=== PATIENT | female | born 1960 | race Caucasian/White ===

== ENCOUNTER 2019-12-29 17:15 | Outpatient (RCR) | payer MEDICARE, SELFPAY ==
--- NOTE | 2019-12-13 16:31 | PTOPEVAL ---
PHYSICAL THERAPY EVALUATION AND PLAN OF CARE Thank you for referring this patient to [facility]. Frederick will be seen in physical therapy 1x/week for 2-3weeks. Please review, sign, date and return this plan of care ADELAIDA. I agree with and certify that the following plan of care is medically necessary. Referring Physician Date Attending Provider: Mckay Sargent MD Evaluation Outpatient Past Medical History Cardiovascular History Hx Hypertension Yes Respiratory History Hx Respiratory Disorders No Significant History Gastrointestinal History Hx Gall Bladder Disease Yes: Removed Hx Gastroesophageal Reflux Disease Yes Genitourinary History Hx Genitourinary Disorders No Significant History Musculoskeletal History Hx Other Musculoskeletal Disorders Yes: ankylosing spondlyosis Other History Hx Other Surgeries Yes: belly button hernia Evaluation Information Diagnosis OA of spine; ankylosing spondylosis Onset chronic Subjective Information Frederick is here today with Query Text:As Reported By Patient/ diagnosis of ankylosing Family spondylosis. She is here today for physical therapy to provide education and HEP in order to promote optimal mobility. She reports she does have pain; however, she knows that pain is a result of her diagnosis. She states that the physician is concerned she will lose her mobility and she needs to learn how to manage. Pain Scale Pain Scale Used Numeric (1 - 10) Self Report Pain Assessment Bilateral Spine, Lumbar Reported Pain Level 4 Pain Description Aching,Cramping Pain Score Pain Score 4: Self Report Cervical ROM Cervical Extension (0-70) 55 Cervical Rotation Right (0-90) 65 Cervical Rotation Left (0-90) 45 Lumbar ROM Lumbar Flexion (0-90) 54 Lumbar Extension (0-40) 15 Lateral Rotation Right (0-45) 20 Lateral Rotation Left (0-45) 20 General Upper Extremity Range of Motion WNL/Left,WNL/Right Lower Extremity Range of Motion General Lower Extremity Range of Motion WNL/Left,WNL/Right Hip Strength Bilateral Hip Flexion Strength 5 Normal Hip Extension Strength 4 Good Hip Abduction Strength 5 Normal Knee Strength Bilateral Knee Flexion Strength 5 Normal Knee Extension Strength 5 Normal Upper Extremity Muscle Strength Testing Gross Upper Extremity Strength Comments generally WNL; right
--- NOTE | 2020-01-03 16:04 | PCPTNOTE ---
PHYSICAL THERAPY DISCHARGE REPORT Attending Provider: Mckay Sargent MD Patient:Frederick Sellers Date of :1960 Frederick has participated in physical therapy for 2 visits for education on body mechanics, posture, and strengthening or in order to prevent further complication from ankylosing spondylosis. She was also provided with education regarding mobility of spine to maintain ROM as possible. She will be discharged from therapy at this time. The goals have been achieved. Thank you for referring this patient to [facility]. Please review, sign, date and return this discharge summary ADEALIDA. I have been updated about the patient's current status and I agree with discharge from the above service at this time. Referring Physician Date
== END 2020-01-04 08:27 | disposition home or self-care (01) ==
LOC: ANHPT 17:15
PROVIDERS: PCP Internal Medicine; Visit Provider Internal Medicine
DX: M19.90 Unspecified osteoarthritis, unspecified site (principal)
CPT/HCPCS: 97110; 97161

== ENCOUNTER 2019-12-30 08:32 | Outpatient (CLI) | payer MEDICARE, SELFPAY ==
--- NOTE | 2020-01-11 06:06 | SLEEP_ITS ---
Home Sleep Test DATE OF STUDY: 12/30/2019 ORDERING PHYSICIAN: Dr. Dewayne John. REASON FOR THE STUDY: Hypersomnia. HISTORY: This is a 59-year-old female, 5 feet 2 inches tall, weighing 193 pounds with a body mass index of 35.3. She does not know if she snores. Nobody complains about loud snoring to her. She occasionally awakens at night with heartburn, belching, or coughing. She rarely has trouble sleeping with the cold. She does not gasp for breath at night or sweat excessively at night. She occasionally notices her heart pounding or beating irregularly at night. She does not fall asleep during the day, does not fall asleep involuntarily and does not fall asleep while driving. She does not have loss of muscle tone with strong emotion or daytime difficulty due to excessive sleepiness. She does not feel paralyzed on waking or falling asleep. She denies having vivid dreamlike scenes upon awakening or falling asleep. She is never afraid to go to sleep. She does not have nightmares. She rarely remembers her dreams. She occasionally has racing thoughts, feelings of sadness, depression or anxiety. She does not have muscular tension. She occasionally notices parts of her body jerking. She does not kick at night or have crawly achy feelings in her legs. She does not have leg pain at night. She rarely grinds her teeth at night. She constantly is bothered by pain during the day, but never is awakened by pain at night. She constantly wakes up feeling stiff in the morning with pain in her neck and spine, but denies sore or achy muscles. She has headaches and palpitations. Normal bedtime is 1 a.m., falling asleep within 15 or 20 minutes, waking 3 times to use the bathroom. She stays awake for just a few minutes. She wakes in the morning at 11 a.m. She has on average 8 hours of sleep per night. She does not take naps. A short nap is not refreshing. She feels good in the morning. She feels better in the afternoon than in the morning. MEDICAL COMORBIDITIES: Hypertension, ankylosing spondylitis, GERD, migraine headaches. MEDICATIONS: 1. Amitriptyline 75 mg for migraines. 2. Metoprolol ER 12.5 mg daily. 3. Atorvastatin 20 mg daily. 4. Pantoprazole 40 mg a day. 5. Humira by weekly for ankylosing spondylitis. 6. Nitroglycerin 0.4 mg as needed for chest pain. 7. Aspirin 81 mg a day. 8. Vitamin D3 of 2000 units twice a day. 9. Calcium 600 mg daily. 10. Multivitamin 1 daily. HABITS: She smoked tobacco 10 years ago. Two cups of coffee a day. No alcohol or recreational drugs. DESCRIPTION OF THE STUDY: On the [place] Sleepiness Scale, her score is 3. This was conducted as a home sleep test using 4 channel monitoring including respiratory effort channel, snoring channel, oxygen saturation channel, and heart rate channel. This study was scored using [facility] guidelines. The apnea-hypopnea index was elevated at 19. The oxygen desaturation index is 18.5. The lowest desaturation is 73%. The mean saturation is 93%. She had 31 apneas. Of these apneas, 94% or 29 apneas were obstructive, 6% or 2 apneas were central, there were 121 hypopneas, 509 snoring events, and 144 desaturations with 12 minutes spent below 88%, 3% of the study. Heart rate ranged from 65 to 115. IMPRESSION: This home sleep test shows evidence of at least moderate obstructive sleep apnea syndrome G47.33, with an AHI of 19. Deep desaturation to 73%. Multiple desaturations and 12 minutes spent below 88% saturation. There were heart rate spikes. The patient has medical comorbidities including hypertension. This patient should have a CPAP titration to eliminate obstructive events with desaturation and snoring. Close clinical followup is recommended. The patient does not complain of daytime
== END 2019-12-30 08:33 | disposition home or self-care (01) ==
PROVIDERS: PCP Internal Medicine; Visit Provider Internal Medicine
DX: G47.10 Hypersomnia, unspecified (principal); G47.33 Obstructive sleep apnea (adult) (pediatric)
CPT/HCPCS: 95806

== ENCOUNTER 2020-06-04 09:33 | Outpatient (CLI) | payer MEDICARE, SELFPAY ==
--- NOTE | ~2020-06-04 | US_ITS ---
US abdomen complete EXAMINATION: US Abdomen Complete INDICATION: Epigastric pain. Prior cholecystectomy. PROCEDURE: Realtime High Resolution abdomen ultrasound. COMPARISON: Ultrasound dated 03/12/2019 FINDINGS: Gallbladder surgically absent. Common bile duct measures 4 mm. Liver echotexture is increased, consistent with fatty infiltration.. Pancreas within normal limits. Pancreatic tail is obscured by bowel gas. Spleen is unremarkeable. Renal echotexture is within norm al limits bilaterally without hydronephrosis, contour deforming mass or renal stone. Right kidney angel luis sures 10.4 cm. Left kidney measures 10.1 cm. Visualized aspects of the aorta and IVC are within normal limits. Portal vein is patent. No sonograph ic Liu's sign indicated by the technologist. IMPRESSION: 1: Hepatic steatosis. 2: Status post cholecystectomy. Reviewed, dictated and finalized at location A.
== END 2020-06-04 09:34 | disposition home or self-care (01) ==
PROVIDERS: PCP Internal Medicine; Visit Provider Internal Medicine
DX: R10.13 Epigastric pain (principal); Z90.49 Acquired absence of other specified parts of digestive tract
CPT/HCPCS: 76700

== ENCOUNTER 2020-06-29 09:51 | Outpatient (CLI) | payer MEDICARE, SELFPAY ==
[2020-06-29 10:38] LABS: Hematocrit 41.8 % (37.0-47.0); Hemoglobin 14.4 g/dL (12.0-15.0); Mean Corpuscular HGB Conc 34.4 g/dl (32-36); Mean Corpuscular Hemoglobin 30.3 pg (26-34); Mean Platelet Volume 10.6 fl (7.4-10.4); Platelet Count Result 275 k/mm3 (150-375); Red Blood Count 4.75 M/mm3 (4.2-5.4); Red Cell Distribution Width 12.3 % (11.5-14.5)
[2020-06-29 10:51] LABS: Add Urine Microscopic? YES; Appearance Urine Clear (Clear); Bilirubin Urine Negative (Negative); Color Urine Yellow (Yellow); Glucose Urine UA Negative (Negative); Ketones Urine Negative (Negative); Leukocyte Esterase Ur 1+ LEU/UL (Negative); Mucus Urine Moderate /lpf; Nitrate Urine Negative (Negative); Protein Urine Negative (Negative); RBC Urine 0-2 /hpf (0-2); Specific Grav Ur 1.028 (1.001-1.035); Squamous Epithelial Cell Urine Rare /hpf (Few); Urobilinogen Urine Negative mg/dL (<2.0)
[2020-06-29 10:57] LABS: Alanine Aminotransferase 38 U/L (4-35); Alkaline Phosphatase 118 U/L (38-126); Anion Gap 5 mmol/L (8-16); Aspartate Amino Transferase 33 U/L (14-36); Bilirubin,Total 0.8 mg/dL (0.2-1.3); Blood Urea Nitrogen 22 mg/dL (7-17); CRP < 0.5 mg/dL (<1.0); Calcium 9.1 mg/dL (8.4-10.2); Carbon Dioxide 27 mmol/L (22-30); Chloride 106 mmol/L (98-107); Estimated Glomerular Filt Rate > 60; Glucose 104 mg/dL (65-105); Potassium 4.2 mmol/L (3.4-5.0); Sodium 138 mmol/L (137-145)
[2020-06-29 11:20] LABS: Blood Urine Negative (Negative)
[2020-06-29 11:48] LABS: Erythrocyte Sedimentation Rate 16 mm/hr (0-20)
== END 2020-06-29 09:52 | disposition home or self-care (01) ==
LOC: ANHLAB 09:52
PROVIDERS: PCP Internal Medicine; Visit Provider Internal Medicine
DX: M19.90 Unspecified osteoarthritis, unspecified site (principal); M45.6 Ankylosing spondylitis lumbar region
CPT/HCPCS: 36415; 80053; 81001; 85027; 85652; 86140; 87086

== ENCOUNTER 2020-07-04 11:57 | Outpatient (CLI) | payer MEDICARE, SELFPAY ==
[2020-07-07 13:25] LABS: NIL 0.04 IU/mL; Quantiferon TB Plus, 1T NEGATIVE (NEGATIVE); TB2-NIL <0.00 IU/mL
== END 2020-07-04 11:58 | disposition home or self-care (01) ==
PROVIDERS: PCP Internal Medicine; Visit Provider Internal Medicine
DX: M45.6 Ankylosing spondylitis lumbar region (principal)
CPT/HCPCS: 36415; 86480

== ENCOUNTER 2020-07-12 02:12 | Outpatient (CLI) | payer MEDICARE, SELFPAY ==
[2020-07-12 19:20] LABS: SARS-CoV-2 RNA PCR Negative
== END 2020-07-12 02:13 | disposition home or self-care (01) ==
LOC: ANHCOVIDDT 02:12
PROVIDERS: PCP Internal Medicine; Visit Provider Internal Medicine Gastroenterology
DX: Z01.812 Encounter for preprocedural laboratory examination (principal); Z20.828 Contact with and (suspected) exposure to other viral communicable diseases
CPT/HCPCS: 87635; C9803; U0003

== ENCOUNTER 2020-07-14 01:08 | Day surgery (SDC) | payer MEDICARE, SELFPAY ==
[2020-07-05 09:30] VITALS: BMI 35.2
[2020-07-14 10:14] VITALS: BP 122/87; PULSE 97; RESP 22; TEMP 36.8; O2SAT 98; BMI 36.0
[2020-07-14] MEDS: LACTATED RINGERS 1,000 ML 150 ML IV CONT (10:24)
--- NOTE | 2020-07-14 10:55 | WPDANESEPPF ---
Anes - Initial Pre Proc Eval Procedure: Operation Date: 07/14/20 11:15 Proposed Procedures p Esophagogastroduodenoscopy&Screen Colon - Hiren Rascon MD Date/Time: 07/14/20 10:55 Surgeon: Hiren Rascon MD Pre Op Diagnosis: Abdomen Pain, Neoplasm Screening Patient Data Age: 59 Gender: F Height: 1.57 m Weight: 89.3 kg Last Vital Signs Temp 36.8 C 07/14/20 10:14 Pulse 97 07/14/20 10:14 Resp 22 H 07/14/20 10:14 BP 122/87 07/14/20 10:14 Pulse Ox 98 07/14/20 10:14 Allergies Allergy/AdvReac Type Severity Reaction Status Date / Time No Known Allergies Allergy Verified 07/14/20 10:11 Home Medications Medication Instructions Recorded Confirmed Type calcium carbonate 600 mg calcium 600 mg PO DAILY 10/15/19 07/05/20 History (1,500 mg) tablet aspirin [Children's Aspirin] 81 mg PO DAILY@0800 #30 tablet 11/02/19 07/05/20 Rx nitroglycerin [Nitrostat] 0.4 mg SUBLINGUAL Q5MIN PRN #30 11/02/19 07/05/20 Rx tablet pantoprazole 40 mg tablet,delayed 40 mg PO QAM #90 tablet 02/14/20 07/05/20 Rx release metoprolol succinate 25 mg 12.5 mg PO DAILY #45 tablet 02/15/20 07/05/20 Rx tablet,extended release 24 hr adalimumab 40 mg/0.4 mL 40 mg SUB-Q .q2w #2 each 03/17/20 07/05/20 Rx subcutaneous pen kit atorvastatin 20 mg tablet 20 mg PO DAILY #90 tablet 05/04/20 07/05/20 Rx alprazolam 0.25 mg tablet 0.25 mg PO DAILY PRN #30 tablet 05/16/20 07/05/20 Rx galcanezumab-gnlm 120 mg/mL 120 mg SUB-Q MONTHLY #1 ml 05/16/20 07/05/20 Rx subcutaneous pen injector peg 3350-electrolytes 236 240 ml PO Q10M #4000 ml 06/26/20 07/04/20 Rx gram-22.74 gram-6.74 gram-5.86 gram solution amitriptyline 100 mg PO HS 07/05/20 07/05/20 History cholecalciferol (vitamin D3) 50 mcg PO DAILY 07/05/20 07/05/20 History [Vitamin D3] diclofenac sodium [Voltaren] 4 gm TOPICAL QID PRN 07/05/20 07/05/20 History mecobalamin (vitamin B12) 1,000 mcg SUBLINGUAL DAILY 07/05/20 07/05/20 History Patient hx anesthesia problems: none Family hx anesthesia problems: none PMFSH Social History Social History Smoking packs per day: 0.5 Smoking cigarettes per day: 10.0 Years smoked: 20 Smoking pack-years: 10.00 Smoking status: Former smoker Tobacco type: cigarettes Second hand tobacco smoke exposure: Yes Smoking end date: 11/03/09 Alcohol intake: current Substance use: never Substance use type: does not use Living arrangements: with family Gender identity (if verbalized by the patient): Female Spiritual care concerns: No Agree to blood products: Yes Anes - Eval Final PreProcedure Day of Procedure 07/14/20 10:55 Patient weight: obese Heart: regular rate and rhythm Lungs: clear to auscultation and normal air movement Airway: Mallampati scale class II Neurological: alert and oriented Last oral intake: >/= 8 hours ASA classification: III Emergent: no Anesthetic plan: proceed Anesthesia type and monitoring: general GIVS Informed Consent: The patient's anesthetic plan and its attendant risks and benefits were discussed with the patient/family/POA. Questions were solicited and answers provided to the satisfaction of the patient/family/POA.
--- NOTE | 2020-07-14 11:07 | PM.HPGS ---
History of Present Illness History of Present Illness Consent: Risks, benefits, and alternatives have been discussed and questions answered. Patient agrees to proceed with procedure. Chief complaint: Abdomen Pain, Neoplasm Screening Narrative: Frederick Sellers is a 59 year old female with epigastric pain, also colon polyps 2015 Review of Systems Constitutional: Constitutional: Denies headache(s) and Denies weakness Eyes: Eyes: Denies blurry vision ENT: Reports Normal hearing present, Denies headache(s) and Denies neck pain Cardiovascular: Cardiovascular: Denies chest pain and Denies dyspnea Respiratory: Respiratory: Denies dyspnea Gastrointestinal: Gastrointestinal: Reports no additional gastrointestinal complaints Genitourinary: Genitourinary: Denies dysuria Musculoskeletal: Musculoskeletal: Denies neck pain Integumentary/Breasts: Skin/Breast: Denies dry skin Neurologic: Reports Normal hearing present, Denies headache(s) and Denies weakness Psychiatric: Psychiatric: Denies anxiety Endocrine: Endocrine: Denies change in body appearance Hematologic/Lymphatic: Hematologic/Lymphatic: Denies easy bleeding Allergic/Immunologic: Allergic/Immunologic: Denies urticaria PMFSH Social History Social History Smoking packs per day: 0.5 Smoking cigarettes per day: 10.0 Years smoked: 20 Smoking pack-years: 10.00 Smoking status: Former smoker Tobacco type: cigarettes Second hand tobacco smoke exposure: Yes Smoking end date: 11/03/09 Alcohol intake: current Substance use: never Substance use type: does not use Living arrangements: with family Gender identity (if verbalized by the patient): Female Spiritual care concerns: No Agree to blood products: Yes Meds Home Medications and Allergies Home Medications Medication Instructions Recorded Confirmed Type calcium carbonate 600 mg calcium 600 mg PO DAILY 10/15/19 07/05/20 History (1,500 mg) tablet aspirin [Children's Aspirin] 81 mg PO DAILY@0800 #30 tablet 11/02/19 07/05/20 Rx nitroglycerin [Nitrostat] 0.4 mg SUBLINGUAL Q5MIN PRN #30 11/02/19 07/05/20 Rx tablet pantoprazole 40 mg tablet,delayed 40 mg PO QAM #90 tablet 02/14/20 07/05/20 Rx release metoprolol succinate 25 mg 12.5 mg PO DAILY #45 tablet 02/15/20 07/05/20 Rx tablet,extended release 24 hr adalimumab 40 mg/0.4 mL 40 mg SUB-Q .q2w #2 each 03/17/20 07/05/20 Rx subcutaneous pen kit atorvastatin 20 mg tablet 20 mg PO DAILY #90 tablet 05/04/20 07/05/20 Rx alprazolam 0.25 mg tablet 0.25 mg PO DAILY PRN #30 tablet 05/16/20 07/05/20 Rx galcanezumab-gnlm 120 mg/mL 120 mg SUB-Q MONTHLY #1 ml 05/16/20 07/05/20 Rx subcutaneous pen injector peg 3350-electrolytes 236 240 ml PO Q10M #4000 ml 06/26/20 07/04/20 Rx gram-22.74 gram-6.74 gram-5.86 gram solution amitriptyline 100 mg PO HS 07/05/20 07/05/20 History cholecalciferol (vitamin D3) 50 mcg PO DAILY 07/05/20 07/05/20 History [Vitamin D3] diclofenac sodium [Voltaren] 4 gm TOPICAL QID PRN 07/05/20 07/05/20 History mecobalamin (vitamin B12) 1,000 mcg SUBLINGUAL DAILY 07/05/20 07/05/20 History Allergies Allergy/AdvReac Type Severity Reaction Status Date / Time No Known Allergies Allergy Verified 07/14/20 10:11 Vital Signs Vital Signs - 24 hr 07/14/20 10:14 Temperature 98.2 F Pulse Rate 97 Respiratory Rate 22 H Blood Pressure 122/87 Pulse Oximetry 98 Exam Const: General: comfortable and no acute distress HENMT: General nose exam: Normal nares present Eyes: General: appearance normal, both eyes and all related structures Neck: Neck: no JVD Resp: Auscultation: clear to auscultation bilaterally Cardio: Rate: regular rate Rhythm: regular rhythm GI: Inspection: non-distended GI Palp: Yes Soft to palpation Skin: General skin exam: normal color Neuro: General: gait normal Speech: normal speech Extrem: General: normal to in
[2020-07-14] MEDS: BENZOCAINE (*SP) 60 ML SPRAY CAN (HURRICAINE) 1 SPRAY MUCOUS MEM (11:16)
--- NOTE | 2020-07-14 11:34 | SUR.OPER ---
EGD ENDED 112 COLONOSCOPY STARTED 1127
[2020-07-14 12:03] VITALS: BP 93/60; PULSE 90; RESP 19; O2SAT 96
[2020-07-14 12:13] VITALS: BP 93/60; PULSE 82; RESP 14; O2SAT 96
[2020-07-14 12:15] VITALS: BP 104/69; PULSE 81; RESP 19; O2SAT 97
== END 2020-07-14 12:30 | disposition home or self-care (01) ==
PROVIDERS: PCP Internal Medicine; Visit Provider Internal Medicine Gastroenterology
PROC: 0DJ08ZZ Inspection of Upper Intestinal Tract, Via Natural or Artificial Opening Endoscopic (ICD-10-PCS; CPT 43235; principal; 2020-07-14 11:15)
DX: Z12.11 Encounter for screening for malignant neoplasm of colon (principal); K63.5 Polyp of colon; K29.50 Unspecified chronic gastritis without bleeding; K20.9 Esophagitis, unspecified; K44.9 Diaphragmatic hernia without obstruction or gangrene; M45.9 Ankylosing spondylitis of unspecified sites in spine; Z79.82 Long term (current) use of aspirin; Z87.891 Personal history of nicotine dependence; E66.9 Obesity, unspecified; Z68.36 Body mass index [BMI] 36.0-36.9, adult
CPT/HCPCS: 45385; 43239; 88305; J2704; J7120

== ENCOUNTER 2020-07-31 01:20 | Outpatient (CLI) | payer MEDICARE, SELFPAY ==
[2020-07-31 18:02] LABS: SARS-CoV-2 RNA PCR Negative
== END 2020-07-31 01:21 | disposition home or self-care (01) ==
LOC: ANHCOVIDDT 01:20
PROVIDERS: PCP Internal Medicine; Visit Provider Internal Medicine Critical Care Medicine
DX: R09.89 Other specified symptoms and signs involving the circulatory and respiratory systems (principal); Z20.828 Contact with and (suspected) exposure to other viral communicable diseases
CPT/HCPCS: 87635; C9803; U0003

== ENCOUNTER 2020-08-02 07:50 | Outpatient (CLI) | payer MEDICARE, SELFPAY ==
--- NOTE | 2020-08-28 19:04 | WPDSLEEPSTUD ---
Sleep Study Date of Study: 08/02/20 Ordering Provider: Dewayne John MD Interpreting Physician: Faith Ag MD Sleep Study Type: CPAP Titration Height: 1.57 m Weight: 88.904 kg Body Mass Index: 35.8 [place]: 5 Reason for Sleep Study Prior home sleep test 12/30/2019 with an AHI 19, deep desaturation is 73%, 12 minutes spent below 88%. She was tested for recurrent migraines, on amitriptyline. Sleep History This is a 59-year-old female with a home sleep test February the 05/22/2020 that showed at least moderate obstructive sleep apnea with an AHI of 19, minimum desaturation is 73%. She presents for a CPAP titration. She occasionally awakens at night with heartburn, belching, or coughing. She rarely has trouble sleeping with a cold. She does not gasp for breath at night or sweat excessively at night. She occasionally notices her heart pounding or beating irregularly at night. She does not fall asleep during the day, does not fall asleep involuntarily and does not fall asleep while driving. She does not have loss of muscle tone with strong emotion or daytime difficulty due to excessive sleepiness. She does not feel paralyzed on waking or falling asleep. She denies having vivid dreamlike scenes upon awakening or falling asleep. She is never afraid to go to sleep.She does not have nightmares. She rarely remembers her dreams. She occasionally has racing thoughts, feelings of sadness, depression or anxiety. She does not have muscular tension. She occasionally notices parts of her body jerking. She does not kick at night or have crawly achy feelings in her legs. She does not have leg pain at night. She rarely grinds her teeth at night. She constantly is bothered by pain during the day, but never is awakened by pain at night. She constantly wakes up feeling stiff in the morning with pain in her neck and spine, but denies sore or achy muscles. She has headaches and palpitations. Normal bedtime is 1 a.m., falling asleep within 15 or 20 minutes, waking 3 times to use the bathroom. She stays awake for just a few minutes. She wakes in the morning at 11 a.m. She has on average 8 hours of sleep per night. She does not take naps. A short nap is not refreshing. She feels good in the morning. She feels better in the afternoon than in the morning. She wakes at night to urinate. [facility] Past Medical History Medical History (Updated 08/29/20 @ 13:02 by Faith Ag MD) Adenomatous colon polyp Ankylosing spondylitis HTN (hypertension) Migraines Umbilical hernia Surgical History Surgical History H/O hernia repair Hx of cholecystectomy Hx of tubal ligation Family History Family History Sibling Diabetes mellitus Hypertension Leukemia Grandparent Acute myocardial infarction Family history of emphysema Family history of pancreatic cancer Family history of chronic obstructive pulmonary disease Family history of dementia Cerebrovascular accident Father Heart disease, Onset Age: 49 Family history of chronic obstructive pulmonary disease Mother Family history of malignant neoplasm of breast in first degree relative Family history of dementia Social History Social History Smoking packs per day: 0.5 Smoking cigarettes per day: 10.0 Years smoked: 20 Smoking pack-years: 10.00 Smoking status: Former smoker Tobacco type: cigarettes Second hand tobacco smoke exposure: Yes Smoking end date: 11/03/09 Alcohol intake: current Substance use: never Substance use type: does not use Gender identity (if verbalized by the patient): Female Spiritual care concerns: No Agree to blood products: Yes Medications Home Medications Medication Instructions Recorded Confirmed Type calcium carbonate 600 mg calcium 600 mg PO DAILY 10/15/19 09/0
[2020-08-29 13:12] VITALS: BMI 35.8
== END 2020-08-02 07:51 | disposition home or self-care (01) ==
LOC: ANHCSM 08:17
PROVIDERS: PCP Internal Medicine; Visit Provider Internal Medicine
DX: G47.33 Obstructive sleep apnea (adult) (pediatric) (principal); I10 Essential (primary) hypertension; M45.9 Ankylosing spondylitis of unspecified sites in spine
CPT/HCPCS: 95811

== ENCOUNTER 2020-11-06 09:50 | Outpatient (CLI) | payer MEDICARE, SELFPAY ==
[2020-11-06 10:15] LABS: Hematocrit 41.2 % (37.0-47.0); Mean Corpuscular Hemoglobin 29.5 pg (26-34); Mean Corpuscular Volume 86.7 fl (80-100); Mean Platelet Volume 10.1 fl (7.4-10.4); Platelet Count Result 263 k/mm3 (150-375); Red Blood Count 4.75 M/mm3 (4.2-5.4); White Blood Count 6.3 K/mm3 (4.5-10.0)
[2020-11-06 10:17] LABS: Add Urine Microscopic? NO; Appearance Urine Clear (Clear); Bilirubin Urine Negative (Negative); Blood Urine Negative (Negative); Color Urine Yellow (Yellow); Glucose Urine UA Negative (Negative); Ketones Urine Negative (Negative); Leukocyte Esterase Ur Negative LEU/UL (Negative); Nitrate Urine Negative (Negative); Protein Urine Negative (Negative); Specific Grav Ur 1.017 (1.001-1.035); Urobilinogen Urine Negative mg/dL (<2.0)
[2020-11-06 10:32] LABS: Cholesterol 171 mg/dL (0-200); HDL Direct 32 mg/dL; Triglycerides 276 mg/dL (<150)
[2020-11-06 10:37] LABS: Alanine Aminotransferase 39 U/L (4-35); Albumin Level 3.8 g/dL (3.5-5.1); Alkaline Phosphatase 142 U/L (38-126); Anion Gap 4 mmol/L (8-16); Aspartate Amino Transferase 33 U/L (14-36); Bilirubin,Total 0.7 mg/dL (0.2-1.3); Blood Urea Nitrogen 21 mg/dL (7-17); CRP < 0.5 mg/dL (<1.0); Calcium 9.2 mg/dL (8.4-10.2); Carbon Dioxide 30 mmol/L (22-30); Chloride 105 mmol/L (98-107); Estimated Glomerular Filt Rate > 60; Glucose 107 mg/dL (65-105); Potassium 3.9 mmol/L (3.4-5.0); Sodium 139 mmol/L (137-145)
[2020-11-06 10:43] LABS: LDL Cholesterol Direct 105 mg/dL
[2020-11-06 10:47] LABS: Erythrocyte Sedimentation Rate 15 mm/hr (0-20)
[2020-11-06 11:03] LABS: Thyroid Stimulating Hormone 0.894 uIU/mL (0.465-4.680)
[2020-11-06 11:08] LABS: Vitamin D 25 Hydroxy 41.4 ng/mL
== END 2020-11-06 09:51 | disposition home or self-care (01) ==
PROVIDERS: PCP Internal Medicine; Visit Provider Internal Medicine
DX: M45.6 Ankylosing spondylitis lumbar region (principal); M19.90 Unspecified osteoarthritis, unspecified site; E55.9 Vitamin D deficiency, unspecified; E78.2 Mixed hyperlipidemia; I10 Essential (primary) hypertension; K76.0 Fatty (change of) liver, not elsewhere classified
CPT/HCPCS: 36415; 80053; 80061; 81003; 82306; 84443; 85027; 85652; 86140

== ENCOUNTER 2020-11-09 16:28 | Outpatient (CLI) | payer MEDICARE, SELFPAY ==
--- NOTE | ~2020-11-09 | MM_ITS ---
EXAMINATION: MM screening denisse BI w memo HISTORY: Screening mammogram, family history of breast cancer in her mother. TECHNIQUE: Craniocaudal and mediolateral oblique 3-D tomosynthesis images were obtained and synthetic 2-D images were generated. CAD analysis was submitted and interpreted. COMPARISON: 07/21/2019, 07/03/2018, 11/28/2016 BREAST PARENCHYMAL COMPOSITION: The breasts are heterogeneously dense, which may obscure small masses . FINDINGS: There is no evidence of suspicious mass, calcification, or architectural distortion to sugg est malignancy in either breast. There has been no suspicious interval change. IMPRESSION: 1. No mammographic evidence of malignancy. 2. Recommend routine screening mammography in one year. BI-RADS Category 1: Negative Reviewed, dictated and finalized at location A. [employer]
== END 2020-11-09 16:29 | disposition home or self-care (01) ==
LOC: ANHIMG 16:29
PROVIDERS: PCP Internal Medicine; Visit Provider Internal Medicine
DX: Z12.31 Encounter for screening mammogram for malignant neoplasm of breast (principal)
CPT/HCPCS: 77063; 77067

== ENCOUNTER 2021-04-09 07:06 | Outpatient (CLI) | payer MEDICARE, SELFPAY ==
[2021-04-09 07:50] LABS: Hematocrit 40.1 % (37.0-47.0); Hemoglobin 13.8 g/dL (12.0-15.0); Mean Corpuscular HGB Conc 34.4 g/dl (32-36); Mean Corpuscular Hemoglobin 29.8 pg (26-34); Mean Corpuscular Volume 86.6 fl (80-100); Mean Platelet Volume 10.2 fl (7.4-10.4); Platelet Count Result 245 k/mm3 (150-375); Red Blood Count 4.63 M/mm3 (4.2-5.4); Red Cell Distribution Width 12.1 % (11.5-14.5); White Blood Count 5.3 K/mm3 (4.5-10.0)
[2021-04-09 07:52] LABS: Add Urine Microscopic? NO; Appearance Urine Clear (Clear); Bilirubin Urine Negative (Negative); Blood Urine Negative (Negative); Color Urine Yellow (Yellow); Glucose Urine UA Negative (Negative); Ketones Urine Negative (Negative); Leukocyte Esterase Ur Negative LEU/UL (Negative); Nitrate Urine Negative (Negative); Protein Urine Negative (Negative); Specific Grav Ur 1.014 (1.001-1.035); Urobilinogen Urine Negative mg/dL (<2.0)
[2021-04-09 08:06] LABS: Hemoglobin A1C 5.4 % (<5.7)
[2021-04-09 08:09] LABS: Cholesterol 152 mg/dL (0-200); HDL Direct 38 mg/dL; Triglycerides 152 mg/dL (<150)
[2021-04-09 08:20] LABS: Alanine Aminotransferase 74 U/L (4-35); Albumin Level 3.7 g/dL (3.5-5.1); Alkaline Phosphatase 141 U/L (38-126); Anion Gap 5 mmol/L (8-16); Aspartate Amino Transferase 62 U/L (14-36); Bilirubin,Total 0.9 mg/dL (0.2-1.3); Blood Urea Nitrogen 16 mg/dL (7-17); Calcium 9.1 mg/dL (8.4-10.2); Carbon Dioxide 30 mmol/L (22-30); Chloride 106 mmol/L (98-107); Estimated Glomerular Filt Rate > 60; Glucose 106 mg/dL (65-105); LDL Cholesterol Direct 77 mg/dL; Potassium 3.8 mmol/L (3.4-5.0); Sodium 141 mmol/L (137-145)
[2021-04-09 08:35] LABS: CRP 0.8 mg/dL (<1.0)
[2021-04-09 08:55] LABS: Erythrocyte Sedimentation Rate 16 mm/hr (0-20)
[2021-04-09 13:18] LABS: Creatinine Urine 65.9 mg/dL
[2021-04-09 13:33] LABS: MALB Creatinine Ratio < 9.1 mg/g (0-30); Microalbumin Urine Random < 6.0 mg/L (0-16.7)
== END 2021-04-09 07:07 | disposition home or self-care (01) ==
PROVIDERS: PCP Internal Medicine; Referring Provider Internal Medicine; Visit Provider Internal Medicine
DX: M19.90 Unspecified osteoarthritis, unspecified site (principal); M45.9 Ankylosing spondylitis of unspecified sites in spine; R73.01 Impaired fasting glucose; I10 Essential (primary) hypertension; E78.2 Mixed hyperlipidemia
CPT/HCPCS: 36415; 80053; 80061; 81003; 82043; 83036; 85027; 85652; 86140

== ENCOUNTER 2021-04-11 11:11 | Outpatient (CLI) | payer MEDICARE, SELFPAY ==
--- NOTE | ~2021-04-11 | XR_ITS ---
[id number] 04/11/2021 11:46 Indication: Radiculopathy Procedure: 3 views cervical spine Comparison: 09/15/2018 Findings: There is straightening of cervical lordosis. There is moderate degenerative disc disease at C5-6. There is an old spinous process avulsion at C7. There is mild multilevel uncinate hypertrophy. No prevertebral soft tissue abnormality. Lung apices are normal. Odontoid process within normal limi ts. Impression: 1: Stable mild-moderate cervical spondylosis most advanced at C5-6. Reviewed, dictated and finalized at location B. Impression: 1: Stable mild-moderate cervical spondylosis most advanced at C5-6.
== END 2021-04-11 11:12 | disposition home or self-care (01) ==
PROVIDERS: PCP Internal Medicine; Visit Provider Internal Medicine
DX: M47.22 Other spondylosis with radiculopathy, cervical region (principal)
CPT/HCPCS: 72040

== ENCOUNTER 2021-05-09 11:20 | Outpatient (CLI) | payer MEDICARE, SELFPAY ==
[2021-05-09 12:05] LABS: Alanine Aminotransferase 71 U/L (4-35); Albumin Level 4.2 g/dL (3.5-5.1); Alkaline Phosphatase 140 U/L (38-126); Anion Gap 4 mmol/L (8-16); Aspartate Amino Transferase 48 U/L (14-36); Bilirubin,Total 1.4 mg/dL (0.2-1.3); Blood Urea Nitrogen 14 mg/dL (7-17); Calcium 9.6 mg/dL (8.4-10.2); Carbon Dioxide 31 mmol/L (22-30); Chloride 106 mmol/L (98-107); Estimated Glomerular Filt Rate 57; Glucose 93 mg/dL (65-105); Potassium 4.1 mmol/L (3.4-5.0); Sodium 141 mmol/L (137-145)
== END 2021-05-09 11:21 | disposition home or self-care (01) ==
PROVIDERS: PCP Internal Medicine; Visit Provider Internal Medicine
DX: R79.89 Other specified abnormal findings of blood chemistry (principal)
CPT/HCPCS: 36415; 80053

== ENCOUNTER 2021-06-01 11:10 | Outpatient (CLI) | payer MEDICARE, SELFPAY ==
[2021-06-01 11:45] LABS: Alanine Aminotransferase 52 U/L (4-35); Albumin Level 4.3 g/dL (3.5-5.1); Alkaline Phosphatase 136 U/L (38-126); Aspartate Amino Transferase 29 U/L (14-36); Bilirubin,Total 1.3 mg/dL (0.2-1.3)
== END 2021-06-01 11:11 | disposition home or self-care (01) ==
LOC: ANHLAB 11:11
PROVIDERS: PCP Internal Medicine; Visit Provider Internal Medicine
DX: R79.89 Other specified abnormal findings of blood chemistry (principal)
CPT/HCPCS: 36415; 80076

== ENCOUNTER 2021-07-16 09:31 | Outpatient (CLI) | payer MEDICARE, SELFPAY ==
[2021-07-16 10:07] LABS: Alanine Aminotransferase 31 U/L (4-35); Albumin Level 4.1 g/dL (3.5-5.1); Alkaline Phosphatase 115 U/L (38-126); Aspartate Amino Transferase 26 U/L (14-36)
== END 2021-07-16 09:32 | disposition home or self-care (01) ==
LOC: ANHLAB 09:36
PROVIDERS: PCP Internal Medicine; Visit Provider Internal Medicine
DX: R79.89 Other specified abnormal findings of blood chemistry (principal)
CPT/HCPCS: 36415; 80076

== ENCOUNTER 2021-07-18 10:30 | Outpatient (RCR) | payer MEDICARE, SELFPAY ==
--- NOTE | 2021-06-01 16:24 | PTOPEVAL ---
Thank you for referring Frederick Sellers to [facility] The patient is scheduled to be seen for therapy? 1 x/week for 4 weeks. Please review, sign, date and return this plan of care ADELAIDA. I agree with and certify that the following plan of care is medically necessary. Referring Physician Date Attending Provider: Dewayne John MD Diagnosis cervical radiculopathy Onset chronic Additional Evaluation Detail not working due to migraines. Subjective Information She reports she has been going Query Text:As Reported By Patient/ to the gym working with UE Family resistance exercise. She reports EVANS due to neck and back pain. She has difficulty falling asleep due to pain. She is limited with reaching overhead, limited neck motion with driving. She is limited with sock drier due to back pain. Diagnostic Tests X-Rays For This Problem Yes: Stable mild-moderate cervical spondylosis most advanced at C5-6. Previous Treatments Previous Treatments For This Problem yes 12/23 Pain Assessment Self Report Pain Assessment Posterior Neck Reported Pain Level 3 Pain Description Pulling Pain Frequency Chronic,Continuous Lowest Pain Intensity 3 Greatest Pain Intensity 8 Pain Aggravating Factors ADL's,Exercise/Activity, Lifting,Prolonged Position Cervical and Lumbar ROM Cervical ROM Cervical Flexion (0-60) 50:Active in Degrees Cervical Extension (0-70) 50:Active in Degrees Cervical Lateral Flexion Right (0-50) 20:Active in Degrees Cervical Lateral Flexion Left (0-50) 18:Active in Degrees Cervical Rotation Right (0-90) 40:Active in Degrees Cervical Rotation Left (0-90) 35:Active in Degrees Cervical ROM Comments end range Cervical and Lumbar Muscle Testing Cervical Muscle Testing Cervical Flexion 4+ Good+ Cervical Extension 4+ Good+ Cervical Lateral Flexion Right 4+ Good+ Cervical Lateral Flexion Left 4+ Good+ Upper Extremity Muscle Strength Testing General Upper Extremity Strength Gross Upper Extremity Strength Comments middle trap: 3-/5 Muscle Length Testing Muscle Length Testing Latissmus Dorsi Muscle Length (R) Mild Tightness,(L) Mild Tightness Pectoralis Major Muscle Length (R) Mild Tightness,(L) Mild Tightness Pectoralis Minor Muscle Length (R) Moderate Tightness,(L) Moderate Tightness Posture Sitting Position Shoulder Posture
--- NOTE | 2021-06-04 15:41 | PCPTNOTE ---
Patient did not show up for scheduled appointment this date. Pt states she forgot about her appointment today. She is unable to reschedule for this week due to going out of town. Next visit 06/14/21.
--- NOTE | 2021-06-14 10:12 | PCPTNOTE ---
Patient called & cancelled scheduled appointment this date due to EVANS.
--- NOTE | 2021-06-26 11:46 | PTOPEVAL ---
Physical Therapy Progress Note Thank you for referring Frederick Sellers to [facility]– [place].? Frederick has attended 2 visits since her eval on 06/01/21 with 2 cancelled/no show visits. She is progressing slowly towards her therapy goals. She would benefit from additional therapy to address impairments and progress HEP for discharge. The patient is scheduled to be seen for therapy?1x/week for 3weeks. Please review, sign, date and return this plan of care ADELAIDA. I agree with and certify that the following plan of care is medically necessary. Referring Physician Date Attending Provider: Dewayne John MD Diagnosis cervical radiculopathy Onset chronic Additional Evaluation Detail not working due to migraines. Subjective Information Denies any changes in her EVANS Query Text:As Reported By Patient/ due to neck and back pain. She Family has difficulty falling or staying asleep due to pain. She denies any changes with neck motion to left. She c/o scapular pinching with reaching overhead. She has not been going to the gym per carpenter helper request until US completed. She reports soreness with HEP. Pain Assessment Head Reported Pain Level 5 Pain Description Aching Pain Frequency Chronic Lowest Pain Intensity 2 Greatest Pain Intensity 10 Posterior Neck Reported Pain Level 2 Pain Description Pulling,Radiating,Tender on Palpation,Tightness Pain Frequency Chronic,Continuous Lowest Pain Intensity 2 Greatest Pain Intensity 6 Cervical and Lumbar ROM Cervical ROM Cervical Flexion (0-60) 55:Active in Degrees Cervical Extension (0-70) 55:Active in Degrees Cervical Lateral Flexion Right (0-50) 22:Active in Degrees Cervical Lateral Flexion Left (0-50) 12:Active in Degrees Cervical Rotation Right (0-90) 45:Active in Degrees Cervical Rotation Left (0-90) 30*Active in Degrees Cervical ROM Comments cont pain with motions Upper Extremity Muscle Strength Testing General Upper Extremity Strength Gross Upper Extremity Strength Comments middle trap: 3/5 Palpation Assessment Palpation Palpation tenderness with tightness of levator and upper/middle trap muscles PT Clinical Summary Pt referred to therapy due to chronic neck pain with radiculopathy. She reports slight changes with neck
--- NOTE | 2021-07-03 09:49 | PCPTNOTE ---
Patient did not show up for scheduled appointment this date. Called pt due to no show, left message and reminded her of next visit.
--- NOTE | 2021-07-25 12:34 | PCPTNOTE ---
Patient called & cancelled scheduled appointment this date due to having to go out of town. She did not reschedule her re-eval.
--- NOTE | 2021-08-09 07:52 | PCPTNOTE ---
Admitting Provider: Attending Provider: Dewayne John MD Patient:Frederick Sellers Date of :1960 Physical Therapy Discharge Note Patient has not returned for any further treatments since 07/18/2021, therefore she will be discharged at this time. Patient?s initial visit was on 06/01/2021 14:00 and she had a total of 5 visits. The goals have been partially met. Thank you for referring this patient to [facility]. Please review, sign, date and return this discharge summary ADELAIDA. I have been updated about the patient's current status and I agree with discharge from the above service at this time. Referring Physician Date
== END 2021-08-10 08:49 | disposition home or self-care (01) ==
LOC: ANHPT 10:30
PROVIDERS: PCP Internal Medicine; Visit Provider Internal Medicine
DX: M54.12 Radiculopathy, cervical region (principal)
CPT/HCPCS: 97014; 97110; 97140; 97162; G0283

== ENCOUNTER 2021-11-30 14:21 | Outpatient (CLI) | payer MEDICARE, SELFPAY ==
--- NOTE | ~2021-11-30 | MM_ITS ---
EXAMINATION: MM screening denisse BI w memo HISTORY: Screening mammogram, family history of breast cancer in her mother. TECHNIQUE: Craniocaudal and mediolateral oblique 3-D tomosynthesis images were obtained and synthetic 2-D images were generated. CAD analysis was submitted and interpreted. COMPARISON: 11/09/2020, 07/21/2019, 06/15/2018 BREAST PARENCHYMAL COMPOSITION: The breasts are heterogeneously dense, which may obscure small masses . FINDINGS: There is no evidence of suspicious mass, calcification, or architectural distortion to sugg est malignancy in either breast. There has been no suspicious interval change. IMPRESSION: 1. No mammographic evidence of malignancy. 2. Recommend routine screening mammography in one year. BI-RADS Category 1: Negative Reviewed, dictated and finalized at location A. P FITNESS INSTRUCTOR
== END 2021-11-30 14:22 | disposition home or self-care (01) ==
LOC: ANHIMG 14:22
PROVIDERS: PCP Internal Medicine; Visit Provider Internal Medicine
DX: Z12.31 Encounter for screening mammogram for malignant neoplasm of breast (principal)
CPT/HCPCS: 77063; 77067

== ENCOUNTER → 2021-12-01 00:54 | Outpatient (CLI) | payer MEDICARE, SELFPAY ==
[2021-12-01 17:11] LABS: SARS-CoV-2 RNA PCR Positive
== END ==
PROVIDERS: PCP Internal Medicine; Visit Provider Internal Medicine
DX: U07.1 COVID-19 (principal)
CPT/HCPCS: C9803; U0003; U0005

== ENCOUNTER 2022-04-10 11:42 | Outpatient (CLI) | payer MEDICARE, SELFPAY ==
[2022-04-10 12:17] LABS: Hematocrit 43.2 % (37.0-47.0); Hemoglobin 14.4 g/dL (12.0-15.0); Mean Corpuscular HGB Conc 33.3 g/dl (32-36); Mean Corpuscular Hemoglobin 29.7 pg (26-34); Mean Corpuscular Volume 89.1 fl (80-100); Platelet Count Result 254 k/mm3 (150-375); Red Blood Count 4.85 M/mm3 (4.2-5.4); Red Cell Distribution Width 12.4 % (11.5-14.5); White Blood Count 6.4 K/mm3 (4.5-10.0)
[2022-04-10 12:34] LABS: Cholesterol 174 mg/dL (0-200); HDL Direct 43 mg/dL; Triglycerides 146 mg/dL (<150)
[2022-04-10 12:38] LABS: Alanine Aminotransferase 34 U/L (6-35); Alkaline Phosphatase 102 U/L (38-126); Anion Gap 3 mmol/L (8-16); Aspartate Amino Transferase 28 U/L (14-36); Bilirubin,Total 1.3 mg/dL (0.2-1.3); Blood Urea Nitrogen 19 mg/dL (7-17); CRP < 0.5 mg/dL (<1.0); Calcium 8.8 mg/dL (8.4-10.2); Carbon Dioxide 30 mmol/L (22-30); Chloride 106 mmol/L (98-107); Estimated Glomerular Filt Rate > 60; Glucose 105 mg/dL (65-110); Potassium 4.2 mmol/L (3.4-5.0); Sodium 139 mmol/L (137-145)
[2022-04-10 12:45] LABS: LDL Cholesterol Direct 92 mg/dL
[2022-04-10 12:59] LABS: Erythrocyte Sedimentation Rate 13 mm/hr (0-20)
[2022-04-10 13:04] LABS: Thyroid Stimulating Hormone 0.185 uIU/mL (0.465-4.680)
[2022-04-10 13:52] LABS: Folic Acid 14.2 ng/mL (2.76->20); Vitamin B12 > 1000.0 pg/mL (239-931)
[2022-04-10 14:40] LABS: Appearance Urine Slightly Cloudy (Clear); Bilirubin Urine Negative (Negative); Blood Urine Negative (Negative); Color Urine Yellow (Yellow); Glucose Urine UA Negative (Negative); Ketones Urine Negative (Negative); Leukocyte Esterase Ur Trace LEU/UL (NEGATIVE); Nitrate Urine Negative (Negative); Protein Urine Negative (Negative); Specific Grav Ur 1.025 (1.001-1.035); Urobilinogen Urine 0.2 mg/dL (<2.0); pH Urine 5.5 (5.0-9.0)
[2022-04-10 14:48] LABS: Bacteria Urine Trace /hpf; Mucus Urine Rare /lpf; Renal Epithelial Cells Urine Rare /hpf (None Seen); Squamous Epithelial Cell Urine Many /hpf (Few); WBC Urine 21-30 /hpf (0-3)
[2022-04-10 14:53] LABS: Add Urine Microscopic? YES
== END 2022-04-10 11:43 | disposition home or self-care (01) ==
PROVIDERS: PCP Physician Assistant; Referring Provider Internal Medicine; Visit Provider Physician Assistant
DX: M45.6 Ankylosing spondylitis lumbar region (principal); M19.90 Unspecified osteoarthritis, unspecified site; R53.83 Other fatigue; E78.2 Mixed hyperlipidemia; E55.9 Vitamin D deficiency, unspecified
CPT/HCPCS: 36415; 80053; 80061; 81001; 82306; 82607; 82746; 84443; 85027; 85652; 86140

== ENCOUNTER 2022-05-22 11:14 | Outpatient (CLI) | payer MEDICARE, SELFPAY ==
[2022-05-22 12:58] LABS: Free T4 Free Thyroxine 0.74 ng/mL (0.78-2.19)
[2022-05-22 13:04] LABS: Thyroid Stimulating Hormone 0.503 uIU/mL (0.465-4.680)
== END 2022-05-22 11:15 | disposition home or self-care (01) ==
LOC: ANHLAB 11:19
PROVIDERS: PCP Physician Assistant; Visit Provider Specialist
DX: E05.90 Thyrotoxicosis, unspecified without thyrotoxic crisis or storm (principal); R00.0 Tachycardia, unspecified; R07.9 Chest pain, unspecified; R06.09 Other forms of dyspnea; E78.5 Hyperlipidemia, unspecified; I10 Essential (primary) hypertension
CPT/HCPCS: 36415; 84439; 84443

== ENCOUNTER 2022-10-15 12:26 | Outpatient (CLI) | payer MEDICARE, SELFPAY ==
--- NOTE | ~2022-10-15 | XR_ITS ---
Cervical Spine: AP, lateral, open-mouth views Clinical History: Pain COMPARISON: 04/11/2021 Findings: The normal lordotic curve is maintained. The vertebral bodies and posterior elements appea r intact. Moderate degenerative disc narrowing noted at C5-C6. Pre-vertebral soft tissues are unremar kable. Impression: Moderate degenerative disc narrowing at C5-C6, unchanged. Reviewed, dictated and finalized at location [] ER ARRANGER Impression: Moderate degenerative disc narrowing at C5-C6, unchanged.
--- NOTE | ~2022-10-15 | XR_ITS ---
AP and oblique views of the bilateral SI joints CLINICAL HISTORY: Ankylosing spondylitis FINDINGS: SI joints appear unremarkable. No sclerosis or erosions or ankylosis identified. No other o sseous abnormality seen. Soft tissues are unremarkable. IMPRESSION: Unremarkable exam. Reviewed, dictated and finalized at location [] ING PROJECT MANAGER IMPRESSION: Unremarkable exam.
[2022-10-15 13:00] LABS: Hematocrit 45.1 % (37.0-47.0); Mean Corpuscular HGB Conc 33.3 g/dl (32-36); Mean Corpuscular Hemoglobin 29.6 pg (26-34); Mean Corpuscular Volume 89.1 fl (80-100); Platelet Count Result 256 k/mm3 (150-375); Red Blood Count 5.06 M/mm3 (4.2-5.4); Red Cell Distribution Width 12.4 % (11.5-14.5); White Blood Count 5.3 K/mm3 (4.5-10.0)
[2022-10-15 13:18] LABS: Alanine Aminotransferase 46 U/L (6-35); Albumin Level 4.2 g/dL (3.5-5.1); Alkaline Phosphatase 99 U/L (38-126); Anion Gap 3 mmol/L (8-16); Aspartate Amino Transferase 37 U/L (14-36); Bilirubin,Total 0.8 mg/dL (0.2-1.3); Blood Urea Nitrogen 23 mg/dL (7-17); CRP < 0.5 mg/dL (<1.0); Calcium 8.7 mg/dL (8.4-10.2); Carbon Dioxide 33 mmol/L (22-30); Chloride 102 mmol/L (98-107); Estimated Glomerular Filt Rate > 60; Glucose 111 mg/dL (65-110); Potassium 4.1 mmol/L (3.4-5.0); Sodium 138 mmol/L (137-145)
[2022-10-15 13:31] LABS: Erythrocyte Sedimentation Rate 11 mm/hr (0-20)
[2022-10-17 11:58] LABS: NIL 0.07 IU/mL; Quantiferon TB Plus, 1T NEGATIVE (NEGATIVE); TB1-NIL 0.01 IU/mL; TB2-NIL 0.01 IU/mL
== END 2022-10-15 12:27 | disposition home or self-care (01) ==
LOC: ANHLAB 12:27
PROVIDERS: PCP Physician Assistant; Visit Provider Internal Medicine
DX: M19.90 Unspecified osteoarthritis, unspecified site (principal); M45.6 Ankylosing spondylitis lumbar region; M54.2 Cervicalgia; M54.6 Pain in thoracic spine
CPT/HCPCS: 36415; 72040; 72202; 80053; 85027; 85652; 86140; 86480

== ENCOUNTER 2022-10-29 10:07 | Outpatient (CLI) | payer MEDICARE, SELFPAY ==
[2022-10-29 11:05] LABS: Influenza A QL RT-PCR Negative (Negative); Influenza B QL RT-PCR Negative (Negative)
== END 2022-10-29 10:08 | disposition home or self-care (01) ==
LOC: ANHLAB 10:09
PROVIDERS: PCP Physician Assistant; Visit Provider Physician Assistant
DX: R68.89 Other general symptoms and signs (principal)
CPT/HCPCS: 87502

== ENCOUNTER 2022-11-29 15:24 | Outpatient (CLI) | payer MEDICARE, SELFPAY ==
--- NOTE | ~2022-11-29 | XR_ITS ---
EXAMINATION: XR chest 2V DATE: 11/29/2022 15:42 INDICATION: 2 months of cough TECHNIQUE: PA and lateral views of the chest were obtained. COMPARISON: Chest radiograph dated 10/31/2019 FINDINGS: Small calcified nodules in the right midlung zone consistent with old granulomatous disease. No new a irspace opacities, pulmonary edema, pleural effusion or pneumothorax. The cardiomediastinal silhouett e is normal. Again seen is anterior fusion at a few levels in the lower thoracic spine. Cholecystecto my clips in right upper quadrant. IMPRESSION: 1. No acute cardiopulmonary disease. Reviewed, dictated and finalized at location B. ER RACKER
== END 2022-11-29 15:25 | disposition home or self-care (01) ==
PROVIDERS: PCP Physician Assistant; Visit Provider Physician Assistant
DX: R05.9 Cough, unspecified (principal)
CPT/HCPCS: 71046

== ENCOUNTER 2023-03-06 09:51 | Outpatient (CLI) | payer MEDICARE, SELFPAY ==
--- NOTE | ~2023-03-06 | MM_ITS ---
EXAMINATION: MM screening denisse BI w memo HISTORY: Screening mammogram, family history of breast cancer in her mother. TECHNIQUE: Craniocaudal and mediolateral oblique 3-D tomosynthesis images were obtained and synthetic 2-D images were generated. CAD analysis was submitted and interpreted. COMPARISON: 11/30/2021, 11/09/2020, 07/21/2019 BREAST PARENCHYMAL COMPOSITION: The breasts are heterogeneously dense, which may obscure small masses . FINDINGS: No suspicious mass, calcification, or architectural distortion are identified in either tova ast to suggest malignancy. There has been no suspicious interval change. IMPRESSION: 1. No mammographic evidence of malignancy. 2. Recommend routine screening mammography in one year. BI-RADS Category 1: Negative Reviewed, dictated and finalized at location A.
== END 2023-03-06 09:52 | disposition home or self-care (01) ==
LOC: ANHIMG 09:52
PROVIDERS: PCP Physician Assistant; Visit Provider Physician Assistant
DX: Z12.31 Encounter for screening mammogram for malignant neoplasm of breast (principal)
CPT/HCPCS: 77063; 77067

== ENCOUNTER 2023-05-05 11:37 | Outpatient (CLI) | payer MEDICARE, SELFPAY ==
[2023-05-05 12:45] LABS: Basophils Absolute Auto 0.1 K/mm3 (0.0-0.1); Basophils Percent Auto 0.9 % (0.2-1.2); Eosinophils Absolute Auto 0.3 K/mm3 (0-0.3); Eosinophils Percent Auto 5.1 % (0-4.4); Hematocrit 45.6 % (37.0-47.0); Hematocrit 45.7 % (37.0-47.0); Hemoglobin 15.2 g/dL (12.0-15.0); Immature Granulocyte Absolute 0.01 K/mm3 (0.00-0.031); Immature Granulocyte Percent A 0.2 % (0-0.5); Lymphocytes Absolute Auto 1.62 K/mm3 (0.9-3.2); Lymphocytes Percent Auto 28.3 % (18.3-44.2); Mean Corpuscular HGB Conc 33.3 g/dl (32-36); Mean Platelet Volume 10.2 fl (7.4-10.4); Mean Platelet Volume 10.3 fl (7.4-10.4); Monocytes Absolute Auto 0.6 K/mm3 (0.1-0.6); Monocytes Percent Auto 11.2 % (2.6-8.5); Neutrophils Absolute Auto 3.1 K/mm3 (1.3-6.7); Neutrophils Percent Auto 54.3 % (45.5-73.1); Platelet Count Result 262 k/mm3 (150-375); Platelet Count Result 268 k/mm3 (150-375); Red Blood Count 5.24 M/mm3 (4.2-5.4); Red Blood Count 5.25 M/mm3 (4.2-5.4); Red Cell Distribution Width 12.2 % (11.5-14.5); Red Cell Distribution Width 12.4 % (11.5-14.5); White Blood Count 5.7 K/mm3 (4.5-10.0)
[2023-05-05 12:56] LABS: Cholesterol 160 mg/dL (0-200); HDL Direct 36 mg/dL; Triglycerides 121 mg/dL (<150)
[2023-05-05 13:00] LABS: Alanine Aminotransferase 54 U/L (6-35); Albumin Level 4.4 g/dL (3.5-5.1); Alkaline Phosphatase 108 U/L (38-126); Anion Gap 5 mmol/L (8-16); Aspartate Amino Transferase 35 U/L (14-36); Bilirubin,Total 1.3 mg/dL (0.2-1.3); Blood Urea Nitrogen 18 mg/dL (7-17); CRP < 0.5 mg/dL (<1.0); Calcium 9.4 mg/dL (8.4-10.2); Carbon Dioxide 30 mmol/L (22-30); Chloride 103 mmol/L (98-107); Estimated Glomerular Filt Rate > 60; Glucose 96 mg/dL (65-110); Potassium 4.4 mmol/L (3.4-5.0); Sodium 138 mmol/L (137-145)
[2023-05-05 13:07] LABS: LDL Cholesterol Direct 87 mg/dL
[2023-05-05 13:13] LABS: Hemoglobin A1C 5.5 % (<5.7)
[2023-05-05 13:42] LABS: Erythrocyte Sedimentation Rate 11 mm/hr (0-20)
[2023-05-05 13:45] LABS: Free T4 Free Thyroxine 0.89 ng/mL (0.78-2.19)
[2023-05-05 14:05] LABS: Folic Acid 6.2 ng/mL (2.76->20)
[2023-05-05 15:05] LABS: Appearance Urine Clear (Clear); Bilirubin Urine Negative (Negative); Blood Urine Negative (Negative); Color Urine Dark Yellow (Yellow); Glucose Urine UA Negative (Negative); Ketones Urine Trace mg/dL (Negative); Leukocyte Esterase Ur Negative LEU/UL (Negative); Nitrate Urine Negative (Negative); Protein Urine Negative (Negative); Specific Grav Ur 1.028 (1.001-1.035); Urobilinogen Urine 0.2 mg/dL (<2.0); pH Urine 5.5 (5.0-9.0)
[2023-05-05 15:07] LABS: Add Urine Microscopic? NO
[2023-05-08 14:42] LABS: NIL 0.04 IU/mL; Quantiferon TB Plus, 1T NEGATIVE (NEGATIVE); TB1-NIL 0.03 IU/mL; TB2-NIL 0.03 IU/mL
== END 2023-05-05 11:38 | disposition home or self-care (01) ==
PROVIDERS: PCP Physician Assistant; Visit Provider Internal Medicine
DX: M19.90 Unspecified osteoarthritis, unspecified site (principal); M45.9 Ankylosing spondylitis of unspecified sites in spine; Z00.00 Encounter for general adult medical examination without abnormal findings; R73.9 Hyperglycemia, unspecified; E05.90 Thyrotoxicosis, unspecified without thyrotoxic crisis or storm
CPT/HCPCS: 36415; 80053; 80061; 81003; 82607; 82746; 83036; 84439; 84443; 85025; 85027; 85652; 86140; 86480

== ENCOUNTER 2023-08-15 15:57 | Outpatient (CLI) | payer MEDICARE, SELFPAY ==
--- NOTE | ~2023-08-15 | XR_ITS ---
EXAMINATION: XR hip RT 2V w AP pelvis INDICATION: Right hip pain TECHNIQUE: AP view of the pelvis and two views of the right hip are obtained. COMPARISON: 10/15/2022 FINDINGS: Bone alignment is normal. There is no fracture. There are phleboliths of the pelvis. There is at least moderate lower lumbar spondylosis. IMPRESSION: 1. No acute osseous abnormality. Reviewed, dictated and finalized at location B.
== END 2023-08-15 15:58 | disposition home or self-care (01) ==
LOC: ANHIMG 16:00
PROVIDERS: PCP Physician Assistant; Visit Provider Physician Assistant
DX: M25.551 Pain in right hip (principal)
CPT/HCPCS: 73502

== ENCOUNTER 2024-02-13 12:39 | Emergency (ER) | payer MEDICARE, SELFPAY ==
[2024-02-13] VITALS (7 sets, daily range): BP systolic 140–143; BP diastolic 90–106; PULSE 82–89; RESP 18–20; TEMP 36.7; O2SAT 95–99
--- NOTE | ~2024-02-13 | XR_ITS ---
EXAMINATION: XR chest 2V 02/13/2024 13:10 INDICATION: Right-sided chest pain. Hypertension. PROCEDURE: 2 view chest COMPARISON: No prior studies for comparison. FINDINGS: The lungs are clear. The cardiomediastinal silhouette is within normal limits. There are no pleural effusions. There is no pneumothorax suspected. IMPRESSION: 1: NO ACUTE CARDIOPULMONARY DISEASE. Reviewed, dictated and finalized at location A.
--- NOTE | 2024-02-13 12:40 | ECG_ITS ---
SEE SCANNED COPY FOR CONFIRMED REPORT MTDD
[2024-02-13 13:03] LABS: Basophils Absolute Auto 0.1 K/mm3 (0.0-0.1); Basophils Percent Auto 0.7 % (0.2-1.2); Eosinophils Absolute Auto 0.5 K/mm3 (0-0.3); Eosinophils Percent Auto 6.4 % (0-4.4); Hemoglobin 14.3 g/dL (12.0-15.0); Immature Granulocyte Absolute 0.03 K/mm3 (0.00-0.031); Immature Granulocyte Percent A 0.4 % (0-0.5); Lymphocytes Absolute Auto 1.82 K/mm3 (0.9-3.2); Lymphocytes Percent Auto 24.4 % (18.3-44.2); Mean Corpuscular HGB Conc 33.3 g/dl (32-36); Mean Corpuscular Hemoglobin 28.9 pg (26-34); Mean Corpuscular Volume 86.9 fl (80-100); Mean Platelet Volume 10.1 fl (7.4-10.4); Monocytes Absolute Auto 0.6 K/mm3 (0.1-0.6); Monocytes Percent Auto 8.1 % (2.6-8.5); Neutrophils Absolute Auto 4.5 K/mm3 (1.3-6.7); Platelet Count Result 257 k/mm3 (150-375); Red Blood Count 4.95 M/mm3 (4.2-5.4); Red Cell Distribution Width 12.7 % (11.5-14.5); White Blood Count 7.5 K/mm3 (4.5-10.0)
[2024-02-13 13:13] LABS: INR 0.9; Prothrombin Time 12.2 Seconds (11.1-14.7)
[2024-02-13 13:19] LABS: Alanine Aminotransferase 39 U/L (6-35); Albumin Level 4.3 g/dL (3.5-5.1); Alkaline Phosphatase 132 U/L (38-126); Anion Gap 6 mmol/L (4-12); Aspartate Amino Transferase 58 U/L (14-36); Bilirubin,Total 0.9 mg/dL (0.2-1.3); Blood Urea Nitrogen 17 mg/dL (7-17); Calcium 9.5 mg/dL (8.4-10.2); Carbon Dioxide 27 mmol/L (22-30); Chloride 107 mmol/L (98-107); Estimated CRCL calculation 79 ml/min; Estimated Glomerular Filt Rate > 60; Glucose 115 mg/dL (65-110); Lipase 71 U/L (23-300); Potassium 4.4 mmol/L (3.4-5.0); Sodium 140 mmol/L (137-145)
[2024-02-13 13:30] LABS: Troponin I < 0.012 ng/mL (0.000-0.034)
--- NOTE | 2024-02-13 13:32 | ED.GENADULT ---
HPI - General Adult General Chief complaint: Chest Pain Stated complaint: chest pain Time Seen by Provider: 02/13/24 13:04 History of Present Illness HPI narrative: Patient is a 63-year-old female who presents ER with chest pain. It began around noon. Sharp. Will last for 5 minutes. Radiates to her back. Will then go away. She reports that she had an episode acid reflux with this week that has left her with a persistent cough. No abdominal pain. Her gallbladder has been removed. No fevers or chills or sweats. No history of heart disease. Related Data Home Medications Medication Instructions Recorded Confirmed cholecalciferol (vitamin D3) 50 50 mcg PO DAILY 07/05/20 01/29/24 mcg (2,000 unit) capsule (Vitamin D3) mecobalamin (vitamin B12) 1,000 1,000 mcg sublingual DAILY 07/05/20 01/29/24 mcg disintegrating tablet,sublingual omega 3-rkq-atu-fish oil 1,000 mg 1 cap PO DAILY 03/25/22 01/29/24 (120 mg-180 mg) capsule (Fish Oil) Allergies Allergy/AdvReac Type Severity Reaction Status Date / Time No Known Allergies Allergy Verified 01/29/24 13:17 Review of Systems Review of Systems: All systems reviewed & are unremarkable except as noted in HPI and below Constitutional: Constitutional: Reports no additional constitutional complaints ENT: Reports system reviewed and no additional complaints, except as documented Cardiovascular: Cardiovascular: Reports chest pain, Denies rapid heart rate, Denies radiating jaw, neck or arm pain and Denies slow heart rate Respiratory: Respiratory: Reports cough, Denies dyspnea and Denies wheezing Gastrointestinal: Gastrointestinal: Reports no additional gastrointestinal complaints Musculoskeletal: Musculoskeletal: Reports no additional musculoskeletal complaints PENDING SALE TO [facility] Past Medical History Medical History Adenomatous colon polyp Ankylosing spondylitis Arthritis Benign essential hypertension Erosive esophagitis Hepatic steatosis Hiatal hernia HTN (hypertension) IFG (impaired fasting glucose) Migraines Neck pain Obesity, morbid, BMI 40.0-49.9 Umbilical hernia Surgical History Surgical History H/O hernia repair Hx of cholecystectomy Hx of tubal ligation Family History Family History Sibling Diabetes mellitus Hypertension Leukemia Grandparent Acute myocardial infarction Family history of emphysema Family history of pancreatic cancer Family history of chronic obstructive pulmonary disease Family history of dementia Cerebrovascular accident Father Heart disease, Onset Age: 49 Family history of chronic obstructive pulmonary disease Mother Family history of malignant neoplasm of breast in first degree relative Family history of dementia Social History Social History (Updated 01/29/24 @ 13:18 by Thania Bashir [facility]) Years smoked: 20 Smoking status: Former smoker Tobacco type: cigarettes Second hand tobacco smoke exposure: Yes Smoking end date: 11/03/09 Alcohol intake: current Alcohol use details: social Substance use: never Substance use type: does not use Do You Feel Safe in your Home?: Yes Lack of Transportation: No Lack of Food: Never True Current Housing: I Have Housing Concerned About Future Housing: No Difficulty Paying Gas/Electric Bills: No Difficulty Paying for Meds: No Currently Unemployed: No Education: High School Diploma/GED Difficulty w/ Childcare or Family Care: No Living arrangements: with family Gender identity (if verbalized by the patient): Female Spiritual care concerns: No Agree to blood products: Yes Exam Narrative: GENERAL: Well-appearing, well-nourished, and in no acute distress. HEAD: Normocephalic, atraumatic. ENT: Mucous membranes moist. NECK: Supple. CHEST: Clear to auscultati
[2024-02-13] MEDS: BELLADONNA ALK/PHENOB ELIX 10 ML, MAG HYDROX/ALUMINUM HYD/SIMETH 30 ML, LIDOCAINE HCL 2... PO (14:17)
[2024-02-13 16:05] LABS: Troponin I < 0.012 ng/mL (0.000-0.034)
== END 2024-02-13 17:05 | disposition home or self-care (01) ==
PROVIDERS: Emergency Provider Emergency Medicine; PCP Physician Assistant
DX: K21.9 Gastro-esophageal reflux disease without esophagitis (principal); I10 Essential (primary) hypertension; E66.01 Morbid (severe) obesity due to excess calories; Z68.38 Body mass index [BMI] 38.0-38.9, adult; Z87.891 Personal history of nicotine dependence
CPT/HCPCS: 36415; 71046; 80053; 83690; 84484; 85025; 85610; 85730; 93005; 99284; A9270

== ENCOUNTER 2024-02-23 20:42 | Emergency (ER) | payer MEDICARE, SELFPAY ==
--- NOTE | ~2024-02-23 | CT_ITS ---
EXAMINATION: CT abdomen pelvis wo con DATE: 02/24/2024 01:15 INDICATION: Left flank pain. TECHNIQUE: Computed tomography (CT) of the abdomen and pelvis was performed without intravenous contr ast. Automated exposure control and iterative reconstruction technique were employed. The dose-length product was 1146.19 mGy-cm. COMPARISON: CT abdomen and pelvis 06/28/2019 FINDINGS: The visualized portions of the lung bases demonstrate scarring in paraspinal right lower lo be. There is mild bronchiectasis bilaterally. There is a stable 3 mm nodule in right lower lobe, like ly benign. No pleural effusion. The heart size is normal. No pericardial effusion. There is a small s liding hiatal hernia. The liver and spleen are normal. There are changes of cholecystectomy. The panc reas, adrenal glands, and right kidney are normal. There is a 2 mm stone in left kidney. There is mil d left hydronephrosis. There is a 4 mm stone at left ureteropelvic junction. There are no dilated loo ps of bowel. The appendix is not visualized. There are no pathologically enlarged lymph nodes. There is no free intraperitoneal fluid. There is interbody fusion from T8 to L1. There is mild lumbar spond ylosis. IMPRESSION: 1. 4 mm stone at left ureteropelvic junction with mild left hydronephrosis. 2. 2 mm nonobstructing left kidney stone. Reviewed, dictated and finalized at location E.
[2024-02-23 21:08] VITALS: BP 144/93; PULSE 92; TEMP 36.4; O2SAT 99
[2024-02-23 21:17] LABS: Basophils Absolute Auto 0.1 K/mm3 (0.0-0.1); Basophils Percent Auto 0.6 % (0.2-1.2); Eosinophils Absolute Auto 0.3 K/mm3 (0-0.3); Eosinophils Percent Auto 2.9 % (0-4.4); Hematocrit 43.4 % (37.0-47.0); Hemoglobin 14.7 g/dL (12.0-15.0); Immature Granulocyte Absolute 0.03 K/mm3 (0.00-0.031); Immature Granulocyte Percent A 0.3 % (0-0.5); Lymphocytes Absolute Auto 2.32 K/mm3 (0.9-3.2); Lymphocytes Percent Auto 23.2 % (18.3-44.2); Mean Corpuscular HGB Conc 33.9 g/dl (32-36); Mean Corpuscular Hemoglobin 28.5 pg (26-34); Mean Corpuscular Volume 84.1 fl (80-100); Mean Platelet Volume 10.1 fl (7.4-10.4); Monocytes Absolute Auto 0.8 K/mm3 (0.1-0.6); Monocytes Percent Auto 7.7 % (2.6-8.5); Neutrophils Absolute Auto 6.5 K/mm3 (1.3-6.7); Neutrophils Percent Auto 65.3 % (45.5-73.1); Platelet Count Result 304 k/mm3 (150-375); Red Blood Count 5.16 M/mm3 (4.2-5.4); Red Cell Distribution Width 12.5 % (11.5-14.5)
[2024-02-23 21:29] LABS: Alanine Aminotransferase 32 U/L (6-35); Albumin Level 4.5 g/dL (3.5-5.1); Alkaline Phosphatase 122 U/L (38-126); Anion Gap 8 mmol/L (4-12); Aspartate Amino Transferase 27 U/L (14-36); Blood Urea Nitrogen 26 mg/dL (7-17); Calcium 9.8 mg/dL (8.4-10.2); Carbon Dioxide 25 mmol/L (22-30); Chloride 105 mmol/L (98-107); Estimated CRCL calculation 51 ml/min; Estimated Glomerular Filt Rate 50; Glucose 122 mg/dL (65-110); Lipase 52 U/L (23-300); Potassium 3.6 mmol/L (3.4-5.0); Sodium 138 mmol/L (137-145)
[2024-02-24 00:28] VITALS: BP 169/104; PULSE 94; RESP 18; O2SAT 100
[2024-02-24 00:36] LABS: Appearance Urine Cloudy (Clear); Bacteria Urine None Seen /hpf; Bilirubin Urine Negative (Negative); Blood Urine 2+ (Negative); Color Urine Yellow (Yellow); Glucose Urine UA Negative (Negative); Ketones Urine Trace mg/dL (Negative); Leukocyte Esterase Ur Negative LEU/UL (Negative); Nitrate Urine Negative (Negative); Non Pathogenic Casts 0-2; Protein Urine Negative (Negative); RBC Urine 21-50 /hpf (0-2); Specific Grav Ur 1.015 (1.001-1.035); Squamous Epithelial Cell Urine Moderate /hpf (Few); Urobilinogen Urine 0.2 mg/dL (<2.0)
[2024-02-24 00:37] LABS: Add Urine Microscopic? YES
[2024-02-24] MEDS: MORPHINE SULFATE (*CRX) 4 MG/ML INJ IV PUSH (01:22)
[2024-02-24] MEDS: SODIUM CHLORIDE 0.9% IV 1,000 ML 999 ML IV CONT (01:22)
[2024-02-24] MEDS: ONDANSETRON INJ 4 MG/2 ML VIAL IV PUSH (01:22)
--- NOTE | 2024-02-24 02:32 | ED.ABDPAIN ---
HPI - Abdominal Pain General Chief Complaint: Abdominal Pain Stated Complaint: left flank and left abd pain Time Seen by Provider: 02/24/24 00:42 History of Present Illness HPI narrative: Patient is a 63-year-old female who presents emergency department with chief complaint left flank pain. Patient reports there is a cramping like pain in the left flank area that radiates to left lower quadrant the patient reports that she is unable to get comfortable in any position reports the pain is not worsened with palpation. Patient reports no prior history of kidney stones Related Data Home Medications Medication Instructions Recorded Confirmed cholecalciferol (vitamin D3) 50 50 mcg PO DAILY 07/05/20 01/29/24 mcg (2,000 unit) capsule (Vitamin D3) mecobalamin (vitamin B12) 1,000 1,000 mcg sublingual DAILY 07/05/20 01/29/24 mcg disintegrating tablet,sublingual omega 9-ouh-nqp-fish oil 1,000 mg 1 cap PO DAILY 03/25/22 01/29/24 (120 mg-180 mg) capsule (Fish Oil) Allergies Allergy/AdvReac Type Severity Reaction Status Date / Time No Known Allergies Allergy Verified 02/24/24 00:35 Review of Systems Review of Systems: A 10 system review of systems was completed on the patient and is negative except for what is stated in the HPI. Nursing and ancillary documentation was reviewed. [facility] Past Medical History Medical History Adenomatous colon polyp Ankylosing spondylitis Arthritis Benign essential hypertension Erosive esophagitis Hepatic steatosis Hiatal hernia HTN (hypertension) IFG (impaired fasting glucose) Migraines Neck pain Obesity, morbid, BMI 40.0-49.9 Umbilical hernia Surgical History Surgical History H/O hernia repair Hx of cholecystectomy Hx of tubal ligation Family History Family History Sibling Diabetes mellitus Hypertension Leukemia Grandparent Acute myocardial infarction Family history of emphysema Family history of pancreatic cancer Family history of chronic obstructive pulmonary disease Family history of dementia Cerebrovascular accident Father Heart disease, Onset Age: 49 Family history of chronic obstructive pulmonary disease Mother Family history of malignant neoplasm of breast in first degree relative Family history of dementia Social History Social History Years smoked: 20 Smoking status: Former smoker Tobacco type: cigarettes Second hand tobacco smoke exposure: Yes Smoking end date: 11/03/09 Alcohol intake: current Alcohol use details: social Substance use: never Substance use type: does not use Do You Feel Safe in your Home?: Yes Lack of Transportation: No Lack of Food: Never True Current Housing: I Have Housing Concerned About Future Housing: No Difficulty Paying Gas/Electric Bills: No Difficulty Paying for Meds: No Currently Unemployed: No Education: High School Diploma/GED Difficulty w/ Childcare or Family Care: No Living arrangements: with family Gender identity (if verbalized by the patient): Female Spiritual care concerns: No Agree to blood products: Yes Exam Narrative: GENERAL: Well-appearing, well-nourished, and in no acute distress. HEAD: Normocephalic, atraumatic. EYES: PERRLA and EOMI. ENT: Nares clear, no rhinorrhea or epistaxis. Mucous membranes moist. NECK: Supple. CHEST: Clear to auscultation. No respiratory distress. HEART: Regular rate and rhythm. No murmur heard. Normal peripheral pulses. ABDOMEN: Soft, nontender, nondistended, normal active bowel sounds. EXTREMITIES: Normal range of motion. No edema. SKIN: Warm, dry, no rash. NEURO: No focal deficits. Alert and oriented x3. PSYCH: Normal mood and affect. Course Vital Sign
[2024-02-24] MEDS: HYDROcodone/acetaminophen (*CRX) 5-325 MG TABLET 1 TAB PO (02:47)
[2024-02-24] MEDS: TAMSULOSIN HCL 0.4 MG CAPSULE PO (02:47)
[2024-02-24] MEDS: ONDANSETRON HCL ODT 4 MG TABLET PO (02:47)
[2024-02-24 02:50] VITALS: BP 143/90; PULSE 95; RESP 20; O2SAT 100
== END 2024-02-24 02:50 | disposition home or self-care (01) ==
PROVIDERS: Emergency Provider Emergency Medicine; PCP Physician Assistant
DX: N20.1 Calculus of ureter (principal); M19.90 Unspecified osteoarthritis, unspecified site; I10 Essential (primary) hypertension; K76.0 Fatty (change of) liver, not elsewhere classified
CPT/HCPCS: 36415; 74176; 80053; 81001; 83690; 85025; 87086; 87088; 96361; 96374; 96375; 99284; A9270; J2270; J2405; J7030

== ENCOUNTER 2024-03-23 08:47 | Outpatient (CLI) | payer MEDICARE, SELFPAY ==
--- NOTE | 2024-04-12 09:47 | WPDSLEEPSTUD ---
Sleep Study Date of Study: 03/23/24 Ordering Provider: Amador Perkins PA-C Interpreting Physician: Faith Ag MD Sleep Study Type: Split Polysomnogram Height: 1.57 m Weight: 94.347 kg Body Mass Index: 38.0 Neck Circumference (inches): 16 [place]: 2 Reason for Sleep Study Merchandising Manager recommended having a sleep study; she has hypertension, dyslipidemia, anxiety, untreated MARY from 2019, covid infection on 12/01/21, former smoking. * 05/22/2020 home sleep test showed at least moderate obstructive sleep apnea with an AHI of 19, minimum desaturation is 73%. BMI was 35.3 * 08/02/2020 CPAP titration showed optimal CPAP pressure 9 cm water pressure; no supine REM occurred, and she had excessive limb movements, limb movements index 69.3 without arousals Sleep History Frederick Sellers is a 63-year-old woman with a history of obstructive sleep apnea, was tested in 2019 with moderate obstructive sleep apnea, had a CPAP titration with an optimal pressure of 9 cm water pressure. She has ankylosing spondylitis in the lumbar region and osteoarthritis in multiple joints. She sees Rheumatology. She occasionally awakens from sleep feeling short of breath. She occasionally awakens at night with heartburn, belching or coughing. She does not snore and others do not tell her that she snores. She occasionally has difficulty sleeping when she has a cold. She occasionally wakes up gasping for breath at night. She does not have breathing problems at night observed by others. She does not sweat excessively at night. She occasionally notices her heart pounding or beating irregularly at night. She rarely falls asleep during the day, never falls asleep involuntarily or while driving. She does not have loss of muscle tone with strong emotion. She does not have daytime difficulties due to excessive sleepiness. She does not feel paralyzed on waking or falling asleep. She occasionally has vivid dreamlike scenes upon awakening or falling asleep. She does not feel afraid to go to sleep. She does not have nightmares. On occasion she remembers her dreams. She occasionally has racing thoughts. She rarely feels sad, depressed, or anxious. She occasionally notices parts of her body jerking. She does not kick at night. She denies having crawling or aching feelings in her legs. She rarely has any kind of leg pain at night. She does not have morning jaw pain nor does she grind her teeth at night. She frequently is bothered by pain during the day. She rarely is awakened by pain during the night. She frequently, almost always has a feelings of stiffness in her limbs when she awakens in the morning. She does not awaken with sore or achy muscles. She frequently has pain in the neck and spine. She has migraine headaches. Her normal bedtime is 11:00 p.m., falling asleep within a couple of hours while watching television. She typically awakens between 2 and 3 times during the night to use the bathroom, is able to return to sleep within a few minutes. These awakenings occur in the middle of the night. Her wake time varies. She keeps the same schedule on weekends. She estimates getting between 6 and 7 hours of sleep. Her sleep is interrupted by heat, need to go to the bathroom and not sleeping in her usual bed. She does not take naps in the afternoon or evening. She does not feel refreshed after short 10-15 minute nap. She feels better in the afternoon and evenings compared to the mornings. Habits: Tobacco -quit tobacco 2009 Caffeine: A half cup to 1 cup of coffee daily Alcohol: None Recreational substance: None PMFSH Past Medical History Medical History (Updated 04/12/24 @ 10:00 by Faith Ag MD) Adenomatous colon polyp Ankylosing spondylitis Arthritis Benign essential hypertension Erosive esophagitis Hepatic steatosis Hiatal hernia HTN (hypertension) IFG (impaired fasting glucose) Migraines Neck josy
[2024-04-12 09:48] VITALS: BMI 38.0
== END 2024-03-24 07:15 | disposition home or self-care (01) ==
PROVIDERS: PCP Physician Assistant; Visit Provider Physician Assistant
DX: G47.33 Obstructive sleep apnea (adult) (pediatric) (principal); Z68.38 Body mass index [BMI] 38.0-38.9, adult
CPT/HCPCS: 95811

== ENCOUNTER 2024-04-06 11:39 | Outpatient (CLI) | payer MEDICARE, SELFPAY ==
[2024-04-06 12:33] LABS: Hemoglobin A1C 5.6 % (<5.7)
[2024-04-06 12:37] LABS: Alanine Aminotransferase 24 U/L (6-35); Albumin Level 4.3 g/dL (3.5-5.1); Alkaline Phosphatase 105 U/L (38-126); Anion Gap 6 mmol/L (4-12); Aspartate Amino Transferase 23 U/L (14-36); Bilirubin,Total 1.1 mg/dL (0.2-1.3); Blood Urea Nitrogen 16 mg/dL (7-17); Calcium 9.5 mg/dL (8.4-10.2); Carbon Dioxide 28 mmol/L (22-30); Chloride 105 mmol/L (98-107); Cholesterol 158 mg/dL (0-200); Estimated Glomerular Filt Rate > 60; Glucose 110 mg/dL (65-110); HDL Direct 42 mg/dL; Potassium 4.4 mmol/L (3.4-5.0); Sodium 139 mmol/L (137-145); Triglycerides 166 mg/dL (<150)
[2024-04-06 12:48] LABS: LDL Cholesterol Direct 89 mg/dL
[2024-04-06 12:56] LABS: Vitamin D 25 Hydroxy 33.3 ng/mL
[2024-04-06 13:08] LABS: Thyroid Stimulating Hormone 0.566 uIU/mL (0.465-4.680)
[2024-04-06 13:51] LABS: Folic Acid 7.9 ng/mL (2.76->20); Vitamin B12 > 1000.0 pg/mL (239-931)
== END 2024-04-06 11:40 | disposition home or self-care (01) ==
PROVIDERS: PCP Physician Assistant; Visit Provider Physician Assistant
DX: E78.5 Hyperlipidemia, unspecified (principal); R73.9 Hyperglycemia, unspecified; E55.9 Vitamin D deficiency, unspecified; R53.83 Other fatigue
CPT/HCPCS: 36415; 80053; 80061; 82306; 82607; 82746; 83036; 84443

== ENCOUNTER 2024-04-30 09:42 | Outpatient (CLI) | payer MEDICARE, SELFPAY ==
--- NOTE | ~2024-04-30 | MM_ITS ---
EXAMINATION: MM screening [facility] BI w memo HISTORY: Screening mammogram TECHNIQUE: Craniocaudal and mediolateral oblique 3-D tomosynthesis images were obtained and synthetic 2-D images were generated. CAD analysis was submitted and interpreted. COMPARISON: 03/06/2023, 11/30/2021, 11/09/2020 BREAST PARENCHYMAL COMPOSITION:Not Dense. There are scattered areas of fibroglandular density. FINDINGS: No suspicious mass, calcification, or architectural distortion are identified in either tova ast to suggest malignancy. There has been no suspicious interval change. IMPRESSION: No mammographic evidence of malignancy. Recommend routine screening mammography in one year. BI-RADS Category 1: Negative Reviewed, dictated and finalized at location .
== END 2024-04-30 09:43 | disposition home or self-care (01) ==
LOC: ANHIMG 09:45
PROVIDERS: PCP Nurse Practitioner; Visit Provider Physician Assistant
DX: Z12.31 Encounter for screening mammogram for malignant neoplasm of breast (principal)
CPT/HCPCS: 77063; 77067

== ENCOUNTER 2024-05-31 10:49 | Emergency (ER) | payer MEDICARE, SELFPAY ==
--- NOTE | ~2024-05-31 | CT_ITS ---
EXAMINATION: CT facial & cervical spine wo DATE: 05/31/2024 11:30 INDICATION: Head injury. Diplopia. TECHNIQUE: Computed tomography (CT) of the maxillofacial region and cervical spine was performed with out intravenous contrast. Automated exposure control and iterative reconstruction technique were empl oyed. The dose-length product was 517.81 mGy-cm. COMPARISON: None FINDINGS: MAXILLOFACIAL CT: There is right periorbital soft tissue swelling. The orbits are normal. There is rightward deviation of the nasal septum. There is a blowout fracture of floor of right orbit. There is mild mucosal thick ening in the paranasal sinuses. The mastoid air cells are normal. CERVICAL SPINE CT: There is kyphosis of cervical spine. Vertebral body heights are normal. There is mildly decreased dis c height at C4-C5 and severely decreased disc height at C5-C6. The following disc levels are specific ally discussed: C2-C3: There is mild bilateral uncovertebral joint osteoarthritis. There is severe bilateral facet nicolás int osteoarthritis. There is mild bilateral neural foraminal stenosis. There is no central canal sten osis. C3-C4: There is mild bilateral uncovertebral joint osteoarthritis. There is severe bilateral facet nicolás int osteoarthritis. There is no neural foraminal stenosis. There is mild central canal stenosis. C4-C5: There is mild bilateral uncovertebral joint osteoarthritis. There is mild right and severe lef t facet joint osteoarthritis. There is mild left neural foraminal stenosis. There is mild central can al stenosis. C5-C6: There is severe right and moderate left uncovertebral joint osteoarthritis. There is severe bi lateral facet joint osteoarthritis. There is mild bilateral neural foraminal stenosis. There is mild central canal stenosis. C6-C7: There is mild bilateral uncovertebral joint osteoarthritis. There is mild bilateral facet join t osteoarthritis. There is no neural foraminal stenosis. There is mild central canal stenosis. C7-T1: There is no uncovertebral joint osteoarthritis. There is moderate right and severe left facet joint osteoarthritis. There is mild left neural foraminal stenosis. There is no central canal stenosi s. IMPRESSION: 1. Blowout fracture of floor of right orbit. 2. Severe cervical spondylosis. Reviewed, dictated and finalized at location A.
--- NOTE | ~2024-05-31 | CT_ITS ---
CT brain wo con Ordering provider: Mleida Harper PA-C History: 63 years Female with . HI yesterday . Comparison: None. Technique: CT of the head without contrast. Radiation reduction technique utilized. DLP is 605.33 mGy-cm. FINDINGS: BRAIN PARENCHYMA AND CSF SPACES: No midline shift, mass effect or hemorrhage. The brain parenchyma a nd CSF spaces are otherwise normal. VISUALIZED PARANASAL SINUSES: Well aerated. Mild right nasal septal deviation. MASTOIDS: Well aerated. BONES: The bones appear intact. SOFT TISSUES: Visualized nasopharynx is normal. Superficial soft tissues are normal. IMPRESSION: No acute intracranial findings. Reviewed, dictated and finalized at location A.
[2024-05-31 10:52] VITALS: BP 137/86; PULSE 91; RESP 18; TEMP 36.7; O2SAT 96
[2024-05-31 10:57] VITALS: BP 137/86; O2SAT 96
--- NOTE | 2024-05-31 11:20 | ED.HEATRA ---
HPI - Head Injury General Chief complaint: Head Injury Stated complaint: fall yesterday, has double vision Time Seen by Provider: 05/31/24 11:06 Source: patient Mode of arrival: ambulatory Limitations: no limitations History of Present Illness HPI Narrative: Patient is a 63 y/o female who presents to the ED who presents to the ED with c/o HI, double vision. Patient reports she was using a saw yesterday to cut a nail from a piece of pallet and had her full weight pushing against the saw. When the saw cut through the nail, she fell forward, hitting her right-sided face against her porch railing. Denied LOC. She sustained an injury to her right facial cheek and has since developed swelling and bruising in her R periorbital region. She reports EVANS, binocular vision diplopia, normal vision with either single eye. Denies blurry vision. Denies any other injuries. Denies neck or back pain. She is not on any anticoagulation. Related Data Home Medications Medication Instructions Recorded Confirmed cholecalciferol (vitamin D3) 50 50 mcg PO DAILY 07/05/20 04/22/24 mcg (2,000 unit) capsule (Vitamin D3) mecobalamin (vitamin B12) 1,000 1,000 mcg sublingual DAILY 07/05/20 04/22/24 mcg disintegrating tablet,sublingual omega [id number]-ays-mcx-fish oil 1,000 mg 1 cap PO DAILY 03/25/22 04/22/24 (120 mg-180 mg) capsule (Fish Oil) Allergies Allergy/AdvReac Type Severity Reaction Status Date / Time No Known Allergies Allergy Verified 05/31/24 11:01 Review of Systems Review of Systems: CONSTITUTIONAL: Denies fever, chills, or sweats. EENT: See HPI. MUSCULOSKELETAL: Denies back pain, extremity pain, myalgia. NEUROLOGIC: See HPI All systems reviewed & are unremarkable except as noted in HPI and below PMFSH Past Medical History Medical History Adenomatous colon polyp Ankylosing spondylitis Arthritis Benign essential hypertension Erosive esophagitis Hepatic steatosis Hiatal hernia HTN (hypertension) IFG (impaired fasting glucose) Migraines Neck pain Obesity, morbid, BMI 40.0-49.9 Obstructive sleep apnea Umbilical hernia Surgical History Surgical History H/O hernia repair Hx of cholecystectomy Hx of tubal ligation Family History Family History Sibling Diabetes mellitus Hypertension Leukemia Grandparent Acute myocardial infarction Family history of emphysema Family history of pancreatic cancer Family history of chronic obstructive pulmonary disease Family history of dementia Cerebrovascular accident Father Heart disease, Onset Age: 49 Family history of chronic obstructive pulmonary disease Mother Family history of malignant neoplasm of breast in first degree relative Family history of dementia Social History Social History Years smoked: 20 Smoking status: Former smoker Tobacco type: cigarettes Second hand tobacco smoke exposure: Yes Smoking end date: 11/03/09 Alcohol intake: current Alcohol use details: social Substance use: never Substance use type: does not use Do You Feel Safe in your Home?: Yes Lack of Transportation: No Lack of Food: Never True Current Housing: I Have Housing Concerned About Future Housing: No Difficulty Paying Gas/Electric Bills: No Difficulty Paying for Meds: No Currently Unemployed: No Education: High School Diploma/GED Difficulty w/ Childcare or Family Care: No Living arrangements: with family Gender identity (if verbalized by the patient): Female Spiritual care concerns: No Agree to blood products: Yes Exam Narrative: GENERAL: Well appearing, obese with BMI of 37.0, non-toxic, in no acute distress. HEAD: Normocephalic. Abrasion to R facial cheek with surrounding swelling and
--- NOTE | 2024-05-31 11:56 | PC.NURSE ---
visual acuity test done at this time. R eye 20/25 L eye 20/40 both eyes pt was unable to read the sign due to seeing double pt was wearing glasses
--- NOTE | 2024-05-31 12:33 | PC.NURSE ---
@ 1230 Bed assigned RM [address] for nurse report
[2024-05-31] MEDS: HYDROcodone/acetaminophen (*CRX) 5-325 MG TABLET 1 TAB PO (12:38)
[2024-05-31 12:39] VITALS: BP 136/90; PULSE 94; RESP 16; O2SAT 97
[2024-05-31 13:13] VITALS: BP 123/95; PULSE 82; RESP 19; O2SAT 97
[2024-05-31] MEDS: TETANUS,DIPHTHERIA,AC PERTUSSIS ADULT (0.5 ML) BOOSTRIX IM (13:13)
[2024-05-31 14:22] VITALS: BP 133/89; PULSE 80; RESP 15; O2SAT 98
== END 2024-05-31 14:25 | disposition short-term general hospital (02) ==
PROVIDERS: Emergency Provider Physician Assistant; PCP Nurse Practitioner
DX: S02.31XA Fracture of orbital floor, right side, initial encounter for closed fracture (principal); H53.2 Diplopia; M47.812 Spondylosis without myelopathy or radiculopathy, cervical region; M19.90 Unspecified osteoarthritis, unspecified site; I10 Essential (primary) hypertension; G47.30 Sleep apnea, unspecified; W18.30XA Fall on same level, unspecified, initial encounter; Z23 Encounter for immunization
CPT/HCPCS: 70450; 70486; 72125; 90471; 90715; 99284; A9270

== ENCOUNTER 2025-02-20 14:36 | Emergency (ER) | payer MEDICARE, SELFPAY ==
--- NOTE | ~2025-02-20 | CT_ITS ---
EXAMINATION: CT abdomen pelvis w con DATE: 02/20/2025 15:40 INDICATION: abd pain, diarrhea TECHNIQUE: Computed tomography (CT) of the abdomen and pelvis was performed with 100 mL Omnipaque-350 intravenous contrast. Automated exposure control and iterative reconstruction technique were employe d. The dose-length product was 799.91 mGy-cm. COMPARISON: 02/24/2024, 06/28/2019. FINDINGS: Lower thorax: Unremarkable Liver: Normal. Biliary/Gallbladder: Gallbladder is absent. Moderate intra and extrahepatic bile duct dilation. The c ommon bile duct measures up to 12 mm. Pancreas: No mass. The pancreatic duct is dilated up to 4 mm. Spleen: Normal. Adrenals:No mass. Kidneys: No suspicious mass, obstructing stone, or hydronephrosis. Simple left lower pole cyst. Punct ate nonobstructing left midpole calcification. GI tract: Mild distal esophageal and antral wall edema. Small hiatal hernia. No small or large bowel dilation. Mild diffuse colonic wall edema. No appendix dilation. No appendicolith. Hyperemia of the p roximal appendiceal mucosa, without significant surrounding inflammatory change. Mesentery/Peritoneum: No ascites, mass, or free air. Mesenteric lymph node enlargement. Retroperitoneum: No mass. Periaortic lymph node enlargement. Atherosclerotic calcifications of intra- abdominal arterial vessels. Pelvis: Pelvic organs are within normal limits. Soft Tissues: Soft tissues and body wall unremarkable. Bones: No acute osseous finding. IMPRESSION: Increasing intrahepatic and extrahepatic bile duct dilation. Pancreatic duct dilation. No obstructing stone or mass detected. Correlate with biliary labs and consider MRCP. Mesenteric and periaortic lymphadenopathy. Mild diffuse colonic wall edema as can be seen with colitis. Mild proximal appendiceal mucosal hyperemia, presumably reactive. Early appendicitis is not excluded. Reviewed, dictated and finalized at location K. IMPRESSION: Increasing intrahepatic and extrahepatic bile duct dilation. Pancreatic duct di lation. No obstructing stone or mass detected. Correlate with biliary labs and consider MRCP. Mesenteric and periaortic lymphadenopathy. Mild diffuse colonic wall edema as can be seen with colitis. Mild proximal appendiceal mucosal hyperemia, presumably reactive. Early appendi citis is not excluded.
--- OUTSIDE RECORDS SUMMARY | 2025-02-20 14:38 | XMS_ITS | Clinical Summary ---
Author Organization [facility] Address [facility] [place] [address] Care Team Providers Care Television And Radio Repairer Name Role Phone LeilaArturo saezssasa Holliday NP Primary Care Provider [phone] Mila Nina MD Unavailable [phone] Allergies No known active allergies Medications amitriptyline 25 MG tablet Take 1 tablet (25 mg total) by mouth nightly at bedtime. 0 06/23/2017 Active pantoprazole 40 MG tablet Take 1 tablet (40 mg total) by mouth daily. 06/23/2017 Active metoprolol succinate 25 MG 24 hr tablet Take 0.5 tablets (12.5 mg total) by mouth daily. Call to make an appointment. 5 tablet 12/07/2018 Active Active Problems Problem Noted Date Diagnosed Date V-tach ([facility]) 10/02/2017 Hypertension, essential 10/02/2017 Pure hypercholesterolemia 10/02/2017 Arthritis 06/23/2017 Palpitations Family History Medical History Relation Comments Hypertension Brother Hypertension Father RI Father Dementia Mother TIA Mother Diabetes Sister 1 Hypertension Sister 1 leukemia Sister 2 Relation Status Comments Brother Alive Father Alive Maternal Grandfather Maternal Grandmother Mother Alive Paternal Grandfather Paternal Grandmother Sister 1 Alive Sister 2 Alive Social History Tobacco Use Types Packs/Day Years Used Date Smoking Tobacco: Former Cigarettes Q uit: 10/2010 Smokeless Tobacco: Never Alcohol Use Standard Drinks/Week Comments No 0 (1 standard drink = 0.6 oz pur e alcohol) Comments Unknown Sex and Gender Information Value Date Recorded Sex Assigned at Not on file Legal Sex Female 3:15 PM CDT Gender Identity Not on file Sexual Orientation Not on file Occupation Industry Job Start Date Job End Date disability Not on file Not on file Not on file helps with food prep for ex [employer] Not on file Not on fi le Not on file Last Filed Vital Signs Vital Sign Reading Time Taken Comments Blood Pressure 124/90 10/02/2017 10:56 AM GENERATION MANAGER Pulse 84 10/02/2017 10:56 AM GENERATION MANAGER reg Temperature - - Respiratory Rate - - Oxygen Saturation 97% 10/02/2017 9:56 AM GENERATION MANAGER Inhaled Oxygen Concentration - - Weight 87.5 kg (193 lb) 10/02/2017 9:56 AM GENERATION MANAGER Height 160 cm (5' 3 ) 10/02/2017 9:56 AM GENERATION MANAGER Body Mass Index 34.19 10/02/2017 9:56 AM GENERATION MANAGER Plan of Treatment Health Maintenance Due Date Last Done Comments Cervical Cancer Screening Pa p Smear (Age 30 to 64) Every 3 Years 1962 Colorectal Cancer Screening Colonoscopy (10 Years) 1962 Annual Physical 1965 Hepatitis C 1980 DTaP, Tdap and Td Vaccines ( 1 - Tdap) 1981 Cervical Cancer Screening Pa p with HPV Testing (Age 30 to 64) Every 5 Years 1992 Cervical Cancer Screening with HPV 1992 Mammogram Screening 2002 Pneumococcal Vaccine: 50+ Ye ars (1 of 1 - PCV) 2012 Zoster Vaccines (1 of 2) 2012 COVID-19 Vaccine ( - 2023-2 5 season) 2024 RSV Immunization or 60+ Years (1 - 1-dose 75+ series) 2037 Meningococcal B Vaccine Aged Out No l onger eligible based on patient's age to complete this topic Meningococcal Vaccine Aged Out No nick amira eligible based on patient's age to complete this topic RSV Immunizations Under 20 Months Aged Out No longer eligible based on patient's age to complete this topic Insurance MEDICARE Care Teams Television And Radio Repairer Relationship Specialty Start Date End Date Raissa Dee NP PCP - General NURSE PRACTITIONER 04/03/16 Mila Nina MD [facility] [address] [place] [address] [place] F[employer] Coverer CARDIOVASCULAR DISEASE 06/02/17
--- OUTSIDE RECORDS SUMMARY | 2025-02-20 14:38 | XMS_ITS | Data Portability ---
Author Organization [facility] OFFICE Address [address] [place] [address] Care Team Providers Care Home Health Lvn Name Role Phone MANUELALDEN Primary Care Provider Assessment Encounter Date Assessment Date Assessment LastModified by Organization Details LastModified Time 08/28/2021 08/28/2021 Patient Examined by Wendie Bedolla PA-C, Also interviewed / examined by Supervising physician. Assessment / plan discussed and implemented Encounter scribed by MARY Castellanos. Documentation reviewed and approved by supervising physician alysia Not available 08/28/2021 10:13:36 02/26/2022 02/26/2022 Patient Examined by MATI Meza, Also interviewed / examined by Supervising physician. Assessment / plan discussed and implemented Encounter scribed by MATI Meza. Documentation reviewed and approved by supervising physician jarrell Not available 02/26/2022 10:22:13 Plan of Treatment Reminders Order Date Submit Date Provider Last Modified By Organization Details Last Modified Time Details Appointments None recorded. Lab None recorded. Referral None recorded. Procedures None recorded. Surgeries None recorded. Imaging None recorded. Medication Orders Crestor 10 mg tablet 2021 022 [facility] #[id number], [address], [place], [id number], 10:28:09 metoprolol succinate ER 25 mg tablet,ext ended release 24 hr 2021 022 [id number], [address] [facility], [place], [id number], 2 10:23:20 metoprolol succinate ER 25 mg tablet,ext ended release 24 hr 2020 021 [facility] #[id number], [address], [place], [place], [id number], 1 18:12:20 metoprolol succinate ER 25 mg tablet,ext ended release 24 hr 2019 020 [email or web address] [facility] #[id number], [address], [place], [place], [id number], 0 14:12:11 Patient TargetsNo targets recorded. Patient Instructions Encounter Date Encounter Id Patient Instructions Last Modified By Organization Details Last Modified Time 08/21/2020 [id number] Exercise advised Low cholesterol diet advised Low sodium diet advised Not available 08/21/2020 14:00:21 Patient was seen and evaluated by Christine Ventura [facility]. Plan of care was discussed with collaborating physician and note cosigned by Dr. Smooth [place]. [email or web address] Not available 08/21/2020 14:00:16 11/27/2020 [id number] Weight loss 20 pounds Exercise advised Low cholesterol diet advised Low sodium diet advised. [email or web address] Not available 11/27/2020 18:12:13 05/28/2021 [id number] Exercise advised Low cholesterol diet advised Low sodium diet advised [email or web address] Not available 05/28/2021 14:43:47 Scribed by Christine Ventura [facility] [email or web address] Not available 05/28/2021 15:17:59 02/26/2022 [id number] Exercise advised Low cholesterol diet advised Low sodium diet advised. [email or web address] Not available 02/26/2022 10:28:53 Reason for Referral None Reported. Results Created Date Observation Date Name Description Value Unit Range Abnormal Flag Note LastModifiedBy Organization Detail LastModifiedTime 11/30/19 21 11/27/2020 modesta burns am No observ ation record ed. [email or web address] Not Available 2020 11:14:34 07/01/20 21 06/29/2021 , echoc ardio gram No observ ation record ed. [facility] [address], [place], [address], 07/04/2021 16:39:56 Result Notes None recorded. Problems Name Problem SNOMED Code Status Onset Date Resolution Date Notes Provider Name and Address Organization Details Recorded Time Chest pain 85624011 Active 2019 Not Available [facility] 3 13:12:10 Ankylosing spondylitis 2311329 Active 2019 Not Available [facility] 3 13:12:10 Essential hypertension 70860298 Active 2019 Not Available [facility] 3 13:12:10 Migraine 18945528 Active 2019 Not Available [facility] 3 13:12:10 Umbilical hernia 780911618 Active 2019 Not Available [facility] 3 13:12:10 Steatosis of liver 425576301 Active 2019 Not Available [facility] 3 13:12:09 Gastroesophag eal reflux disease 307484355 Active 2019 Not Available [facility] 3 13:12:10 Hypertriglyce ridemia 503975873 Active 2019 Not Available [facility] 3 13:12:10 Postmenopausa l state 17981941 Active 2019 Not Available [facility] 3 13:12:10 Problem Notes None recorded. Procedures Surgical History Date Name Laterality Status Provider Name and Address Organization Details Recorded Time gastric polypectomy completed [place] to [place] - [facility] 11/05/2019 03:38:08 Cholecystectomy completed [place] - [facility] 11/05/2019 03:38:34 Hernia Repair completed Alfaro [place] - [facility] 11/08/2019 11:27:51 ligation of fallopian tube completed [place]o [place] - [facility] 11/08/2019 11:28:15 Imaging Results Imaging Date Name Status LastModified by Organization Details LastModified Time 11/27/2020 electrocardiogram completed Informa tion not available 12/13/2020 11:14:34 06/29/2021 US, echocardiogram completed [email or web address] [address], [place], [address], 07/04/2021 16:39:56 Procedure Notes None recorded. Medical Equipment None Reported. Allergies Allergen ID Allergen Name Allergen Category Reaction Reaction Severity Criticality Documentation Date Start Date Code Code System Note Provider Name and Address Organization Details Recorded Time 89368 Product containin g 3-hydroxy -3-methyl glutaryl- coenzyme A reductase inhibitor (product) medicatio n other severe Not available 05/28/2021 07417 009 SNOMED Steven Vick [place], [place] - [facility] 14:22:03 Medications Name Sig Start Date Stop Date Status Note LastModified by Organization Details LastModified Time amoxicill in 500 mg capsule 08/21 completed pt not taking this med 08/21/20 20 rl Not Available Not Available Not Available atorvasta tin 40 mg tablet TAKE 1 TABLET BY MOUTH DAILY 08/30 completed Not Available Not Available Not Available atorvasta tin 20 mg tablet TK 1 T PO D 05/28 completed pt not taking 11/27/20 Not Available Not Available Not Available tizanidin e 2 mg tablet TAKE 2 TABLETS BY MOUTH THREE TIMES DAILY NEEDED FOR MUSCLE SPASMS active Not Available Not Available No t Available amitripty line 75 mg tablet 1 tablet once day 08/21 completed pt not taking this dose 08/21/20 20 rl Not Available Not Available Not Available tizanidin e 4 mg tablet 08/21 completed pt not taking med 08/21/20 20 rl Not Available Not Available Not Available diclofena c ER 100 mg tablet,ex tended release 24 hr 1qd 08/21 completed pt not taking sm Not Available Not Available Not Available hydrocodo ne 5 mg-acetam inophen 325 mg tablet 08/21 completed not taking. was given rx for a dental procedur e 08/21/20 20 rl Not Available Not Available Not Available ondansetr on HCl 4 mg tablet TAKE 1 TABLET BY MOUTH EVERY 8 HOURS NEEDED FOR NAUSEA OR VOMITING active Not Available Not Available No t Available amitripty line 50 mg tablet 08/21 completed pt not taking this dose 08/21/20 20 rl Not Available Not Available Not Available alprazola m 0.25 mg tablet TAKE 1 TABLET BY MOUTH DAILY NEEDED FOR ANXIETY active Not Available Not Available No t Available amitripty line 25 mg tablet 08/21 completed pt not taking this dose 08/21/20 20 rl Not Available Not Available Not Available lorazepam 0.5 mg tablet 02/26 completed pt no longer takes 08/28/20 21 nj Not Available Not Available Not Available methocarb aisha 750 mg tablet 05/28 completed Not Available Not Available Not Available pantopraz ole 40 mg tablet,de layed release TAKE 1 TABLET BY MOUTH TWICE DAILY active Not Available Not Available No t Available nitroglyc pernell 0.4 mg sublingua l tablet 05/28 completed Not Available Not Available Not Available codeine 10 mg-guaife nesin 100 mg/5 mL oral liquid TAKE 10 ML BY MOUTH EVERY DAY AT BEDTIME NEEDED FOR COUGH active Not Available Not Available No t Available metoprolo l succinate ER 25 mg tablet,ex tended release 24 hr TAKE 1 TABLET BY MOUTH EVERY DAY active Not Available Not Available No t Available methylpre dnisolone 4 mg tablets in a dose pack FOLLOW PACKAGE DIRECTIO NS 05/28 completed Not Available Not Available Not Available amitripty line 100 mg tablet TAKE 1 TABLET BY MOUTH EVERY NIGHT AT BEDTIME active Not Available Not Available No t Available Crestor 10 mg tablet Take 1 tablet(s ) every day by oral route. active Not Available Not Available No t Available nitrofura ntoin monohydra te/macroc rystals 100 mg capsule 05/28 completed Not Available Not Available Not Available Fish Oil 12/25 completed Not Available Not Available Not Available metoprolo l succinate 25 mg 1/2 tablet once day 08/21 completed Not Available Not Available Not Available Vitamin D3 25 mcg twice day 12/25 completed Not Available Not Available Not Available vitamin A84-vksud acid 12/25 completed Not Available Not Available Not Available Symbicort 80 mcg-4.5 mcg/actua tion HFA aerosol inhaler INHALE 2 PUFFS BY MOUTH EVERY 12 HOURS active Not Available Not Available No t Available diclofena c 1 % topical gel 05/28 completed Not Available Not Available Not Available GaviLyte- G 236 gram-22.7 4 gram-6.74 gram-5.86 gram oral solution 08/21 completed not taking this 08/21/20 20 rl Not Available Not Available Not Available Shahnaz Autoinjec tor 80 mg/mL subcutane ous active Not Available Not Available Not Available Adult Aspirin Regimen 81 mg tablet,de layed release Take 1 tablet every day by oral route. active Not Available Not Available No t Available Humira(CF ) Pen 40 mg/0.4 mL subcutane ous kit INJECT 0.4 ML UNDER THE SKIN EVERY 2 WEEKS active Not Available Not Available No t Available Emgality Pen 120 mg/mL subcutane ous pen injector 08/28 completed Not Available Not Available Not Available Flucelvax Quad (PF) 60 mcg (15 mcg x 4)/0.5 mL IM syringe ADM 0.5ML IM UTD 05/28 completed Not Available Not Available Not Available Paxlovid 300 mg (150 mg x 2)-100 mg tablets in a dose pack TAKE 2 NIRMATRE LVIR TABLETS AND 1 RITONAVI R TABLET TOGETHER BY MOUTH TWICE DAILY FOR 5 DAYS active Not Available Not Available No t Available Vitals Date Recorded Body height Body mass index (BMI) Body weight Heart rate Oxygen saturation Oxygen saturation in Arterial blood by Pulse oximetry Systolic blood pressure Diastolic blood pressure Provider Name and Address Organization Details Last Updated DateTime 0 157.48 cm 36.7 kg/m2 33297.3 5 g 100 /min 96 % 96 % 120 mm[Hg] 85 mm[Hg] Renetta Momin [facility] 0 14:04:06 Date Recorded Body temperature Provider Name a nd Address Organization Details Last Updated DateTime 08/21/2020 98.3 [degF] Polly Valdez [facility] 08/21/2020 13:57:52 Date Recorded Body height Body mass index (BMI) Body weight Heart rate Respiratory rate Oxygen saturation Oxygen saturation in Arterial blood by Pulse oximetry Systolic blood pressure Diastolic blood pressure Provider Name and Address Organization Details Last Updated DateTime 1 157.48 cm 36.9 kg/m2 10807.6 6 g 89 /min 18 /min 100 % 100 % 120 mm[Hg] 108 mm[Hg] Melida Ramirez [facility] 1 14:32:29 Date Recorded Body height Body mass index (BMI) Body weight Heart rate Respiratory rate Oxygen saturation Oxygen saturation in Arterial blood by Pulse oximetry Systolic blood pressure Diastolic blood pressure Provider Name and Address Organization Details Last Updated DateTime 1 157.48 cm 36.6 kg/m2 28281.4 7 g 79 /min 16 /min 98 % 98 % 112 mm[Hg] 84 mm[Hg] Steven Nava [facility] 1 14:18:02 Date Recorded Body height Heart rate Body mass index (BMI) Body weight Oxygen saturation Oxygen saturation in Arterial blood by Pulse oximetry Systolic blood pressure Diastolic blood pressure Provider Name and Address Organization Details Last Updated DateTime 1 157.48 cm 96 /min 37.7 kg/m2 34714.1 1 g 96 % 96 % 122 mm[Hg] 82 mm[Hg] KRYSTENRobinson MCNEIL [facility] 1 09:48:46 Date Recorded Body height Body mass index (BMI) Body weight Heart rate Oxygen saturation Oxygen saturation in Arterial blood by Pulse oximetry Systolic blood pressure Diastolic blood pressure Provider Name and Address Organization Details Last Updated DateTime 2 157.48 cm 37.7 kg/m2 97352.0 3 g 90 /min 96 % 96 % 118 mm[Hg] 64 mm[Hg] Gordy Rivas [facility] 2 09:47:55 Social History Question Answer Notes LastModified by Organizat ion Details LastModified Time Tobacco Smoking Status Former Smoker quit 11/03/09 Angelina sagastume [facility] 11/05/2019 03:31:42 What Is Your Level Of Alcohol Consumption? Occasional [email or web address] Information not available 11/08/2019 What Is Your Level Of Caffeine Consumption? Occasional [email or web address] Information not available 11/08/2019 How Much Tobacco Do You Chew? None [email or web address] Information not available 11/08/2019 What Type Of Diet Are You Following? REGULAR [email or web address] Information not available 11/08/2019 Which Illicit Or Recreational Drugs Have You Used? None Information not available 11/05/2019 Do You Or Have You Ever Used E-cigarettes Or Vape? Never Used Electronic Cigarettes Information not available 11/05/2019 Live Alone Or With Others? With Others Skilled Nursing Due To Dementia Information not available 11/05/2019 Marital Status [email or web address] Informatio n not available 11/08/2019 What Was The Date Of Your Most Recent Tobacco Screening? 11/01/2019 Information not available 11/08/2019 How Many Children Do You Have? 3 Information not available 11/05/2019 Do You Or Have You Ever Used Smokeless Tobacco? Former Smokeless Tobacco User Information not available 11/05/2019 How Much Tobacco Do You Smoke? 0.5 PPD Information not available 11/08/2019 General Stress Level Medium [email or web address] Information not available 11/08/2019 How Many Years Have You Smoked Tobacco? 32 Information not available 11/05/2019 Sex: Unknown Functional Status Question Answer Note LastModified by Organizat ion Details LastModified Time What is your exercise level? Occasional [email or web address] Information not available 11/08/2019 Mental Status None recorded. Family History Relationship Description Onset Age of this Age Resolved Age Notes LastModified by Organization Details LastModified Time Father Chronic obstructive pulmonary disease [email or web address] Not available 2019 03:27:06 Father Heart disease 49 hmesto Not available 2019 03:27:21 Mother Dementia hmesto Not available 0 11/05/2019 03:27:31 Mother Malignant tumor of breast hmesto Not available 2019 03:28:32 Notes:Sibling : Diabetes henry litus , Hypertension , Malignant neoplasm . Grandparent : Acute myocardial infarction, CVA, COPD, Pancreatic cancer, Emphysema, dementia . Medical History Condition Response Hyperlipidemia Y Hypertension Y GERD/Reflux Y Gynecological HistoryNo gynecological history recorded. Obstetrics History GPAL:G 0 P 0 0 0 0 Past Encounters Encounter ID Performer Location Encounter Start Date Encounter Closed Date Diagnosis/Indication Diagnosis SNOMED-CT Code Diagnosis ICD10 Code Diagnosis Note [id number] Smooth [place] MD [facility] [address] [place] [address] 11/08/2019 15:19:32 11/09/2019 11:23:21 Chest pain 29849247 R07.9 Angiogram 11/01/2019 No significan t CAD. Normal LVSF Echo 11/01/2019 LVSF is normal, estimated at 55-60%. LV chamber dimension is normal. The LV diastolic function is grade I diastolic dysfunctio n [id number] MD Ludivina [facility] [address] [place] [address] 02/14/2020 12:51:39 02/17/2020 22:47:49 Chest pain 53113811 R07.9 Angiogram 11/01/2019 No significan t CAD. Normal LVSF Echo 11/01/2019 LVSF is normal, estimated at 55-60%. LV chamber dimension is normal. The LV diastolic function is grade I diastolic dysfunctio n Essential hypertension 42163995 I10 Controlled . Dyslipidemia 557904971 E 78.5 [id number] MD Ludivina Tirado [facility] [address] [place] [address] 02/17/2020 11:39:17 02/17/2020 12:11:13 Chest pain 05397339 R07.9 Resolved.A ngiogram 11/01/2019 No significan t CAD. Normal LVSF Echo 11/01/2019 LVSF is normal, estimated at 55-60%. LV chamber dimension is normal. The LV diastolic function is grade I diastolic dysfunctio n Essential hypertension 28587656 I10 Controlled . Tachycardia 0377910 R00. 0 Needs to increase exercise. Will consider increasing Metoprolol if she is still tachycardi c at follow up. Dyslipidemia 337367632 E 78.5 [id number] Christine Ventura [facility] Office [address] [place] [address] 08/21/2020 13:56:38 08/21/2020 14:13:54 Chest pain 46122154 R07.9 Resolved [facility] 11/01/2019 : No significan t CAD with normal LVSF Echo 11/01/2019 : LVSF is normal, estimated at 55-60%. LV chamber dimension is normal. The LV diastolic function is grade I diastolic dysfunctio n. Essential hypertension 91725233 I10 Well controlled on current regimen Tachycardia 7403975 R00. 0 Remains elevated despite increased exercise, will increase metoprolol to 25mgdaily 08/21/2020 . Dyslipidemia 562383705 E 78.5 Needs to keep LDL less than 70, and HDL more than 40. 020 LDL 83Continue atorvastat in 20mg nightlyWil l get fasting lipids for follow-up [id number] Smooth [place] [facility] [address] [place] [address] 11/27/2020 14:18:22 11/27/2020 14:40:11 Chest pain 15367824 R07.9 Resolved [facility] 11/01/2019 : No significan t CAD with normal LVSF Echo 11/01/2019 : LVSF is normal, estimated at 55-60%. LV chamber dimension is normal. The LV diastolic function is grade I diastolic dysfunctio n. Essential hypertension 80602742 I10 Well controlled on current regimen Tachycardia 3294767 R00. 0 Remains elevated despite increased exercise, will increase metoprolol to 25mgdaily 08/21/2020 . Dyslipidemia 251306291 E 78.5 Needs to keep LDL less than 70, and HDL more than 40. 020 LDL 83Continue atorvastat in 20mg nightlyWil l get fasting lipids for follow-up [id number] Christine Ventura [facility] Office [address] [place] [address] 05/28/2021 14:07:29 05/28/2021 14:54:47 Chest pain 41985426 R07.9 Resolved [facility] 11/01/2019 : No significan t CAD Essential hypertension 48497709 I10 Well controlled on current regimen Tachycardia 5098967 R00. 0 Resolved on increased dose of metoprolol at 25 mg daily Dyslipidemia 045644892 E 78.5 Needs to keep LDL less than 70, and HDL more than 40. 020 LDL 83Continue atorvastat in 20 mg nightlyWil l get fasting lipids for follow-up Dyspnea on exertion 6084 5006 R06.09 Obtain echo to evaluate for structural /functiona l disease [id number] wendie moone [place] [facility] [place] [address] 08/28/2021 09:18:42 08/28/2021 10:29:25 Chest pain 10206584 R07.9 Resolved [facility] 11/01/2019 : No significan t CAD Had [facility] Echo with LVEF > 55% Essential hypertension 59640481 I10 Well controlled on current regimen Tachycardia 4791510 R00. 0 Resolved on increased dose of metoprolol at 25 mg daily Dyslipidemia 827739588 E 78.5 Needs to keep LDL less than 70, and HDL more than 40. 020 LDL 83Continue atorvastat in 20 mg nightlyWil l get fasting lipids for follow-up Dyspnea on exertion 6084 5006 R06.09 Had ECHO done in 06/29/21 showed LV chamber size is normal,the estimated LVEF is 55-60%(nor mal),there is normal global systolic function and contractil ity. Obtain echo to evaluate for structural /functiona l disease Obesity 801455999 E66.9 discussed weight loss 10 lb. weight loss recommende d over the next 2 months. decrease night time eating [id number] [facility] [place] [address] 02/26/2022 09:20:00 02/26/2022 10:35:08 Chest pain 19146553 R07.9 Resolved [facility] 11/01/2019 : No significan t CAD Had [facility] Echo with LVEF > 55% Essential hypertension 20695740 I10 Well controlled on current regimen Tachycardia 5848601 R00. 0 Resolved on increased dose of metoprolol at 25 mg daily Dyslipidemia 757688011 E 78.5 Needs to keep LDL less than 70, and HDL more than 40. 020 LDL 83she stopped her lipitor by primaryWil l get fasting lipids for follow-up Dyspnea on exertion 6084 5006 R06.09 Had ECHO done in 06/29/21 showed LV chamber size is normal,the estimated LVEF is 55-60%(nor mal),there is normal global systolic function and contractil ity. Obtain echo to evaluate for structural /functiona l disease Obesity 544304271 E66.9 discussed weight loss 10 lb. weight loss recommende d over the next 2 months. decrease night time eating Health Concerns Section Related Observation LastModified by Organization Detai ls LastModified Time None Recorded Concern Status LastModified by Organization Details LastModified Time None Recorded Advance Directives Directive None Recorded Payers Encounter Date Sequence Insurance Name Policy Number Policy Brunner Covered Member ID Brunner Member ID Guarantor Name 08/21/2020 1 [employer] (MEDICARE REPLACEMENT HMO) Frederick Sellers [id number] Frederick Sellers 11/27/2020 1 [employer] (MEDICARE REPLACEMENT HMO) Frederick Sellers [id number] Frederick Sellers 05/28/2021 1 [employer] (MEDICARE REPLACEMENT HMO) Frederick Holliday [place] [id number] Frederick Sellers 08/28/2021 1 [employer] (MEDICARE REPLACEMENT HMO) Frederick Sellers [id number] Frederick Sellers 02/26/2022 1 [employer] (MEDICARE REPLACEMENT HMO) Frederick Sellers [id number] Frederick Sellers Notes Date Note Type Note Provider Name and Address Organization Details Recorded Time 0 text/html 08/21/2020 CC : Chest pain 59 years-old Female with h/o Hypertension is here for follow up . She was last seen in clinic 6 months ago on 02/17/2020. She was in [facility] in 11/01/19 because of Chest pain. Today she reports feeling well. She is active, will go on walks when the weather is nice. No recurrence of chest pain. Reports mild dyspnea on exertion, stable over past few years. No shortness of breath at rest. No orthopnea. No PND's. No dizziness. No palpitation. No syncope or near syncope. No leg swelling. No nausea and vomiting. No side effects from medications. Angiogram 11/01/2019 No significant CAD. Normal LVSF Echo 11/01/2019 LVSF is normal, estimated at 55-60%. LV chamber dimension is normal. The LV diastolic function is grade I diastolic dysfunction Results from this visit, or from the past: 11/10/19: TC 141,TG 150 ,HDL 32,LDL 83, 11/10/19: Na 136 ,K 3.7 ,CL 100 ,CO2 28 , GLU 95, BUN 22 ,CR 0.70, AST 27 ,ALT 39, 10/31/19: WBC 9.8,RBC 4.88,HGB 14.2,HCT 43.2,PLT 323 EKG 11/10/2019 Atrial tachycardia. PQRS 1:1 abnormal P axis, H rate 104 Susoect arm lead reversal EKG 11/08/19: Atrial tachycardia. P:QRS-1:1, abnormal P axis, H rate 104. Suspect arm lead reversal. Insufficient data. EKG 10/31/[address] abnormality-lateral leads. Baseline wander AVL, AVF. Borderline ECG Angiogram 11/01/2019 No significant CAD. Normal LVSF XR chest 11/01/2019 No acute cardiopulmonary disease Echo 11/01/2019 LVSF is normal, estimated at 55-60%. LV chamber dimension is normal. The LV diastolic function is grade I diastolic dysfunction Christine Ventura [facility] [place] [facility] 08/21/2020 14:13:51 1 text/html 11/27/2020 CC : Chest pain 59 years-old Female with h/o Hypertension is here for follow up . She was last seen in clinic 8 months ago on 02/17/2020. She was in [facility] in 11/01/19 because of Chest pain. Today she reports feeling well. She is active, will go on walks when the weather is nice. No recurrence of chest pain. Reports mild dyspnea on exertion, stable over past few years. No shortness of breath at rest. No orthopnea. No PND's. No dizziness. No palpitation. No syncope or near syncope. No leg swelling. No nausea and vomiting. No side effects from medications. Angiogram 11/01/2019 No significant CAD. Normal LVSF Echo 11/01/2019 LVSF is normal, estimated at 55-60%. LV chamber dimension is normal. The LV diastolic function is grade I diastolic dysfunction Results from this visit, or from the past: 11-12-2019 culture, urine11/10/19: TC 141,TG 150 ,HDL 32,LDL 83, 11/10/19: Na 136 ,K 3.7 ,CL 100 ,CO2 28 , GLU 95, BUN 22 ,CR 0.70, AST 27 ,ALT 39, 10/31/19: WBC 9.8,RBC 4.88,HGB 14.2,HCT 43.2,PLT 323 02/17/2020 EKG : Sinus Tachycardia Non specific ST depression inferolateral leads11/10/2019 EKG: Atrial tachycardia. PQRS 1:1 abnormal P axis, H rate 104 11/08/19:EKG Atrial tachycardia. P:QRS-1:1, abnormal P axis, H rate 104. Suspect arm lead reversal. Insufficient data. 10/31/2019: EKG Sinus rhythm. borderline ST abnormality-lateral leads. Baseline wander AVL, AVF. Borderline ECG Angiogram 11/01/2019 No significant CAD. Normal LVSF XR chest 11/01/2019 No acute cardiopulmonary disease Echo 11/01/2019 LVSF is normal, estimated at 55-60%. LV chamber dimension is normal. The LV diastolic function is grade I diastolic dysfunction Smooth Adams MD [address] [place], [address], [facility] 11/27/2020 18:12:37 1 text/html 05/28/2021 CC: Cardiac follow-up 60 years-old Female with h/o Hypertension is here for 6 month follow up. She was last seen in clinic on 11/27/2020. Since then she reports feeling fair. She has had some dyspnea on exertion with feeling like she cannot take a deep breath. She denies hospitalizations or ER visits since she was last seen. Has been active but not exercising, no significant weight change. Denies chest pain. Denies shortness of breath at rest. Denies dyspnea on exertion. No orthopnea. No PND. Denies heart palpitations. Denies dizziness. Denies syncope or near syncope. No ankle or leg edema. No major bleeding events. No reported side effects from medications. Taking medications as prescribed with no missed doses. Denies snoring, daytime somnolence and AM headache. *Angiogram 11/01/2019 No significant CAD. Normal LVSF *Echo 11/01/2019 LVSF is normal, estimated at 55-60%. LV chamber dimension is normal. The LV diastolic function is grade I diastolic dysfunction Results from this visit, or from the past: 11-12-2019 culture, urine11/10/19: TC 141,TG 150 ,HDL 32,LDL 83, 11/10/19: Na 136 ,K 3.7 ,CL 100 ,CO2 28 , GLU 95, BUN 22 ,CR 0.70, AST 27 ,ALT 39, 10/31/19: WBC 9.8,RBC 4.88,HGB 14.2,HCT 43.2,PLT 323 11/27/20 EKG: NSR02/17/2020 EKG : Sinus Tachycardia Non specific ST depression inferolateral leads11/10/2019 EKG: Atrial tachycardia. PQRS 1:1 abnormal P axis, H rate 104 11/08/19:EKG Atrial tachycardia. P:QRS-1:1, abnormal P axis, H rate 104. Suspect arm lead reversal. Insufficient data. 10/31/2019: EKG Sinus rhythm. borderline ST abnormality-lateral leads. Baseline wander AVL, AVF. Borderline ECG Angiogram 11/01/2019 No significant CAD. Normal LVSF XR chest 11/01/2019 No acute cardiopulmonary disease Echo 11/01/2019 LVSF is normal, estimated at 55-60%. LV chamber dimension is normal. The LV diastolic function is grade I diastolic dysfunction Christine Ventura [employer]GER-BC [facility], [place] - [facility] 05/28/2021 15:18:27 1 text/html 08/28/21 CC : Cardiac follow-upchest pain, palpitations 60 years-old Female with h/o Hypertension, mil CAD ( 25% LAD) is here for 3 month follow up with ECHO to discuss the results. She was last seen in the clinic on 05/28/21, since then she feels well some fatigue but knows she needs to strt exercising. 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 She denies ER visits and hospitalizations since she was last seen. Today reports:Denies chest pain.Denies shortness of breath at rest. Has mild dyspnea on exertion.No orthopnea. No PNDs.Denies heart palpitations.Denies dizziness. Denies syncope or near syncope.No ankle or leg edema.No major bleeding events.No reported side effects from medications. Taking medications as prescribed with no missed doses. Denies snoring, daytime somnolence and AM headache. *Last LDL was 83 done on 11/09/19 .Pt takes atorvastatin 40 mg. *Had ECHO done in 06/29/21 showed LV chamber size is normal,the estimated LVEF is 55-60%(normal),there is normal global systolic function and contractility. Previously :She has had some dyspnea on exertion with feeling like she cannot take a deep breath.*Angiogram 11/01/2019 No significant CAD. Normal LVSF *Echo 11/01/2019 LVSF is normal, estimated at 55-60%. LV chamber dimension is normal. The LV diastolic function is grade I diastolic dysfunctionResults from this visit, or from the past: 11-12-2019 culture, urine 11/10/19: TC 141,TG 150 ,HDL 32,LDL 83, 11/10/19: Na 136 ,K 3.7 ,CL 100 ,CO2 28 , GLU 95, BUN 22 ,CR 0.70, AST 27 ,ALT 39,10/31/19: WBC 9.8,RBC 4.88,HGB 14.2,HCT 43.2,PLT EKG: NSR02/17/2020 EKG : Sinus Tachycardia Non specific ST depression inferolateral leads11/10/2019 EKG: Atrial tachycardia. PQRS 1:1 abnormal P axis, H rate 36380/04/22:EKG Atrial tachycardia. P:QRS-1:1, abnormal P axis, H rate 104. Suspect arm lead reversal. Insufficient data. 10/31/2019: EKG Sinus rhythm. borderline ST abnormality-lateral leads. Baseline wander AVL, AVF. Borderline ECG Angiogram 11/01/2019 No significant CAD. Normal LVSFXR chest 11/01/2019 No acute cardiopulmonary diseaseEcho 11/01/2019 LVSF is normal, estimated at 55-60%. LV chamber dimension is normal. The LV diastolic function is grade I diastolic dysfunction wendie bedolla [place], [place] - [facility] 08/29/2021 19:46:26 2 text/html 02/26/22CC : Cardiac follow-up [id number] years-old Female with h/o Hypertension, mil CAD ( 25% LAD) is here for 6 month follow up. She was last seen in the clinic on 08/28/21, since then she is dfoing well. She denied any chest pain or dyspnea on exertion. She is exercign about 3 times a week. Her last LDL was 83 2020 and she used to take lipitor 40 mg daily. Her primary care provider took her off lipitor due to increase her liverenzymes.She denies ER visits and hospitalizations since she was last seen. Today reports: PT informs of no CC at this time.Denies chest pain.Denies shortness of breath at rest. Has mild dyspnea on exertion.No orthopnea. No PNDs.Denies heart palpitations.Denies dizziness. Denies syncope or near syncope.No ankle or leg edema.No major bleeding events.No reported side effects from medications. Taking medications as prescribed with no missed doses.Denies snoring, daytime somnolence and AM headache.*Last LDL was 83 done on 11/09/19.Pt takes atorvastatin 40 mg. Previously: She feels some fatigue but knows she needs to strt exercising. 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 *Had ECHO done in 06/29/21 showed LV chamber size is normal,the estimated LVEF is 55-60%(normal),there is normal global systolic function and contractility. She has had some dyspnea on exertion with feeling like she cannot take a deep breath. *Angiogram 11/01/2019 No significant CAD. Normal LVSF Results from this visit, or from the past: 11-12-2019 culture, urine 11/10/19: TC 141,TG 150 ,HDL 32,LDL 83, 11/10/19: Na 136 ,K 3.7 ,CL 100 ,CO2 28 , GLU 95, BUN 22 ,CR 0.70, AST 27 ,ALT 39,10/31/19: WBC 9.8,RBC 4.88,HGB 14.2,HCT 43.2,PLT EKG: NSR02/17/2020 EKG : Sinus Tachycardia Non specific ST depression inferolateral leads11/10/2019 EKG: Atrial tachycardia. PQRS 1:1 abnormal P axis, H rate 40629:EKG Atrial tachycardia. P:QRS-1:1, abnormal P axis, H rate 104. Suspect arm lead reversal. Insufficient data. 10/31/2019: EKG Sinus rhythm. borderline ST abnormality-lateral leads. Baseline wander AVL, AVF. Borderline ECG Angiogram 11/01/2019 No significant CAD. Normal LVSFXR chest 11/01/2019 No acute cardiopulmonary diseaseEcho 11/01/2019 LVSF is normal, estimated at 55-60%. LV chamber dimension is normal. The LV diastolic function is grade I diastolic dysfunction [facility] - [facility] 02/26/2022 10:29:09 OBGyn Episode No OBEpisode recorded.
--- OUTSIDE RECORDS SUMMARY | 2025-02-20 14:38 | XMS_ITS | Clinical Summary ---
Author Organization [facility] Address [address] [place] [address] Care Team Providers Care Meter Setter Name Role Phone Unavailable Primary Care Provider Unavailabl e Source Comments [facility],non-owned Affiliates and Associated Physician Practices is amultiple site organization consisting of ambulatory clinics and hospital sitesin [place], [place], [place] and [place]. This disclosure is being madepursuant to the Care Everywhere program and may not contain all information available regarding this patient. Last updated 18.[facility] Social History Tobacco Use Types Packs/Day Years Used Date Smoking Tobacco: Never Assessed Comments Unknown Sex and Gender Information Value Date Recorded Sex Assigned at Not on file Legal Sex Female 8:42 AM CDT Gender Identity Not on file Sexual Orientation Not on file Plan of Treatment Health Maintenance Due Date Last Done Comments COLOGUARD (AGES 45-75) - COL ON CA SCREENING 1962 COLON MONITORING 1962 COLONOSCOPY - COLON CA SCREENING 1962 CT COLONOGRAPHY - COLON CA SCREENING 1962 Colorectal Cancer Screening 1962 FIT - COLON CA SCREENING 1962 FLEX SIG - COLON CA SCREENING 1962 LIPID TESTING 1962 MAMMOGRAM 1962 PAP SMEAR 1962 HIV SCREENING 1977 HEPATITIS C SCREENING 10/22/1980 DTAP/TDAP/TD VACCINES (1 - Tdap) 1981 PNEUMOCOCCAL VACCINE 50+ (1 of 1 - PCV) 2012 ZOSTER VACCINE (1 of 2) 2012 COVID-19 VACCINE (1 - 2023-2 5 season) 2024 DEPRESSION SCREENING 11/03/2024 MEDICARE AWV CALENDAR YEAR 2024 INFLUENZA VACCINE (Season Ended) 2025 Respiratory Syncytial Virus (RSV) Vaccine Pt: or over 60 yrs (1 - 1-dose 75+ series) 2037 HEPATITIS B VACCINE Aged Out No longe r eligible based on patient's age to complete this topic HIB VACCINE Aged Out No longer eligi ble based on patient's age to complete this topic HPV VACCINE Aged Out No longer eligi ble based on patient's age to complete this topic MENINGOCOCCAL (Group B) VACC INE SHARED DECISION-MAKING Aged Out No longer eligibl e based on patient's age to complete this topic MENINGOCOCCAL GROUPS A/C/Y/W VACCINE Aged Out No longer eligible b ased on patient's age to complete this topic Insurance [facility]
--- OUTSIDE RECORDS SUMMARY | 2025-02-20 14:38 | XMS_ITS | Encounter Summary ---
Author Organization [facility] Address [facility] [place] [address] Care Team Providers Care [employer] Teacher Name Role Phone Raissa Dee NP Primary Care Provider Mila Nina MD Unavailable [phone] Encounter Details Date Type Department Care Team (Late st Contact Info) Description 06/24/2017 Abstract [facility] AT [address] [address] Lawrence Freeman MA Social History Tobacco Use Types Packs/Day Years [...] Not on fi le Not on file documented as of this encounter Plan of Treatment Not on file documented as of this encounter Procedures Procedure Name Priority Date/Time Associated Diagnosis Comments LIPID PANEL Routine 10/31/2016 THYROID STIM HORMONE TSH Routine 10/31/2016 VITAMIN D, 25 OH Routine 10/31/2016 CBC (OUTSIDE LAB) Routine 07/29/2016 COMPREHENSIVE METABOLIC PANEL Routine 07/29/2016 LIPID PANEL Routine 07/29/2016 documented in this encounter Results * VITAMIN D, 25 OH (10/31/2016) VITAMIN D 25 HYDROXY S/P/B 28.1 10/31/2016 us Doc [facility] Final Result * LIPID PANEL (10/31/2016) Pathologist [facility] CHOLESTEROL 240 HDL 38 TRIGLYCERIDES 167 LDL (CALCULATED) 164 10/31/2016 us Doc [facility] Final Result * THYROID STIM HORMONE, TSH (10/31/2016) Pathologist [facility] TSH 1.540 10/31/2016 us Doc [facility] Final Result * CBC (OUTSIDE LAB) (07/29/2016) Pathologist [facility] WBC 5.8 HGB 14.1 HCT 41.6 PLT 284 07/29/2016 us Doc [facility] Abstract [facility]-OUTSIDE/ABSTRACTED Final Result * LIPID PANEL (07/29/2016) CHOLESTEROL 215 HDL 40 TRIGLYCERIDES 266 LDL (CALCULATED) 144 07/29/2016 us Doc [facility] Final Result * COMPREHENSIVE METABOLIC PANEL (07/29/2016) Pathologist [facility] SODIUM S/P/B 139 POTASSIUM S/P/B 3.9 CO2 30 CHLORIDE S/P/B 101 GLUCOSE 105 mg/dL CALCIUM S/P/B 9.8 BUN 18 CREATININE S/P/B 0.70 0.5 - 1.0 EGFR NON-AFR. AMER. >60 <=90 ALKALINE PHOSPHATASE S/P/B 97 ALT 31 AST 22 BILIRUBIN TOTAL S/P/B 0.6 ALBUMIN S/P/B 3.9 3.5 - 5.0 TOTAL PROTEIN S/P/B 6.9 07/29/2016 us Doc [facility] Final Result documented in this encounter Visit Diagnoses Not on filedocumented in this encounter Care Teams [employer] Teacher Relationship Specialty Start Date End Date Raissa Dee NP PCP - General NURSE PRACTITIONER 04/03/16 Mila Nina MD [address] [address] [place] [employer] Architect CARDIOVASCULAR DISEASE 06/02/17 documented as of this encounter
--- OUTSIDE RECORDS SUMMARY | 2025-02-20 14:38 | XMS_ITS | Data Portability ---
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 Plan of Treatment Reminders Order Date Submit Date Provider Last Modified By Organization Details Last Modified Time Details Appointments None recorded. Lab CMP, serum or plasma 2017 018 [facility], [address], [place], [address], 8 14:14:40 CBC w/ auto diff 2017 018 [facility], [address], [place], [address], 8 14:14:40 lipid panel, serum 2017 018 [facility], [address], [place], [address], 8 14:14:41 vitamin D, 25-hydroxy , total, serum 2017 018 [facility], [address], [place], [address], 8 14:14:42 TSH, ultra-sens itive, serum 2017 018 [facility], [address], [place], [address], 8 14:14:42 Referral None recorded. Procedures None recorded. Surgeries None recorded. Imaging MAMMO, screening, bilateral 2017 018 [facility], [address], [place], [address], 8 16:34:14 Medication Orders pantoprazo le 40 mg tablet,del ayed release 2017 018 [facility]FACE [id number], [address] [facility], [place], [place], [id number], 8 10:41:53 amitriptyl ine 25 mg tablet 2017 018 [id number], [address] [facility], [place], [place], [id number], 8 10:30:59 metoprolol succinate ER 25 mg tablet,ext ended release 24 hr 2017 018 [id number], [address] [facility], [place], [place], [id number], 8 10:41:59 Patient TargetsNo targets recorded. Patient Instructions Encounter Date Encounter Id Patient Instructions Last Modified By Organization Details Last Modified Time 06/23/2018 [id number] cervical disc disease: care instructions [email or web address] Not available 06/23/2018 10:34:09 mammogram: about this test [email or web address] Not available 06/23/2018 10:34:09 gastroesophageal reflux disease (GERD): care instructions [email or web address] Not available 06/23/2018 10:41:34 learning about h igh blood pressure [email or web address] Not available 06/23/2018 10:41:34 Reason for Referral None Reported. Results Created Date Observation Date Name Description Value Unit Range Abnormal Flag Note LastModifiedBy Organization Detail LastModifiedTime 06/23/20 18 06/24/2018 CBC w/ auto diff WBC 7.2 x10e3 /uL 3.4-10 .8 Not Available [facility] ([facility]) [address] [facility], [place], [address], 06/24/2018 14:14:40 06/23/20 18 06/24/2018 CBC w/ auto diff RBC 5.04 x10e6 /uL 3.77-5 .28 Not Available [facility] ([facility]) [address] [place], [address], 06/24/2018 14:14:40 06/23/20 18 06/24/2018 CBC w/ auto diff hemoglobin 14.4 g/dL 11.1-1 5.9 Not Available [facility] ([facility]) [address] [facility], [place], [address], 06/24/2018 14:14:40 06/23/20 18 06/24/2018 CBC w/ auto diff hematocrit 43.6 % 34.0-4 6.6 Not Available [facility] ([facility]) [address] [facility], [place], [address], 06/24/2018 14:14:40 06/23/20 18 06/24/2018 CBC w/ auto diff MCV 87 fL 79-97 Not Available [facility] ([facility]) [address] [place], [address], 06/24/2018 14:14:40 06/23/20 18 06/24/2018 CBC w/ auto diff MCH 28.6 pg 26.6-3 3.0 Not Available [facility] ([facility]) [address] [place], [address], 06/24/2018 14:14:40 06/23/20 18 06/24/2018 CBC w/ auto diff MCHC 33.0 g/dL 31.5-3 5.7 Not Available [facility] ([facility]) [address] [place], [address], 06/24/2018 14:14:40 06/23/20 18 06/24/2018 CBC w/ auto diff RDW 13.7 % 12.3-1 5.4 Not Available [facility] ([facility]) [address] [place], [address], 06/24/2018 14:14:40 06/23/20 18 06/24/2018 CBC w/ auto diff platelets 304 x10e3 /uL 150-37 9 Not Available [facility] ([facility]) [address], [place], [address], 06/24/2018 14:14:40 06/23/20 18 06/24/2018 CBC w/ auto diff neutrophils 63 % not estab. Not Available [facility] ([facility]) [address] [facility], [place], [address], 06/24/2018 14:14:40 06/23/20 18 06/24/2018 CBC w/ auto diff lymphs 26 % not estab. Not Available [facility] ([facility]) [address] [facility], [place], [address], 06/24/2018 14:14:40 06/23/20 18 06/24/2018 CBC w/ auto diff monocytes 6 % not estab. Not Available [facility] ([facility]) [address] [facility], [place], [address], 06/24/2018 14:14:40 06/23/20 18 06/24/2018 CBC w/ auto diff eos 5 % not estab. Not Available [facility] ([facility]) [address] [facility], [place], [address], 06/24/2018 14:14:40 06/23/20 18 06/24/2018 CBC w/ auto diff basos 0 % not estab. Not Available [facility] ([facility]) [address] [facility], [place], [address], 06/24/2018 14:14:40 06/23/20 18 06/24/2018 CBC w/ auto diff immature cells VAN LOADER Not Available [facility] ([facility]) [address] [facility], [place], [address], 06/24/2018 14:14:40 06/23/20 18 06/24/2018 CBC w/ auto diff neutrophils (absolute) 4.5 x10e3 /uL 1.4-7. 0 Not Available [facility] ([facility]) [address] [place], [address], 06/24/2018 14:14:40 06/23/20 18 06/24/2018 CBC w/ auto diff lymphs (absolute) 1.9 x10e3 /uL 0.7-3. 1 Not Available [facility] ([facility]) [address] [place], [address], 06/24/2018 14:14:40 06/23/20 18 06/24/2018 CBC w/ auto diff monocytes(ab solute) 0.4 x10e3 /uL 0.1-0. 9 Not Available [facility] ([facility]) [address] [place], [address], 06/24/2018 14:14:40 06/23/20 18 06/24/2018 CBC w/ auto diff eos (absolute) 0.4 x10e3 /uL 0.0-0. 4 Not Available [facility] ([facility]) [address] [place], [address], 06/24/2018 14:14:40 06/23/20 18 06/24/2018 CBC w/ auto diff baso (absolute) 0.0 x10e3 /uL 0.0-0. 2 Not Available [facility] ([facility]) [address] [place], [address], 06/24/2018 14:14:40 06/23/20 18 06/24/2018 CBC w/ auto diff immature granulocytes 0 % not estab. Not Available [facility] ([facility]) [address] [place], [address], 06/24/2018 14:14:40 06/23/20 18 06/24/2018 CBC w/ auto diff immature grans (abs) 0.0 x10e3 /uL 0.0-0. 1 Not Available [facility] ([facility]) [address] [place], [address], 06/24/2018 14:14:40 06/23/20 18 06/24/2018 CBC w/ auto diff NRBC VAN LOADER Not Available [facility] ([facility]) [address] [place], [address], 06/24/2018 14:14:40 06/23/20 18 06/24/2018 CBC w/ auto diff hematology comments: VAN LOADER Not Available [facility] ([facility]) [address] [place], [address], 06/24/2018 14:14:40 06/23/20 18 06/24/2018 CMP, serum or plasm a glucose 106 mg/dL 65-99 above high normal Not Available [facility] ([facility]) [address] [place], [address], 06/24/2018 14:14:40 06/23/20 18 06/24/2018 CMP, serum or plasm a BUN 21 mg/dL 6-24 Not Available [facility] ([facility]) [address] [place], [address], 06/24/2018 14:14:40 06/23/20 18 06/24/2018 CMP, serum or plasm a creatinine 0.70 mg/dL 0.57-1 .00 Not Available [facility] ([facility]) [address] [facility] [place], [address], 06/24/2018 14:14:40 06/23/20 18 06/24/2018 CMP, serum or plasm a eGFR if nonafricn AM 98 mL/mi n/1.7 3 >59 Not Available [facility] ([facility]) [address] [place], [address], 06/24/2018 14:14:40 06/23/20 18 06/24/2018 CMP, serum or plasm a eGFR if africn AM 113 mL/mi n/1.7 3 >59 Not Available [facility] ([facility]) [address] [facility] [place], [address], 06/24/2018 14:14:40 06/23/20 18 06/24/2018 CMP, serum or plasm a BUN/creatini ne ratio 30 9-23 above high normal Not Available [facility] ([facility]) [address] [facility] [place], [address], 06/24/2018 14:14:40 06/23/20 18 06/24/2018 CMP, serum or plasm a sodium 140 mmol/ L 134-14 4 Not Available [facility] ([facility]) [address] [facility] [place], [address], 06/24/2018 14:14:40 06/23/20 18 06/24/2018 CMP, serum or plasm a potassium 4.5 mmol/ L 3.5-5. 2 Not Available [facility] ([facility]) [address] [facility] [place], [address], 06/24/2018 14:14:40 06/23/20 18 06/24/2018 CMP, serum or plasm a chloride 102 mmol/ L 96-106 Not Available [facility] ([facility]) [address] [facility] [place], [address], 06/24/2018 14:14:40 06/23/20 18 06/24/2018 CMP, serum or plasm a carbon dioxide, total 21 mmol/ L 20-29 Not Available [facility] ([facility]) [address] [facility] [place], [address], 06/24/2018 14:14:40 06/23/20 18 06/24/2018 CMP, serum or plasm a calcium 9.9 mg/dL 8.7-10 .2 Not Available [facility] ([facility]) [address] [facility] [place], [address], 06/24/2018 14:14:40 06/23/20 18 06/24/2018 CMP, serum or plasm a protein, total 6.5 g/dL 6.0-8. 5 Not Available [facility] ([facility]) [address] [facility] [place], [address], 06/24/2018 14:14:40 06/23/20 18 06/24/2018 CMP, serum or plasm a albumin 4.1 g/dL 3.5-5. 5 Not Available [facility] ([facility]) [address] [facility] [place], [address], 06/24/2018 14:14:40 06/23/20 18 06/24/2018 CMP, serum or plasm a globulin, total 2.4 g/dL 1.5-4. 5 Not Available [facility] ([facility]) [address] [facility] [place], [address], 06/24/2018 14:14:40 06/23/20 18 06/24/2018 CMP, serum or plasm a A/G ratio 1.7 1.2-2. 2 Not Available [facility] ([facility]) [address] [facility] [place], [address], 06/24/2018 14:14:40 06/23/20 18 06/24/2018 CMP, serum or plasm a bilirubin, total 0.5 mg/dL 0.0-1. 2 Not Available [facility] ([facility]) [address] [facility] [place], [address], 06/24/2018 14:14:40 06/23/20 18 06/24/2018 CMP, serum or plasm a alkaline phosphatase 130 IU/L 39-117 above high normal Not Available [facility] ([facility]) [address] [facility] [place], [address], 06/24/2018 14:14:40 06/23/20 18 06/24/2018 CMP, serum or plasm a AST (SGOT) 22 IU/L 0-40 Not Available [facility] ([facility]) [address] [facility] [place], [address], 06/24/2018 14:14:40 06/23/20 18 06/24/2018 CMP, serum or plasm a ALT (SGPT) 28 IU/L 0-32 Not Available [facility] ([facility]) [address] [facility] [place], [address], 06/24/2018 14:14:40 06/23/20 18 06/24/2018 lipid panel , serum cholesterol, total 226 mg/dL 100-19 9 above high normal Not Available [facility] ([facility]) [address] [facility] [place], [address], 06/24/2018 14:14:41 06/23/20 18 06/24/2018 lipid panel , serum triglyceride s 266 mg/dL 0-149 above high normal Not Available [facility] ([facility]) [address] [facility] [place], [address], 06/24/2018 14:14:41 06/23/20 18 06/24/2018 lipid panel , serum LDL chol. (direct) 153 mg/dL 0-99 above high normal Not Available [facility] ([facility]) [address] [facility], [place], [address], 06/24/2018 14:14:41 06/23/20 18 06/24/2018 lipid panel , serum HDL cholesterol 39 mg/dL >39 below low normal Not Available [facility] ([facility]) [address] [facility] [place], [address], 06/24/2018 14:14:41 06/23/20 18 06/24/2018 lipid panel , serum VLDL cholesterol robin 53 mg/dL 5-40 above high normal Not Available [facility] ([facility]) [address] [facility] [place], [address], 06/24/2018 14:14:41 06/23/20 18 06/24/2018 lipid panel , serum LDL cholesterol calc 134 mg/dL 0-99 above high normal Not Available [facility] ([facility]) [address] [facility], [place], [address], 06/24/2018 14:14:41 06/23/20 18 06/24/2018 lipid panel , serum comment: VAN LOADER Not Available [facility] ([facility]) [address] [facility], [place], [address], 06/24/2018 14:14:41 06/23/20 18 06/24/2018 lipid panel , serum T. chol/HDL ratio 5.8 ratio 0.0-4. 4 above high normal T. Chol/ HDL Ratio Men Women 1/2 Avg.R isk 3.4 3.3 Avg.R isk 5.0 4.4 2X Avg.R isk 9.6 7.1 3X Avg.R isk 23.4 11.0 Not Available [facility] ([facility]) [address] [facility], [place], [address], 06/24/2018 14:14:41 06/23/20 18 06/24/2018 vitam in D, 25-hy droxy , total , serum vitamin D, 25-hydroxy 18.4 NG/mL 30.0-1 00.0 below low normal Vitam in D defic iency has been defin ed by the Insti tute of Medic ine and an Endoc rine Socie ty pract ice guide line as a level of serum 25-OH vitam in D less than 20 ng/mL (1,2) . The Endoc rine Socie ty went on to [facility] er defin e vitam in D insuf ficie ncy as a level betwe en 21 and 29 ng/mL (2). 1. IOM (Inst itute of Medic ine). 2009. Dieta ry refer ence jamil es for calci um and D. Esperanza flores [place]: The Natio nal [facility] Press . 2. Wilma pierce MF, Brannon ey [place], Bisch off-F errar i EVANS, et al. Evalu ation , treat ment, and preve ntion of vitam in D defic iency : an Endoc rine Socie ty clini robin pract ice guide line. JCEM. 2010; 96(7) :1911 -30. Not Available [facility] ([facility]) [address] [facility], [place], [address], 06/24/2018 14:14:42 06/23/20 18 06/24/2018 TSH, ultra -sens itive , serum TSH 1.160 uIU/m L 0.450- 4.500 Not Available [facility] ([facility]) [address] [facility], [place], [address], 06/24/2018 14:14:42 07/06/20 18 07/03/2018 MAMMO , scree delilah, bilat eral No observ ation record ed. [facility]) [address], [place], [address], 07/15/2018 15:03:17 Result Notes None recorded. 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 Location : None;Sev erity: Moderate ;Progres s: Stable;A dded By: Josey Forbes;Add to Current Problems : NO Not Available [facility] 7 11:33:32 Internal hemorrho ids 34230180 Active 2014 Location : None;Sev erity: Moderate ;Progres s: Stable;A dded By: Josey Forbes;Add to Current Problems : NO Not Available [facility] 7 11:33:33 Wrist joint pain 028701609 Completed 201203/07/2013 Location : None;Sev erity: Moderate ;Progres s: Stable;A dded By: Josey Forbes;Add to Current Problems : NO Not Available [facility] 7 11:33:33 Screenin g for malignan t neoplasm of colon Completed 201301/25/2015 Location : None;Sev erity: Moderate ;Progres s: Stable;A dded By: Josey Forbes;Add to Current Problems : YES Not Available [facility] 7 11:33:33 Endocrin e/metabo lic screenin g Active 2013 Location : None;Sev erity: Moderate ;Progres s: Stable;A dded By: Josey Forbes;Add to Current Problems : YES Not Available [facility] 7 11:33:33 Epidermo id cyst of skin 288290159 Active 2015 Location : Left;Sev erity: Moderate ;Progres s: Stable;A dded By: Josey Forbes;Add to Current Problems : YES Not Available [facility] 7 11:33:33 Vitamin D deficien cy 77602674 Active 2014 Location : None;Sev erity: Moderate ;Progres s: Stable;A dded By: Josey Forbes;Add to Current Problems : YES Not Available [facility] 7 11:33:33 Subjecti ve tinnitus 67672529 Completed 201402/25/2015 Location : None;Sev erity: Moderate ;Progres s: Stable;A dded By: Brooke Garnica;Add to Current Problems : YES Not Available [facility] 7 11:33:33 Screenin g mammogra phy Completed 201505/27/2016 Location : None;Sev erity: Moderate ;Progres s: Stable;A dded By: Brooke Garnica;Add to Current Problems : YES Not Available [facility] 7 11:33:33 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 Location : None;Sev erity: Moderate ;Progres s: Stable;A dded By: Audra Espinoza;Add to Current Problems : NO Not Available [facility] 7 11:33:33 Acute sinusiti s 31301474 Completed 201505/04/2016 Location : None;Sev erity: Moderate ;Progres s: Stable;A dded By: Brigette Landeros; Add to Current Problems : YES Not Available [facility] 7 11:33:33 Low back pain 307210296 Active 2012 Location : None;Sev erity: Moderate ;Progres s: Stable;A dded By: Manisha Song i;A dd to Current Problems : NO Not Available [facility] 7 11:33:33 Neoplasm of uncertai n behavior of skin 72515863 Completed 201303/13/2014 Location : None;Sev erity: Moderate ;Progres s: Stable;A dded By: Manisha Song i;A dd to Current Problems : NO Not Available [facility] 7 11:33:34 Migraine with aura 0868295 Active 2013 Location : None;Sev erity: Moderate ;Progres s: Stable;A dded By: Manisha Song i;A dd to Current Problems : YES Not Available [facility] 7 11:33:34 Skin sensatio n disturba nce 58470207 Completed 201505/27/2016 Location : None;Sev erity: Moderate ;Progres s: Stable;A dded By: Manisha Song i;A dd to Current Problems : NO Not Available [facility] 11:33:34 Problem Notes None recorded. Procedures Surgical History Date Name Laterality Status Provider Name and Address Organization Details Recorded Time [facility] Tubal Ligation completed [facility] 06/23/2018 10:07:43 Imaging Results Imaging Date Name Status [facility] Details LastModified Time 07/03/2018 MAMMO, screening, bilateral completed [facility]) [address], [place], [address], 07/15/2018 15:03:17 Procedure Notes None recorded. Medical Equipment None Reported. Allergies No known drug allergies Medications Name Sig Start Date Stop Date Status Note LastModified by Organization Details LastModified Time atorvastati n 20 mg tablet Take 1 tablet(s ) every day by oral route. active Not Available Not Available No t Available azithromyci n 250 mg tablet Take 2 tablet(s ) by mouth on day 1 then 1 tablet every day for the next 4 days. 06/01/ 2016 07/31 /2016 completed RxNorm : 361299 ;Allow Substi tution : True Not Available Not Available Not Available ibuprofen 800 mg tablet Take 1 po three times daily as needed 02/10 completed RxNorm : 053841 ;Allow Substi tution : True Not Available Not Available Not Available hydrocodone 5 mg-acetamin ophen 500 mg capsule take 1 or 2 at bedtime as needed for pain 04/05 completed RxNorm : 881070 ;Allow Substi tution : True Not Available Not Available Not Available meloxicam 15 mg tablet take one by mouth daily with a meal, the same time every day 05/11 completed RxNorm : 930296 ;Allow Substi tution : True Not Available Not Available Not Available cefadroxil 500 mg capsule 1 capsule by mouth every 12 hrs x 7 days 04/03 completed RxNorm : 757846 ;Allow Substi tution : True Not Available Not Available Not Available amitriptyli ne 25 mg tablet TAKE 1 TABLET BY MOUTH EVERY DAY active Not Available Not Available No t Available pantoprazol e 40 mg tablet,surekha yed release Take 1 tablet every day by oral route. 2017 active Not Available Not Available Not Avai lable metoprolol succinate ER 25 mg tablet,exte nded release 24 hr Take 1/2 tab 12.5mg by mouth daily. active Not Available Not Available No t Available Vitamin D2 1,250 mcg (50,000 unit) capsule Take 1 cap po once weekly 2017 active Not Available Not Available Not Avai lable amitriptyli ne 100 mg tablet Take 2 tablets every day by oral route at bedtime. 06/28 completed Not Available Not Available Not Available topiramate 50 mg tablet Take 1 tablet(s ) by mouth bid 03/28 completed RxNorm : 605628 ;Allow Substi tution : True Not Available Not Available Not Available Ibuprofen 200 Take 1 tablet(s ) by mouth q 4 to 6 hr prn 02/04 completed Allow Substi tution : True Not Available Not Available Not Available Vitals Date Recorded Body weight Body height Body mass index (BMI) Body temperature Respiratory rate Oxygen saturation Oxygen saturation in Arterial blood by Pulse oximetry Heart rate Systolic blood pressure Diastolic blood pressure Provider Name and Address Organization Details Last Updated DateTime 8 38793.3 5 g 157.48 cm 37.2 kg/m2 99.1 [degF] 20 /min 97 % 97 % 88 /min 118 mm[Hg] 76 mm[Hg] Mirta Cooper [place] - [facility] 8 10:12:39 Social History Question Answer Notes LastModified by Organizat ion Details LastModified Time Tobacco Smoking Status Former Smoker Mirta Cooper [place], [place] - [facility] 06/23/2018 10:07:01 Do You Have An Advance Directive? No Information not available 06/23/2018 What Is Your Level Of Alcohol Consumption? Occasional Information not available 06/23/2018 What Is Your Level Of Caffeine Consumption? Occasional Information not available 06/23/2018 How Much Tobacco Do You Chew? None Information not available 06/23/2018 Are You Currently Employed? Yes Information not available 06/23/2018 What Type Of Diet Are You Following? REGULAR Information not available 06/23/2018 Which Illicit Or Recreational Drugs Have You Used? NONE Information not available 06/23/2018 Education 12 Information no t available 06/23/2018 What Is Your Occupation? [employer] Information not available 06/23/2018 Are There Any Guns Present In Your Home? No Information not available 06/23/2018 Hard Of Hearing Or Deaf In One Or Both Ears? No Information not available 06/23/2018 Legally Blind In One Or Both Eyes? No Information no t available 06/23/2018 Live Alone Or With Others? With Others Information not available 06/23/2018 What Was The Date Of Your Most Recent Tobacco Screening? 06/23/2018 Information not available 05/27/2019 How Many Children Do You Have? 3 Information not available 06/23/2018 Seat Belts Used Routinely Yes Information not available 06/23/2018 Smoke Alarm In Home Yes Information not available 06/23/2018 Are You Passively Exposed To Smoke? No Information no t available 06/23/2018 General Stress Level Low Information not available 06/23/2018 Do You Use Sunscreen Routinely? Yes Information not available 06/23/2018 Sex: Unknown Functional Status Question Answer Note LastModified by Organizat ion Details LastModified Time Are you able to care for yourself? Yes Information not available 06/23/2018 What is your exercise level? Occasional Information not available 06/23/2018 Mental Status None recorded. Family History Relationship Description Onset Age of this Age Resolved Age Notes LastModified by Organization Details LastModified Time Mother Malignant tumor of breast cmilster Not available 2017 10:05:36 Mother Cerebrovascu lar accident cmilster Not available 10:05:43 Mother Dementia cmilster Not available 06/23/2018 10:06:00 Mother Migraine cmilster Not available 06/23/2018 10:06:23 Sister Coronary arterioscler osis cmilster Not available 2017 10:05:52 Sister Migraine cmilster Not available 06/23/2018 10:06:45 Sister Migraine cmilster Not available 06/23/2018 10:06:50 Father Heart disease cmilster Not available 2017 10:06:07 Father Hypertensive disorder cmilster Not available 2017 10:06:14 Brother Migraine cmilster Not availabl e 06/23/2018 10:06:53 Medical History Condition Response High Blood Pressure Y Muscle, Joint, or Bone Problems Y Acid Reflux (GERD) Y Headaches Y Gynecological HistoryNo gynecological history recorded. Obstetrics History GPAL:G 0 P 0 0 0 0 Past Encounters Encounter ID Performer Location Encounter Start Date Encounter Closed Date Diagnosis/Indication Diagnosis SNOMED-CT Code Diagnosis ICD10 Code Diagnosis Note [id number] Sole Baig MD [facility] [address] [place] [address] 06/23/2018 09:54:30 06/23/2018 16:34:14 Migraine 79825033 G43.909 Degenerati on of cervical intervertebral disc 82591189 M50.30 Screening mammography 24 020310 Z12.31 Body mass index 30+ - obesity 496894073 Z68.37 discussed low fat, low carb diet, and encouraged exercise. Endocrine/ metabolic screening 820082406 Z13.228 Gastroesop hageal reflux disease 153563068 K21.9 Essential hypertension 49490205 I10 Standardiz ed adult depression screening tool completed 0265239086 35935 Z13.89 patient does not appear to be significan tly depressed. Health Concerns Section Related Observation LastModified by Organization Detai ls LastModified Time None Recorded Concern Status LastModified by Organization Details LastModified Time None Recorded Advance Directives Directive N: Payers None recorded. Notes Date Note Type Note Provider Name and Address Organization Details Recorded Time 06/23/2018 text/html HeadacheReported bypatient.Location:uni lateral; including neck; occipital Quality:similar to previous headaches;throbbing;ti ghtness Severity:moderate Duration:intermittent Onset/Timing:occur every few weeks; less frequent since starting amitriptilene at bedtime Context:not related to trauma; triggered by life events; positional; has chronic neck pain also Aggravating factors:loud noise; bright lights, allergic rhinitis Alleviating factors:laying in a dark room; sleep; rest Associated Symptoms:no vomiting;nausea;rhinor kiera;photophobia;teari ng/watery eyes; hyperacusis, posterior neck painHypertension F/UReported bypatient.Associated Symptoms:no dizziness; no lightheadedness; no chest pain; no shortness of breath; no palpitations; no edema; no calf pain with exertion Lifestyle:regular exercise; limiting/avoiding salt Medications:taking medications as directed; no side effects from medicationNotes:takes metoprolol in low doses for control of blood pressure.Neck PainReported bypatient.Trauma:no; has degeneration of intervertebral discs Neurological Complaints:pain in neck and upper back, radiating to the shoulders. Pain:worse with activity;radiates to bilateral shoulderReflux/GERDRep orted bypatient.Symptomsno difficulty swallowing; no pain swallowing; heartburn;postprandial pain Quality:burning Severity:waking up at night Onset/Timing:gradual onset; occurs >1 hr after meals Context:non-smoker;rel ated to any meal;related to caffeine;related to spicy foods;related to stress;positional Alleviating Factors:sitting up; protein pump inhibitors; non-spicy foods Aggravating Factors:alcohol use;lying down;worsened by food;caffeine intake Associated Symptoms:no frequent coughing; no hoarseness; no belching/burping; no nausea; no vomiting; not vomiting blood; no regurgitation; no shortness of breath; no chest pain; no difficulty swallowing; no pain when swallowing; no decreased appetite; no black/tarry stools; no fatigue; no throat pain;heartburn;bad taste Sole Baig MD Attn: Accounting,[address] [place], [address], [facility] - [facility] 06/28/2018 15:14:47 OBGyn Episode No OBEpisode recorded.
[2025-02-20 14:40] VITALS: BP 137/84; PULSE 87; RESP 18; TEMP 36.9; O2SAT 97
--- OUTSIDE RECORDS SUMMARY | 2025-02-20 15:00 | XMS_ITS | Clinical Summary ---
Author Organization [facility] Address [address] [place] [address] Care Team Providers Care Face Worker Name Role Phone Luiz Mariscal NP Primary Care Provider [phone] Allergies No known active allergies Medications adalimumab (Humira,CF, Pen) 40 mg/0.4 mL pen injector kit INJECT 0.4 ML UNDER THE SKIN EVERY 2 WEEKS Active ALPRAZolam (XANAX) 0.25 mg tablet Take 1 tablet (0.25 mg total) by mouth daily as needed Active amitriptyline (ELAVIL) 100 mg tablet Take 1 tablet (100 mg total) by mouth nightly Active aspirin 81 mg enteric coated tablet Take 1 tablet every day by oral route. Active budesonide-form oteroL (SYMBICORT) 80-4.5 mcg/actuation inhaler INHALE 2 PUFFS BY MOUTH EVERY 12 HOURS Active guaiFENesin-cod eine (GUAITUSS AC) liquid 100-10 mg/5 mL TAKE 10 ML BY MOUTH EVERY DAY AT BEDTIME NEEDED FOR COUGH Active HYDROcodone-suzie taminophen (NORCO) 5-325 mg per tablet Take 1 tablet by mouth 2 (two) times a day as needed for pain 4 Active ixekizumab (Taltz Autoinjector) auto-injector Active metoprolol XL (TOPROL-XL) 25 mg extended release tablet Take 1 tablet (25 mg total) by mouth daily 9 Active ondansetron (ZOFRAN) 4 mg tablet Take 1 tablet (4 mg total) by mouth every 8 (eight) hours as needed Active pantoprazole DR (PROTONIX) 40 mg EC tablet Take 1 tablet (40 mg total) by mouth 2 (two) times a day Active Crestor 10 mg tablet Take 1 tablet(s) every day by oral route. Active meloxicam (MOBIC) 7.5 mg tablet Take 1 tablet (7.5 mg total) by mouth daily for 10 days 10 tablet 5 Active cyclobenzaprine (FLEXERIL) 5 mg tablet Take 1 tablet (5 mg total) by mouth nightly as needed for muscle spasms 7 tablet 5 Active tiZANidine (ZANAFLEX) 2 mg tablet TAKE 2 TABLETS BY MOUTH THREE TIMES DAILY NEEDED FOR MUSCLE SPASMS 02/11/20 25 Discontinu ed(Therapy completed) Active Problems Problem Noted Date Diagnosed Date Palpitations 06/10/2024 Ankylosing spondylitis 11/04/2019 Chest pain 11/04/2019 Gastroesophageal reflux disease 11/04/2019 Migraine 11/04/2019 Hypertriglyceridemia 11/04/2019 Steatosis of liver 11/04/2019 Umbilical hernia 11/04/2019 Hypertension, essential 10/02/2017 Pure hypercholesterolemia 10/02/2017 V-tach 10/02/2017 Arthritis 06/23/2017 Encounters Date Type Department Care Team Description 02/10/2025 11:25 AM CDT Ancillary Procedure [facility] Imaging at [address] [phone] Chronic right hip pain 02/10/2025 11:00 AM CDT Office Visit [facility] at [address] [phone] Hair Richards NP Chronic right hip pain (Primary Dx) 02/10/2025 Results Follow-Up [facility] at [address] [phone] Hair Richards NP from Last 3 Months Social History Tobacco Use Types Packs/Day Years Used Date Smoking Tobacco: Never Assessed Personal Safety Answer Date Recorded Have you ever been in or are you currently in a harmful physical or emotional relationship or is someone making you feel afraid or unsafe? 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 Gender Identity Not on file Sexual Orientation Not on file Obstetrics History Last Filed Vital Signs Vital Sign Reading Time Taken Comments Blood Pressure 130/86 02/10/2025 11:10 AM CDT Pulse 88 02/10/2025 11:10 AM CDT Temperature 36.8 C (98.3 F) 02/10/2025 11:10 AM CDT Respiratory Rate 20 02/10/2025 11:10 AM CDT Oxygen Saturation 98% 02/10/2025 11:10 AM CDT Inhaled Oxygen Concentration - - Weight 95.7 kg (211 lb) 02/10/2025 11:10 AM CDT Height 157.5 cm (5' 2 ) 02/10/2025 11:10 AM CDT Body Mass Index 38.59 02/10/2025 11:10 AM CDT Plan of Treatment Health Maintenance Due Date Last Done Comments Breast Cancer Screening-Mammogram 1962 Cervical Cancer Screening 1962 Colon Cancer Screening-Colonoscopy 1962 Depression Screening 1962 Hepatitis C Screening 1962 Hepatitis B Screening 1980 Regular Well Visit/Exam 18-64 1980 Covid-19 Vaccine ( season) 2024 09/28/2021, 01/12/2021, 12/15/2020 Influenza Vaccine (Season Ended) 2025 10/09/2023, 10/03/2021, 09/11/2020 DTaP/Tdap/Td Vaccine (2 - Td or Tdap) 05/31/2034 Pneumococcal vaccine <65 Completed 07/02/2023 Zoster Vaccine Completed 10/09/2023, 07/02/2023 Procedures Procedure Name Priority Date/Time Associated Diagnosis Comments XR HIP RIGHT 2 OR 3 VIEWS Schedule ADELAIDA, Read ADELAIDA (Appt Today, Awaiting Results) 02/10/2025 11:26 AM CDT Chronic right hip pain from Last 3 Months Results * XR Hip Right 2 or 3 Views (02/10/2025 11:26 AM CDT) Anatomical Region Laterality Modality Lower Extremities, Hip, Pelvis Right D igital Radiography 02/10/2025 2:43 PM CDT Narrative 02/10/2025 2:46 PM CDT EXAM DESCRIPTION: XR HIP RIGHT 2 OR 3 VIEWS REASON FOR STUDY: Other (type), chronic right hip pain, worsened over the past 6 weeks ago Pt complains of anterior lateral chronic right hip pain. No known injury or prior surgery TECHNIQUE: Frontal and lateral views of the right hip . COMPARISON: None FINDINGS: BONES/JOINTS: No fracture, malalignment, or suspicious osseous lesion is identified. Mild hip arthritis. SOFT TISSUES: Unremarkable. IMPRESSION: No acute abnormality identified. Mild hip arthritis. THIS IS AN ELECTRONICALLY VERIFIED FINAL REPORT 02/10/2025 2:46 PM - Electronically signed by Varinder Pearson M.D. AR T: Report ID: [id number] Reading Location: [id number] Procedure Note Varinder Pearson MD - 02/10/2025 EXAM DESCRIPTION: XR HIP RIGHT 2 OR 3 VIEWS REASON FOR STUDY: Other (type), chronic right hip pain, worsened over thepast 6 weeks ago Pt complains of anterior lateral chronic right hip pain. No known injuryor prior surgery TECHNIQUE: Frontal and lateral views of the right hip . COMPARISON: None FINDINGS: BONES/JOINTS: No fracture, malalignment, or suspicious osseous lesion is identified. Mild hip arthritis. SOFT TISSUES: Unremarkable. IMPRESSION: No acute abnormality identified. Mild hip arthritis. THIS IS AN ELECTRONICALLY VERIFIED FINAL REPORT 02/10/2025 2:46 PM - Electronically signed by Varinder Pearson M.D. AR T: Report ID: [id number] Reading Location: [id number] Hair Richards NP IM XR PROCEDURES Final Result from Last 3 Months Insurance [employer] MEDICARE HMO [employer] MEDICARE HMO Care Teams Face Worker Relationship Specialty Start Date End Date Luiz Mariscal NP [address] [place] [address] PCP - General Nurse Practitioner 05/31/24
--- OUTSIDE RECORDS SUMMARY | 2025-02-20 15:00 | XMS_ITS | Clinical Summary ---
Author Organization [facility] Address [address] [place] [address] Care Team Providers Care Esthetician And Manager Medical Spa Name Role Phone Unavailable Primary Care Provider Unavailabl e Source Comments [facility],non-owned Affiliates and Associated Physician Practices is amultiple site organization consisting of ambulatory clinics and hospital sitesin [place], [place], [place] and [place]. This disclosure is being madepursuant to the Care Everywhere program and may not contain all information available regarding this patient. Last updated 18.[facility] Social History Tobacco Use Types Packs/Day Years [...] patient's age to complete this topic Insurance [facility]
--- OUTSIDE RECORDS SUMMARY | 2025-02-20 15:00 | XMS_ITS | Referral Summary ---
Author Organization [facility] Address [address] [place] [address] Care Team Providers Care Feller Seam Operator Name Role Phone Luiz Mariscal NP Primary Care Provider [phone] Encounters Date Type Department Care Team Description 02/10/2025 Results Follow-Up [facility] at [address] [phone] Hair Richards NP 02/10/2025 11:25 AM CDT Ancillary Procedure [facility] at [address] [phone] Chronic right hip pain 02/10/2025 11:00 AM CDT Office Visit [facility] at [address] [phone] Hair Richards NP Chronic right hip pain (Primary Dx) from Last 3 Months Allergies No known active allergies Medications adalimumab [...] Pure hypercholesterolemia 10/02/2017 V-tach 10/02/2017 Arthritis 06/23/2017 Social History Tobacco Use Types Packs/Day Years [...] on file 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 Gender Identity Not on file Sexual Orientation Not on file Last Filed Vital Signs [...] 02/10/2025 11:10 AM CDT Plan of Treatment Not on file Procedures Procedure Name Priority Date/Time Associated Diagnosis [...] 2:46 PM - Electronically signed by Varinder BARR T: Report ID: [id number] Reading Location: [id number] Procedure Note Varinder Pearson MD - 02/10/2025 [...] 2:46 PM - Electronically signed by Varinder BARR T: Report ID: [id number] Reading Location: [place] [address] Hair Richards NP IMG XR PROCEDURES Final Result from Last 3 Months Insurance [facility] MEDICARE HMO [facility] MEDICARE HMO Care Teams Feller Seam Operator Relationship Specialty Start Date End Date Luiz Mariscal NP [address] [place] [address] PCP - General Nurse Practitioner 05/31/24
--- OUTSIDE RECORDS SUMMARY | 2025-02-20 15:00 | XMS_ITS | Clinical Summary ---
Author Organization [facility] Address [facility] [place] [address] Care Team Providers Care Paraeducator Name Role Phone LeilaArturo saezssasa Holliday NP Primary Care Provider Mila Nina MD Unavailable Allergies No known active allergies Medications amitriptyline [...] Problems Problem Noted Date Diagnosed Date V-tach ([facility] 10/02/2017 Hypertension, essential 10/02/2017 Pure hypercholesterolemia 10/02/2017 Arthritis 06/23/2017 Palpitations Family History Medical History Relation Comments Hypertension Brother Hypertension Father [place] Father Dementia Mother TIA Mother Diabetes Sister [...] Comments Blood Pressure 124/90 10/02/2017 10:56 AM CHRONOMETER TESTER Pulse 84 10/02/2017 10:56 AM CHRONOMETER TESTER reg Temperature - - Respiratory Rate - - Oxygen Saturation 97% 10/02/2017 9:56 AM CHRONOMETER TESTER Inhaled Oxygen Concentration - - Weight 87.5 kg (193 lb) 10/02/2017 9:56 AM CHRONOMETER TESTER Height 160 cm (5' 3 ) 10/02/2017 9:56 AM CHRONOMETER TESTER Body Mass Index 34.19 10/02/2017 9:56 AM CHRONOMETER TESTER Plan of Treatment Health Maintenance Due Date [...] complete this topic Insurance MEDICARE Care Teams Paraeducator Relationship Specialty Start Date End Date Raissa Dee NP PCP - General NURSE PRACTITIONER 04/03/16 Mila Nina MD [facility] [address] [place] [address] [place] Welding Instructor CARDIOVASCULAR DISEASE 06/02/17
--- OUTSIDE RECORDS SUMMARY | 2025-02-20 15:00 | XMS_ITS | Encounter Summary ---
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
--- OUTSIDE RECORDS SUMMARY | 2025-02-20 15:01 | XMS_ITS | Encounter Summary ---
Author Organization [facility] Address [facility] [place] [address] Care Team Providers Care Senior Executive Assistant Name Role Phone Raissa Dee NP Primary Care Provider Mila Nina MD Unavailable Encounter Details Date Type Department Care Team (Late st Contact Info) Description 06/24/2017 Abstract [facility] AT [address] [address] Lawrence Freeman MA Social History Tobacco Use [...] Final Result * LIPID PANEL (10/31/2016) Pathologist [facility] CHOLESTEROL 240 HDL 38 TRIGLYCERIDES 167 LDL (CALCULATED) 164 10/31/2016 us Doc [facility]ORATORY Final Result * THYROID STIM HORMONE, TSH (10/31/2016) Pathologist [facility] TSH 1.540 10/31/2016 us Doc [facility]ORAT[facility] Final Result * CBC (OUTSIDE LAB) (07/29/2016) Pathologist [facility] WBC 5.8 HGB 14.1 HCT 41.6 PLT 284 07/29/2016 us Doc [facility] Abstract LAB-OUTSIDE/ABSTRACTED Final Result * LIPID PANEL (07/29/2016) CHOLESTEROL 215 HDL 40 TRIGLYCERIDES 266 LDL (CALCULATED) 144 07/29/2016 us Doc [facility] LABORATORY Final Result * COMPREHENSIVE METABOLIC PANEL (07/29/2016) Pathologist [facility] SODIUM S/P/B 139 POTASSIUM S/P/B 3.9 CO2 [...] on filedocumented in this encounter Care Teams Senior Executive Assistant Relationship Specialty Start Date End Date Raissa Dee NP PCP - General NURSE PRACTITIONER 04/03/16 Mila Nina MD [address] [address] [place] [facility] [place] CARDIOVASCULAR DISEASE 06/02/17 documented as of this encounter
--- NOTE | 2025-02-20 15:04 | ED.NAVMDI ---
HPI - Nausea/Vomiting/Diarrhea General Chief complaint: Nausea/Vomiting/Diarrhea Stated complaint: n/v/d Time Seen by Provider: 02/20/25 14:48 Source: patient Mode of arrival: ambulatory Limitations: no limitations History of Present Illness HPI Narrative: This is a 64 year old female that presents to the emergency department for diarrhea. Ongoing over the last 4 days. Reports multiple episodes of diarrhea daily. Reports she is seeing bright red blood in her stool. Reports some abdominal cramping. No recent travel or antibiotic use. Denies fevers. Related Data Home Medications ?Medication ?Instructions ?Recorded ?Confirmed ?Last Taken ?Type cholecalciferol (vitamin D3) 50 50 mcg PO DAILY 07/05/20 09/03/24 07/13/20 History mcg (2,000 unit) capsule (Vitamin D3) mecobalamin (vitamin B12) 1,000 1,000 mcg sublingual DAILY 07/05/20 09/03/24 07/13/20 History mcg disintegrating tablet,sublingual omega 2-nya-klp-fish oil 1,000 mg 1 cap PO DAILY 03/25/22 09/03/24 Unknown History (120 mg-180 mg) capsule (Fish Oil) pantoprazole 40 mg tablet,delayed 40 mg PO ONCE 09/03/24 09/03/24 Unknown History release Allergies Allergy/AdvReac Type Severity Reaction Status Date / Time No Known Allergies Allergy Verified 02/20/25 14:38 Review of Systems Review of Systems: CONSTITUTIONAL: Denies fever GASTROINTESTINAL: Reports abdominal pain, nausea, and diarrhea. GENITOURINARY: Denies dysuria All systems reviewed & are unremarkable except as noted in HPI and below PMFSH Past Medical History Medical History Adenomatous colon polyp Ankylosing spondylitis Arthritis Benign essential hypertension Erosive esophagitis Hepatic steatosis Hiatal hernia HTN (hypertension) IFG (impaired fasting glucose) Migraines Neck pain Obesity, morbid, BMI 40.0-49.9 Obstructive sleep apnea Umbilical hernia Surgical History Surgical History H/O hernia repair Hx of cholecystectomy Hx of tubal ligation Family History Family History Sibling Diabetes mellitus Hypertension Leukemia Grandparent Acute myocardial infarction Family history of emphysema Family history of pancreatic cancer Family history of chronic obstructive pulmonary disease Family history of dementia Cerebrovascular accident Father Heart disease, Onset Age: 49 Family history of chronic obstructive pulmonary disease Mother Family history of malignant neoplasm of breast in first degree relative Family history of dementia Social History Social History Years smoked: 20 Smoking status: Former smoker Tobacco type: cigarettes Second hand tobacco smoke exposure: Yes Smoking end date: 11/03/09 Alcohol intake: current Alcohol use details: social Substance use: never Substance use type: does not use Do You Feel Safe in your Home?: Yes Lack of Transportation: No Lack of Food: Never True Current Housing: I Have Housing Concerned About Future Housing: No Difficulty Paying Gas/Electric Bills: No Difficulty Paying for Meds: No Currently Unemployed: No Education: High School Diploma/GED Difficulty w/ Childcare or Family Care: No Living arrangements: with family Gender identity (if verbalized by the patient): Female Spiritual care concerns: No Agree to blood products: Yes Exam Narrative: GENERAL: Well-appearing, well-nourished, and in no acute distress. HEAD: Normocephalic, atraumatic. EYES: EOMI. CHEST: Clear to auscultation. No respiratory distress. No wheezes rales or rhonchi HEART: Regular rate and rhythm. No murmur heard. Normal peripheral pulses. ABDOMEN: Soft, nontender, nondistended, normal active bowel sounds. EXTREMITIES: Normal range of motion. No edema. SKIN: Warm, dry, no rash. NEURO: No focal deficits. Alert and oriented x3. PSYCH: Normal mood and affect RECTAL: External hemorrhoid present, nonthrombosed, no active bleeding. Hemoccult negative Course Course Emergency Course: Patient updated on her workup and agrees with plan of care Vital Signs Vital signs: Vital Signs Temperature 98.4 F 02/20/25 14:40 Pulse Rate 87 02/20/25 14:40 Respiratory Rate 18 02/20/25 14:40 Blood Pressure 137/84 02/20/25 14:40 Pulse Oximetry 97 02/20/25 14:40 Temperature 98.4 F 02/20/25 14:40 Pulse Rate 87 02/20/25 14:40 Respiratory Rate 18 02/20/25 14:40 Blood Pressure 137/84 02/20/25 14:40 Pulse Oximetry 97 02/20/25 14:40 MDM - Nausea/Vomiting/Diarrhea MDM Narrative Medical decision making narrative: Patient presents the emergency department for abdominal pain, diarrhea, blood in stool. She is afebrile and nontoxic appearing. Her vitals are stable. Cbc without leukocytosis. Hemoglobin is normal. Metabolic panel with mild hyperbilirubinemia. Lipase is normal. Urine without evidence of infection. Hemoccult negative. She is not on any anticoagulation. CT abdomen and pelvis shows some biliary ductal dilation. Consider MRCP. Shows colitis. Mild appendiceal hyperemia. Patient has no right lower quadrant tenderness. Patient updated on her workup and agrees with plan of care. She will be started on oral antibiotics. She is to follow-up with gastroenterology for further evaluation. She was given warnings to return to the ER Differential Diagnosis Differential diagnosis: Likely traveler's diarrhea, food poisoning, gastroenteritis, clostridium difficile infection, dehydration and other (Colitis) Lab Data Attestation: I reviewed the patient's lab results. 02/20/25 15:05 02/20/25 15:05 Labs: Lab Results 02/20/25 02/20/25 Range/Units 15:05 16:24 WBC 9.7 (4.5-10.0) K/mm3 RBC 4.98 (4.2-5.4) M/mm3 Hgb 14.1 (12.0-15.0) g/dL Hct 44.7 (37.0-47.0) % MCV 89.8 (80-100) fl MCH 28.3 (26-34) pg MCHC 31.5 L (32-36) g/dl RDW 13.0 (11.5-14.5) % Plt Count 287 (150-375) k/mm3 MPV 10.2 (7.4-10.4) fl Immature Gran % (Auto) 0.4 (0-0.5) % Neut % (Auto) 67.6 (45.5-73.1) % Lymph % (Auto) 17.8 L (18.3-44.2) % Dewitt % (Auto) 10.1 H (2.6-8.5) % Eos % (Auto) 3.6 (0-4.4) % Baso % (Auto) 0.5 (0.2-1.2) % Lymph # (Auto) 1.72 (0.9-3.2) K/mm3 [place]itt # (Auto) 1.0 H (0.1-0.6) K/mm3 Eos # (Auto) 0.4 H (0-0.3) K/mm3 Baso # (Auto) 0.1 (0.0-0.1) K/mm3 Abs Immat Gran (auto) 0.04 H (0.00-0.031) K/mm3 Absolute Neuts (auto) 6.5 (1.3-6.7) K/mm3 Absolute Nucleated RBC 0.000 (0.0-0.012) K/mm3 Nucleated RBC % 0.0 (0.0-0.2) % Sodium 140 (137-145) mmol/L Potassium 3.8 (3.4-5.0) mmol/L Chloride 105 (98-107) mmol/L Carbon Dioxide 28 (22-30) mmol/L Anion Gap 7 (4-12) mmol/L BUN 21 H (7-17) mg/dL Creatinine 0.89 (0.7-1.0) mg/dL Estim Creat Clear Calc 61 ml/min Estimated GFR > 60 (59 - ) Glucose 107 (65-110) mg/dL Calcium 9.4 (8.4-10.2) mg/dL Total Bilirubin 1.6 H (0.2-1.3) mg/dL AST 20 (14-36) U/L ALT 23 (6-35) U/L Alkaline Phosphatase 99 (38-126) U/L Total Protein 7.0 (6.3-8.2) g/dL Albumin 4.1 (3.5-5.1) g/dL Lipase 34 (23-300) U/L Urine Color Yellow (Yellow) Urine Appearance Clear (Clear) Urine pH 5.5 (5.0-9.0) Ur Specific [place] > 1.045 H (1.001-1.035) Urine Protein 1+ H (Negative) mg/dL Urine Glucose (UA) Negative (Negative) mg/dL Urine Ketones Negative (Negative) mg/dL Ur Blood (Man) Negative (Negative) Urine Nitrate Negative (Negative) Urine Bilirubin Negative (Negative) Urine Urobilinogen 0.2 (<2.0) mg/dL Add Ur Microanalysis Reviewed Leukocyte Esterase Rfl Negative (Negative) SHAHRZAD/UL Urine RBC 0-2 (0-2) /hpf Urine WBC 0-5 (0-3) /hpf Ur Squamous Epith Cells Few (Few) /hpf Urine Bacteria None seen /hpf Urine Casts 0-2 Imaging Data Radiologist's impression: ITS Impressions Abdomen/Pelvis CT 02/20/25 15:46 IMPRESSION: Increasing intrahepatic and extrahepatic bile duct dilation. Pancreatic duct dilation. No obstructing stone or mass detected. Correlate with biliary labs and consider MRCP. Mesenteric and periaortic lymphadenopathy. Mild diffuse colonic wall edema as can be seen with colitis. Mild proximal appendiceal mucosal hyperemia, presumably reactive. Early appendicitis is not excluded. Critical Care Time Critical Care Time Critical Care Time: No Discharge Plan Discharge Clinical Impression: Colitis, Dilation of biliary tract Patient Disposition: Home Condition: Stable Instructions: Antibiotic Form, Colitis (ED) Additional Instructions: Return to the ER if you experience fever, abdominal pain with nausea and vomiting, you are unable to keep down liquids or solids, or any other symptoms that are concerning to you Remain well hydrated. Take oral antibiotics as prescribed Follow up with Gastroenterology for further evaluation The radiologist mentioned some dilation of your biliary ducts. Largely your liver function tests are normal. He is recommending some further imaging to evaluate this (MRCP) There was also mention of some possible inflammation of your appendix. I do not think this fits your picture. Your symptoms are more consistent with colitis. If you do develop any pain in your right lower abdomen, return to the ER Patient Language: Pashto Prescriptions: New ciprofloxacin HCl 500 mg tablet 500 mg PO Q12H 5 Days Qty: 10 0RF metronidazole 500 mg tablet 500 mg PO Q12H 5 Days Qty: 10 0RF No Action pantoprazole 40 mg tablet,delayed release (DR/EC) 40 mg PO ONCE omega 0-aby-zit-fish oil [Fish Oil] 1,000 mg (120 mg-180 mg) capsule 1 cap PO DAILY aspirin [Children's Aspirin] 81 mg Tablet,Chewable 81 mg PO DAILY@0800 Qty: 30 0RF cholecalciferol (vitamin D3) [Vitamin D3] 50 mcg (2,000 unit) Capsule 50 mcg PO DAILY mecobalamin (vitamin B12) 1,000 mcg Tablet,Disintegrating 1,000 mcg SUBLINGUAL DAILY alprazolam 0.25 mg tablet 0.25 mg PO DAILY PRN (Reason: anxiety) Qty: 30 0RF amitriptyline 100 mg tablet 100 mg PO HS Qty: 90 2RF Rx Instructions: TAKE 1 TABLET BY MOUTH DAILY metoprolol succinate 25 mg tablet extended release 24 hr 25 mg PO DAILY Qty: 90 1RF rosuvastatin 10 mg tablet 10 mg PO DAILY Qty: 90 3RF Follow-up/Referrals: Hiren Rascon MD [Physician] - Nathaniel,Rubi Holcomb MD [Primary Care Provider] - Chapo Soni MD [Physician] -
[2025-02-20 15:11] LABS: Basophils Absolute Auto 0.1 K/mm3 (0.0-0.1); Basophils Percent Auto 0.5 % (0.2-1.2); Eosinophils Absolute Auto 0.4 K/mm3 (0-0.3); Eosinophils Percent Auto 3.6 % (0-4.4); Hematocrit 44.7 % (37.0-47.0); Hemoglobin 14.1 g/dL (12.0-15.0); Immature Granulocyte Absolute 0.04 K/mm3 (0.00-0.031); Immature Granulocyte Percent A 0.4 % (0-0.5); Lymphocytes Absolute Auto 1.72 K/mm3 (0.9-3.2); Lymphocytes Percent Auto 17.8 % (18.3-44.2); Mean Corpuscular HGB Conc 31.5 g/dl (32-36); Mean Corpuscular Hemoglobin 28.3 pg (26-34); Mean Corpuscular Volume 89.8 fl (80-100); Mean Platelet Volume 10.2 fl (7.4-10.4); Monocytes Percent Auto 10.1 % (2.6-8.5); Neutrophils Absolute Auto 6.5 K/mm3 (1.3-6.7); Neutrophils Percent Auto 67.6 % (45.5-73.1); Platelet Count Result 287 k/mm3 (150-375); Red Blood Count 4.98 M/mm3 (4.2-5.4); White Blood Count 9.7 K/mm3 (4.5-10.0)
[2025-02-20] MEDS: ONDANSETRON INJ 4 MG/2 ML VIAL IV PUSH (15:11)
[2025-02-20] MEDS: SODIUM CHLORIDE 0.9% IV 1,000 ML 999 ML IV CONT (15:11)
[2025-02-20 15:20] LABS: Alanine Aminotransferase 23 U/L (6-35); Albumin Level 4.1 g/dL (3.5-5.1); Alkaline Phosphatase 99 U/L (38-126); Anion Gap 7 mmol/L (4-12); Aspartate Amino Transferase 20 U/L (14-36); Bilirubin,Total 1.6 mg/dL (0.2-1.3); Blood Urea Nitrogen 21 mg/dL (7-17); Calcium 9.4 mg/dL (8.4-10.2); Carbon Dioxide 28 mmol/L (22-30); Chloride 105 mmol/L (98-107); Estimated CRCL calculation 61 ml/min; Estimated Glomerular Filt Rate > 60; Glucose 107 mg/dL (65-110); Lipase 34 U/L (23-300); Potassium 3.8 mmol/L (3.4-5.0); Sodium 140 mmol/L (137-145)
[2025-02-20 17:02] LABS: Add Urine Microscopic? YES; Appearance Urine Clear (Clear); Bacteria Urine None Seen /hpf; Bilirubin Urine Negative (Negative); Blood Urine Negative (Negative); Color Urine Yellow (Yellow); Glucose Urine UA Negative (Negative); Ketones Urine Negative (Negative); Leukocyte Esterase Ur Negative LEU/UL (Negative); Need Manual Microscopic Reviewed; Nitrate Urine Negative (Negative); Non Pathogenic Casts 0-2; Protein Urine 1+ mg/dL (Negative); Specific Grav Ur > 1.045 (1.001-1.035); Urobilinogen Urine 0.2 mg/dL (<2.0); WBC Urine 0-5 /hpf (0-3); pH Urine 5.5 (5.0-9.0)
[2025-02-20 17:03] LABS: RBC Urine 0-2 /hpf (0-2)
[2025-02-20 17:04] LABS: Squamous Epithelial Cell Urine Few /hpf (Few)
[2025-02-20] MEDS: CIPROFLOXACIN 500 MG TAB PO (17:32)
[2025-02-20 17:33] VITALS: BP 133/91; PULSE 94; RESP 18; O2SAT 98
[2025-02-20] MEDS: metroNIDAZOLE 500 MG TABLET PO (17:33)
== END 2025-02-20 17:43 | disposition home or self-care (01) ==
PROVIDERS: Emergency Provider Physician Assistant; PCP Internal Medicine
DX: K52.9 Noninfective gastroenteritis and colitis, unspecified (principal); K83.8 Other specified diseases of biliary tract; I10 Essential (primary) hypertension; E66.01 Morbid (severe) obesity due to excess calories; Z68.37 Body mass index [BMI] 37.0-37.9, adult; G47.33 Obstructive sleep apnea (adult) (pediatric); M19.90 Unspecified osteoarthritis, unspecified site; Z86.0101 Personal history of adenomatous and serrated colon polyps; Z87.891 Personal history of nicotine dependence; Z90.49 Acquired absence of other specified parts of digestive tract; Z79.82 Long term (current) use of aspirin; Z79.899 Other long term (current) drug therapy
CPT/HCPCS: 36415; 74177; 80053; 81001; 83690; 85025; 96361; 96374; 99284; A9270; J2405; J7030; Q9967

== ENCOUNTER 2025-02-28 10:44 | Outpatient (CLI) | payer MEDICARE, SELFPAY ==
[2025-02-28 11:23] LABS: Alanine Aminotransferase 45 U/L (6-35); Alkaline Phosphatase 107 U/L (38-126); Aspartate Amino Transferase 33 U/L (14-36); Bilirubin Indirect 0.6 mg/dL (0-1.1); Bilirubin,Total 0.8 mg/dL (0.2-1.3)
[2025-02-28 11:43] LABS: CRP < 0.5 mg/dL (<1.0)
[2025-02-28 11:56] LABS: Erythrocyte Sedimentation Rate 20 mm/hr (0-20)
--- OUTSIDE RECORDS SUMMARY | 2025-02-28 12:34 | XMS_ITS | Clinical Summary ---
Author Organization [facility] Address [address] [place] [address] Care Team Providers Care Political Science Chair Name Role Phone Luiz Mariscal NP Primary Care Provider [phone] Allergies No known active allergies Medications adalimumab [...] Description 02/10/2025 11:25 AM CDT Ancillary Procedure [facility] Imaging at [address] [phone] Chronic right hip pain 02/10/2025 11:00 AM CDT Office Visit [facility] at [address] [phone] Hair Richards NP Chronic right hip pain (Primary Dx) 02/10/2025 Results Follow-Up [facility] at [address] [phone] Hair Richards NP from Last 3 Months [...] on file 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 AR T: Report ID: [id number] Reading Location: [id number] Procedure Note Varinder Pearson MD - 02/10/2025 [...] Varinder Pearson M.D. AR T: Report ID: [id number] Reading Location: [id number] Hair Richards NP IM XR PROCEDURES Final Result from Last 3 Months Insurance [employer] MEDICARE HMO [employer] MEDICARE HMO Care Teams Political Science Chair Relationship Specialty Start Date End Date Luiz Mariscal NP [address] [place] [address] PCP - General Nurse Practitioner 05/31/24
--- OUTSIDE RECORDS SUMMARY | 2025-02-28 12:34 | XMS_ITS | Encounter Summary ---
Author Organization [facility] Address [facility] [place] [address] Care Team Providers Care Drawing Checker Name Role Phone Raissa Dee NP Primary Care Provider Mila Nina MD Unavailable [phone] Encounter Details Date Type Department Care Team (Late st Contact Info) Description 06/24/2017 Abstract [facility] AT [address] [id number] Lawrence Freeman MA Social History Tobacco Use [...] Final Result * LIPID PANEL (10/31/2016) Pathologist [facility] CHOLESTEROL 240 HDL 38 TRIGLYCERIDES 167 LDL (CALCULATED) 164 10/31/2016 us Doc [facility] Abstract LABORATORY Final Result * THYROID STIM HORMONE, TSH (10/31/2016) Pathologist [facility] TSH 1.540 10/31/2016 us Doc [facility] Abstract LABORATORY Final Result * CBC (OUTSIDE LAB) (07/29/2016) Pathologist [facility] WBC 5.8 HGB 14.1 HCT 41.6 PLT 284 07/29/2016 us Doc [facility] Abstract LAB-OUTSIDE/ABSTRACTED Final Result * LIPID PANEL (07/29/2016) CHOLESTEROL 215 HDL 40 TRIGLYCERIDES 266 LDL (CALCULATED) 144 07/29/2016 us Doc [facility] Abstract LABORATORY Final Result * COMPREHENSIVE METABOLIC PANEL (07/29/2016) Pathologist [facility] SODIUM S/P/B 139 POTASSIUM S/P/B 3.9 CO2 [...] on filedocumented in this encounter Care Teams Drawing Checker Relationship Specialty Start Date End Date Raissa Dee NP PCP - General NURSE PRACTITIONER 04/03/16 Mila Nina MD [address] [address] [place] Storeroom Clerk CARDIOVASCULAR DISEASE 06/02/17 documented as of this encounter
--- OUTSIDE RECORDS SUMMARY | 2025-02-28 12:34 | XMS_ITS | Clinical Summary ---
Author Organization [facility] Address [facility] [place] [address] Care Team Providers Care Quick Mixer Operator Name Role Phone LeilaArturo saezssasa Holliday NP Primary Care Provider Mila Nina MD Unavailable [phone] Allergies No known active allergies Medications [...] Problems Problem Noted Date Diagnosed Date V-tach ([facility]) 10/02/2017 Hypertension, essential 10/02/2017 Pure hypercholesterolemia 10/02/2017 Arthritis 06/23/2017 Palpitations Family History Medical History Relation Comments Hypertension Brother Hypertension Father [place] Father Dementia Mother TIA Mother Diabetes Sister [...] Comments Blood Pressure 124/90 10/02/2017 10:56 AM AUTOMATIC HEMMER Pulse 84 10/02/2017 10:56 AM AUTOMATIC HEMMER reg Temperature - - Respiratory Rate - - Oxygen Saturation 97% 10/02/2017 9:56 AM AUTOMATIC HEMMER Inhaled Oxygen Concentration - - Weight 87.5 kg (193 lb) 10/02/2017 9:56 AM AUTOMATIC HEMMER Height 160 cm (5' 3 ) 10/02/2017 9:56 AM AUTOMATIC HEMMER Body Mass Index 34.19 10/02/2017 9:56 AM AUTOMATIC HEMMER Plan of Treatment Health Maintenance Due Date [...] complete this topic Insurance MEDICARE Care Teams Quick Mixer Operator Relationship Specialty Start Date End Date Raissa Dee NP PCP - General NURSE PRACTITIONER 04/03/16 Mila Nina MD [facility] [address] [place] [address] [place] [employer] Instructor CARDIOVASCULAR DISEASE 06/02/17
--- OUTSIDE RECORDS SUMMARY | 2025-02-28 12:34 | XMS_ITS | Encounter Summary ---
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
--- OUTSIDE RECORDS SUMMARY | 2025-02-28 12:34 | XMS_ITS | Clinical Summary ---
Author Organization [facility] [employer] Address [address] [place] [address] Care Team Providers Care Phlebotomy Support Tech Name Role Phone Unavailable Primary Care Provider Unavailabl e Source Comments [facility] [employer],non-owned Affiliates and Associated Physician Practices is amultiple site organization consisting of ambulatory clinics and hospital sitesin [place], [place], [place] and [place]. This disclosure is being madepursuant to the Care Everywhere program and may not contain all information available regarding this patient. Last updated 18.[facility] [employer] Social History Tobacco Use Types Packs/Day Years [...] patient's age to complete this topic Insurance [facility]
--- OUTSIDE RECORDS SUMMARY | 2025-02-28 12:34 | XMS_ITS | Referral Summary ---
Author Organization [facility] Address [address] [place] [address] Care Team Providers Care Coach Name Role Phone Luiz Mariscal NP Primary Care Provider [phone] Encounters Date Type Department Care Team Description 02/10/2025 Results Follow-Up [facility] at [address] [phone] Hair Richards NP 02/10/2025 11:25 AM CDT Ancillary Procedure [facility] Imaging at [address] [phone] Chronic right hip pain 02/10/2025 11:00 AM CDT Office Visit [facility] at [address] [phone] Hair Richards NP Chronic right [...] on file 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 MEDICARE HMO [facility] MEDICARE HMO Care Teams Coach Relationship Specialty Start Date End Date Luiz Mariscal NP [address] [place] [address] PCP - General Nurse Practitioner 05/31/24
== END 2025-02-28 10:45 | disposition home or self-care (01) ==
PROVIDERS: PCP Nurse Practitioner Family; Visit Provider Nurse Practitioner
DX: E80.6 Other disorders of bilirubin metabolism (principal); K52.9 Noninfective gastroenteritis and colitis, unspecified
CPT/HCPCS: 36415; 80076; 85652; 86140

== ENCOUNTER 2025-03-01 11:36 | Outpatient (CLI) | payer MEDICARE, SELFPAY ==
--- OUTSIDE RECORDS SUMMARY | 2025-03-01 12:59 | XMS_ITS | Data Portability ---
Author Organization [facility] Address [address] [place] [address] Care Team Providers Care Grill Cook Name Role Phone SOLE BAIG Primary Care Provider Assessment No assessment recorded. Plan of Treatment Reminders Order Date Submit Date Provider Last Modified By Organization Details Last Modified Time Details Appointments None recorded. Lab CMP, serum or plasma 2017 018 [facility] [address], [place], [address], 8 14:14:40 CBC w/ auto diff 2017 018 [facility] [address], [place], [address], 8 14:14:40 lipid panel, serum 2017 018 [facility], [address], [place], [address], 8 14:14:41 vitamin D, 25-hydroxy , total, serum 2017 018 [facility] [address], [place], [address], 8 14:14:42 TSH, ultra-sens itive, serum 2017 018 [facility], [address], [place], [address], 8 14:14:42 Referral None recorded. Procedures None recorded. Surgeries None recorded. Imaging MAMMO, screening, bilateral 2017 018 [facility], [address], [place], [address], 8 16:34:14 Medication Orders pantoprazo le 40 mg tablet,del ayed release 2017 018 INTERFACE [facility] #[id number], [address] [facility], [place], [place], [id number], 8 10:41:53 amitriptyl ine 25 mg tablet 2017 018 [facility]FACE [facility] #03789, [address] [facility], [place], [place], [id number], 8 10:30:59 metoprolol succinate ER 25 mg tablet,ext ended release 24 hr 2017 018 [facility] #92089, [address] [facility], [place], [place], [id number], 8 10:41:59 Patient TargetsNo targets recorded. Patient Instructions Encounter Date Encounter Id Patient Instructions Last Modified By Organization Details Last Modified Time 06/23/2018 [id number] cervical disc disease: care instructions [email or web address] Not available 06/23/2018 10:34:09 mammogram: about this test [email or web address] Not available 06/23/2018 10:34:09 gastroesophageal reflux disease (GERD): care instructions [email or web address] Not available 06/23/2018 10:41:34 learning about h igh blood pressure [email or web address] Not available 06/23/2018 10:41:34 Reason for Referral None Reported. Results Created Date Observation Date Name Description Value Unit Range Abnormal Flag Note LastModifiedBy Organization Detail LastModifiedTime 06/23/20 18 06/24/2018 CBC w/ auto diff WBC 7.2 x10e3 /uL 3.4-10 .8 Not Available [facility] ([facility]) [address] [facility], [place], [address], 06/24/2018 14:14:40 06/23/20 18 06/24/2018 CBC w/ auto diff RBC 5.04 x10e6 /uL 3.77-5 .28 Not Available [facility] ([facility]) [address] [place], [address], 06/24/2018 14:14:40 06/23/20 18 06/24/2018 CBC w/ auto diff hemoglobin 14.4 g/dL 11.1-1 5.9 Not Available [facility] ([facility]) [address] [facility], [place], [address], 06/24/2018 14:14:40 06/23/20 18 06/24/2018 CBC w/ auto diff hematocrit 43.6 % 34.0-4 6.6 Not Available [facility] ([facility]) [address] [facility] [facility], [place], [address], 06/24/2018 14:14:40 06/23/20 18 06/24/2018 CBC w/ auto diff MCV 87 fL 79-97 Not Available [facility] ([facility]) [address] [place], [address], 06/24/2018 14:14:40 06/23/20 18 06/24/2018 CBC w/ auto diff MCH 28.6 pg 26.6-3 3.0 Not Available [facility] ([facility]) [address] [place], [address], 06/24/2018 14:14:40 06/23/20 18 06/24/2018 CBC w/ auto diff MCHC 33.0 g/dL 31.5-3 5.7 Not Available [facility] ([facility]) [address] [place], [address], 06/24/2018 14:14:40 06/23/20 18 06/24/2018 CBC w/ auto diff RDW 13.7 % 12.3-1 5.4 Not Available [facility] ([facility]) [address] [place], [address], 06/24/2018 14:14:40 06/23/20 18 06/24/2018 CBC w/ auto diff platelets 304 x10e3 /uL 150-37 9 Not Available [facility] ([facility]) [address], [place], [address], 06/24/2018 14:14:40 06/23/20 18 06/24/2018 CBC w/ auto diff neutrophils 63 % not estab. Not Available [facility] ([facility]) [address] [facility], [place], [address], 06/24/2018 14:14:40 06/23/20 18 06/24/2018 CBC w/ auto diff lymphs 26 % not estab. Not Available [facility] ([facility]) [address] [facility], [place], [address], 06/24/2018 14:14:40 06/23/20 18 06/24/2018 CBC w/ auto diff monocytes 6 % not estab. Not Available [facility] ([facility]) [address] [facility], [place], [address], 06/24/2018 14:14:40 06/23/20 18 06/24/2018 CBC w/ auto diff eos 5 % not estab. Not Available [facility] ([facility]) [address] [facility], [place], [address], 06/24/2018 14:14:40 06/23/20 18 06/24/2018 CBC w/ auto diff basos 0 % not estab. Not Available [facility] ([facility]) [address] [facility] [facility], [place], [address], 06/24/2018 14:14:40 06/23/20 18 06/24/2018 CBC w/ auto diff immature cells INTERNATIONAL CONTROLLER Not Available [facility] ([facility]) [address] [facility] [facility], [place], [address], 06/24/2018 14:14:40 06/23/20 18 06/24/2018 CBC w/ auto diff neutrophils (absolute) 4.5 x10e3 /uL 1.4-7. 0 Not Available [facility] ([facility]) [address] [place], [address], 06/24/2018 14:14:40 06/23/20 18 06/24/2018 CBC w/ auto diff lymphs (absolute) 1.9 x10e3 /uL 0.7-3. 1 Not Available [facility] ([facility]) [address] [place], [address], 06/24/2018 14:14:40 06/23/20 18 06/24/2018 CBC w/ auto diff monocytes(ab solute) 0.4 x10e3 /uL 0.1-0. 9 Not Available [facility] ([facility]) [address] [place], [address], 06/24/2018 14:14:40 06/23/20 18 06/24/2018 CBC w/ auto diff eos (absolute) 0.4 x10e3 /uL 0.0-0. 4 Not Available [facility] ([facility]) [address] [place], [address], 06/24/2018 14:14:40 06/23/20 18 06/24/2018 CBC w/ auto diff baso (absolute) 0.0 x10e3 /uL 0.0-0. 2 Not Available [facility] ([facility]) [address] [place], [address], 06/24/2018 14:14:40 06/23/20 18 06/24/2018 CBC w/ auto diff immature granulocytes 0 % not estab. Not Available [facility] ([facility]) [address] [place], [address], 06/24/2018 14:14:40 06/23/20 18 06/24/2018 CBC w/ auto diff immature grans (abs) 0.0 x10e3 /uL 0.0-0. 1 Not Available [facility] ([facility]) [address] [place], [address], 06/24/2018 14:14:40 06/23/20 18 06/24/2018 CBC w/ auto diff NRBC INTERNATIONAL CONTROLLER Not Available [facility] ([facility]) [address] [place], [address], 06/24/2018 14:14:40 06/23/20 18 06/24/2018 CBC w/ auto diff hematology comments: INTERNATIONAL CONTROLLER Not Available [facility] ([facility]) [address] [place], [address], 06/24/2018 14:14:40 06/23/20 18 06/24/2018 CMP, serum or plasm a glucose 106 mg/dL 65-99 above high normal Not Available [facility] ([facility]) [address] [place], [address], 06/24/2018 14:14:40 06/23/20 18 06/24/2018 CMP, serum or plasm a BUN 21 mg/dL 6-24 Not Available [facility] ([facility]) [address] [place], [address], 06/24/2018 14:14:40 06/23/20 18 06/24/2018 CMP, serum or plasm a creatinine 0.70 mg/dL 0.57-1 .00 Not Available [facility] ([facility]) [address] [facility] [place], [address], 06/24/2018 14:14:40 06/23/20 18 06/24/2018 CMP, serum or plasm a eGFR if nonafricn AM 98 mL/mi n/1.7 3 >59 Not Available [facility] ([facility]) [address] [place], [address], 06/24/2018 14:14:40 06/23/20 18 06/24/2018 CMP, serum or plasm a eGFR if africn AM 113 mL/mi n/1.7 3 >59 Not Available [facility] ([facility]) [address] [place] [place], [address], 06/24/2018 14:14:40 06/23/20 18 06/24/2018 CMP, serum or plasm a BUN/creatini ne ratio 30 9-23 above high normal Not Available [facility] ([facility]) [address] [facility] [place], [address], 06/24/2018 14:14:40 06/23/20 18 06/24/2018 CMP, serum or plasm a sodium 140 mmol/ L 134-14 4 Not Available [facility] ([facility]) [address] [facility] [place], [address], 06/24/2018 14:14:40 06/23/20 18 06/24/2018 CMP, serum or plasm a potassium 4.5 mmol/ L 3.5-5. 2 Not Available [facility] ([facility]) [address] [facility] [place], [address], 06/24/2018 14:14:40 06/23/20 18 06/24/2018 CMP, serum or plasm a chloride 102 mmol/ L 96-106 Not Available [facility] ([facility]) [address] [facility] [place], [address], 06/24/2018 14:14:40 06/23/20 18 06/24/2018 CMP, serum or plasm a carbon dioxide, total 21 mmol/ L 20-29 Not Available [facility] ([facility]) [address] [facility] [place], [address], 06/24/2018 14:14:40 06/23/20 18 06/24/2018 CMP, serum or plasm a calcium 9.9 mg/dL 8.7-10 .2 Not Available [facility] ([facility]) [address] [facility] [place], [address], 06/24/2018 14:14:40 06/23/20 18 06/24/2018 CMP, serum or plasm a protein, total 6.5 g/dL 6.0-8. 5 Not Available [facility] ([facility]) [address] [facility] [place], [address], 06/24/2018 14:14:40 06/23/20 18 06/24/2018 CMP, serum or plasm a albumin 4.1 g/dL 3.5-5. 5 Not Available [facility] ([facility]) [address] [facility] [place], [address], 06/24/2018 14:14:40 06/23/20 18 06/24/2018 CMP, serum or plasm a globulin, total 2.4 g/dL 1.5-4. 5 Not Available [facility] ([facility]) [address] [facility] [place], [address], 06/24/2018 14:14:40 06/23/20 18 06/24/2018 CMP, serum or plasm a A/G ratio 1.7 1.2-2. 2 Not Available [facility] ([facility]) [address] [facility] [place], [address], 06/24/2018 14:14:40 06/23/20 18 06/24/2018 CMP, serum or plasm a bilirubin, total 0.5 mg/dL 0.0-1. 2 Not Available [facility] ([facility]) [address] [facility] [place], [address], 06/24/2018 14:14:40 06/23/20 18 06/24/2018 CMP, serum or plasm a alkaline phosphatase 130 IU/L 39-117 above high normal Not Available [facility] ([facility]) [address] [facility] [place], [address], 06/24/2018 14:14:40 06/23/20 18 06/24/2018 CMP, serum or plasm a AST (SGOT) 22 IU/L 0-40 Not Available [facility] ([facility]) [address] [place], [address], 06/24/2018 14:14:40 06/23/20 18 06/24/2018 CMP, serum or plasm a ALT (SGPT) 28 IU/L 0-32 Not Available [facility] ([facility]) [address] [place], [address], 06/24/2018 14:14:40 06/23/20 18 06/24/2018 lipid panel , serum cholesterol, total 226 mg/dL 100-19 9 above high normal Not Available [facility] ([facility]) [address] [place] [place], [address], 06/24/2018 14:14:41 06/23/20 18 06/24/2018 lipid panel , serum triglyceride s 266 mg/dL 0-149 above high normal Not Available [facility] ([facility]) [address] [place] [place], [address], 06/24/2018 14:14:41 06/23/20 18 06/24/2018 lipid panel , serum LDL chol. (direct) 153 mg/dL 0-99 above high normal Not Available [facility] ([facility]) [address] [facility], [place], [address], 06/24/2018 14:14:41 06/23/20 18 06/24/2018 lipid panel , serum HDL cholesterol 39 mg/dL >39 below low normal Not Available [facility] ([facility]) [address] [facility] [place], [address], 06/24/2018 14:14:41 06/23/20 18 06/24/2018 lipid panel , serum VLDL cholesterol robin 53 mg/dL 5-40 above high normal Not Available [facility] ([facility]) [address] [facility] [place], [address], 06/24/2018 14:14:41 06/23/20 18 06/24/2018 lipid panel , serum LDL cholesterol calc 134 mg/dL 0-99 above high normal Not Available [facility] ([facility]) [address] [facility], [place], [address], 06/24/2018 14:14:41 06/23/20 18 06/24/2018 lipid panel , serum comment: INTERNATIONAL CONTROLLER Not Available [facility] ([facility]) [address] [facility], [place], [address], 06/24/2018 14:14:41 06/23/20 18 06/24/2018 lipid panel , serum T. chol/HDL ratio 5.8 ratio 0.0-4. 4 above high normal T. Chol/ HDL Ratio Men Women 1/2 Avg.R isk 3.4 3.3 Avg.R isk 5.0 4.4 2X Avg.R isk 9.6 7.1 3X Avg.R isk 23.4 11.0 Not Available [facility] ([facility]) [address] [facility], [place], [address], 06/24/2018 14:14:41 06/23/20 18 06/24/2018 vitam in [...] Endoc rine Socie ty [facility] er defin e vitam in D insuf ficie ncy as a level betwe en 21 and 29 ng/mL (2). 1. IOM (Inst itute of Medic ine). 2009. Dieta ry refer ence jamil es for calci um and D. Esperanza flores [place]: [employer] . 2. Wilma pierce MF, Brannon ey [place], Bisch off-F errar i EVANS, et al. Evalu ation , treat ment, and preve ntion of vitam in D defic iency : an Endoc rine Socie ty clini robin pract ice guide line. JCEM. 2010; 96(7) :1911 -30. Not Available [facility] ([facility]) [address] [facility], [place], [address], 06/24/2018 14:14:42 06/23/20 18 06/24/2018 TSH, ultra -sens itive , serum TSH 1.160 uIU/m L 0.450- 4.500 Not Available [facility] ([facility]) [address] [facility], [place], [address], 06/24/2018 14:14:42 07/06/20 18 07/03/2018 MAMMO , scree delilah, bilat eral No observ ation record ed. [facility] [address], [place], [address], 07/15/2018 15:03:17 Result Notes None recorded. 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 Location : None;Sev erity: Moderate ;Progres s: Stable;A dded By: Josey Forbes;Add to Current Problems : NO Not Available [facility] 7 11:33:32 Internal hemorrho ids 51041441 Active 2014 Location : None;Sev erity: Moderate ;Progres s: Stable;A dded By: Josey Forbes;Add to Current Problems : NO Not Available [facility] 7 11:33:33 Pain of joint of wrist 752545773 Completed 201203/07/2013 Location : None;Sev erity: Moderate ;Progres s: Stable;A dded By: Josey Forbes;Add to Current Problems : NO Not Available [facility] 7 11:33:33 Screenin g for malignan t neoplasm of colon Completed 201301/25/2015 Location : None;Sev erity: Moderate ;Progres s: Stable;A dded By: Josey Forbes;Add to Current Problems : YES Not Available [facility] 7 11:33:33 Endocrin e/metabo lic screenin g Active 2013 Location : None;Sev erity: Moderate ;Progres s: Stable;A dded By: Josey Forbes;Add to Current Problems : YES Not Available [facility] 7 11:33:33 Epidermo id cyst of skin 381339301 Active 2015 Location : Left;Sev erity: Moderate ;Progres s: Stable;A dded By: Josey Forbes;Add to Current Problems : YES Not Available [facility] 7 11:33:33 Vitamin D deficien cy 75151979 Active 2014 Location : None;Sev erity: Moderate ;Progres s: Stable;A dded By: Josey Forbes;Add to Current Problems : YES Not Available [facility] 7 11:33:33 Subjecti ve tinnitus 24724088 Completed 201402/25/2015 Location : None;Sev erity: Moderate ;Progres s: Stable;A dded By: Brooke Garnica;Add to Current Problems : YES Not Available [facility] 7 11:33:33 Screenin g mammogra phy Completed 201505/27/2016 Location : None;Sev erity: Moderate ;Progres s: Stable;A dded By: Brooke Garnica;Add to Current Problems : YES Not Available [facility] 7 11:33:33 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 Location : None;Sev erity: Moderate ;Progres s: Stable;A dded By: Audra Espinoza;Add to Current Problems : NO Not Available [facility] 7 11:33:33 Acute sinusiti s 03716326 Completed 201505/04/2016 Location : None;Sev erity: Moderate ;Progres s: Stable;A dded By: Brigette Landeros; Add to Current Problems : YES Not Available [facility] 7 11:33:33 Low back pain 110898808 Active 2012 Location : None;Sev erity: Moderate ;Progres s: Stable;A dded By: Manisha Song i;A dd to Current Problems : NO Not Available [facility] 7 11:33:33 Neoplasm of uncertai n behavior of skin 93222582 Completed 201303/13/2014 Location : None;Sev erity: Moderate ;Progres s: Stable;A dded By: Manisha Song i;A dd to Current Problems : NO Not Available [facility] 7 11:33:34 Migraine with aura 8102510 Active 2013 Location : None;Sev erity: Moderate ;Progres s: Stable;A dded By: Manisha Song i;A dd to Current Problems : YES Not Available [facility] 7 11:33:34 Skin sensatio n disturba vte 60448076 Completed 201505/27/2016 Location : None;Sev erity: Moderate ;Progres s: Stable;A dded By: Manisha Song i;A dd to Current Problems : NO Not Available [facility] 7 11:33:34 Problem Notes None recorded. Procedures Surgical History Date Name Laterality Status Provider Name and Address Organization Details Recorded Time [facility]air [facility] 10:07:36 Tubal Ligation completed [facility] F 06/23/2018 10:07:43 Imaging Results Imaging Date Name Status LastModified by Organ [facility] Details LastModified Time 07/03/2018 MAMMO, screening, bilateral completed [facility] [address] [facility] [address] [place] [address], [address], 07/15/2018 15:03:17 Procedure Notes None recorded. Medical [...] every day for the next 4 days. 06/02 completed RxNorm : 144800 ;Allow Substi tution : True Not Available Not Available Not Available ibuprofen 800 mg tablet Take 1 po three times daily as needed 02/10 completed RxNorm : 712589 ;Allow Substi tution : True Not Available Not Available Not Available hydrocodone 5 mg-acetamin ophen 500 mg capsule take 1 or 2 at bedtime as needed for pain 04/05 completed RxNorm : 206711 ;Allow Substi tution : True Not Available Not Available Not Available meloxicam 15 mg tablet take one by mouth daily with a meal, the same time every day 05/11 completed RxNorm : 312268 ;Allow Substi tution : True Not Available Not Available Not Available cefadroxil 500 mg capsule 1 capsule by mouth every 12 hrs x 7 days 04/03 completed RxNorm : 729523 ;Allow Substi tution : True Not Available [...] by mouth bid 03/28 completed RxNorm : 238715 ;Allow Substi tution : True Not Available [...] Address Organization Details Last Updated DateTime 8 42476.3 5 g 157.48 cm 37.2 kg/m2 99.1 [degF] 20 /min 97 % 97 % 88 /min 118 mm[Hg] 76 mm[Hg] Mirta [place] - [facility] 8 10:12:39 Social History Question Answer Notes [...] t available 06/23/2018 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 Endocrine/ metabolic screening 823034445 Z13.228 Gastroesop hageal reflux disease 017886323 K21.9 Essential hypertension 86140665 I10 Standardiz ed adult depression screening tool completed [id number] 08605 Z13.89 patient does not appear to be [...] taste Sole Baig MD Attn: Accounting,[address] [place], [address], [facility] - [facility] 06/28/2018 15:14:47 OBGyn Episode No OBEpisode recorded.
--- OUTSIDE RECORDS SUMMARY | 2025-03-01 12:59 | XMS_ITS | Encounter Summary ---
Author Organization [facility] Address [facility] [place] [address] Care Team Providers Care Freight Brake Operator Name Role Phone Raissa Dee NP Primary Care Provider Mila Nina MD Unavailable [phone] Encounter Details Date Type Department Care Team (Late st Contact Info) Description 06/24/2017 Abstract [facility] AT [address] [address] Lawrence Freeman MA Social History Tobacco Use [...] Final Result * LIPID PANEL (10/31/2016) Pathologist [facility] CHOLESTEROL 240 HDL 38 TRIGLYCERIDES 167 LDL (CALCULATED) 164 10/31/2016 us Doc [facility]ORATORY Final Result * THYROID STIM HORMONE, TSH (10/31/2016) Pathologist [facility] TSH 1.540 10/31/2016 us Doc [facility]OR[facility] Final Result * CBC (OUTSIDE LAB) (07/29/2016) Pathologist [facility] WBC 5.8 HGB 14.1 HCT 41.6 PLT 284 07/29/2016 us Doc [facility] Abstract LAB-OUTSIDE/ABSTRACTED Final Result * LIPID PANEL (07/29/2016) CHOLESTEROL 215 HDL 40 TRIGLYCERIDES 266 LDL (CALCULATED) 144 07/29/2016 us Doc [facility]OR[facility] Final Result * COMPREHENSIVE METABOLIC PANEL (07/29/2016) Pathologist [facility] SODIUM S/P/B 139 POTASSIUM S/P/B 3.9 CO2 [...] on filedocumented in this encounter Care Teams Freight Brake Operator Relationship Specialty Start Date End Date Raissa Dee NP PCP - General NURSE PRACTITIONER 04/03/16 Mila Nina MD [address] [address] [place] [facility] CARDIOVASCULAR DISEASE 06/02/17 documented as of this encounter
--- OUTSIDE RECORDS SUMMARY | 2025-03-01 12:59 | XMS_ITS | Referral Summary ---
Author Organization [facility] Address [address] [place] [address] Care Team Providers Care Slitter And Cutter Operator Name Role Phone Luiz Mariscal NP Primary Care Provider [phone] Encounters Date Type Department Care Team Description 02/10/2025 Results Follow-Up [facility] at [address] [address] Hair Richards NP 02/10/2025 11:25 AM CDT Ancillary Procedure [facility] at [address] [address] Chronic right hip pain 02/10/2025 11:00 AM CDT Office Visit [facility] at [address] [address] Hair Richards NP Chronic right [...] on file Legal 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
--- OUTSIDE RECORDS SUMMARY | 2025-03-01 12:59 | XMS_ITS | Data Portability ---
Author Organization [facility] OFFICE Address [address] [place] [address] Care Team Providers Care Grapple Yarder Operator Name Role Phone MANUELALDEN Primary Care Provider [...] Orders Crestor 10 mg tablet 2021 022 [facility] #[id number], [address] [place], [place], [id number], 10:28:09 metoprolol succinate ER 25 mg tablet,ext ended release 24 hr 2021 022 [id number], [address] [facility], [place], [id number], 2 10:23:20 metoprolol succinate ER 25 mg tablet,ext ended release 24 hr 2020 021 INTERFACE [facility] #[id number], [address], [place], [place], [id number], 1 18:12:20 metoprolol succinate ER 25 mg tablet,ext ended release 24 hr 2019 020 [email or web address] [facility] #[id number], [address], [place], [place], [id number], 0 14:12:11 Patient TargetsNo targets recorded. Patient Instructions Encounter Date Encounter Id Patient Instructions Last Modified By Organization Details Last Modified Time 08/21/2020 [id number] Exercise advised Low cholesterol diet advised Low sodium diet advised [email or web address] Not available 08/21/2020 14:00:21 Patient was seen and evaluated by Christine Ventura [facility]. Plan of care was discussed with collaborating physician and note cosigned by Dr. Smooth Adams. [email or web address] Not available 08/21/2020 14:00:16 11/27/2020 [id number] Weight loss 20 pounds Exercise advised Low cholesterol diet advised Low sodium diet advised. [email or web address] Not available 11/27/2020 18:12:13 05/28/2021 [id number] Exercise advised Low cholesterol diet advised Low sodium diet advised [email or web address] Not available 05/28/2021 14:43:47 Scribed by Christine Ventura [facility] [email or web address] Not available 05/28/2021 15:17:59 02/26/2022 [id number] Exercise advised Low cholesterol diet advised Low sodium diet advised. [email or web address] Not available 02/26/2022 10:28:53 Reason for Referral None Reported. Results Created Date Observation Date Name Description Value Unit Range Abnormal Flag Note LastModifiedBy Organization Detail LastModifiedTime 11/30/19 21 11/27/2020 modesta burns am No observ ation record ed. [email or web address] Not Available 2020 11:14:34 07/01/20 21 06/29/2021 US, echoc ardio gram No observ ation record ed. [facility] [address], [place], [address], 07/04/2021 16:39:56 Result Notes None recorded. Problems Name Problem SNOMED Code Status Onset Date Resolution Date Notes Provider Name and Address Organization Details Recorded Time Chest pain 82106099 Active 2019 Not Available [facility] 3 13:12:10 Ankylosing spondylitis 7906983 Active 2019 Not Available [facility] 3 13:12:10 Essential hypertension 18989400 Active 2019 Not Available [facility] 3 13:12:10 Migraine 06815350 Active 2019 Not Available [facility] 3 13:12:10 Umbilical hernia 320702496 Active 2019 Not Available [facility] 3 13:12:10 Steatotic liver disease 460410877 Active 2019 Not Available [facility] 3 13:12:09 Gastroesophag eal reflux disease 281184697 Active 2019 Not Available [facility] 3 13:12:10 Hypertriglyce ridemia 856339884 Active 2019 Not Available [facility] 3 13:12:10 Postmenopausa l state 70913125 Active 2019 Not Available [facility] 3 13:12:10 Problem Notes None recorded. Procedures [...] 11:14:34 06/29/2021 US, echocardiogram completed [email or web address] [facility] [address], [place], [address], 07/04/2021 16:39:56 Procedure Notes None recorded. Medical Equipment None Reported. Allergies Allergen ID Allergen Name Allergen Category Reaction Reaction Severity Criticality Documentation Date Start Date Code Code System Note Provider Name and Address Organization Details Recorded Time 86273 Product containin g 3-hydroxy -3-methyl glutaryl- coenzyme A reductase inhibitor (product) medicatio n other severe Not available 05/28/2021 99990 009 SNOMED Steven Vick [place], [place] - [facility] 14:22:03 Medications [...] Not Available Not Available Not Available vitamin N88-tkjay acid 12/25 completed Not Available Not Available [...] Updated DateTime 0 157.48 cm 36.7 kg/m2 69410.3 5 g 100 /min 96 % 96 % 120 mm[Hg] 85 mm[Hg] Renetta Momin [facility] 0 14:04:06 Date Recorded Body temperature Provider Name a nd Address Organization Details Last Updated DateTime 08/21/2020 98.3 [degF] Polly Valdez [facility] 08/21/2020 13:57:52 Date Recorded Body height Body mass index (BMI) Body weight Heart rate Respiratory rate Oxygen saturation Oxygen saturation in Arterial blood by Pulse oximetry Systolic blood pressure Diastolic blood pressure Provider Name and Address Organization Details Last Updated DateTime 1 157.48 cm 36.9 kg/m2 60201.6 6 g 89 /min 18 /min 100 % 100 % 120 mm[Hg] 108 mm[Hg] Melida Ramirez [facility] 1 14:32:29 Date Recorded Body height Body mass index (BMI) Body weight Heart rate Respiratory rate Oxygen saturation Oxygen saturation in Arterial blood by Pulse oximetry Systolic blood pressure Diastolic blood pressure Provider Name and Address Organization Details Last Updated DateTime 1 157.48 cm 36.6 kg/m2 59388.4 7 g 79 /min 16 /min 98 % 98 % 112 mm[Hg] 84 mm[Hg] Steven Nava [facility] 1 14:18:02 Date Recorded Body height Heart rate Body mass index (BMI) Body weight Oxygen saturation Oxygen saturation in Arterial blood by Pulse oximetry Systolic blood pressure Diastolic blood pressure Provider Name and Address Organization Details Last Updated DateTime 1 157.48 cm 96 /min 37.7 kg/m2 21287.1 1 g 96 % 96 % 122 mm[Hg] 82 mm[Hg] KRYSTENRobinson MCNEIL [facility] 1 09:48:46 Date Recorded Body height Body mass index (BMI) Body weight Heart rate Oxygen saturation Oxygen saturation in Arterial blood by Pulse oximetry Systolic blood pressure Diastolic blood pressure Provider Name and Address Organization Details Last Updated DateTime 2 157.48 cm 37.7 kg/m2 16467.0 3 g 90 /min 96 % 96 % 118 mm[Hg] 64 mm[Hg] Gordy Rivas [facility] 2 09:47:55 Social History Question Answer Notes LastModified by Organizat ion Details LastModified Time Tobacco Smoking Status Former Smoker quit 11/03/09 Angelina sagastume [facility] 11/05/2019 03:31:42 What Is Your Level Of Alcohol Consumption? Occasional [email or web address] Information not available 11/08/2019 What Is Your Level Of Caffeine Consumption? Occasional [email or web address] Information not available 11/08/2019 How Much Tobacco Do You Chew? None [email or web address] Information not available 11/08/2019 What Type Of Diet Are You Following? REGULAR [email or web address] Information not available 11/08/2019 Which Illicit Or Recreational Drugs Have You Used? None Information not available 11/05/2019 Do You Or Have You Ever Used E-cigarettes Or Vape? Never Used Electronic Cigarettes Information not available 11/05/2019 Live Alone Or With Others? With Others Residential Due To Dementia Information not available 11/05/2019 Marital Status Informatio n not available 11/08/2019 What Was [...] not available 11/08/2019 General Stress Level Medium [email or web address] Information not available 11/08/2019 How Many Years Have You Smoked Tobacco? 32 Information not available 11/05/2019 Sex: Unknown Functional Status Question Answer Note LastModified by Organizat ion Details LastModified Time What is your exercise level? Occasional [email or web address] Information not available 11/08/2019 Mental Status None [...] SNOMED-CT Code Diagnosis ICD10 Code Diagnosis Note 14245 Smooth Adams MD [facility] [address] [place] [address] 11/08/2019 15:19:32 11/09/2019 11:23:21 Chest pain 26384400 R07.9 Angiogram 11/01/2019 No significan t CAD. Normal LVSF Echo 11/01/2019 LVSF is normal, estimated at 55-60%. LV chamber dimension is normal. The LV diastolic function is grade I diastolic dysfunctio n 19701 MD Ludivina Tirado Office [address] [place] [address] 02/14/2020 12:51:39 02/17/2020 22:47:49 Chest pain 16038748 R07.9 Angiogram 11/01/2019 No significan t CAD. Normal LVSF Echo 11/01/2019 LVSF is normal, estimated at 55-60%. LV chamber dimension is normal. The LV diastolic function is grade I diastolic dysfunctio n Essential hypertension 37700212 I10 Controlled . Dyslipidemia 403748547 E 78.5 25832 MD Ludivina Tirado Office [address] [place] [address] 02/17/2020 11:39:17 02/17/2020 12:11:13 Chest pain 41873062 R07.9 Resolved.A ngiogram 11/01/2019 No significan t CAD. Normal LVSF Echo 11/01/2019 LVSF is normal, estimated at 55-60%. LV chamber dimension is normal. The LV diastolic function is grade I diastolic dysfunctio n Essential hypertension 86120495 I10 Controlled . Tachycardia 6880699 R00. 0 Needs to increase exercise. Will consider increasing Metoprolol if she is still tachycardi c at follow up. Dyslipidemia 071183076 E 78.5 11198 Christine Ventura [facility] Office [address] [place] [address] 08/21/2020 13:56:38 08/21/2020 14:13:54 Chest pain 17945904 R07.9 Resolved [facility] 11/01/2019 : No significan t CAD with normal LVSF Echo 11/01/2019 : LVSF is normal, estimated at 55-60%. LV chamber dimension is normal. The LV diastolic function is grade I diastolic dysfunctio n. Essential hypertension 13544348 I10 Well controlled on current regimen Tachycardia 6228701 R00. 0 Remains elevated despite increased exercise, will increase metoprolol to 25mgdaily 08/21/2020 . Dyslipidemia 756425265 E 78.5 Needs to keep LDL less than 70, and HDL more than 40. 020 LDL 83Continue atorvastat in 20mg nightlyWil l get fasting lipids for follow-up 75657 Smooth Adams MD [facility] [address] [place] [address] 11/27/2020 14:18:22 11/27/2020 14:40:11 Chest pain 28932590 R07.9 Resolved [facility] 11/01/2019 : No significan t CAD with normal LVSF Echo 11/01/2019 : LVSF is normal, estimated at 55-60%. LV chamber dimension is normal. The LV diastolic function is grade I diastolic dysfunctio n. Essential hypertension 01595497 I10 Well controlled on current regimen Tachycardia 6716018 R00. 0 Remains elevated despite increased exercise, will increase metoprolol to 25mgdaily 08/21/2020 . Dyslipidemia 080456687 E 78.5 Needs to keep LDL less than 70, and HDL more than 40. 020 LDL 83Continue atorvastat in 20mg nightlyWil l get fasting lipids for follow-up 00121 Christine Ventura [facility] Office [facility] [place] [address] 05/28/2021 14:07:29 05/28/2021 14:54:47 Chest pain 90276995 R07.9 Resolved [facility] 11/01/2019 : No significan t CAD Essential hypertension 15121273 I10 Well controlled on current regimen Tachycardia 9995931 R00. 0 Resolved on increased dose of metoprolol at 25 mg daily Dyslipidemia 313880229 E 78.5 Needs to keep LDL less than 70, and HDL more than 40. 020 LDL 83Continue atorvastat in 20 mg nightlyWil l get fasting lipids for follow-up Dyspnea on exertion 6084 5006 R06.09 Obtain echo to evaluate for structural /functiona l disease [address] wendie moone [place] OFFICE [address] [place] [address] 08/28/2021 09:18:42 08/28/2021 10:29:25 Chest pain 51437597 R07.9 Resolved [facility] 11/01/2019 : No significan t CAD Had BENOIT Echo with LVEF > 55% Essential hypertension 99242463 I10 Well controlled on current regimen Tachycardia 4293632 R00. 0 Resolved on increased dose of metoprolol at 25 mg daily Dyslipidemia 200677273 E 78.5 Needs to keep LDL less [...] evaluate for structural /functiona l disease Obesity 572042653 E66.9 discussed weight loss 10 lb. weight loss recommende d over the next 2 months. decrease night time [facility] [address] [facility] [place] [address] 02/26/2022 09:20:00 02/26/2022 10:35:08 Chest pain 72074232 R07.9 Resolved [facility] 11/01/2019 : No significan t CAD Had BENOIT Echo with LVEF > 55% Essential hypertension 55451708 I10 Well controlled on current regimen Tachycardia 5261190 R00. 0 Resolved on increased dose of metoprolol at 25 mg daily Dyslipidemia 644545314 E 78.5 Needs to keep LDL less [...] evaluate for structural /functiona l disease Obesity 138691194 E66.9 discussed weight loss 10 lb. weight [...] [employer] (MEDICARE REPLACEMENT HMO) Frederick Sellers [id number] Frederick Sellers 11/27/2020 1 [employer] (MEDICARE REPLACEMENT HMO) Frederick Sellers [id number] Frederick Sellers 05/28/2021 1 [employer] (MEDICARE REPLACEMENT HMO) Frederick Sellers [id number] Frederick Sellers 08/28/2021 1 [employer] (MEDICARE REPLACEMENT HMO) Frederick Sellers [id number] Frederick Sellers 02/26/2022 1 [employer] (MEDICARE REPLACEMENT HMO) Frederick Sellers [id number] Frederick Sellers Notes Date Note Type Note Provider Name and Address Organization Details Recorded Time 0 text/html 08/21/2020 CC : Chest pain 59 years-old Female with h/o Hypertension is here for follow up . She was last seen in clinic 6 months ago on 02/17/2020. She was in [facility] in 11/01/19 because of Chest pain. [...] is grade I diastolic dysfunction Christine Ventura [facility], [place] - [facility] 08/21/2020 14:13:51 1 text/html 11/27/2020 CC : Chest pain 59 years-old Female with h/o Hypertension is here for follow up . She was last seen in clinic 8 months ago on 02/17/2020. She was in [facility] in 11/01/19 because of Chest pain. [...] diastolic dysfunction Smooth Adams MD [address] [place], [address], [facility] 11/27/2020 18:12:37 [...] is grade I diastolic dysfunction Christine Ventura [employer] [facility], [place] - [facility] 05/28/2021 [...] PQRS 1:1 abnormal P axis, H rate 63980/04/22:EKG Atrial tachycardia. P:QRS-1:1, abnormal P axis, H [...] is grade I diastolic dysfunction wendie bedolla [place], [place] - [facility] 08/29/2021 19:46:26 2 text/html 02/26/22CC : Cardiac follow-up [id number] years-old Female with h/o Hypertension, mil CAD [...] PQRS 1:1 abnormal P axis, H rate 87707:EKG Atrial tachycardia. P:QRS-1:1, abnormal P axis, H [...]
--- OUTSIDE RECORDS SUMMARY | 2025-03-01 12:59 | XMS_ITS | Encounter Summary ---
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
--- OUTSIDE RECORDS SUMMARY | 2025-03-01 12:59 | XMS_ITS | Clinical Summary ---
Author Organization [facility] Address [address] [place] [address] Care Team Providers Care Contract Officer Name Role Phone Unavailable Primary Care Provider Unavailabl e Source Comments [facility],non-owned Affiliates and Associated Physician Practices is amultiple site organization consisting of ambulatory clinics and hospital sitesin [place], [place], [place] and [place]. This disclosure is being madepursuant to the Care Everywhere program and may not contain all information available regarding this patient. Last updated 18.[facility] Social History Tobacco Use Types Packs/Day Years [...] patient's age to complete this topic Insurance [facility]
--- OUTSIDE RECORDS SUMMARY | 2025-03-01 12:59 | XMS_ITS | Clinical Summary ---
Author Organization [facility] Address [address] [place] [address] Care Team Providers Care Director Energy Name Role Phone Luiz Mariscal NP Primary Care Provider [phone] Allergies No known active allergies Medications adalimumab [...] Description 02/10/2025 11:25 AM CDT Ancillary Procedure [facility] Medical [facility] Imaging at [address] [phone] Chronic right hip pain 02/10/2025 11:00 AM CDT Office Visit [facility] Convenient Care at [address] [phone] Hair Richards NP Chronic right hip pain (Primary Dx) 02/10/2025 Results Follow-Up [facility] Convenient Care at [address] [phone] Hair Richards NP from Last 3 Months [...] on file 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 AR T: Report ID: [id number] Reading Location: [id number] Procedure Note Varinder Pearson MD - 02/10/2025 [...] Varinder Pearson M.D. AR T: Report ID: [id number] Reading Location: [id number] Hair Richards NP IM XR PROCEDURES Final Result from Last 3 Months Insurance [employer] H[employer] MED[employer]ARE HMO Care Teams Director Energy Relationship Specialty Start Date End Date Luiz Mariscal NP [address] [place] [address] PCP - General Nurse Practitioner 05/31/24
--- OUTSIDE RECORDS SUMMARY | 2025-03-01 12:59 | XMS_ITS | Clinical Summary ---
Author Organization [facility] Address [facility] [place] [address] Care Team Providers Care Race And Sports Book Writer Name Role Phone LeilaArturo saezssasa Holliday NP Primary Care Provider [phone] Mila Nnia MD Unavailable [phone] Allergies No known active allergies Medications [...] Problems Problem Noted Date Diagnosed Date V-tach ([facility]) 10/02/2017 Hypertension, essential 10/02/2017 Pure hypercholesterolemia 10/02/2017 Arthritis 06/23/2017 Palpitations Family History Medical History Relation Comments Hypertension Brother Hypertension Father [place] Father Dementia Mother TIA Mother Diabetes Sister [...] Comments Blood Pressure 124/90 10/02/2017 10:56 AM AEROBICS TEACHER Pulse 84 10/02/2017 10:56 AM AEROBICS TEACHER reg Temperature - - Respiratory Rate - - Oxygen Saturation 97% 10/02/2017 9:56 AM AEROBICS TEACHER Inhaled Oxygen Concentration - - Weight 87.5 kg (193 lb) 10/02/2017 9:56 AM AEROBICS TEACHER Height 160 cm (5' 3 ) 10/02/2017 9:56 AM AEROBICS TEACHER Body Mass Index 34.19 10/02/2017 9:56 AM AEROBICS TEACHER Plan of Treatment Health Maintenance Due Date [...] complete this topic Insurance MEDICARE Care Teams Race And Sports Book Writer Relationship Specialty Start Date End Date Raissa Dee NP PCP - General NURSE PRACTITIONER 04/03/16 Mila Nina MD [facility] [address] [place] [address] [place] [employer] Production Team Member CARDIOVASCULAR DISEASE 06/02/17
== END 2025-03-01 11:37 | disposition home or self-care (01) ==
LOC: ANHLAB 11:37
PROVIDERS: PCP Nurse Practitioner Family; Visit Provider Nurse Practitioner
DX: K52.9 Noninfective gastroenteritis and colitis, unspecified (principal)
CPT/HCPCS: 83993; 87045; 87269; 87427; 87449; 87493

== ENCOUNTER 2025-03-22 01:09 | Day surgery (SDC) | payer MEDICARE, SELFPAY ==
[2025-03-14 09:56] VITALS: BMI 37.9
--- OUTSIDE RECORDS SUMMARY | 2025-03-22 01:11 | XMS_ITS | Referral Summary ---
Author Organization [facility] Address [address] [place] [address] Care Team Providers Care School Supervisor Name Role Phone Radha Brown NP Primary Care Provider [phone] Encounters Date Type Department Care Team Description 03/21/2025 Telephone [facility] Internal Medicine at [place] [address] [place] [address] Rd [address] [place] [phone] Radha Brown NP 03/04/2025 1:00 PM CDT Office Visit [facility] Internal [facility] [place] [address] [place] [address] Rd [address] [place] [phone] Radha Brown NP Right hip pain (Primary Dx); BMI 39.0-39.9,adult; Obesity (BMI 30-39.9); Breast cancer screening by mammogram; Encounter for screening colonoscopy; Hypertension, essential; Mixed hyperlipidemia; Chronic bilateral low back pain without sciatica; Screening for thyroid disorder 02/10/2025 Results Follow-Up [facility] at [address] [address] Hair Richards NP XR Hip Right 2 or 3 Views 02/10/2025 11:25 AM CDT Ancillary Procedure [facility] at [address] [address] Chronic right hip pain 02/10/2025 11:00 AM CDT Office Visit [facility] at [address] [address] Hair Richards, TIERNEY Chronic right hip pain (Primary Dx) from Last 3 Months Allergies No known active allergies Medications ALPRAZolam (XANAX) 0.25 mg tablet Take 1 tablet (0.25 mg total) by mouth daily as needed Active aspirin 81 mg enteric coated tablet Take 1 tablet every day by oral route. Active pantoprazole DR (PROTONIX) 40 mg EC tablet Take 1 tablet (40 mg total) by mouth daily Active ergocalciferol (VITAMIN D) 50,000 unit capsule Take 1 cap po once weekly 06/26/20 18 Active cyanocobalamin, vitamin B-12, 1,000 mcg tablet extended release Take by mouth Active meloxicam (MOBIC) 7.5 mg tabletIndications :Right hip pain Take 1 tablet (7.5 mg total) by mouth daily for 10 days 90 tablet 1 03/04/20 25 Active methylPREDNISolon e (MEDROL DOSEPACK) 4 mg DosepackIndicatio ns:Right hip pain Take as directed on package. 21 tablet 03/04/20 25 Active amitriptyline (ELAVIL) 100 mg tabletIndications :Insomnia, unspecified type Take 1 tablet (100 mg total) by mouth nightly 90 tablet 1 03/21/20 25 Active rosuvastatin (CRESTOR) 10 mg tabletIndications :Hyperlipidemia, unspecified hyperlipidemia type Take 1 tablet (10 mg total) by mouth daily 90 tablet 1 03/21/20 25 026 Active metoprolol XL (TOPROL-XL) 25 mg extended release tabletIndications :Hypertension, essential Take 1 tablet (25 mg total) by mouth daily 90 tablet 1 03/21/20 25 Active adalimumab (Humira,CF, Pen) 40 mg/0.4 mL pen injector kit INJECT 0.4 ML UNDER THE SKIN EVERY 2 WEEKS 025 Discontinued(T herapy completed) amitriptyline (ELAVIL) 100 mg tablet Take 1 tablet (100 mg total) by mouth nightly 025 Discontinued(R eorder) budesonide-formot Alistair (SYMBICORT) 80-4.5 mcg/actuation inhaler INHALE 2 PUFFS BY MOUTH EVERY 12 HOURS 025 Discontinued(T herapy completed) guaiFENesin-codei ne (GUAITUSS AC) liquid 100-10 mg/5 mL TAKE 10 ML BY MOUTH EVERY DAY AT BEDTIME NEEDED FOR COUGH 025 Discontinued(T herapy completed) HYDROcodone-aceta minophen (NORCO) 5-325 mg per tablet Take 1 tablet by mouth 2 (two) times a day as needed for pain 03/03/20 24 025 Discontinued(T herapy completed) ixekizumab (Taltz Autoinjector) auto-injector 025 Discontinued(T herapy completed) metoprolol XL (TOPROL-XL) 25 mg extended release tablet Take 1 tablet (25 mg total) by mouth daily 12/07/19 025 Discontinued(R eorder) ondansetron (ZOFRAN) 4 mg tablet Take 1 tablet (4 mg total) by mouth every 8 (eight) hours as needed 025 Discontinued(T herapy completed) Crestor 10 mg tablet Take 1 tablet(s) every day by oral route. 025 Discontinued meloxicam (MOBIC) 7.5 mg tablet Take 1 tablet (7.5 mg total) by mouth daily for 10 days 10 tablet 02/11/20 025 Discontinued(R eorder) cyclobenzaprine (FLEXERIL) 5 mg tablet Take 1 tablet (5 mg total) by mouth nightly as needed for muscle spasms 7 tablet 02/11/20 025 Discontinued(T herapy completed) Active Problems Problem Noted Date Diagnosed Date Obesity (BMI 30-39.9) 03/04/2025 Assessment & Plan (03/04/2025 1:24 PM CDT): Discussed the patients BMI: The BMI is above average BMI management is complete. BMI follow-up includes: Nutrition Counseling and education provided Encounter for screening colonoscopy 03/04/2025 Right hip pain 03/04/2025 Assessment & Plan (03/04/2025 2:03 PM CDT): This is a significant, separately identifiable problem that was evaluated and managed on the same day as the wellness exam Chronic bilateral low back pain without sciatica 03/04/2025 Palpitations 06/10/2024 Ankylosing spondylitis 11/04/2019 Chest pain 11/04/2019 Gastroesophageal reflux disease 11/04/2019 Migraine 11/04/2019 Hyperlipidemia 11/04/2019 Steatosis of liver 11/04/2019 Umbilical hernia 11/04/2019 Hypertension, essential 10/02/2017 Pure hypercholesterolemia 10/02/2017 V-tach 10/02/2017 Arthritis 06/23/2017 Ankylosing spondylitis Headache Immunizations Immunization Administration Dates Next Due Influenza, Quadrivalent, Malena l Culture-based MDCK, Preservative Free, Antibiotic Free, Intramuscular 10/09/2023,09/11/2020 Influenza, Quadrivalent, Spl it, Preservative Free, Intramuscular 10/03/2021 Influenza, Unspecified 11/03/2024(Deferr ed: Patient Refused),11/03/2023(Deferred: Patient Refused) Pneumococcal Conjugate Pcv20 07/02/2023 Tdap 05/31/2024 ZOSTER Recombinant 10/09/2023,07/02/2023 Social History Tobacco Use Types Packs/Day Years Used Date Smoking Tobacco: Former Cigarettes Tobacco Cessation:Counseling Given: Not Answered PHQ-2 Answer Date Recorded PHQ-2 Total Score (If total score is 3 or more points, staff should administer the PHQ-9) 0 03/04/2025 Personal Safety Answer Date Recorded Have you ever been in or are you currently in a harmful physical or emotional relationship or is someone making you feel afraid or unsafe? 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 Gender Identity Not on file Sexual Orientation Not on file Last Filed Vital Signs Vital Sign Reading Time Taken Comments Blood Pressure 122/82 03/04/2025 1:12 PM CDT Pulse 89 03/04/2025 1:12 PM CDT Temperature 36.7 C (98.1 F) 03/04/2025 1:12 PM CDT Respiratory Rate 20 02/10/2025 11:10 AM CDT Oxygen Saturation 99% 03/04/2025 1:12 PM CDT Inhaled Oxygen Concentration - - Weight 95.3 kg (210 lb) 03/04/2025 1:12 PM CDT Height 157.5 cm (5' 2) 03/04/2025 1:12 PM CDT Body Mass Index 38.41 03/04/2025 1:12 PM CDT Plan of Treatment Not on file [...] signed by Varinder BARR T: Report ID: [id number] Reading Location: [id number] Procedure Note Varinder Pearson MD - 02/10/2025 [...] signed by Varinder BARR T: Report ID: [id number] Reading Location: [place] [address] [address] Richards TOOL SUPERVISOR IMG XR PROCEDURES Final Result from Last 3 Months Insurance [employer] MEDICARE HMO [facility] MEDICARE HMO Care Teams School Supervisor Relationship Specialty Start Date End Date Radha Brown NP [address] [place] [address] PCP - General Internal Medicine 03/04/25
--- OUTSIDE RECORDS SUMMARY | 2025-03-22 01:11 | XMS_ITS | Encounter Summary ---
Author Organization [facility] Address [address] [place] [address] Care Team Providers Care Cad Draftsman Name Role Phone Radha Brown TENT WORKER Primary Care Provider [phone] Encounter Details Date Type Department Care Team (Late st Contact Info) Description 03/21/2025 Telephone [facility] Internal Medicine at [place] [address] [place] [address] Radha Brown NP [address] [place], [place] [id number] Social History Tobacco Use Types Packs/Day Years Used Date Smoking Tobacco: Former Cigarettes PHQ-2 Answer Date Recorded PHQ-2 Total Score [...] on file 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 Gender Identity Not on file Sexual Orientation Not on file documented as of this encounter Ordered Prescriptions Prescription Sig Dispense Quantity Refills Last Filled Start Date End Date metoprolol XL (TOPROL-XL) 25 mg extended release tabletIndications:Hy pertension, essential Take 1 tablet (25 mg total) by mouth daily 90 tablet 1 03/21/2025 rosuvastatin (CRESTOR) 10 mg tabletIndications:Hy perlipidemia, unspecified hyperlipidemia type Take 1 tablet (10 mg total) by mouth daily 90 tablet 1 03/21/2025 6 amitriptyline (ELAVIL) 100 mg tabletIndications:In somnia, unspecified type Take 1 tablet (100 mg total) by mouth nightly 90 tablet 1 03/21/2025 documented in this encounter Miscellaneous Notes * Telephone Encounter - Maribeth Frank LPN - 03/21/2025 8:04 AM CDT Refills sent per provider request. documented in this encounter Plan of Treatment Not on file documented as of this encounter Visit Diagnoses Diagnosis Hypertension, essential- Primary Unspecified essential hypertension Hyperlipidemia, unspecified hyperlipidemia type Insomnia, unspecified type documented in this encounter Discontinued Medications Medication Sig Discontinue Reason Start Date End Da te Crestor 10 mg tablet Take 1 tablet(s) every day by oral route. 03/21/2025 amitriptyline (ELAVIL) 100 mg tablet Take 1 tablet (100 mg total) by mouth nightly Reorder 03/21/2025 metoprolol XL (TOPROL-XL) 25 mg extended release tablet Take 1 tablet (25 mg total) by mouth daily Reorder 12/07/2018 03/21/2025 documented as of this encounter Care Teams Cad Draftsman Relationship Specialty Start Date End Date Radha Brown NP [address] [facility] [address] [place] [address] PCP - General Internal Medicine 03/04/25 documented as of this encounter
--- OUTSIDE RECORDS SUMMARY | 2025-03-22 01:11 | XMS_ITS | Data Portability ---
Author Organization [facility] Address [address] [place] [address] Care Team Providers Care Primary Special Educator Name Role Phone SOLE BAIG Primary Care Provider [phone] Assessment No assessment recorded. Plan of Treatment Reminders Order Date Submit Date Provider Last Modified By Organization Details Last Modified Time Details Appointments None recorded. Lab CMP, serum or plasma 2017 018 [facility], [address], [place], [address], 8 14:14:40 CBC w/ auto diff 2017 018 [facility], [address], [place], [address], 8 14:14:40 lipid panel, serum 2017 018 [facility], [address], [place], [address], 8 14:14:41 vitamin D, 25-hydroxy , total, serum 2017 018 [facility], [address], [place], [address], 8 14:14:42 TSH, ultra-sens itive, serum 2017 018 [facility], [address], [place], [address], 8 14:14:42 Referral None recorded. Procedures None recorded. Surgeries None recorded. Imaging MAMMO, screening, bilateral 2017 018 [facility], [address], [place], [address], 8 16:34:14 Medication Orders pantoprazo le 40 mg tablet,del ayed release 2017 018 [facility][id number], [address] [facility], [place], [place], [id number], 8 10:41:53 amitriptyl ine 25 mg tablet 2017 018 [facility][id number], [address] [facility], [place], [place], [id number], 8 10:30:59 metoprolol succinate ER 25 mg tablet,ext ended release 24 hr 2017 018 [facility] #36771, [address] [facility], [place], [place], [id number], 8 10:41:59 Patient TargetsNo targets recorded. Patient Instructions Encounter Date Encounter Id Patient Instructions Last Modified By Organization Details Last Modified Time 06/23/2018 [id number] cervical disc disease: care instructions [email or web address] Not available 06/23/2018 10:34:09 mammogram: about this test [email or web address] Not available 06/23/2018 10:34:09 gastroesophageal reflux disease (GERD): care instructions [email or web address] Not available 06/23/2018 10:41:34 learning about h igh blood pressure [email or web address] Not available 06/23/2018 10:41:34 Reason for Referral None Reported. Results Created Date Observation Date Name Description Value Unit Range Abnormal Flag Note LastModifiedBy Organization Detail LastModifiedTime 06/23/20 18 06/24/2018 CBC w/ auto diff WBC 7.2 x10e3 /uL 3.4-10 .8 Not Available [facility] ([facility]) [address], [place], [address], 06/24/2018 14:14:40 06/23/20 18 06/24/2018 CBC w/ auto diff RBC 5.04 x10e6 /uL 3.77-5 .28 Not Available [facility] ([facility]) [address] [place], [address], 06/24/2018 14:14:40 06/23/20 18 06/24/2018 CBC w/ auto diff hemoglobin 14.4 g/dL 11.1-1 5.9 Not Available [facility] ([facility]) [address], [place], [address], 06/24/2018 14:14:40 06/23/20 18 06/24/2018 CBC w/ auto diff hematocrit 43.6 % 34.0-4 6.6 Not Available [facility] ([facility]) [address], [place], [address], 06/24/2018 14:14:40 06/23/20 18 06/24/2018 CBC w/ auto diff MCV 87 fL 79-97 Not Available [facility] ([facility]) [address] [place], [address], 06/24/2018 14:14:40 06/23/20 18 06/24/2018 CBC w/ auto diff MCH 28.6 pg 26.6-3 3.0 Not Available [facility] ([facility]) [address] [place], [address], 06/24/2018 14:14:40 06/23/20 18 06/24/2018 CBC w/ auto diff MCHC 33.0 g/dL 31.5-3 5.7 Not Available [facility] ([facility]) [address] [place], [address], 06/24/2018 14:14:40 06/23/20 18 06/24/2018 CBC w/ auto diff RDW 13.7 % 12.3-1 5.4 Not Available [facility] ([facility]) [address] [place], [address], 06/24/2018 14:14:40 06/23/20 18 06/24/2018 CBC w/ auto diff platelets 304 x10e3 /uL 150-37 9 Not Available [facility] ([facility]) [address], [place], [address], 06/24/2018 14:14:40 06/23/20 18 06/24/2018 CBC w/ auto diff neutrophils 63 % not estab. Not Available [facility] ([facility]) [address], [place], [address], 06/24/2018 14:14:40 06/23/20 18 06/24/2018 CBC w/ auto diff lymphs 26 % not estab. Not Available [facility] ([facility]) [address], [place], [address], 06/24/2018 14:14:40 06/23/20 18 06/24/2018 CBC w/ auto diff monocytes 6 % not estab. Not Available [facility] ([facility]) [address], [place], [address], 06/24/2018 14:14:40 06/23/20 18 06/24/2018 CBC w/ auto diff eos 5 % not estab. Not Available [facility] ([facility]) [address], [place], [address], 06/24/2018 14:14:40 06/23/20 18 06/24/2018 CBC w/ auto diff basos 0 % not estab. Not Available [facility] ([facility]) [address], [place], [address], 06/24/2018 14:14:40 06/23/20 18 06/24/2018 CBC w/ auto diff immature cells DIGITAL ACCOUNT DIRECTOR Not Available [facility] ([facility]) [address], [place], [address], 06/24/2018 14:14:40 06/23/20 18 06/24/2018 CBC w/ auto diff neutrophils (absolute) 4.5 x10e3 /uL 1.4-7. 0 Not Available [facility] ([facility]) [address] [place], [address], 06/24/2018 14:14:40 06/23/20 18 06/24/2018 CBC w/ auto diff lymphs (absolute) 1.9 x10e3 /uL 0.7-3. 1 Not Available [facility] ([facility]) [address] [place], [address], 06/24/2018 14:14:40 06/23/20 18 06/24/2018 CBC w/ auto diff monocytes(ab solute) 0.4 x10e3 /uL 0.1-0. 9 Not Available [facility] ([facility]) [address] [place], [address], 06/24/2018 14:14:40 06/23/20 18 06/24/2018 CBC w/ auto diff eos (absolute) 0.4 x10e3 /uL 0.0-0. 4 Not Available [facility] ([facility]) [address] [place], [address], 06/24/2018 14:14:40 06/23/20 18 06/24/2018 CBC w/ auto diff baso (absolute) 0.0 x10e3 /uL 0.0-0. 2 Not Available [facility] ([facility]) [address] [place], [address], 06/24/2018 14:14:40 06/23/20 18 06/24/2018 CBC w/ auto diff immature granulocytes 0 % not estab. Not Available [facility] ([facility]) [address] [place], [address], 06/24/2018 14:14:40 06/23/20 18 06/24/2018 CBC w/ auto diff immature grans (abs) 0.0 x10e3 /uL 0.0-0. 1 Not Available [facility] ([facility]) [address] [place], [address], 06/24/2018 14:14:40 06/23/20 18 06/24/2018 CBC w/ auto diff NRBC DIGITAL ACCOUNT DIRECTOR Not Available [facility] ([facility]) [address] [place], [address], 06/24/2018 14:14:40 06/23/20 18 06/24/2018 CBC w/ auto diff hematology comments: DIGITAL ACCOUNT DIRECTOR Not Available [facility] ([facility]) [address] [place], [address], 06/24/2018 14:14:40 06/23/20 18 06/24/2018 CMP, serum or plasm a glucose 106 mg/dL 65-99 above high normal Not Available [facility] ([facility]) [address] [place], [address], 06/24/2018 14:14:40 06/23/20 18 06/24/2018 CMP, serum or plasm a BUN 21 mg/dL 6-24 Not Available [facility] ([facility]) [address] [place], [address], 06/24/2018 14:14:40 06/23/20 18 06/24/2018 CMP, serum or plasm a creatinine 0.70 mg/dL 0.57-1 .00 Not Available [facility] ([facility]) [address] [place], [address], 06/24/2018 14:14:40 06/23/20 18 06/24/2018 CMP, serum or plasm a eGFR if nonafricn AM 98 mL/mi n/1.7 3 >59 Not Available [facility] ([facility]) [address] [place], [address], 06/24/2018 14:14:40 06/23/20 18 06/24/2018 CMP, serum or plasm a eGFR if africn AM 113 mL/mi n/1.7 3 >59 Not Available [facility] ([facility]) [address] [place], [address], 06/24/2018 14:14:40 06/23/20 18 06/24/2018 CMP, serum or plasm a BUN/creatini ne ratio 30 9-23 above high normal Not Available [facility] ([facility]) [address] [place], [address], 06/24/2018 14:14:40 06/23/20 18 06/24/2018 CMP, serum or plasm a sodium 140 mmol/ L 134-14 4 Not Available [facility] ([facility]) [address] [place], [address], 06/24/2018 14:14:40 06/23/20 18 06/24/2018 CMP, serum or plasm a potassium 4.5 mmol/ L 3.5-5. 2 Not Available [facility] ([facility]) [address] [place], [address], 06/24/2018 14:14:40 06/23/20 18 06/24/2018 CMP, serum or plasm a chloride 102 mmol/ L 96-106 Not Available [facility] ([facility]) [address] [place], [address], 06/24/2018 14:14:40 06/23/20 18 06/24/2018 CMP, serum or plasm a carbon dioxide, total 21 mmol/ L 20-29 Not Available [facility] ([facility]) [address] [place], [address], 06/24/2018 14:14:40 06/23/20 18 06/24/2018 CMP, serum or plasm a calcium 9.9 mg/dL 8.7-10 .2 Not Available [facility] ([facility]) [address] [place], [address], 06/24/2018 14:14:40 06/23/20 18 06/24/2018 CMP, serum or plasm a protein, total 6.5 g/dL 6.0-8. 5 Not Available [facility] ([facility]) [address] [place], [address], 06/24/2018 14:14:40 06/23/20 18 06/24/2018 CMP, serum or plasm a albumin 4.1 g/dL 3.5-5. 5 Not Available [facility] ([facility]) [address] [place], [address], 06/24/2018 14:14:40 06/23/20 18 06/24/2018 CMP, serum or plasm a globulin, total 2.4 g/dL 1.5-4. 5 Not Available [facility] ([facility]) [address] [place], [address], 06/24/2018 14:14:40 06/23/20 18 06/24/2018 CMP, serum or plasm a A/G ratio 1.7 1.2-2. 2 Not Available [facility] ([facility]) [address] [place], [address], 06/24/2018 14:14:40 06/23/20 18 06/24/2018 CMP, serum or plasm a bilirubin, total 0.5 mg/dL 0.0-1. 2 Not Available [facility] ([facility]) [address] [place], [address], 06/24/2018 14:14:40 06/23/20 18 06/24/2018 CMP, serum or plasm a alkaline phosphatase 130 IU/L 39-117 above high normal Not Available [facility] ([facility]) [address] [place], [address], 06/24/2018 14:14:40 06/23/20 18 06/24/2018 CMP, serum or plasm a AST (SGOT) 22 IU/L 0-40 Not Available [facility] ([facility]) [address] [place], [address], 06/24/2018 14:14:40 06/23/20 18 06/24/2018 CMP, serum or plasm a ALT (SGPT) 28 IU/L 0-32 Not Available [facility] ([facility]) [address] [place], [address], 06/24/2018 14:14:40 06/23/20 18 06/24/2018 lipid panel , serum cholesterol, total 226 mg/dL 100-19 9 above high normal Not Available [facility] ([facility]) [address] [place], [address], 06/24/2018 14:14:41 06/23/20 18 06/24/2018 lipid panel , serum triglyceride s 266 mg/dL 0-149 above high normal Not Available [facility] ([facility]) [address] [place], [address], 06/24/2018 14:14:41 06/23/20 18 06/24/2018 lipid panel , serum LDL chol. (direct) 153 mg/dL 0-99 above high normal Not Available [facility] ([facility]) [address], [place], [address], 06/24/2018 14:14:41 06/23/20 18 06/24/2018 lipid panel , serum HDL cholesterol 39 mg/dL >39 below low normal Not Available [facility] ([facility]) [address] [place], [address], 06/24/2018 14:14:41 06/23/20 18 06/24/2018 lipid panel , serum VLDL cholesterol robin 53 mg/dL 5-40 above high normal Not Available [facility] ([facility]) [address] [place], [address], 06/24/2018 14:14:41 06/23/20 18 06/24/2018 lipid panel , serum LDL cholesterol calc 134 mg/dL 0-99 above high normal Not Available [facility] ([facility]) [address], [place], [address], 06/24/2018 14:14:41 06/23/20 18 06/24/2018 lipid panel , serum comment: DIGITAL ACCOUNT DIRECTOR Not Available [facility] ([facility]) [address], [place], [address], 06/24/2018 14:14:41 06/23/20 18 06/24/2018 lipid panel , serum T. chol/HDL ratio 5.8 ratio 0.0-4. 4 above high normal T. Chol/ HDL Ratio Men Women 1/2 Avg.R isk 3.4 3.3 Avg.R isk 5.0 4.4 2X Avg.R isk 9.6 7.1 3X Avg.R isk 23.4 11.0 Not Available [facility] ([facility]) [address], [place], [address], 06/24/2018 14:14:41 06/23/20 18 06/24/2018 vitam in [...] Endoc rine Socie ty went on to [facility] defin e vitam in D insuf ficie ncy as a level betwe en 21 and 29 ng/mL (2). 1. IOM (Inst itute of Medic ine). 2009. Dieta ry refer ence jamil es for calci um and D. Esperanza flores [place]: The Natio n[facility] . 2. Wilma pierce MF, Brannon ey [place], Bisch off-F errar i EVANS, et al. Evalu ation , treat ment, and preve ntion of vitam in D defic iency : an Endoc rine Socie ty clini robin pract ice guide line. JCEM. 2010; 96(7) :1911 -30. Not Available [facility] ([facility]) [address], [place], [address], 06/24/2018 14:14:42 06/23/20 18 06/24/2018 TSH, ultra -sens itive , serum TSH 1.160 uIU/m L 0.450- 4.500 Not Available [facility] ([facility]) [address], [place], [address], 06/24/2018 14:14:42 07/06/20 18 07/03/2018 MAMMO , scree delilah, bilat eral No observ ation record ed. [facility]) [address], [place], [address], 07/15/2018 15:03:17 Result Notes None recorded. 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 Location : None;Sev erity: Moderate ;Progres s: Stable;A dded By: Josey Forbes;Add to Current Problems : NO Not Available [facility] 7 11:33:32 Internal hemorrho ids 80886075 Active 2014 Location : None;Sev erity: Moderate ;Progres s: Stable;A dded By: Josey Forbes;Add to Current Problems : NO Not Available [facility] 7 11:33:33 Pain of joint of wrist 193906455 Completed 201203/07/2013 Location : None;Sev erity: Moderate ;Progres s: Stable;A dded By: Josey Forbes;Add to Current Problems : NO Not Available [facility] 7 11:33:33 Screenin g for malignan t neoplasm of colon Completed 201301/25/2015 Location : None;Sev erity: Moderate ;Progres s: Stable;A dded By: Josey Forbes;Add to Current Problems : YES Not Available [facility] 7 11:33:33 Endocrin e/metabo lic screenin g Active 2013 Location : None;Sev erity: Moderate ;Progres s: Stable;A dded By: Josey Forbes;Add to Current Problems : YES Not Available [facility] 7 11:33:33 Epidermo id cyst of skin 060730055 Active 2015 Location : Left;Sev erity: Moderate ;Progres s: Stable;A dded By: Josey Forbes;Add to Current Problems : YES Not Available [facility] 7 11:33:33 Vitamin D deficien cy 60265954 Active 2014 Location : None;Sev erity: Moderate ;Progres s: Stable;A dded By: Josey Forbes;Add to Current Problems : YES Not Available [facility] 7 11:33:33 Subjecti ve tinnitus 85450278 Completed 201402/25/2015 Location : None;Sev erity: Moderate ;Progres s: Stable;A dded By: Brooke Garnica;Add to Current Problems : YES Not Available [facility] 7 11:33:33 Screenin g mammogra phy Completed 201505/27/2016 Location : None;Sev erity: Moderate ;Progres s: Stable;A dded By: Brooke Garnica;Add to Current Problems : YES Not Available [facility] 7 11:33:33 Senile hyperker atosis 226480028 Active 2013 Location : None;Sev erity: Moderate ;Progres s: Stable;A dded By: Audra Espinoza;Add to Current Problems : NO Not Available [facility] 7 11:33:33 Acute sinusiti s 41815814 Completed 201505/04/2016 Location : None;Sev erity: Moderate ;Progres s: Stable;A dded By: Brigette Landeros; Add to Current Problems : YES Not Available [facility] 7 11:33:33 Low back pain 229150121 Active 2012 Location : None;Sev erity: Moderate ;Progres s: Stable;A dded By: Manisha Song i;A dd to Current Problems : NO Not Available [facility] 7 11:33:33 Neoplasm of uncertai n behavior of skin 42773950 Completed 201303/13/2014 Location : None;Sev erity: Moderate ;Progres s: Stable;A dded By: Manisha Song i;A dd to Current Problems : NO Not Available [facility] 7 11:33:34 Migraine with aura 6287494 Active 2013 Location : None;Sev erity: Moderate ;Progres s: Stable;A dded By: Manisha Song i;A dd to Current Problems : YES Not Available [facility] 7 11:33:34 Skin sensatio n disturba coe 41383039 Completed 201505/27/2016 Location : None;Sev erity: Moderate ;Progres s: Stable;A dded By: Manisha Song i;A dd to Current Problems : NO Not Available [facility] 7 11:33:34 Problem Notes None recorded. Procedures Surgical History Date Name Laterality Status Provider Name and Address Organization Details Recorded Time [facility] Tubal Ligation completed [facility] 06/23/2018 10:07:43 Imaging Results Imaging Date Name Status [facility] by [facility] Details LastModified Time 07/03/2018 MAMMO, screening, bilateral completed [facility]) [address] [facility] [address] [place] [address], [address], 07/15/2018 15:03:17 Procedure Notes None recorded. Medical [...] next 4 days. 06/02 completed RxNorm : 872617 ;Allow Substi tution : True Not Available Not Available Not Available ibuprofen 800 mg tablet Take 1 po three times daily as needed 02/10 completed RxNorm : 776800 ;Allow Substi tution : True Not Available Not Available Not Available hydrocodone 5 mg-acetamin ophen 500 mg capsule take 1 or 2 at bedtime as needed for pain 04/05 completed RxNorm : 743215 ;Allow Substi tution : True Not Available Not Available Not Available meloxicam 15 mg tablet take one by mouth daily with a meal, the same time every day 05/11 completed RxNorm : 645991 ;Allow Substi tution : True Not Available Not Available Not Available cefadroxil 500 mg capsule 1 capsule by mouth every 12 hrs x 7 days 04/03 completed RxNorm : 843146 ;Allow Substi tution : True Not Available [...] by mouth bid 03/28 completed RxNorm : 733203 ;Allow Substi tution : True Not Available [...] Address Organization Details Last Updated DateTime 8 98106.3 5 g 157.48 cm 37.2 kg/m2 99.1 [...] You Chew? None Information not available 06/23/2018 What Type Of Diet Are You Following? REGULAR Information not available 06/23/2018 Which Illicit Or Recreational Drugs Have You Used? NONE Information not available 06/23/2018 Education 12 Information no t available 06/23/2018 Are There Any Guns Present [...] ion Details LastModified Time What is your level of alcohol consumption? Occasional Information not available 06/23/2018 Are you currently employed? Yes Information not available 06/23/2018 Are you able to care for yourself? 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 Obstetrics History GPAL:G 0 P 0 0 0 0 Past Encounters Encounter ID Performer Location Encounter Start Date Encounter Closed Date Diagnosis/Indication Diagnosis SNOMED-CT Code Diagnosis ICD10 Code Diagnosis Note [id number] Sole Baig MD [facility] [address] [place] [address] 06/23/2018 09:54:30 06/23/2018 16:34:14 Migraine 29086078 G43.909 Degenerati on of cervical intervertebral disc 58014951 M50.30 Screening mammography 24 322286 Z12.31 Body mass index 30+ - obesity 680142025 Z68.37 discussed low fat, low carb diet, and encouraged exercise. Endocrine/ metabolic screening 168357664 Z13.228 Gastroesop hageal reflux disease 244991723 K21.9 Essential hypertension 61075138 I10 Standardiz ed adult depression screening tool completed 3175087350 44488 Z13.89 patient does not appear to be [...] taste Sole Baig MD Attn: Accounting,[address] [place], [address], [facility] 06/28/2018 15:14:47 OBGyn Episode No OBEpisode recorded.
--- OUTSIDE RECORDS SUMMARY | 2025-03-22 01:11 | XMS_ITS | Clinical Summary ---
Author Organization [facility] Address [address] [place] [address] Care Team Providers Care Powder Mill Operator Name Role Phone Unavailable Primary Care Provider Unavailabl e Source Comments [facility],non-owned Affiliates and Associated Physician Practices is amultiple site organization consisting of ambulatory clinics and hospital sitesin [place], [place] and [place]. This disclosure is being madepursuant to the Care Everywhere program and may not contain all information available regarding this patient. Last updated 18.[facility] Social History Tobacco Use Types Packs/Day Years [...] patient's age to complete this topic Insurance [facility]
--- OUTSIDE RECORDS SUMMARY | 2025-03-22 01:11 | XMS_ITS | Encounter Summary ---
Author Organization [facility] Address [address] [place] [address] Care Team Providers Care Infant Babysitter Name Role Phone Luiz Mariscal ALLIANCES CONSULTANT Primary Care Provider [phone] Radha Brown ALLIANCES CONSULTANT Primary Care Provider [phone] Encounter Details Date Type Department Care Team (Late st Contact Info) Description 02/10/2025 Results Follow-Up [facility] Con[facility]ient Care at [address] [address] Hair Richards NP [address] [facility] [address] [place] [address] XR Hip Right 2 or 3 Views Social History Tobacco Use Types Packs/Day Years [...] on file Legal Sex Female 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
--- OUTSIDE RECORDS SUMMARY | 2025-03-22 01:11 | XMS_ITS | Data Portability ---
Author Organization [facility] OFFICE Address [address] [place] [address] Care Team Providers Care Coding Educator Name Role Phone MANUELALDEN Primary Care Provider [...] Orders Crestor 10 mg tablet 2021 022 [facility] #[id number], [address] [place], [place], [id number], 10:28:09 metoprolol succinate ER 25 mg tablet,ext ended release 24 hr 2021 022 [id number], [address] [facility], [place], [id number], 2 10:23:20 metoprolol succinate ER 25 mg tablet,ext ended release 24 hr 2020 021 INTERFACE [facility] #50074, [address], [place], [place], [id number], 1 18:12:20 metoprolol succinate ER 25 mg tablet,ext ended release 24 hr 2019 020 [email or web address] [facility] #48793, [address], [place], [place], [phone], 0 14:12:11 Patient TargetsNo targets recorded. Patient Instructions Encounter Date Encounter Id Patient Instructions Last Modified By Organization Details Last Modified Time 08/21/2020 [id number] Exercise advised Low cholesterol diet advised Low sodium diet advised [email or web address] Not available 08/21/2020 14:00:21 Patient was seen and evaluated by Christine Ventura [facility]. Plan of care was discussed with collaborating physician and note cosigned by Dr. Smooth Adams. [email or web address] Not available 08/21/2020 14:00:16 11/27/2020 [id number] Weight loss 20 pounds Exercise advised Low cholesterol diet advised Low sodium diet advised. [email or web address] Not available 11/27/2020 18:12:13 05/28/2021 [id number] Exercise advised Low cholesterol diet advised Low sodium diet advised [email or web address] Not available 05/28/2021 14:43:47 Scribed by Christine Ventura [facility] [email or web address] Not available 05/28/2021 15:17:59 02/26/2022 [id number] Exercise advised Low cholesterol diet advised Low [...] gram No observ ation record ed. [facility] [address], [place], [address], 07/04/2021 16:39:56 Result Notes None recorded. Problems Name Problem SNOMED Code Status Onset Date Resolution Date Notes Provider Name and Address Organization Details Recorded Time Chest pain 25436407 Active 2019 Not Available [facility] 3 13:12:10 Ankylosing spondylitis 7062488 Active 2019 Not Available [facility] 3 13:12:10 Essential hypertension 86270925 Active 2019 Not Available [facility] 3 13:12:10 Migraine 65427038 Active 2019 Not Available [facility] 3 13:12:10 Umbilical hernia 895587339 Active 2019 Not Available [facility] 3 13:12:10 Steatotic liver disease 610911756 Active 2019 Not Available [facility] 3 13:12:09 Gastroesophag eal reflux disease 365520462 Active 2019 Not Available [facility] 3 13:12:10 Hypertriglyce ridemia 740289821 Active 2019 Not Available [facility] 3 13:12:10 Postmenopausa l state 24158750 Active 2019 Not Available [facility] 3 13:12:10 Problem Notes None recorded. [...] echocardiogram completed [email or web address] [address], [place], [address], 07/04/2021 16:39:56 Procedure Notes None recorded. Medical Equipment None Reported. Allergies Allergen ID Allergen Name Allergen Category Reaction Reaction Severity Criticality Documentation Date Start Date Code Code System Note Provider Name and Address Organization Details Recorded Time 29264 Product containin g 3-hydroxy -3-methyl glutaryl- coenzyme A reductase inhibitor (product) medicatio n other severe Not available 05/28/2021 90213 009 SNOMED Steven Vick [place], [place] - [facility] 14:22:03 Medications [...] Not Available Not Available Not Available vitamin P03-qgqld acid 12/25 completed Not Available Not Available [...] Updated DateTime 0 157.48 cm 36.7 kg/m2 93272.3 5 g 100 /min 96 % 96 % 120 mm[Hg] 85 mm[Hg] Renetta Momin [facility] 0 14:04:06 Date Recorded Body temperature Provider Name a nd Address Organization Details Last Updated DateTime 08/21/2020 98.3 [degF] Polly Valdez [facility] 08/21/2020 13:57:52 Date Recorded Body height Body mass index (BMI) Body weight Heart rate Respiratory rate Oxygen saturation Oxygen saturation in Arterial blood by Pulse oximetry Systolic blood pressure Diastolic blood pressure Provider Name and Address Organization Details Last Updated DateTime 1 157.48 cm 36.9 kg/m2 84939.6 6 g 89 /min 18 /min 100 % 100 % 120 mm[Hg] 108 mm[Hg] Melida Ramirez [facility] 1 14:32:29 Date Recorded Body height Body mass index (BMI) Body weight Heart rate Respiratory rate Oxygen saturation Oxygen saturation in Arterial blood by Pulse oximetry Systolic blood pressure Diastolic blood pressure Provider Name and Address Organization Details Last Updated DateTime 1 157.48 cm 36.6 kg/m2 61568.4 7 g 79 /min 16 /min 98 % 98 % 112 mm[Hg] 84 mm[Hg] Steven Peralesab [facility] 1 14:18:02 Date Recorded Body height Heart rate Body mass index (BMI) Body weight Oxygen saturation Oxygen saturation in Arterial blood by Pulse oximetry Systolic blood pressure Diastolic blood pressure Provider Name and Address Organization Details Last Updated DateTime 1 157.48 cm 96 /min 37.7 kg/m2 96734.1 1 g 96 % 96 % 122 mm[Hg] 82 mm[Hg] KRYSTENRobinson MCNEIL [facility] 1 09:48:46 Date Recorded Body height Body mass index (BMI) Body weight Heart rate Oxygen saturation Oxygen saturation in Arterial blood by Pulse oximetry Systolic blood pressure Diastolic blood pressure Provider Name and Address Organization Details Last Updated DateTime 2 157.48 cm 37.7 kg/m2 20774.0 3 g 90 /min 96 % 96 % 118 mm[Hg] 64 mm[Hg] Gordy Rivas [facility] 2 09:47:55 Social History Question Answer Notes LastModified by Organizat ion Details LastModified Time Tobacco Smoking Status Former Smoker quit 11/03/[address] [facility] 11/05/2019 03:31:42 What Is Your Level Of Caffeine Consumption? Occasional [email or web address] Information not available 11/08/2019 How Much Tobacco Do You Chew? None Information not available 11/08/2019 What Type Of Diet Are You Following? REGULAR [email or web address] Information not available 11/08/2019 Which Illicit Or Recreational Drugs Have You Used? None Information not available 11/05/2019 Live Alone Or With Others? With Others [facility] Due To Dementia Information not available 11/05/2019 Marital Status Informatio n not available 11/08/2019 What Was The Date Of Your Most Recent Tobacco Screening? 11/01/2019 Information not available 11/08/2019 How Many Children Do You Have? 3 Information not available 11/05/2019 How Much Tobacco Do You Smoke? 0.5 PPD Information not available 11/08/2019 General Stress Level Medium [email or web address] Information not available 11/08/2019 How Many Years Have You Smoked Tobacco? 32 Information not available 11/05/2019 Sex: Unknown Functional Status Question Answer Note LastModified by Organizat ion Details LastModified Time What is your level of alcohol consumption? Occasional [email or web address] Information not available 11/08/2019 Do you or have you ever used smokeless tobacco? Former smokeless tobacco user Information not available 11/05/2019 Do you or have you ever used e-cigarettes or vape? Never used electronic cigarettes Information not available 11/05/2019 What is your exercise level? Occasional [email or web address] Information not available 11/08/2019 Mental Status None [...] Emphysema, dementia . Medical History Condition Response GERD/Reflux Y Hyperlipidemia Y Hypertension Y Gynecological HistoryNo gynecological history recorded. Obstetrics History GPAL:G 0 P 0 0 0 0 Past Encounters Encounter ID Performer Location Encounter Start Date Encounter Closed Date Diagnosis/Indication Diagnosis SNOMED-CT Code Diagnosis ICD10 Code Diagnosis Note [id number] Smooth Adams MD [facility] [address] [place] [address] 11/08/2019 15:19:32 11/09/2019 11:23:21 Chest pain 70107536 R07.9 Angiogram 11/01/2019 No significan t CAD. Normal LVSF Echo 11/01/2019 LVSF is normal, estimated at 55-60%. LV chamber dimension is normal. The LV diastolic function is grade I diastolic dysfunctio n [id number] MD [facility]iv[facility] [address] [place] [address] 02/14/2020 12:51:39 02/17/2020 22:47:49 Chest pain 97778084 R07.9 Angiogram 11/01/2019 No significan t CAD. Normal LVSF Echo 11/01/2019 LVSF is normal, estimated at 55-60%. LV chamber dimension is normal. The LV diastolic function is grade I diastolic dysfunctio n Essential hypertension 01070524 I10 Controlled . Dyslipidemia 873323347 E 78.5 [id number] MD [facility] [address] [place] [address] 02/17/2020 11:39:17 02/17/2020 12:11:13 Chest pain 00962343 R07.9 Resolved.A ngiogram 11/01/2019 No significan t CAD. Normal LVSF Echo 11/01/2019 LVSF is normal, estimated at 55-60%. LV chamber dimension is normal. The LV diastolic function is grade I diastolic dysfunctio n Essential hypertension 04162774 I10 Controlled . Tachycardia 5963395 R00. 0 Needs to increase exercise. Will consider increasing Metoprolol if she is still tachycardi c at follow up. Dyslipidemia 492067896 E 78.5 [id number] Smooth Adams MD [place] [address] [place] [address] 08/21/2020 13:56:38 08/21/2020 14:13:54 Chest pain 43056896 R07.9 Resolved [facility] 11/01/2019 : No significan t CAD with normal LVSF Echo 11/01/2019 : LVSF is normal, estimated at 55-60%. LV chamber dimension is normal. The LV diastolic function is grade I diastolic dysfunctio n. Essential hypertension 33371410 I10 Well controlled on current regimen Tachycardia 5664978 R00. 0 Remains elevated despite increased exercise, will increase metoprolol to 25mgdaily 08/21/2020 . Dyslipidemia 622541061 E 78.5 Needs to keep LDL less than 70, and HDL more than 40. 020 LDL 83Continue atorvastat in 20mg nightlyWil l get fasting lipids for follow-up [id number] MD [facility] [address] [place] [address] 11/27/2020 14:18:22 11/27/2020 14:40:11 Chest pain 85180893 R07.9 Resolved [facility] 11/01/2019 : No significan t CAD with normal LVSF Echo 11/01/2019 : LVSF is normal, estimated at 55-60%. LV chamber dimension is normal. The LV diastolic function is grade I diastolic dysfunctio n. Essential hypertension 91188733 I10 Well controlled on current regimen Tachycardia 6443850 R00. 0 Remains elevated despite increased exercise, will increase metoprolol to 25mgdaily 08/21/2020 . Dyslipidemia 172094093 E 78.5 Needs to keep LDL less than 70, and HDL more than 40. 020 LDL 83Continue atorvastat in 20mg nightlyWil l get fasting lipids for follow-up [id number] MD [facility] [place] [address] 05/28/2021 14:07:29 05/28/2021 14:54:47 Chest pain 23919422 R07.9 Resolved [facility] 11/01/2019 : No significan t CAD Essential hypertension 09174094 I10 Well controlled on current regimen Tachycardia 0241120 R00. 0 Resolved on increased dose of metoprolol at 25 mg daily Dyslipidemia 538729177 E 78.5 Needs to keep LDL less than 70, and HDL more than 40. 020 LDL 83Continue atorvastat in 20 mg nightlyWil l get fasting lipids for follow-up Dyspnea on exertion 6084 5006 R06.09 Obtain echo to evaluate for structural /functiona l disease [id number] Smooth Adams MD [facility] [place] [address] 08/28/2021 09:18:42 08/28/2021 10:29:25 Chest pain 22281593 R07.9 Resolved [facility] 11/01/2019 : No significan t CAD Had BENOIT Echo with LVEF > 55% Essential hypertension 38241256 I10 Well controlled on current regimen Tachycardia 9109449 R00. 0 Resolved on increased dose of metoprolol at 25 mg daily Dyslipidemia 366635442 E 78.5 Needs to keep LDL less [...] evaluate for structural /functiona l disease Obesity 786510859 E66.9 discussed weight loss 10 lb. weight loss recommende d over the next 2 months. decrease night time eating [id number] Smooth Adams MD [facility] [address] [place] [address] 02/26/2022 09:20:00 02/26/2022 10:35:08 Chest pain 31349072 R07.9 Resolved [facility] 11/01/2019 : No significan t CAD Had BENOIT Echo with LVEF > 55% Essential hypertension 73715002 I10 Well controlled on current regimen Tachycardia 0293586 R00. 0 Resolved on increased dose of metoprolol at 25 mg daily Dyslipidemia 206405646 E 78.5 Needs to keep LDL less [...] evaluate for structural /functiona l disease Obesity 138187160 E66.9 discussed weight loss 10 lb. weight loss recommende d over the next 2 months. decrease night time eating Health Concerns Section Related Observation LastModified by Organization Detai ls LastModified Time None Recorded Concern Status LastModified by Organization Details LastModified Time None Recorded Advance Directives Directive None Recorded Payers Insurance Date Sequence Insurance Name Policy Number Policy Brunner Covered Member ID Brunner Member ID Guarantor Name 12/30/2023 1 OLSET (MEDICARE REPLACEMENT HMO) Frederick Sellers [id number] Frederick Sellers Notes Date Note Type Note Provider Name and Address Organization Details Recorded Time 0 text/html 08/21/2020 CC : Chest pain 59 years-old Female with h/o Hypertension is here for follow up . She was last seen in clinic 6 months ago on 02/17/2020. She was in [facility] in 11/01/19 because of Chest pain. Today [...] is grade I diastolic dysfunction Christine Ventura [employer] [facility] 08/21/2020 14:13:51 1 text/html 11/27/2020 CC : Chest pain 59 years-old Female with h/o Hypertension is here for follow up . She was last seen in clinic 8 months ago on 02/17/2020. She was in [facility] in 11/01/19 because of Chest pain. Today [...] diastolic dysfunction Smooth Adams MD [address] [place], [address], [facility] - [facility] 11/27/2020 18:12:37 1 text/html [...] is grade I diastolic dysfunction Christine Ventura [employer] [place], [place] - [facility] 05/28/2021 15:18:27 [...] 39,10/31/19: WBC 9.8,RBC 4.88,HGB 14.2,HCT 43.2,PLT EKG: NSR04 EKG : Sinus Tachycardia Non specific ST depression inferolateral leads11/10/2019 EKG: Atrial tachycardia. PQRS 1:1 abnormal P axis, H rate 32786:EKG Atrial tachycardia. P:QRS-1:1, abnormal P axis, H [...] is grade I diastolic dysfunction wendie bedolla [place], [place] - [facility] 08/29/2021 19:46:26 2 text/html 02/26/22CC : Cardiac follow-up [email or web address] years-old Female with h/o Hypertension, mil CAD [...] PQRS 1:1 abnormal P axis, H rate 37728:EKG Atrial tachycardia. P:QRS-1:1, abnormal P axis, H [...]
--- OUTSIDE RECORDS SUMMARY | 2025-03-22 01:11 | XMS_ITS | Clinical Summary ---
Author Organization [facility] Address [address] [place] [address] Care Team Providers Care Lodging Facilities Attendant Name Role Phone Radha Brown NP Primary Care Provider [phone] Allergies No known active allergies Medications ALPRAZolam [...] by mouth daily 90 tablet 1 03/21/20 Active adalimumab (Humira,CF, Pen) 40 mg/0.4 mL [...] V-tach 10/02/2017 Arthritis 06/23/2017 Ankylosing spondylitis Headache Encounters Date Type Department Care Team Description 03/21/2025 Telephone [facility] Internal Medicine at [address] [place] [address] Radha Brown NP 03/04/2025 1:00 PM CDT Office Visit [facility] Internal Medicine at [address] [place] [address] Radha Brown NP Right hip pain (Primary Dx); BMI 39.0-39.9,adult; Obesity (BMI 30-39.9); Breast cancer screening by mammogram; Encounter for screening colonoscopy; Hypertension, essential; Mixed hyperlipidemia; Chronic bilateral low back pain without sciatica; Screening for thyroid disorder 02/10/2025 11:25 AM CDT Ancillary Procedure [facility] at [address] [address] Chronic right hip pain 02/10/2025 11:00 AM CDT Office Visit [facility] at [address] [phone] Hair Richards NP Chronic right hip pain (Primary Dx) 02/10/2025 Results Follow-Up [facility] at [address] [phone] Hair Richards NP XR Hip Right 2 or 3 Views from Last 3 Months Immunizations Immunization Administration Dates Next Due Influenza, Quadrivalent, Malena l Culture-based MDCK, Preservative Free, Antibiotic Free, Intramuscular 10/09/2023,09/11/2020 Influenza, Quadrivalent, Spl it, Preservative Free, Intramuscular 10/03/2021 Influenza, Unspecified 11/03/2024(Deferr ed: Patient Refused),11/03/2023(Deferred: Patient Refused) Pneumococcal Conjugate Pcv20 07/02/2023 Tdap 05/31/2024 ZOSTER Recombinant 10/09/2023,07/02/2023 Surgical History Surgery Date Site/Laterality Comments GALLBLADDER SURGERY TUBAL LIGATION HERNIA REPAIR Medical History Medical History Date Comments Hyperlipidemia Hypertension Headache Ankylosing spondylitis (HCC) Family History Medical History Relation Name Comments Coronary artery disease Father Breast cancer Mother Dementia Mother Leukemia Sister Relation Name Status Comments Father Alive Mother Sister Alive Social History Tobacco Use Types Packs/Day [...] on file Legal Sex Female 6:14 AM RADIOLOGY RN Gender Identity Not on file Sexual Orientation [...] 03/04/2025 1:12 PM CDT Plan of Treatment Health Maintenance Due Date Last Done Comments Breast Cancer Screening-Mammogram 1962 Cervical Cancer Screening 1962 Colon Cancer Screening-Colonoscopy 1962 Hepatitis C Screening 1962 Hepatitis B Screening 1980 Regular Well Visit/Exam 18-64 1980 Covid-19 Vaccine ( season) 2024 09/28/2021, 01/12/2021, 12/15/2020 Influenza Vaccine (Season Ended) 2025 10/09/2023, 10/03/2021, 09/11/2020 Depression Screening 03/04/2026 03/04/2025 DTaP/Tdap/Td Vaccine (2 - Td or Tdap) [...] Varinder Pearson M.D. AR T: Report ID: [id number] Reading Location: [id number] Procedure Note Varinder Pearson MD - 02/10/2025 [...] Varinder Pearson M.D. AR T: Report ID: [id number] Reading Location: [id number] Hair Richards NP IMG XR PROCEDURES Final Result from Last 3 Months Insurance [employer] MEDICARE HMO [employer] MEDICARE HMO Care Teams Lodging Facilities Attendant Relationship Specialty Start Date End Date Radha Brown NP [address] [facility] [address] [place] [address] PCP - General Internal Medicine 03/04/25
--- OUTSIDE RECORDS SUMMARY | 2025-03-22 01:12 | XMS_ITS | Clinical Summary ---
Author Organization [facility] Address [facility] [place] [address] Care Team Providers Care Electric Locomotive Firer/Fireman Name Role Phone Leila Raissaasa Holliday NP Primary Care Provider Mila Nina MD Unavailable [phone] Allergies No known active allergies Medications [...] Problems Problem Noted Date Diagnosed Date V-tach ([facility]) 10/02/2017 Hypertension, essential 10/02/2017 Pure hypercholesterolemia 10/02/2017 Arthritis 06/23/2017 Palpitations Family History Medical History Relation Comments Hypertension Brother Hypertension Father [place] Father Dementia Mother TIA Mother Diabetes Sister [...] Comments Blood Pressure 124/90 10/02/2017 10:56 AM WHARF OPERATOR Pulse 84 10/02/2017 10:56 AM WHARF OPERATOR reg Temperature - - Respiratory Rate - - Oxygen Saturation 97% 10/02/2017 9:56 AM WHARF OPERATOR Inhaled Oxygen Concentration - - Weight 87.5 kg (193 lb) 10/02/2017 9:56 AM WHARF OPERATOR Height 160 cm (5' 3) 10/02/2017 9:56 AM WHARF OPERATOR Body Mass Index 34.19 10/02/2017 9:56 AM WHARF OPERATOR Plan of Treatment Health Maintenance Due Date [...] complete this topic Insurance MEDICARE Care Teams Electric Locomotive Firer/Fireman Relationship Specialty Start Date End Date Raissa Dee NP PCP - General NURSE PRACTITIONER 04/03/16 Mila Nina MD [facility] [address] [place] [address] [place] Customer Sales Consultant CARDIOVASCULAR DISEASE 06/02/17
--- OUTSIDE RECORDS SUMMARY | 2025-03-22 01:12 | XMS_ITS | Encounter Summary ---
Author Organization [facility] Address [facility] [place] [address] Care Team Providers Care Electric Milkers Installer Name Role Phone Raissa Dee NP Primary Care Provider Mila Nina MD Unavailable [phone] Encounter Details Date Type Department Care Team (Late st Contact Info) Description 06/24/2017 Abstract [facility] AT [address] [address] Lawrence Freeman MA Social History Tobacco Use [...] Final Result * LIPID PANEL (10/31/2016) Pathologist [facility] CHOLESTEROL 240 HDL 38 TRIGLYCERIDES 167 LDL (CALCULATED) 164 10/31/2016 us Doc [facility] Final Result * THYROID STIM HORMONE, TSH (10/31/2016) Pathologist [facility] TSH 1.540 10/31/2016 us Doc [facility] Final Result * CBC (OUTSIDE LAB) (07/29/2016) Pathologist [facility] WBC 5.8 HGB 14.1 HCT 41.6 PLT 284 07/29/2016 us Doc [facility]-OUTSIDE/ABSTRACTED Final Result * LIPID PANEL (07/29/2016) CHOLESTEROL 215 HDL 40 TRIGLYCERIDES 266 LDL (CALCULATED) 144 07/29/2016 us Doc [facility] Final Result * COMPREHENSIVE METABOLIC PANEL (07/29/2016) Pathologist [facility] SODIUM S/P/B 139 POTASSIUM S/P/B 3.9 CO2 [...] on filedocumented in this encounter Care Teams Electric Milkers Installer Relationship Specialty Start Date End Date Raissa Dee NP PCP - General NURSE PRACTITIONER 04/03/16 Mila Nina MD [address] [address] [place] Clay Washer CARDIOVASCULAR DISEASE 06/02/17 documented as of this encounter
[2025-03-22 09:57] VITALS: BP 141/91; PULSE 99; RESP 18; TEMP 36.6; O2SAT 97
--- NOTE | 2025-03-22 10:00 | P.PNAN_ITS ---
Anes - Initial Pre Proc Eval Procedure: Operation Date: 03/22/25 11:30 Proposed Procedures p Esophagogastroduodenoscopy & Colonoscopy - Hiren Rascon MD Date/Time: 03/22/25 10:00 Surgeon: Hiren Rascon MD Pre Op Diagnosis: Gastro-esophageal reflux disease with esophagitis, Patient Data Age: 64 Gender: F Height: 1.57 m Weight: 92.1 kg Last Vital Signs Temp 36.6 C 03/22/25 09:57 Pulse 99 03/22/25 09:57 Resp 18 03/22/25 09:57 BP 141/91 H 03/22/25 09:57 Pulse Ox 97 03/22/25 09:57 O2 Del Method Room Air 03/22/25 09:57 Allergies Allergy/AdvReac Type Severity Reaction Status Date / Time No Known Allergies Allergy Verified 03/22/25 09:56 Home Medications ?Medication ?Instructions ?Recorded ?Confirmed ?Type aspirin 81 mg chewable tablet 81 mg PO DAILY@0800 #30 tabs 11/02/19 03/14/25 Rx (Children's Aspirin) cholecalciferol (vitamin D3) 50 50 mcg PO DAILY 07/05/20 03/14/25 History mcg (2,000 unit) capsule (Vitamin D3) mecobalamin (vitamin B12) 1,000 1,000 mcg sublingual DAILY 07/05/20 03/14/25 History mcg disintegrating tablet,sublingual omega 5-pgm-scz-fish oil 1,000 mg 1 cap PO DAILY 03/25/22 03/14/25 History (120 mg-180 mg) capsule (Fish Oil) alprazolam 0.25 mg tablet 0.25 mg PO DAILY PRN anxiety #30 12/30/22 03/14/25 Rx tabs pantoprazole 40 mg tablet,delayed 40 mg PO ONCE 09/03/24 03/14/25 History release amitriptyline 100 mg tablet 100 mg PO HS #90 tabs 12/22/24 03/14/25 Rx metoprolol succinate 25 mg 25 mg PO DAILY #90 tabs 12/22/24 03/14/25 Rx tablet,extended release 24 hr rosuvastatin 10 mg tablet 10 mg PO DAILY #90 tabs 12/22/24 03/14/25 Rx meloxicam 7.5 mg tablet 7.5 mg PO DAILY pain 03/14/25 03/14/25 History Patient hx anesthesia problems: none Family hx anesthesia problems: none Results Review: All pre-operative results and documents have been reviewed as part of the pre- operative evaluation. [facility] Past Medical History Medical History (Updated 02/28/25 @ 14:28 by Geovanna Hunt, MARCELA) Hiatal hernia Obstructive sleep apnea Obesity, morbid, BMI 40.0-49.9 Neck pain Arthritis IFG (impaired fasting glucose) Erosive esophagitis Adenomatous colon polyp Benign essential hypertension Hepatic steatosis Ankylosing spondylitis Umbilical hernia HTN (hypertension) Migraines Surgical History Surgical History Hx of cholecystectomy H/O hernia repair Hx of tubal ligation Family History Family History Sibling Diabetes mellitus Hypertension Leukemia Grandparent Acute myocardial infarction Family history of emphysema Family history of pancreatic cancer Family history of chronic obstructive pulmonary disease Family history of dementia Cerebrovascular accident Father Heart disease, Onset Age: 49 Family history of chronic obstructive pulmonary disease Mother Family history of malignant neoplasm of breast in first degree relative Family history of dementia Social History Social History Years smoked: 20 Smoking status: Former smoker Tobacco type: cigarettes Second hand tobacco smoke exposure: Yes Smoking end date: 11/03/09 Alcohol intake: current Alcohol use details: social Substance use: never Substance use type: does not use Do You Feel Safe in your Home?: Yes Lack of Transportation: No Lack of Food: Never True Current Housing: I Have Housing Concerned About Future Housing: No Difficulty Paying Gas/Electric Bills: No Difficulty Paying for Meds: No Currently Unemployed: No Education: High School Diploma/GED Difficulty w/ Childcare or Family Care: No Living arrangements: with family Gender identity (if verbalized by the patient): Female Spiritual care concerns: No Agree to blood products: Yes Anes - Eval Final PreProcedure Day of Procedure 03/22/25 10:00 Patient weight: obese Heart: regular rate and rhythm Lungs: clear to auscultation Airway: Mallampati scale class II Neurological: alert and oriented Last oral intake: >/= 8 hours ASA classification: III Emergent: no Anesthetic plan: proceed Anesthesia type and monitoring: general GIVS and standard monitoring Results Review: All pre-operative results and documents have been reviewed as part of the pre- operative evaluation. Informed Consent: The patient's anesthetic plan and its attendant risks and benefits were discussed with the patient/family/POA. Questions were solicited and answers provided to the satisfaction of the patient/family/POA.
[2025-03-22] MEDS: LACTATED RINGERS 1,000 ML 150 ML IV CONT (10:09)
--- NOTE | 2025-03-22 10:30 | WPDHPUPDATE1 ---
History and Physical Update Update Date/Time: 03/22/25 10:30 History and Physical has been reviewed, including an updated exam of the patient. There are NO changes in the patient's condition. Risks, benefits, and alternatives have been discussed and questions answered. Patient agrees to proceed with procedure.
[2025-03-22 10:56] VITALS: BP 129/84; PULSE 89; RESP 19; O2SAT 98
--- NOTE | 2025-03-22 10:58 | S_PTH ---
PATIENT: Frederick Sellers LOC: [facility] Qureshi#:[id number] AGE/SX: 64/F ROOM: RE03/22/[address]: Hiren Rascon MD : 1960 BED: DIS: 03/22/2025 SPEC #: [id number] RECD: 03/22/25 13:10 STATUS: FABIANO ROME #: [id number] MANUEL: 03/22/25 10:[address]: Hiren Rascon DEPT: [facility] Surgical RECD BY: Faina Martinez ENTERED: 03/22/25 13:11 SP TYPE: Surgical OTHR DR: Radha Brown, CORPORATE SECURITY OFFICER Tissues: A - Small Bowel Bx B - Gastric Biopsy C - Colon Polypectomy D - Colon Polypectomy Procedures: Hematoxylin and Eosin Stain Gross and Microscopic Level 4
[2025-03-22 11:06] VITALS: BP 116/80; PULSE 89; RESP 23; O2SAT 100
--- NOTE | 2025-03-22 11:11 | SUR.OPER ---
EGD START 1034, END 1038 COLONOSCOPY START 1041, END 1054
[2025-03-22 11:16] VITALS: BP 120/78; PULSE 88; RESP 22; O2SAT 100
[2025-03-22 12:54] LABS: HPYLORIRESULT Negative (Negative)
== END 2025-03-22 11:19 | disposition home or self-care (01) ==
PROVIDERS: PCP Nurse Practitioner Family; Visit Provider Internal Medicine Gastroenterology
PROC: 0DJ08ZZ Inspection of Upper Intestinal Tract, Via Natural or Artificial Opening Endoscopic (ICD-10-PCS; CPT 45378; principal; 2025-03-22 11:30)
DX: R93.3 Abnormal findings on diagnostic imaging of other parts of digestive tract (principal); K63.5 Polyp of colon; K64.8 Other hemorrhoids; K57.30 Diverticulosis of large intestine without perforation or abscess without bleeding; K44.9 Diaphragmatic hernia without obstruction or gangrene; K29.70 Gastritis, unspecified, without bleeding; K21.9 Gastro-esophageal reflux disease without esophagitis; I10 Essential (primary) hypertension; E80.6 Other disorders of bilirubin metabolism; K83.8 Other specified diseases of biliary tract; G47.33 Obstructive sleep apnea (adult) (pediatric); M19.90 Unspecified osteoarthritis, unspecified site; R73.01 Impaired fasting glucose; E66.9 Obesity, unspecified; Z68.37 Body mass index [BMI] 37.0-37.9, adult; Z79.82 Long term (current) use of aspirin; Z98.890 Other specified postprocedural states; Z90.49 Acquired absence of other specified parts of digestive tract; Z98.51 Tubal ligation status; Z87.891 Personal history of nicotine dependence; Z86.0100 Personal history of colon polyps, unspecified; Z80.6 Family history of leukemia; Z80.0 Family history of malignant neoplasm of digestive organs; Z80.3 Family history of malignant neoplasm of breast; Z82.49 Family history of ischemic heart disease and other diseases of the circulatory system
CPT/HCPCS: 43239; 45385; 87081; 88305; J2704; J7120

== ENCOUNTER 2025-03-25 07:13 | Outpatient (CLI) | payer MEDICARE, SELFPAY ==
--- NOTE | ~2025-03-25 | CT_ITS ---
CT of the Abdomen and Pelvis: Indication: Lymphadenopathy Technique: 2.5 mm axial scans were obtained through the abdomen and pelvis following intravenous adm inistration of 100 cc of Omnipaque 350. Dose reduction technique was used on this scan by utilizing a utomated exposure control and iterative reconstruction technique. The dose-length product (DLP) was 1 131.51 mGy-cm. COMPARISON: 02/20/2025 Findings: Scans through the lung bases are unremarkable. Mild intrahepatic and extra hepatic biliary dilatation likely related to prior cholecystectomy. Liver otherwise density is probable minimal hepatic steatosis. The spleen, pancreas, adrenals and kidneys are within normal limits. No evidence of aortic aneurysm. Mesenteric adenopathy appears to be marked ly improved from prior exam. No bowel obstruction or bowel wall thickening. There is no evidence to suggest acute appendicitis. Images through the pelvis were performed. Urinary bladder unremarkable. No pelvic mass seen. No ascit es. Impression: Mesenteric adenopathy appears to be significantly improved from prior exam. Small shotty retroperiton eal lymph nodes are not enlarged by size criteria. Mild diffuse hepatic steatosis. Intrahepatic and extra hepatic biliary dilatation is likely related to prior cholecystectomy. Reviewed, dictated and finalized at [facility]. Impression: Mesenteric adenopathy appears to be significantly improved from prior exam. Sma ll shotty retroperitoneal lymph nodes are not enlarged by size criteria. Mild diffuse hepatic steatosis. Intrahepatic and extra hepatic biliary dilatation is likely related to prior ch olecystectomy.
--- OUTSIDE RECORDS SUMMARY | 2025-03-25 07:19 | XMS_ITS | Encounter Summary ---
Author Organization [facility] Healthcare Address [address] [place] [address] Care Team Providers Care Swatch Cutter Name Role Phone Radha Brown NP Primary Care Provider [phone] Encounter Details Date Type Department Care Team (Late st Contact Info) Description 03/23/[address] 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 (03/23/2025 12:33 PM CDT) Anatomical Region Laterality Modality Other Historical Provider GI PROCEDURE ORDERABLES F inal Result * (ABNORMAL) COLONOSCOPY (03/23/2025 12:28 PM CDT) Scribed Colonoscopy Abnormal us Historical Provider HEALTH MAINTENANCE Edited Result - Final documented in this encounter Visit Diagnoses Not on filedocumented in this encounter Care Teams Swatch Cutter Relationship Specialty Start Date End Date Radha Brown NP [address] [facility] [address] [place] [address] PCP - General Internal Medicine 03/04/25 documented as of this encounter
--- OUTSIDE RECORDS SUMMARY | 2025-03-25 07:19 | XMS_ITS | Encounter Summary ---
Author Organization [facility] Healthcare Address [address] [place] [address] Care Team Providers Care Clinical Programmer Name Role Phone Luiz Mariscal VERTICA ARCHITECT Primary Care Provider [phone] Radha Brown VERTICA ARCHITECT Primary Care Provider [phone] Encounter Details Date Type Department Care Team (Late st Contact Info) Description 02/10/2025 Results Follow-Up [facility] Convenient Care at [address] [address] Hair Richards NP [address] [facility] [address] [place] [address] XR Hip Right 2 or [...] on file 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
--- OUTSIDE RECORDS SUMMARY | 2025-03-25 07:19 | XMS_ITS | Clinical Summary ---
Author Organization [facility] Address [address] [place] [address] Care Team Providers Care Dining Room Captain Name Role Phone Unavailable Primary Care Provider Unavailabl e Source Comments [facility],non-owned Affiliates and Associated Physician Practices is amultiple site organization consisting of ambulatory clinics and hospital sitesin [place], [place], [place] and [place]. This disclosure is being madepursuant to the Care Everywhere program and may not contain all information available regarding this patient. Last updated 18.[facility] Social History Tobacco Use Types Packs/Day Years [...] patient's age to complete this topic Insurance [facility]
--- OUTSIDE RECORDS SUMMARY | 2025-03-25 07:20 | XMS_ITS | Data Portability ---
Author Organization [facility] Address [address] [place] [address] Care Team Providers Care Publications Designer Name Role Phone SOLE BAIG Primary Care Provider Assessment No assessment recorded. Plan of Treatment Reminders Order Date Submit Date Provider Last Modified By Organization Details Last Modified Time Details Appointments None recorded. Lab CMP, serum or plasma 2017 018 [facility] [address], [place], [address], 8 14:14:40 CBC w/ auto diff 2017 018 [facility] [address], [place], [address], 8 14:14:40 lipid panel, serum 2017 018 [facility], [address], [place], [address], 8 14:14:41 vitamin D, 25-hydroxy , total, serum 2017 018 [facility], [address], [place], [address], 8 14:14:42 TSH, ultra-sens itive, serum 2017 018 [facility], [address], [place], [address], 8 14:14:42 Referral None recorded. Procedures None recorded. Surgeries None recorded. Imaging MAMMO, screening, bilateral 2017 018 [facility], [address], [place], [address], 8 16:34:14 Medication Orders pantoprazo le 40 mg tablet,del ayed release 2017 018 INTERFACE [facility][id number], [address] [facility], [place], [place], [id number], 8 10:41:53 amitriptyl ine 25 mg tablet 2017 018 INTERFACE [facility][id number], [address] [facility], [place], [place], [id number], 8 10:30:59 metoprolol succinate ER 25 mg tablet,ext ended release 24 hr 2017 018 [facility] #[id number], [address] [facility], [place], [place], [id number], 8 10:41:59 Patient TargetsNo targets recorded. Patient Instructions Encounter Date Encounter Id Patient Instructions Last Modified By Organization Details Last Modified Time 06/23/2018 [id number] cervical disc disease: care instructions Not available 06/23/2018 10:34:09 mammogram: about this test [email or web address] Not available 06/23/2018 10:34:09 gastroesophageal reflux disease (GERD): care instructions [email or web address] Not available 06/23/2018 10:41:34 learning about h igh blood pressure [email or web address] Not available 06/23/2018 10:41:34 Reason for Referral None Reported. Results Created Date Observation Date Name Description Value Unit Range Abnormal Flag Note LastModifiedBy Organization Detail LastModifiedTime 06/23/20 18 06/24/2018 CBC w/ auto diff WBC 7.2 x10e3 /uL 3.4-10 .8 Not Available [facility] ([facility]) [address] [facility], [place], [address], 06/24/2018 14:14:40 06/23/20 18 06/24/2018 CBC w/ auto diff RBC 5.04 x10e6 /uL 3.77-5 .28 Not Available [facility] ([facility]) [address] [place], [address], 06/24/2018 14:14:40 06/23/20 18 06/24/2018 CBC w/ auto diff hemoglobin 14.4 g/dL 11.1-1 5.9 Not Available [facility] ([facility]) [address] [facility], [place], [address], 06/24/2018 14:14:40 06/23/20 18 06/24/2018 CBC w/ auto diff hematocrit 43.6 % 34.0-4 6.6 Not Available [facility] ([facility]) [address] [facility], [place], [address], 06/24/2018 14:14:40 06/23/20 18 06/24/2018 CBC w/ auto diff MCV 87 fL 79-97 Not Available [facility] ([facility]) [address] [place], [address], 06/24/2018 14:14:40 06/23/20 18 06/24/2018 CBC w/ auto diff MCH 28.6 pg 26.6-3 3.0 Not Available [facility] ([facility]) [address] [place], [address], 06/24/2018 14:14:40 06/23/20 18 06/24/2018 CBC w/ auto diff MCHC 33.0 g/dL 31.5-3 5.7 Not Available [facility] ([facility]) [address] [place], [address], 06/24/2018 14:14:40 06/23/20 18 06/24/2018 CBC w/ auto diff RDW 13.7 % 12.3-1 5.4 Not Available [facility] ([facility]) [address] [place], [address], 06/24/2018 14:14:40 06/23/20 18 06/24/2018 CBC w/ auto diff platelets 304 x10e3 /uL 150-37 9 Not Available [facility] ([facility]) [address], [place], [address], 06/24/2018 14:14:40 06/23/20 18 06/24/2018 CBC w/ auto diff neutrophils 63 % not estab. Not Available [facility] ([facility]) [address] [facility], [place], [address], 06/24/2018 14:14:40 06/23/20 18 06/24/2018 CBC w/ auto diff lymphs 26 % not estab. Not Available [facility] ([facility]) [address] [facility], [place], [address], 06/24/2018 14:14:40 06/23/20 18 06/24/2018 CBC w/ auto diff monocytes 6 % not estab. Not Available [facility] ([facility]) [address] [facility], [place], [address], 06/24/2018 14:14:40 06/23/20 18 06/24/2018 CBC w/ auto diff eos 5 % not estab. Not Available [facility] ([facility]) [address] [facility], [place], [address], 06/24/2018 14:14:40 06/23/20 18 06/24/2018 CBC w/ auto diff basos 0 % not estab. Not Available [facility] ([facility]) [address] [facility], [place], [address], 06/24/2018 14:14:40 06/23/20 18 06/24/2018 CBC w/ auto diff immature cells TALENT CONSULTANT Not Available [facility] ([facility]) [address] [facility], [place], [address], 06/24/2018 14:14:40 06/23/20 18 06/24/2018 CBC w/ auto diff neutrophils (absolute) 4.5 x10e3 /uL 1.4-7. 0 Not Available [facility] ([facility]) [address] [place], [address], 06/24/2018 14:14:40 06/23/20 18 06/24/2018 CBC w/ auto diff lymphs (absolute) 1.9 x10e3 /uL 0.7-3. 1 Not Available [facility] ([facility]) [address] [place], [address], 06/24/2018 14:14:40 06/23/20 18 06/24/2018 CBC w/ auto diff monocytes(ab solute) 0.4 x10e3 /uL 0.1-0. 9 Not Available [facility] ([facility]) [address] [place], [address], 06/24/2018 14:14:40 06/23/20 18 06/24/2018 CBC w/ auto diff eos (absolute) 0.4 x10e3 /uL 0.0-0. 4 Not Available [facility] ([facility]) [address] [place], [address], 06/24/2018 14:14:40 06/23/20 18 06/24/2018 CBC w/ auto diff baso (absolute) 0.0 x10e3 /uL 0.0-0. 2 Not Available [facility] ([facility]) [address] [place], [address], 06/24/2018 14:14:40 06/23/20 18 06/24/2018 CBC w/ auto diff immature granulocytes 0 % not estab. Not Available [facility] ([facility]) [address] [place], [address], 06/24/2018 14:14:40 06/23/20 18 06/24/2018 CBC w/ auto diff immature grans (abs) 0.0 x10e3 /uL 0.0-0. 1 Not Available [facility] ([facility]) [address] [place], [address], 06/24/2018 14:14:40 06/23/20 18 06/24/2018 CBC w/ auto diff NRBC TALENT CONSULTANT Not Available [facility] ([facility]) [address] [place], [address], 06/24/2018 14:14:40 06/23/20 18 06/24/2018 CBC w/ auto diff hematology comments: TALENT CONSULTANT Not Available [facility] ([facility]) [address] [place], [address], 06/24/2018 14:14:40 06/23/20 18 06/24/2018 CMP, serum or plasm a glucose 106 mg/dL 65-99 above high normal Not Available [facility] ([facility]) [address] [place], [address], 06/24/2018 14:14:40 06/23/20 18 06/24/2018 CMP, serum or plasm a BUN 21 mg/dL 6-24 Not Available [facility] ([facility]) [address] [place], [address], 06/24/2018 14:14:40 06/23/20 18 06/24/2018 CMP, serum or plasm a creatinine 0.70 mg/dL 0.57-1 .00 Not Available [facility] ([facility]) [address] [facility] [place], [address], 06/24/2018 14:14:40 06/23/20 18 06/24/2018 CMP, serum or plasm a eGFR if nonafricn AM 98 mL/mi n/1.7 3 >59 Not Available [facility] ([facility]) [address] [place], [address], 06/24/2018 14:14:40 06/23/20 18 06/24/2018 CMP, serum or plasm a eGFR if africn AM 113 mL/mi n/1.7 3 >59 Not Available [facility] ([facility]) [address] [facility], [address], 06/24/2018 14:14:40 06/23/20 18 06/24/2018 CMP, serum or plasm a BUN/creatini ne ratio 30 9-23 above high normal Not Available [facility] ([facility]) [address] [facility], [address], 06/24/2018 14:14:40 06/23/20 18 06/24/2018 CMP, serum or plasm a sodium 140 mmol/ L 134-14 4 Not Available [facility] ([facility]) [address] [facility], [address], 06/24/2018 14:14:40 06/23/20 18 06/24/2018 CMP, serum or plasm a potassium 4.5 mmol/ L 3.5-5. 2 Not Available [facility] ([facility]) [address] [facility], [address], 06/24/2018 14:14:40 06/23/20 18 06/24/2018 CMP, serum or plasm a chloride 102 mmol/ L 96-106 Not Available [facility] ([facility]) [address] [facility], [address], 06/24/2018 14:14:40 06/23/20 18 06/24/2018 CMP, serum or plasm a carbon dioxide, total 21 mmol/ L 20-29 Not Available [facility] ([facility]) [address] [facility], [address], 06/24/2018 14:14:40 06/23/20 18 06/24/2018 CMP, serum or plasm a calcium 9.9 mg/dL 8.7-10 .2 Not Available [facility] ([facility]) [address] [facility], [address], 06/24/2018 14:14:40 06/23/20 18 06/24/2018 CMP, serum or plasm a protein, total 6.5 g/dL 6.0-8. 5 Not Available [facility] ([facility]) [address] [facility], [address], 06/24/2018 14:14:40 06/23/20 18 06/24/2018 CMP, serum or plasm a albumin 4.1 g/dL 3.5-5. 5 Not Available [facility] ([facility]) [address] [facility] [place], [address], 06/24/2018 14:14:40 06/23/20 18 06/24/2018 CMP, serum or plasm a globulin, total 2.4 g/dL 1.5-4. 5 Not Available [facility] ([facility]) [address] [facility], [address], 06/24/2018 14:14:40 06/23/20 18 06/24/2018 CMP, serum or plasm a A/G ratio 1.7 1.2-2. 2 Not Available [facility] ([facility]) [address] [facility] [place], [address], 06/24/2018 14:14:40 06/23/20 18 06/24/2018 CMP, serum or plasm a bilirubin, total 0.5 mg/dL 0.0-1. 2 Not Available [facility] ([facility]) [address] [facility], [address], 06/24/2018 14:14:40 06/23/20 18 06/24/2018 CMP, serum or plasm a alkaline phosphatase 130 IU/L 39-117 above high normal Not Available [facility] ([facility]) [address] [facility], [address], 06/24/2018 14:14:40 06/23/20 18 06/24/2018 CMP, serum or plasm a AST (SGOT) 22 IU/L 0-40 Not Available [facility] ([facility]) [address] [facility], [address], 06/24/2018 14:14:40 06/23/20 18 06/24/2018 CMP, serum or plasm a ALT (SGPT) 28 IU/L 0-32 Not Available [facility] ([facility]) [address] [facility], [address], 06/24/2018 14:14:40 06/23/20 18 06/24/2018 lipid panel , serum cholesterol, total 226 mg/dL 100-19 9 above high normal Not Available [facility] ([facility]) [address] [facility], [address], 06/24/2018 14:14:41 06/23/20 18 06/24/2018 lipid panel , serum triglyceride s 266 mg/dL 0-149 above high normal Not Available [facility] ([facility]) [address] [facility], [address], 06/24/2018 14:14:41 06/23/20 18 06/24/2018 lipid panel , serum LDL chol. (direct) 153 mg/dL 0-99 above high normal Not Available [facility] ([facility]) [address] [facility], [place], [address], 06/24/2018 14:14:41 06/23/20 18 06/24/2018 lipid panel , serum HDL cholesterol 39 mg/dL >39 below low normal Not Available [facility] ([facility]) [address] [facility], [address], 06/24/2018 14:14:41 06/23/20 18 06/24/2018 lipid panel , serum VLDL cholesterol robin 53 mg/dL 5-40 above high normal Not Available [facility] ([facility]) [address] [facility], [address], 06/24/2018 14:14:41 06/23/20 18 06/24/2018 lipid panel , serum LDL cholesterol calc 134 mg/dL 0-99 above high normal Not Available [facility] ([facility]) [address] [facility], [place], [address], 06/24/2018 14:14:41 06/23/20 18 06/24/2018 lipid panel , serum comment: TALENT CONSULTANT Not Available [facility] ([facility]) [address] [facility], [place], [address], 06/24/2018 14:14:41 06/23/20 18 06/24/2018 lipid panel , serum T. chol/HDL ratio 5.8 ratio 0.0-4. 4 above high normal T. Chol/ HDL Ratio Men Women 1/2 Avg.R isk 3.4 3.3 Avg.R isk 5.0 4.4 2X Avg.R isk 9.6 7.1 3X Avg.R isk 23.4 11.0 Not Available [facility] ([facility]) [address] [facility], [place], [address], 06/24/2018 14:14:41 06/23/20 18 06/24/2018 vitam in [...] Esperanza flores [place]: [facility] . 2. Wilma pierce MF, Brannon ey [place], Bisch off-F errar i EVANS, et al. Evalu ation , treat ment, and preve ntion of vitam in D defic iency : an Endoc rine Socie ty clini robin pract ice guide line. JCEM. 2010; 96(7) :1911 -30. Not Available [facility] ([facility]) [address] [facility], [place], [address], 06/24/2018 14:14:42 06/23/20 18 06/24/2018 TSH, ultra -sens itive , serum TSH 1.160 uIU/m L 0.450- 4.500 Not Available [facility] ([facility]) [address] [facility], [place], [address], 06/24/2018 14:14:42 07/06/20 18 07/03/2018 MAMMO , scree delilah, bilat eral No observ ation record ed. [facility]) [address], [place], [address], 07/15/2018 15:03:17 Result Notes None recorded. 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 Location : None;Sev erity: Moderate ;Progres s: Stable;A dded By: Josey Forbes;Add to Current Problems : NO Not Available [facility] 7 11:33:32 Internal hemorrho ids 75379684 Active 2014 Location : None;Sev erity: Moderate ;Progres s: Stable;A dded By: Josey Forbes;Add to Current Problems : NO Not Available [facility] 7 11:33:33 Pain of joint of wrist 342532883 Completed 201203/07/2013 Location : None;Sev erity: Moderate ;Progres s: Stable;A dded By: Josey Forbes;Add to Current Problems : NO Not Available [facility] 7 11:33:33 Screenin g for malignan t neoplasm of colon Completed 201301/25/2015 Location : None;Sev erity: Moderate ;Progres s: Stable;A dded By: Josey Forbes;Add to Current Problems : YES Not Available [facility] 7 11:33:33 Endocrin e/metabo lic screenin g Active 2013 Location : None;Sev erity: Moderate ;Progres s: Stable;A dded By: Josey Forbes;Add to Current Problems : YES Not Available [facility] 7 11:33:33 Epidermo id cyst of skin 991035099 Active 2015 Location : Left;Sev erity: Moderate ;Progres s: Stable;A dded By: Josey Forbes;Add to Current Problems : YES Not Available [facility] 7 11:33:33 Vitamin D deficien cy 13758210 Active 2014 Location : None;Sev erity: Moderate ;Progres s: Stable;A dded By: Josey Forbes;Add to Current Problems : YES Not Available [facility] 7 11:33:33 Subjecti ve tinnitus 09007572 Completed 201402/25/2015 Location : None;Sev erity: Moderate ;Progres s: Stable;A dded By: Brooke Garnica;Add to Current Problems : YES Not Available [facility] 7 11:33:33 Screenin g mammogra phy Completed 201505/27/2016 Location : None;Sev erity: Moderate ;Progres s: Stable;A dded By: Brooke Garnica;Add to Current Problems : YES Not Available [facility] 7 11:33:33 Senile hyperker atosis 919845020 Active 2013 Location : None;Sev erity: Moderate ;Progres s: Stable;A dded By: Audra Espinoza;Add to Current Problems : NO Not Available [facility] 7 11:33:33 Acute sinusiti s 14212942 Completed 201505/04/2016 Location : None;Sev erity: Moderate ;Progres s: Stable;A dded By: Brigette Landeros; Add to Current Problems : YES Not Available [facility] 7 11:33:33 Low back pain 960173547 Active 2012 Location : None;Sev erity: Moderate ;Progres s: Stable;A dded By: Manisha Song i;A dd to Current Problems : NO Not Available [facility] 7 11:33:33 Neoplasm of uncertai n behavior of skin 96838560 Completed 201303/13/2014 Location : None;Sev erity: Moderate ;Progres s: Stable;A dded By: Manisha Song i;A dd to Current Problems : NO Not Available [facility] 7 11:33:34 Migraine with aura 9562293 Active 2013 Location : None;Sev erity: Moderate ;Progres s: Stable;A dded By: Manisha Song i;A dd to Current Problems : YES Not Available [facility] 7 11:33:34 Skin sensatio n disturba mae 11228110 Completed 201505/27/2016 Location : None;Sev erity: Moderate ;Progres s: Stable;A dded By: Manisha Song i;A dd to Current Problems : NO Not Available [facility] 7 11:33:34 Problem Notes None recorded. Procedures Surgical History Date Name Laterality Status Provider Name and Address Organization Details Recorded Time [facility] 10:07:36 Tubal Ligation completed [facility] 06/23/2018 10:07:43 Imaging Results Imaging Date Name Status [facility]Modified by [facility] Details LastModified Time 07/03/2018 MAMMO, screening, bilateral completed [facility] ([facility]) [address] [facility] [address] [place] [address], [address], 07/15/2018 15:03:17 Procedure Notes None recorded. Medical [...] next 4 days. 06/02 completed RxNorm : 606748 ;Allow Substi tution : True Not Available Not Available Not Available ibuprofen 800 mg tablet Take 1 po three times daily as needed 02/10 completed RxNorm : 381761 ;Allow Substi tution : True Not Available Not Available Not Available hydrocodone 5 mg-acetamin ophen 500 mg capsule take 1 or 2 at bedtime as needed for pain 04/05 completed RxNorm : 571061 ;Allow Substi tution : True Not Available Not Available Not Available meloxicam 15 mg tablet take one by mouth daily with a meal, the same time every day 05/11 completed RxNorm : 263356 ;Allow Substi tution : True Not Available Not Available Not Available cefadroxil 500 mg capsule 1 capsule by mouth every 12 hrs x 7 days 04/03 completed RxNorm : 759796 ;Allow Substi tution : True Not Available [...] by mouth bid 03/28 completed RxNorm : 091075 ;Allow Substi tution : True Not Available [...] Address Organization Details Last Updated DateTime 8 72537.3 5 g 157.48 cm 37.2 kg/m2 99.1 [degF] 20 /min 97 % 97 % 88 /min 118 mm[Hg] 76 mm[Hg] Mirta Cooper [place] [facility] 8 10:12:39 Social History Question [...] not available 06/23/2018 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 Endocrine/ metabolic screening 953766854 Z13.228 Gastroesop hageal reflux disease 919033068 K21.9 Essential hypertension 82618696 I10 Standardiz ed adult depression screening tool completed [id number] 26765 Z13.89 patient does not appear to be [...] taste Sole Baig MD Attn: Accounting,[address] [place], [address], [facility] 06/28/2018 15:14:47 OBGyn Episode No OBEpisode recorded.
--- OUTSIDE RECORDS SUMMARY | 2025-03-25 07:20 | XMS_ITS | Clinical Summary ---
Author Organization [facility] Address [address] [place] [address] Care Team Providers Care Transcript Evaluator Name Role Phone Radha Brown NP Primary Care Provider [phone] Allergies No known active allergies Medications ALPRAZolam [...] Encounters Date Type Department Care Team Description 03/23/2025 Orders Only [facility] Internal Medicine at [address] [place] [address] ProviderKari MD 03/21/2025 Telephone [facility] Internal Medicine at [address] [place] [address] Radha Brown NP 03/04/2025 1:00 PM CDT Office Visit [facility] Internal Medicine at [address] [place] [address] Radha Brown NP Right hip pain (Primary Dx); BMI 39.0-39.9,adult; Obesity (BMI 30-39.9); Breast cancer screening by mammogram; Encounter for screening colonoscopy; Hypertension, essential; Mixed hyperlipidemia; Chronic bilateral low back pain without sciatica; Screening for thyroid disorder 02/10/2025 11:25 AM CDT Ancillary Procedure [facility] Imaging at [address] [address] Chronic right hip pain 02/10/2025 11:00 AM CDT Office Visit [facility] Convenient Care at [address] [phone] Hair Richards NP Chronic right hip pain (Primary Dx) 02/10/2025 Results Follow-Up [facility] at [address] [phone] Hair Richards NP XR Hip Right 2 [...] on file Legal 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 Gender Identity Not on file Sexual Orientation [...] 1:12 PM CDT Height 157.5 cm (5' 2 ) 03/04/2025 1:12 PM CDT Body Mass Index 38.41 03/04/2025 1:12 PM CDT Plan of Treatment Health Maintenance Due Date Last Done Comments Breast Cancer Screening-Mammogram 1962 Cervical Cancer Screening 1962 Hepatitis C Screening 1962 Hepatitis B Screening 1980 Regular Well Visit/Exam 18-64 1980 Covid-19 Vaccine ( season) 2024 09/28/2021, 01/12/2021, 12/15/2020 Influenza Vaccine (Season Ended) 2025 10/09/2023, 10/03/2021, 09/11/2020 Depression Screening 03/04/2026 03/04/2025 DTaP/Tdap/Td Vaccine (2 - Td or Tdap) 05/31/2034 Colon Cancer Screening-Colonoscopy 03/23/20352024 Pneumococcal vaccine <65 Completed 07/02/2023 Zoster Vaccine Completed 10/09/2023, 07/02/2023 Procedures Procedure Name Priority Date/Time Associated Diagnosis Comments EGD Routine 03/23/2025 12:33 PM CDT HM COLONOSCOPY Routine 03/23/2025 12:28 PM CDT TSH Routine 03/23/2025 8:07 AM CDT Screening for thyroid disorder LIPID PANEL Routine 03/23/2025 8:07 AM CDT Mixed hyperlipidemia COMPREHENSIVE METABOLIC PANEL Routine 03/23/2025 8:07 AM CDT Hypertension, essential XR HIP RIGHT 2 OR 3 VIEWS Schedule ADELAIDA, Read ADELAIDA (Appt Today, Awaiting Results) 02/10/2025 11:26 AM CDT Chronic right hip pain from Last 3 Months Results * EGD -[facility] (03/23/2025 12:33 PM CDT) Anatomical Region Laterality Modality Other Historical Provider GI PROCEDURE ORDERABLES F inal Result * (ABNORMAL) COLONOSCOPY (03/23/2025 12:28 PM CDT) Scribed Colonoscopy Abnormal Historical Provider HEALTH MAINTENANCE Edited Result - Final * TSH (03/23/2025 8:07 AM CDT) Pathologist [facility] TSH 0.62 0.40 - 4.50 mIU/L [facility] Blood 03/23/2025 8:07 AM CDT 03/23/2025 8:08 AM CDT Narrative [facility] - 03/23/2025 9:44 PM CDT FASTING:YES FASTING: YES Radha Brown MANAGING PARTNER LAB BLOOD ORDERABLES Final Re sult [facility] [address] [place] [address] * (ABNORMAL) Lipid panel (03/23/2025 8:07 AM CDT) Pathologist [facility] Cholesterol 168 <200 mg/dL [facility] HDL 40(L) > OR = 50 mg/dL [facility] Triglycerides 170(H) <150 mg/dL [facility] LDL 101(H) mg/dL (calc) [facility] Comment: Reference range: <100 Desirable range <100 mg/dL for primary prevention; <70 mg/dL for patients with CHD or diabetic patients with > or = 2 CHD risk factors. LDL-C is now calculated using the Keith calculation, which is a validated novel method providing better accuracy than the Friedewald equation in the estimation of LDL-C. Twin MCKEON et al. ANKIT. 2013;310(19): 8195-2744 (http://education.[employer].Avec Lab./faq/ZEE443) Chol/HDL ratio 4.2 <5.0 (calc) [facility] Non-HDL, (LDL+VLDL) 128 <130 mg/dL (calc) [facility] Comment: For patients with diabetes plus 1 major ASCVD risk factor, treating to a non-HDL-C goal of <100 mg/dL (LDL-C of <70 mg/dL) is considered a therapeutic option. Blood 03/23/2025 8:07 AM CDT 03/23/2025 8:08 AM CDT Narrative [facility] - 03/23/2025 9:44 PM CDT FASTING:YES FASTING: YES Radha Brown MANAGING PARTNER LAB BLOOD ORDERABLES Final Re sult [facility] [address] [place] [address] * (ABNORMAL) Comprehensive metabolic panel (03/23/2025 8:07 AM CDT) Glucose 103(H) 65 - 99 mg/dL [facility] Comment: Fasting reference interval For someone without known diabetes, a glucose value between 100 and 125 mg/dL is consistent with prediabetes and should be confirmed with a follow-up test. BUN 19 7 - 25 mg/dL [facility] Creatinine 0.76 0.50 - 1.05 mg/dL [facility] eGFR 89 > OR = 60 mL/min/1.7 3m2 [facility] BUN/creat ratio SEE NOTE: 6 - 22 (calc) [facility] Comment: Not Reported: BUN and Creatinine are within reference range. Sodium 143 135 - 146 mmol/L [facility] Potassium, pl 3.8 3.5 - 5.3 mmol/L [facility] Chloride 106 98 - 110 mmol/L [facility] CO2 30 20 - 32 mmol/L [facility] Calcium 9.0 8.6 - 10.4 mg/dL [facility] Protein, sr 5.9(L) 6.1 - 8.1 g/dL [facility] Albumin 3.9 3.6 - 5.1 g/dL [facility] GLOBULIN 2.0 1.9 - 3.7 g/dL (calc) [facility] Alb/glob ratio 2.0 1.0 - 2.5 (calc) [facility] Bilirubin, total 0.8 0.2 - 1.2 mg/dL [facility] Alk phos 107 37 - 153 U/L [facility] AST 16 10 - 35 U/L [facility] ALT (SGPT) 23 6 - 29 U/L [facility] Blood 03/23/2025 8:07 AM CDT 03/23/2025 8:08 AM CDT Narrative [facility] - 03/23/2025 9:44 PM CDT FASTING:YES FASTING: YES Radha Brown MANAGING PARTNER LAB BLOOD ORDERABLES Final Re sult [facility] [address] [place] [address] * XR Hip Right 2 or 3 [...] Varinder Pearson M.D. [place] T: Report ID: [id number] Reading Location: [id number] Procedure Note Varinder Pearson MD - 02/10/2025 [...] signed by Varinder BARR T: Report ID: [id number] Reading Location: [id number] Hair Richards NP IMG XR PROCEDURES Final Result from Last 3 Months Insurance [employer] MEDICARE HMO [facility] MEDICARE HMO Care Teams Transcript Evaluator Relationship Specialty Start Date End Date Radha Brown NP [address] [address] PCP - General Internal Medicine 03/04/25
--- OUTSIDE RECORDS SUMMARY | 2025-03-25 07:20 | XMS_ITS | Data Portability ---
Author Organization [facility] OFFICE Address [address] [place] [address] Care Team Providers Care Alarm Installation Technician Name Role Phone MANUELALDEN Primary Care Provider [...] Orders Crestor 10 mg tablet 2021 022 [employer] #[id number], [address] [place], [place], [id number], 10:28:09 metoprolol succinate ER 25 mg tablet,ext ended release 24 hr 2021 022 [id number], [address] [facility], [place], [id number], 2 10:23:20 metoprolol succinate ER 25 mg tablet,ext ended release 24 hr 2020 021 INTERFACE [facility] #[id number], [address], [place], [place], [phone], 1 18:12:20 metoprolol succinate ER 25 mg tablet,ext ended release 24 hr 2019 020 [email or web address] [facility] #[id number], [address], [place], [place], [id number], 0 14:12:11 Patient TargetsNo targets recorded. Patient Instructions Encounter Date Encounter Id Patient Instructions Last Modified By Organization Details Last Modified Time 08/21/2020 [id number] Exercise advised Low cholesterol diet advised Low sodium diet advised [email or web address] Not available 08/21/2020 14:00:21 Patient was seen and evaluated by Christine Ventura [facility]. Plan of care was discussed with collaborating physician and note cosigned by Dr. Smooth Adams. Not available 08/21/2020 14:00:16 11/27/2020 [id number] Weight loss 20 pounds Exercise advised Low cholesterol diet advised Low sodium diet advised. [email or web address] Not available 11/27/2020 18:12:13 05/28/2021 [id number] Exercise advised Low cholesterol diet advised Low sodium diet advised [email or web address] Not available 05/28/2021 14:43:47 Scribed by Christine Ventura [facility] [email or web address] Not available 05/28/2021 15:17:59 02/26/2022 [id number] Exercise advised Low cholesterol diet advised Low [...] ardio gram No observ ation record ed. [facility] [address], [place], [address], 07/04/2021 16:39:56 Result Notes None recorded. Problems Name Problem SNOMED Code Status Onset Date Resolution Date Notes Provider Name and Address Organization Details Recorded Time Chest pain 59508802 Active 2019 Not Available [facility] 3 13:12:10 Ankylosing spondylitis 4453163 Active 2019 Not Available [facility] 3 13:12:10 Essential hypertension 20762585 Active 2019 Not Available [facility] 3 13:12:10 Migraine 05177722 Active 2019 Not Available [facility] 3 13:12:10 Umbilical hernia 887245172 Active 2019 Not Available [facility] 3 13:12:10 Steatotic liver disease 627201091 Active 2019 Not Available [facility] 3 13:12:09 Gastroesophag eal reflux disease 285996316 Active 2019 Not Available [facility] 3 13:12:10 Hypertriglyce ridemia 798786429 Active 2019 Not Available [facility] 3 13:12:10 Postmenopausa l state 40054192 Active 2019 Not Available [facility] 3 13:12:10 Problem Notes None recorded. Procedures [...] echocardiogram completed [email or web address] [address], [place], [address], 07/04/2021 16:39:56 Procedure Notes None recorded. Medical Equipment None Reported. Allergies Allergen ID Allergen Name Allergen Category Reaction Reaction Severity Criticality Documentation Date Start Date Code Code System Note Provider Name and Address Organization Details Recorded Time 25523 Product containin g 3-hydroxy -3-methyl glutaryl- coenzyme A reductase inhibitor (product) medicatio n other severe Not available 05/28/2021 84788 009 SNOMED Steven Vick [place], [place] - [facility] 14:22:03 Medications [...] Not Available Not Available Not Available vitamin V77-ilyjl acid 12/25 completed Not Available Not Available [...] Updated DateTime 0 157.48 cm 36.7 kg/m2 59013.3 5 g 100 /min 96 % 96 % 120 mm[Hg] 85 mm[Hg] Renetta Momin [facility] 0 14:04:06 Date Recorded Body temperature Provider Name a nd Address Organization Details Last Updated DateTime 08/21/2020 98.3 [degF] Polly Valdez [facility] 08/21/2020 13:57:52 Date Recorded Body height Body mass index (BMI) Body weight Heart rate Respiratory rate Oxygen saturation Oxygen saturation in Arterial blood by Pulse oximetry Systolic blood pressure Diastolic blood pressure Provider Name and Address Organization Details Last Updated DateTime 1 157.48 cm 36.9 kg/m2 79785.6 6 g 89 /min 18 /min 100 % 100 % 120 mm[Hg] 108 mm[Hg] Melida Ramirez [facility] 1 14:32:29 Date Recorded Body height Body mass index (BMI) Body weight Heart rate Respiratory rate Oxygen saturation Oxygen saturation in Arterial blood by Pulse oximetry Systolic blood pressure Diastolic blood pressure Provider Name and Address Organization Details Last Updated DateTime 1 157.48 cm 36.6 kg/m2 27889.4 7 g 79 /min 16 /min 98 % 98 % 112 mm[Hg] 84 mm[Hg] Steven Peralesab [facility] 1 14:18:02 Date Recorded Body height Heart rate Body mass index (BMI) Body weight Oxygen saturation Oxygen saturation in Arterial blood by Pulse oximetry Systolic blood pressure Diastolic blood pressure Provider Name and Address Organization Details Last Updated DateTime 1 157.48 cm 96 /min 37.7 kg/m2 32281.1 1 g 96 % 96 % 122 mm[Hg] 82 mm[Hg] KRYSTENRobinson MCNEIL [facility] 1 09:48:46 Date Recorded Body height Body mass index (BMI) Body weight Heart rate Oxygen saturation Oxygen saturation in Arterial blood by Pulse oximetry Systolic blood pressure Diastolic blood pressure Provider Name and Address Organization Details Last Updated DateTime 2 157.48 cm 37.7 kg/m2 36818.0 3 g 90 /min 96 % 96 % 118 mm[Hg] 64 mm[Hg] Gordy Rivas [facility] 2 09:47:55 Social History Question Answer Notes LastModified by Organizat ion Details LastModified Time Tobacco Smoking Status Former Smoker quit 11/03/09 Angelina sagastume [facility] 11/05/2019 03:31:42 What Is Your Level Of Caffeine Consumption? Occasional [email or web address] Information not available 11/08/2019 How Much Tobacco Do You Chew? None [email or web address] Information not available 11/08/2019 What Type Of Diet Are You Following? REGULAR [email or web address] Information not available 11/08/2019 Which Illicit Or Recreational Drugs Have You Used? None Information not available 11/05/2019 Live Alone Or With Others? With Others Mcfp Due To Dementia Information not available 11/05/2019 Marital Status [email or web address] Informatio n not available 11/08/2019 What Was The Date Of Your Most Recent Tobacco Screening? 11/01/2019 Information not available 11/08/2019 How Many Children Do You Have? 3 Information not available 11/05/2019 How Much Tobacco Do You Smoke? 0.5 PPD Information not available 11/08/2019 General Stress Level Medium [email or web address] Information not available 11/08/2019 How Many Years Have You Smoked Tobacco? 32 Information not available 11/05/2019 Sex: Unknown Functional Status Question Answer Note LastModified by Organizat ion Details LastModified Time What is your level of alcohol consumption? Occasional [email or web address] Information not available 11/08/2019 Do you or have you ever used smokeless tobacco? Former smokeless tobacco user Information not available 11/05/2019 Do you or have you ever used e-cigarettes or vape? Never used electronic cigarettes Information not available 11/05/2019 What is your exercise level? Occasional [email or web address] Information not available 11/08/2019 Mental Status None [...] . Medical History Condition Response Hyperlipidemia Y GERD/Reflux Y Hypertension Y Gynecological HistoryNo gynecological history recorded. Obstetrics History GPAL:G 0 P 0 0 0 0 Past Encounters Encounter ID Performer Location Encounter Start Date Encounter Closed Date Diagnosis/Indication Diagnosis SNOMED-CT Code Diagnosis ICD10 Code Diagnosis Note [id number] Smooth Adams MD [facility] [address] [place] [phone] 11/08/2019 15:19:32 11/09/2019 11:23:21 Chest pain 35450540 R07.9 Angiogram 11/01/2019 No significan t CAD. Normal LVSF Echo 11/01/2019 LVSF is normal, estimated at 55-60%. LV chamber dimension is normal. The LV diastolic function is grade I diastolic dysfunctio n [id number] MD Ludivina [facility] Office [address] [place] [address] 02/14/2020 12:51:39 02/17/2020 22:47:49 Chest pain 57514023 R07.9 Angiogram 11/01/2019 No significan t CAD. Normal LVSF Echo 11/01/2019 LVSF is normal, estimated at 55-60%. LV chamber dimension is normal. The LV diastolic function is grade I diastolic dysfunctio n Essential hypertension 98253162 I10 Controlled . Dyslipidemia 292109928 E 78.5 [id number] MD Ludivina Tirado Office [address] [place] [address] 02/17/2020 11:39:17 02/17/2020 12:11:13 Chest pain 93553849 R07.9 Resolved.A ngiogram 11/01/2019 No significan t CAD. Normal LVSF Echo 11/01/2019 LVSF is normal, estimated at 55-60%. LV chamber dimension is normal. The LV diastolic function is grade I diastolic dysfunctio n Essential hypertension 68000751 I10 Controlled . Tachycardia 9959036 R00. 0 Needs to increase exercise. Will consider increasing Metoprolol if she is still tachycardi c at follow up. Dyslipidemia 099094451 E 78.5 [id number] Smooth Adams MD [place] [facility] [address] [place] [address] 08/21/2020 13:56:38 08/21/2020 14:13:54 Chest pain 13646266 R07.9 Resolved [facility] 11/01/2019 : No significan t CAD with normal LVSF Echo 11/01/2019 : LVSF is normal, estimated at 55-60%. LV chamber dimension is normal. The LV diastolic function is grade I diastolic dysfunctio n. Essential hypertension 32502283 I10 Well controlled on current regimen Tachycardia 8357649 R00. 0 Remains elevated despite increased exercise, will increase metoprolol to 25mgdaily 08/21/2020 . Dyslipidemia 416457284 E 78.5 Needs to keep LDL less than 70, and HDL more than 40. 020 LDL 83Continue atorvastat in 20mg nightlyWil l get fasting lipids for follow-up [id number] MD [facility] [address] [place] [address] 11/27/2020 14:18:22 11/27/2020 14:40:11 Chest pain 95960523 R07.9 Resolved [facility] 11/01/2019 : No significan t CAD with normal LVSF Echo 11/01/2019 : LVSF is normal, estimated at 55-60%. LV chamber dimension is normal. The LV diastolic function is grade I diastolic dysfunctio n. Essential hypertension 26474135 I10 Well controlled on current regimen Tachycardia 3511216 R00. 0 Remains elevated despite increased exercise, will increase metoprolol to 25mgdaily 08/21/2020 . Dyslipidemia 366547666 E 78.5 Needs to keep LDL less than 70, and HDL more than 40. 020 LDL 83Continue atorvastat in 20mg nightlyWil l get fasting lipids for follow-up [id number] MD [place] [facility] Office [facility] [place] [address] 05/28/2021 14:07:29 05/28/2021 14:54:47 Chest pain 80373400 R07.9 Resolved [facility] 11/01/2019 : No significan t CAD Essential hypertension 11761401 I10 Well controlled on current regimen Tachycardia 3755735 R00. 0 Resolved on increased dose of metoprolol at 25 mg daily Dyslipidemia 575131056 E 78.5 Needs to keep LDL less than 70, and HDL more than 40. 020 LDL 83Continue atorvastat in 20 mg nightlyWil l get fasting lipids for follow-up Dyspnea on exertion 6084 5006 R06.09 Obtain echo to evaluate for structural /functiona l disease [id number] Smooth Adams MD [place] OFFICE [facility] [place] [address] 08/28/2021 09:18:42 08/28/2021 10:29:25 Chest pain 10399854 R07.9 Resolved [facility] 11/01/2019 : No significan t CAD Had BENOIT Echo with LVEF > 55% Essential hypertension 90757652 I10 Well controlled on current regimen Tachycardia 9521095 R00. 0 Resolved on increased dose of metoprolol at 25 mg daily Dyslipidemia 739851432 E 78.5 Needs to keep LDL less [...] evaluate for structural /functiona l disease Obesity 154735798 E66.9 discussed weight loss 10 lb. weight loss recommende d over the next 2 months. decrease night time eating [id number] Smooth Adams MD [place] OFFICE [address] [place] [address] 02/26/2022 09:20:00 02/26/2022 10:35:08 Chest pain 05289757 R07.9 Resolved [facility] 11/01/2019 : No significan t CAD Had BENOIT Echo with LVEF > 55% Essential hypertension 32113506 I10 Well controlled on current regimen Tachycardia 2827596 R00. 0 Resolved on increased dose of metoprolol at 25 mg daily Dyslipidemia 299061001 E 78.5 Needs to keep LDL less [...] evaluate for structural /functiona l disease Obesity 134400495 E66.9 discussed weight loss 10 lb. weight [...] Brunner Member ID Guarantor Name 12/30/2023 1 [employer] (MEDICARE REPLACEMENT/A DVANTAGE - HMO) Frederick eSllers [id number] Frederick Sellers Notes Date Note Type Note Provider Name and Address Organization Details Recorded Time 0 text/html 08/21/2020 CC : Chest pain 59 years-old Female with h/o Hypertension is here for follow up . She was last seen in clinic 6 months ago on 02/17/2020. She was in [facility] in 11/01/19 because of Chest pain. Today [...] is grade I diastolic dysfunction Christine Ventura [employer]TE[employer] [facility] 08/21/2020 14:13:51 1 text/html 11/27/2020 CC : Chest pain 59 years-old Female with h/o Hypertension is here for follow up . She was last seen in clinic 8 months ago on 02/17/2020. She was in [facility] in 11/01/19 because of Chest pain. 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 P:QRS-1:1, abnormal P axis, H [...] is grade I diastolic dysfunction wendie bedolla [facility] [place] - [facility] 08/29/2021 19:46:26 2 text/html 02/26/22CC : Cardiac follow-up [id number] years-old Female with h/o Hypertension, mil CAD [...] PQRS 1:1 abnormal P axis, H rate 82617:EKG Atrial tachycardia. P:QRS-1:1, abnormal P axis, H [...]
--- OUTSIDE RECORDS SUMMARY | 2025-03-25 07:20 | XMS_ITS | Referral Summary ---
Author Organization [facility] Address [address] [place] [address] Care Team Providers Care Propellant Assembler Name Role Phone Radha Brown NP Primary Care Provider [phone] Encounters Date Type Department Care Team Description 03/23/2025 Orders Only [facility] Internal [facility] [place] [address] [place] [address] Rd [address] [place] [address] ProviderKari MD 03/21/2025 Telephone [facility] Internal Medicine [facility] [place] [address] [place] [address] Radha Brown NP 03/04/2025 1:00 PM CDT Office Visit [facility] Medical [facility] Internal Medicine [facility] [place] [address] [place] [address] Rd [address] [place] [address] Radha Brown NP Right hip pain (Primary Dx); BMI 39.0-39.9,adult; Obesity (BMI 30-39.9); Breast cancer screening by mammogram; Encounter for screening colonoscopy; Hypertension, essential; Mixed hyperlipidemia; Chronic bilateral low back pain without sciatica; Screening for thyroid disorder 02/10/2025 Results Follow-Up [facility] at [address] [address] Hair Richards NP XR Hip Right 2 or 3 Views 02/10/2025 11:25 AM CDT Ancillary Procedure [facility] Imaging at [address] [address] Chronic right hip pain 02/10/2025 11:00 AM CDT Office Visit [facility] at [address] [address] Hair Richards NP Chronic right [...] daily for 10 days 10 tablet 02/11/20 25 025 Discontinued(R eorder) cyclobenzaprine (FLEXERIL) 5 mg [...] on file 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 Gender Identity Not on file Sexual [...] from Last 3 Months Results * EGD -[facility] (03/23/2025 12:33 PM CDT) Anatomical Region Laterality Modality Other Historical Provider GI PROCEDURE ORDERABLES F inal Result * (ABNORMAL) COLONOSCOPY (03/23/2025 12:28 PM CDT) Scribed Colonoscopy Abnormal Historical Provider HEALTH MAINTENANCE Edited Result - Final * TSH (03/23/2025 8:07 AM CDT) TSH 0.62 0.40 - 4.50 mIU/L [facility] Blood 03/23/2025 8:07 AM CDT 03/23/2025 8:08 AM CDT Narrative [facility] - 03/23/2025 9:44 PM CDT FASTING:YES FASTING: YES Radha Brown CHIEF OF SAFETY AND PROTECTION LAB BLOOD ORDERABLES Final Re sult Performing Organization Address [facility]/ZIP Co de Phone Number [facility] [address] [place] [address] * (ABNORMAL) Lipid panel (03/23/2025 8:07 AM CDT) Cholesterol 168 <200 mg/dL [facility] HDL 40(L) > OR = 50 mg/dL [facility] Rajinder Triglycerides 170(H) <150 mg/dL [facility] LDL 101(H) mg/dL (calc) [facility] Comment: Reference range: <100 Desirable range <100 mg/dL for primary prevention; <70 mg/dL for patients with CHD or diabetic patients with > or = 2 CHD risk factors. LDL-C is now calculated using the Keith calculation, which is a validated novel method providing better accuracy than the Friedewald equation in the estimation of LDL-C. Twin MCKEON et al. ANKIT. 2013;310(19): 8688-5777 (http://education.Ginx/faq/ZFX893) Chol/HDL ratio 4.2 <5.0 (calc) [facility] Non-HDL, (LDL+VLDL) 128 <130 mg/dL (calc) [facility] Rajinder Comment: For patients with diabetes plus 1 major ASCVD risk factor, treating to a non-HDL-C goal of <100 mg/dL (LDL-C of <70 mg/dL) is considered a therapeutic option. Blood 03/23/2025 8:07 AM CDT 03/23/2025 8:08 AM CDT Narrative [facility] - 03/23/2025 9:44 PM CDT FASTING:YES FASTING: YES Radha Brown CHIEF OF SAFETY AND PROTECTION LAB BLOOD ORDERABLES Final Re sult Performing Organization Address [facility]/ZIP Co de Phone Number [facility] [address] [place] [address] * (ABNORMAL) Comprehensive metabolic panel (03/23/2025 8:07 AM CDT) Glucose 103(H) 65 - 99 mg/dL [facility] Comment: Fasting reference interval For someone without known diabetes, a glucose value between 100 and 125 mg/dL is consistent with prediabetes and should be confirmed with a follow-up test. BUN 19 7 - 25 mg/dL [facility] Creatinine 0.76 0.50 - 1.05 mg/dL [facility] eGFR 89 > OR = 60 mL/min/1.7 3m2 [facility] BUN/creat ratio SEE NOTE: 6 - 22 (calc) [facility] Comment: Not Reported: BUN and Creatinine are within reference range. Sodium 143 135 - 146 mmol/L [facility] Potassium, pl 3.8 3.5 - 5.3 mmol/L [facility] Chloride 106 98 - 110 mmol/L [facility] CO2 30 20 - 32 mmol/L [facility] Calcium 9.0 8.6 - 10.4 mg/dL [facility] Protein, sr 5.9(L) 6.1 - 8.1 g/dL [facility] Albumin 3.9 3.6 - 5.1 g/dL [facility]- arben Calv[facility] GLOBULIN 2.0 1.9 - 3.7 g/dL (calc) [facility] Alb/glob ratio 2.0 1.0 - 2.5 (calc) [facility] Bilirubin, total 0.8 0.2 - 1.2 mg/dL [facility] Alk phos 107 37 - 153 U/L [facility] AST 16 10 - 35 U/L [facility] ALT (SGPT) 23 6 - 29 U/L [facility] Blood 03/23/2025 8:07 AM CDT 03/23/2025 8:08 AM CDT Narrative [facility] - 03/23/2025 9:44 PM CDT FASTING:YES FASTING: YES us Radha Brown NP LAB BLOOD ORDERABLES Final Re sult [facility] [address] [place] [address] * XR Hip Right 2 or 3 [...] signed by Varinder BARR T: Report ID: [id number] Reading Location: [id number] Procedure Note Varinder Pearson MD - 02/10/2025 [...] Varinder Pearson M.D. AR T: Report ID: [id number] Reading Location: [id number] Hair Richards NP IMG XR PROCEDURES Final Result from Last 3 Months Insurance [facility] HUMANA MEDICARE HMO Care Teams Propellant Assembler Relationship Specialty Start Date End Date Radha Brown NP [address] [facility] [address] [place], [place] [id number] PCP - General Internal Medicine 03/04/25
[2025-03-25 07:30] LABS: Estimated Glomerular Filt Rate > 60
== END 2025-03-25 07:14 | disposition home or self-care (01) ==
PROVIDERS: PCP Nurse Practitioner Family; Visit Provider Nurse Practitioner
DX: R59.0 Localized enlarged lymph nodes (principal); K76.0 Fatty (change of) liver, not elsewhere classified
CPT/HCPCS: 74177; Q9967

== ENCOUNTER 2025-06-03 12:04 | Outpatient (CLI) | payer MEDICARE, SELFPAY ==
--- OUTSIDE RECORDS SUMMARY | 2025-06-03 12:11 | XMS_ITS | Clinical Summary ---
Author Organization [facility] Address [address] [place] [address] Care Team Providers Care Chemical Project Engineer Name Role Phone LeilaArturo saezssasa Holliday NP Primary Care Provider Mila Nina MD Unavailable [phone] Allergies No known active allergies Medications [...] Problems Problem Noted Date Diagnosed Date V-tach ([facility]) 10/02/2017 Hypertension, essential 10/02/2017 Pure hypercholesterolemia 10/02/2017 Arthritis 06/23/2017 Palpitations Family History Medical History Relation Comments Hypertension Brother Hypertension Father OR Father Dementia Mother TIA Mother Diabetes Sister [...] Comments Blood Pressure 124/90 10/02/2017 10:56 AM SOFT DRINK POWDER MIXER Pulse 84 10/02/2017 10:56 AM SOFT DRINK POWDER MIXER reg Temperature - - Respiratory Rate - - Oxygen Saturation 97% 10/02/2017 9:56 AM SOFT DRINK POWDER MIXER Inhaled Oxygen Concentration - - Weight 87.5 kg (193 lb) 10/02/2017 9:56 AM SOFT DRINK POWDER MIXER Height 160 cm (5' 3) 10/02/2017 9:56 AM SOFT DRINK POWDER MIXER Body Mass Index 34.19 10/02/2017 9:56 AM SOFT DRINK POWDER MIXER Plan of Treatment Health Maintenance Due Date [...] complete this topic Insurance MEDICARE Care Teams Chemical Project Engineer Relationship Specialty Start Date End Date Raissa Dee NP PCP - General NURSE PRACTITIONER 04/03/16 Mila Nina MD [facility] [address] [place] [address] [place] Solids Control Technician CARDIOVASCULAR DISEASE 06/02/17
--- OUTSIDE RECORDS SUMMARY | 2025-06-03 12:11 | XMS_ITS | Encounter Summary ---
Author Organization 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 Gender Identity Not on file Sexual Orientation Not on file documented as of this encounter Plan of Treatment Not on file documented as of this encounter Procedures Procedure Name Priority Date/Time Associated Diagnosis Comments SCAN - RADIOLOGY/IMAGING 03/25/2025 documented in this encounter Results * SCAN - RADIOLOGY/IMAGING (03/25/2025) Anatomical Region Laterality Modality Other us Provider Scanning Final Result documented in this encounter Visit Diagnoses Not on filedocumented in this encounter Care Teams Outbound Telemarketer Relationship Specialty Start Date End Date Radha Brown NP [address] [facility] [address] [place] [address] PCP - General Internal Medicine 03/04/25 Rubi Armstrong MD [address] [facility] [address] [place] [address] Consulting Physician Internal Medicine 05/18/25 documented as of this encounter
--- OUTSIDE RECORDS SUMMARY | 2025-06-03 12:11 | XMS_ITS | Clinical Summary ---
Author Organization [facility] Address [address] [place] [address] Care Team Providers Care Biodiesel Technology Manager Name Role Phone Unavailable Primary Care Provider Unavailabl e Source Comments [facility],non-owned Affiliates and Associated Physician Practices is amultiple site organization consisting of ambulatory clinics and hospital sitesin [place], [place], [place] and [place]. This disclosure is being madepursuant to the Care Everywhere program and may not contain all information available regarding this patient. Last updated 18.[facility] Dot Social History Tobacco Use Types Packs/Day Years [...] SCREENING 1962 LIPID TESTING 1962 MAMMOGRAM 1962 HIV SCREENING 1977 HEPATITIS C SCREENING 10/22/1980 DTAP/TDAP/TD VACCINES (1 - Tdap) 1981 PAP SMEAR 1983 PNEUMOCOCCAL VACCINE 50+ (1 of 1 - PCV) 2012 ZOSTER VACCINE (1 of 2) 2012 COVID-19 VACCINE (1 - 2023-2 5 season) 2024 DEPRESSION SCREENING 11/03/2024 MEDICARE AWV CALENDAR YEAR 2024 INFLUENZA VACCINE (#1) 2025 Respiratory Syncytial Virus (RSV) Vaccine Pt: [...] patient's age to complete this topic Insurance SELF PAY NO INSURANCE Member Subscriber Plan / Payer (Ef fective for All Dates) Name:Eric Lopez Member ID:Not on file Relation to Subscriber:Not on file Name:ERIC LOPEZ Subscriber ID:Not on file (Home) Address: [address] [place] [id number] Payer ID:Not on file Group ID:Not on file Type:Self Pay Address: [place], [place] HUMANA MEDICARE ADV HMO & PPO
--- OUTSIDE RECORDS SUMMARY | 2025-06-03 12:11 | XMS_ITS | Encounter Summary ---
Author Organization [facility] Address Pending sale to [facility] [place] [address] Care Team Providers Care Hot Saw Helper Name Role Phone Raissa Dee NP Primary Care Provider Mila Nina MD Unavailable [phone] Encounter Details Date Type Department Care Team (Late st Contact Info) Description 06/24/2017 Abstract [facility] AT [address] [address] [address] Freeman MA Social History Tobacco Use [...] Final Result * LIPID PANEL (10/31/2016) Pathologist [facility] CHOLESTEROL 240 HDL 38 TRIGLYCERIDES 167 LDL (CALCULATED) 164 10/31/2016 us Doc [facility] LABORATORY Final Result * THYROID STIM HORMONE, TSH (10/31/2016) Pathologist [facility] TSH 1.540 10/31/2016 us Doc [facility]ORAT[facility] Final Result * CBC (OUTSIDE LAB) (07/29/2016) Pathologist [facility] WBC 5.8 HGB 14.1 HCT 41.6 PLT 284 07/29/2016 us Doc [facility] Abstract LAB-OUTSIDE/ABSTRACTED Final Result * LIPID PANEL (07/29/2016) CHOLESTEROL 215 HDL 40 TRIGLYCERIDES 266 LDL (CALCULATED) 144 07/29/2016 us Doc [facility] LABORATORY Final Result * COMPREHENSIVE METABOLIC PANEL (07/29/2016) Pathologist [facility] SODIUM S/P/B 139 POTASSIUM S/P/B [...] on filedocumented in this encounter Care Teams Hot Saw Helper Relationship Specialty Start Date End Date Raissa Dee NP PCP - General NURSE PRACTITIONER 04/03/16 Mila Nina MD [address] [address] [employer] Mortgage Processor CARDIOVASCULAR DISEASE 06/02/17 documented as of this encounter
--- OUTSIDE RECORDS SUMMARY | 2025-06-03 12:11 | XMS_ITS | Encounter Summary ---
Author Organization [facility] Healthcare Address [address] [place] [address] Care Team Providers Care Child Adolescent Care Name Role Phone Radha Brown NP Primary Care Provider Rubi Armstrong MD Unavailable [phone] Encounter Details Date Type Department Care Team (Late st Contact Info) Description 03/22/2025 Orders Only [facility] Health Information Management [address] [place] [address] Radha Brown NP [address] [facility] [address] [place] [address] Social History Tobacco Use Types Packs/Day Years [...] on file 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 Faires SPEECH THERAPIST TECHNICIAN Final Result documented in this encounter Visit Diagnoses Not on filedocumented in this encounter Care Teams Child Adolescent Care Relationship Specialty Start Date End Date Radha Brown NP [address] [facility] [address] [place] [address] PCP - General Internal Medicine 03/04/25 Rubi Armstrong MD [address] [facility] [address] [address] Consulting Physician Internal Medicine 05/18/25 documented as of this encounter
--- OUTSIDE RECORDS SUMMARY | 2025-06-03 12:11 | XMS_ITS | Clinical Summary ---
Author Organization [facility] Address [address] [place] [address] Care Team Providers Care Bird Trapper Name Role Phone Radha Brown NP Primary Care Provider [phone] Rubi Armstrong MD Unavailable [phone] Allergies No known active allergies Medications ALPRAZolam [...] by mouth Active meloxicam (MOBIC) 7.5 mg tabletIndications: Right hip pain Take 1 tablet (7.5 mg total) by mouth daily for 10 days 90 tablet 1 03/04/20 25 Active Additional Information Patient not taking.Reported on 04/25/2025 methylPREDNISolone (MEDROL DOSEPACK) 4 mg DosepackIndication s:Right hip pain Take as directed on package. 21 tablet 03/04/20 Active Additional Information Patient not taking.Reported on 04/25/2025 amitriptyline (ELAVIL) 100 mg tabletIndications: Insomnia, unspecified type Take 1 tablet (100 mg total) by mouth nightly 90 tablet 1 03/21/20 25 Active rosuvastatin (CRESTOR) 10 mg tabletIndications: Hyperlipidemia, unspecified hyperlipidemia type Take 1 tablet (10 mg total) by mouth daily 90 tablet 1 03/21/20 25 026 Active metoprolol XL (TOPROL-XL) 25 mg extended release tabletIndications: Hypertension, essential Take 1 tablet (25 mg total) by mouth daily 90 tablet 1 03/21/20 25 Active Active Problems Problem Noted Date Diagnosed Date MARY (obstructive sleep apnea) 04/25/2025 Assessment & Plan (04/25/2025 2:43 PM CDT): Due to the history of obstructive sleep apnea, I have reordered the patient is CPAP set at 5-15 cm water pressure with heated humidity and a full set of supplies. I also requested sleep records and sleep study from [facility] and [facility]. I will call the patient if we need to proceed with a nocturnal polysomnogram. The DME will be determined by her insurance. Obesity (BMI 30-39.9) 03/04/2025 Assessment & Plan [...] Encounters Date Type Department Care Team Description 05/18/2025 1:45 PM CDT Office Visit [facility] [address] [place] [address], [address] [place] [address] Dedrick Means PA Chronic bilateral low back pain without sciatica (Primary Dx); Chronic neck pain 05/04/2025 Orders Only [facility] Orthopedics and Sports Medicine [address] [place] [address] [address] [place] [address] Omar Turner MD Lumbar pain (Primary Dx) 05/02/2025 Telephone [facility] Orthopedics [facility] Sports Medicine [address] [place] [address] [address] [place] [address] Omar Turner MD Appointment 04/25/2025 1:30 PM CDT Office Visit [facility] Pulmonary [address] [place] [address] Fabby Sweeney NP MARY (obstructive sleep apnea) (Primary Dx); Sleep apnea, unspecified type 04/25/[address] [place] [address] Jacinto Guillen MD Orders Only; Medical Records Request 04/24/2025 7:22 AM CDT - 04/24/2025 11:59 PM CDT Hospital Encounter [facility] MRI [address] [place] [address] Chronic bilateral low back pain without sciatica Discharge Disposition: Discharge to home or self care 04/13/2025 8:15 AM CDT Office Visit [facility] [address] [place] [address], [address] [place] [address] Dedrick Means PA Right hip pain (Primary Dx); Chronic bilateral low back pain without sciatica 04/13/2025 7:58 AM CDT - 04/13/2025 11:59 PM CDT Hospital Encounter [facility] Diag Imaging [facility] [place] [address] Chronic bilateral low back pain without sciatica Discharge Disposition: Discharge to home or self care 04/01/2025 Orders Only [facility] Family Medicine [address] [facility] [address] [place] [address] Radha Brown NP Sleep apnea, unspecified type (Primary Dx) 03/31/2025 Results Follow-Up [facility] Family Medicine [address] [facility] [address] [place] [address] Radha Brown NP Comprehensive metabolic panel, Lipid panel, TSH 03/25/2025 Orders Only [facility] [address] [place] [address] Scanning, Provider 03/23/2025 Orders Only [facility] Internal Medicine at [place] [address] [place] [address] [address] [place] [address] ProviderKari MD 03/22/2025 Orders Only [facility] [address] [place] [address] Radha Brown NP 03/21/2025 Telephone [facility] Internal Medicine at [address] [place] [address] Radha Brown NP 03/04/2025 1:00 PM CDT Office Visit [facility] Internal Medicine at [address] [place] [address] Radha Brown NP Right hip pain (Primary Dx); BMI 39.0-39.9,adult; Obesity (BMI 30-39.9); Breast cancer screening by mammogram; Encounter for screening colonoscopy; Hypertension, essential; Mixed hyperlipidemia; Chronic bilateral low back pain without sciatica; Screening for thyroid disorder from Last 3 Months Immunizations Immunization Administration [...] Date Comments Hyperlipidemia Hypertension Headache Ankylosing spondylitis Family History Medical History Relation Name Comments Coronary artery disease Father Breast cancer Mother Dementia Mother Leukemia Sister Relation Name Status Comments Father Alive Mother Sister Alive Social History Tobacco Use Types Packs/Day Years Used Date Smoking Tobacco: Former Cigarettes Tobacco Cessation:Counseling Given: Not Answered AUDIT-C Answer Date Recorded Q1: How often do you have a drink containing alcohol? Never 05/18/2025 Q2: How many drinks containi ng alcohol do you have on a typical day when you are drinking? Patient does not drink Q3: How often do you have si x or more drinks on one occasion? Never 05/18/2025 PHQ-2 Answer Date Recorded PHQ-2 Total Score [...] on file Legal Sex Female 6:14 AM [employer] Gender Identity Not on file Sexual Orientation Not on file Obstetrics History Last Filed Vital Signs Vital Sign Reading Time Taken Comments Blood Pressure 131/88 05/18/2025 1:26 PM CDT Pulse 86 05/18/2025 1:26 PM CDT Temperature 36.7 C (98 F) 04/25/2025 1:36 PM CDT Respiratory Rate 18 05/18/2025 1:26 PM CDT Oxygen Saturation 98% 05/18/2025 1:26 PM CDT Inhaled Oxygen Concentration - - Weight 96.5 kg (212 lb 12.8 oz) 05/18/2025 1:26 PM CDT Height 157.5 cm (5' 2.01) 05/18/2025 1:26 PM CD T Body Mass Index 38.91 05/18/2025 1:26 PM CDT Plan of Treatment Health Maintenance Due Date Last Done Comments Breast Cancer Screening-Mammogram 1962 Cervical Cancer Screening 1962 Hepatitis C Screening 1962 Hepatitis B Screening 1980 Regular Well Visit/Exam 18-64 1980 Covid-19 Vaccine ( season) 2024 09/28/2021, 01/12/2021, 12/15/2020 Influenza Vaccine (#1) 2025 3, 10/03/2021, 09/11/2020 Depression Screening 03/04/2026 03/04/2025 DTaP/Tdap/Td Vaccine (2 - Td or Tdap) 05/31/2034 Colon Cancer Screening-Colonoscopy 03/23/20352024 Pneumococcal vaccine <65 Completed 07/02/2023 Zoster Vaccine Completed 10/09/2023, 07/02/2023 Procedures Procedure Name Priority Date/Time Associated Diagnosis Comments MRI LUMBAR SPINE WO CONTRAST Schedule Routine, Read Routine (OP Routine) 04/24/2025 8:03 AM CDT Chronic bilateral low back pain without sciatica XR LUMBAR SPINE AP LAT FLEX EX Schedule Routine, Read Routine (OP Routine) 04/13/2025 8:09 AM CDT Chronic bilateral low back pain without sciatica XR SCOLIOSIS AP LAT Schedule Routine, Read Routine (OP Routine) 04/13/2025 8:09 AM CDT Chronic bilateral low back pain without sciatica SCAN - RADIOLOGY/IMAGING 03/25/2025 EGD Routine 03/23/2025 12:33 PM CDT HM COLONOSCOPY Routine 03/23/2025 12:28 PM CDT TSH Routine 03/23/2025 8:07 AM CDT Screening for thyroid disorder LIPID PANEL Routine 03/23/2025 8:07 AM CDT Mixed hyperlipidemia COMPREHENSIVE METABOLIC PANEL Routine 03/23/2025 8:07 AM CDT Hypertension, essential GI - RESULT 03/22/2025 from Last 3 Months Results * MRI Lumbar Spine WO Contrast (04/24/2025 8:03 AM CDT) Anatomical Region Laterality Modality Spine N/A Magnetic Resonan ce 04/25/2025 9:58 AM CDT Narrative 04/25/2025 10:03 AM CDT EXAM DESCRIPTION: MRI LUMBAR SPINE WO CONTRAST REASON FOR STUDY: Lumbar pain No surgery, no injury; constant low back pain with pain radiating down RT leg/hip for many years TECHNIQUE: Sagittal and Axial imaging includes T1, T2, STIR sequences. COMPARISON: Lumbar spine radiographs dated 04/13/2025. FINDINGS: SEGMENTATION: 5 ymx-xcq-avwmkny lumbar type vertebral bodies. ALIGNMENT: Minor anterolisthesis of L5 on S1. VERTEBRAE: No acute compression fracture in the lumbar spine. Multilevel mild endplate degenerative changes and marginal spur formation. More advanced facet arthropathy favoring the mid to lower lumbar levels. DISC HEIGHT: Multilevel intervertebral disc height loss. HARDWARE: None in the spine. CORD/CAUDA: Conus medullaris terminates at L1. LOWER THORACIC: Incompletely imaged. Partially imaged osseous fusion across the anterior margin of the lower thoracic vertebral bodies and disc spaces. INDIVIDUAL DISC LEVELS: L1-L2: No significant disc bulge, spinal canal or neural foraminal narrowing. L2-L3: Minor disc bulge with thickened ligamentum flavum and facet arthropathy. No significant spinal canal or neural foraminal narrowing. L3-L4: Disc bulge with thickened ligamentum flavum and facet arthropathy. Flattening of the ventral thecal sac. Mild neural foraminal narrowing. L4-L5: Disc bulge with marginal spur formation. Thickened ligamentum flavum and facet arthropathy. Flattening of the ventral thecal sac. Lateral recess effacement on both sides. Mdsi-ek-hgedupyh left and mild right neural foraminal narrowing. L5-S1: Anterolisthesis of L5 on S1 with unroofing of the disc. Bilateral facet arthropathy. No significant spinal canal or neural foraminal narrowing. VISUALIZED UPPER ABDOMEN: Note made of nonspecific increased in number of retroperitoneal lymph nodes. Request clinical correlation. IMPRESSION: 1. Multilevel mild lumbar disc degeneration with thickened ligamentum flavum and more advanced facet arthropathy as described. There is no high-grade spinal canal stenosis. 2. Neural foraminal narrowing is most noticeable at L4-L5. 3. Other findings as above. THIS IS AN ELECTRONICALLY VERIFIED FINAL REPORT 04/25/2025 10:03 AM - Electronically signed by Maximino Davis D.O. AP T: Report ID: [id number] Reading Location: [id number] Procedure Note Maximino Davis, DO - 04/25/2025 EXAM DESCRIPTION: MRI LUMBAR SPINE WO CONTRAST REASON FOR STUDY: Lumbar pain No surgery, no injury; constant low back pain with pain radiating down RT leg/hip for many years TECHNIQUE: Sagittal and Axial imaging includes T1, T2, STIR sequences. COMPARISON: Lumbar spine radiographs dated 04/13/2025. FINDINGS: SEGMENTATION: 5 rgf-cjh-kcklvwu lumbar type vertebral bodies. ALIGNMENT: Minor anterolisthesis of L5 on S1. VERTEBRAE: No acute compression fracture in the lumbar spine.Multilevel mild endplate degenerative changes and marginal spur formation. Moreadvanced facet arthropathy favoring the mid to lower lumbar levels. DISC HEIGHT: Multilevel intervertebral disc height loss. HARDWARE: None in the spine. CORD/CAUDA: Conus medullaris terminates at L1. LOWER THORACIC: Incompletely imaged. Partially imaged osseous fusionacross the anterior margin of the lower thoracic vertebral bodies and discspaces. INDIVIDUAL DISC LEVELS: L1-L2: No significant disc bulge, spinal canal or neural foraminalnarrowing. L2-L3: Minor disc bulge with thickened ligamentum flavum and facet arthropathy. No significant spinal canal or neural foraminal narrowing. L3-L4: Disc bulge with thickened ligamentum flavum and facet arthropathy. Flattening of the ventral thecal sac. Mild neural foraminal narrowing. L4-L5: Disc bulge with marginal spur formation. Thickened ligamentumflavum and facet arthropathy. Flattening of the ventral thecal sac. Lateralrecess effacement on both sides. Lchr-az-nmqibpnh left and mild right neural foraminal narrowing. L5-S1: Anterolisthesis of L5 on S1 with unroofing of the disc. Bilateral facet arthropathy. No significant spinal canal or neural foraminalnarrowing. VISUALIZED UPPER ABDOMEN: Note made of nonspecific increased in numberof retroperitoneal lymph nodes. Request clinical correlation. IMPRESSION: 1. Multilevel mild lumbar disc degeneration with thickened ligamentumflavum and more advanced facet arthropathy as described. There is no high-grade spinal canal stenosis. 2. Neural foraminal narrowing is most noticeable at L4-L5. 3. Other findings as above. THIS IS AN ELECTRONICALLY VERIFIED FINAL REPORT 04/25/2025 10:03 AM - Electronically signed by Maximino SYED T: Report ID: [id number] Reading Location: [place] [address] [facility] IM MRI PROCEDURES Final R esult * XR Spine Lumbar Ap Lat Flex Ext min 4 Views (04/13/2025 8:09 AM CDT) Anatomical Region Laterality Modality L-spine N/A Computed Radiogr aphy 04/13/2025 9:14 PM CDT Narrative 04/13/2025 9:19 PM CDT EXAM DESCRIPTION: 1. XR SCOLIOSIS AP AND LATERAL; 2. XR SPINE LUMBAR AP LAT FLEX EXT MIN 4 VIEWS REASON FOR STUDY: back pain Increased pain in low back and right leg for 1.5 years, no injury FINDINGS: Two views thoracolumbar spine and subsequently 4 dedicated views lumbar spine submitted without comparison. Minimal long segment levocurvature of the thoracolumbar spine. T9-L1 fusion is present. Additional possible bridging bone at T8-T9. Multilevel thoracic degenerative disc disease is present with thoracic diffuse idiopathic skeletal hyperostosis. Multilevel cervical degenerative disc disease. Grade 1 anterolisthesis of L3 on L4 and L5 on S1 is present. Mild L2-L4 degenerative disc disease. Moderate to severe inferior lumbar facet osteoarthritis. Flexion-extension views demonstrate no exacerbation of the listhesis. Right upper quadrant surgical clips are noted. IMPRESSION: 1. T9-L1 fusion with possible bridging bone at T8-T9. 2. Mild multilevel thoracic degenerative disc disease with thoracic diffuse idiopathic skeletal hyperostosis. 3. Mild L2-L4 degenerative disc disease with grade 1 anterolisthesis and moderate to severe inferior lumbar facet osteoarthritis. THIS IS AN ELECTRONICALLY VERIFIED FINAL REPORT 04/13/2025 9:19 PM - Electronically signed by Steven Trent M.D. T: Report ID: [id number] Reading Location: [id number] Procedure Note Steven Trent MD - 04/13/2025 EXAM DESCRIPTION: 1. XR SCOLIOSIS AP AND LATERAL; 2. XR SPINE LUMBAR AP LAT FLEX EXT MIN 4 VIEWS REASON FOR STUDY: back pain Increased pain in low back and right leg for 1.5 years, no injury FINDINGS: Two views thoracolumbar spine and subsequently 4 dedicated views lumbar spine submitted without comparison. Minimal long segment levocurvature of the thoracolumbar spine. T9-O9eygehu is present. Additional possible bridging bone at T8-T9. Multilevelthoracic degenerative disc disease is present with thoracic diffuse idiopathicskeletal hyperostosis. Multilevel cervical degenerative disc disease. Grade 1 anterolisthesis of L3 on L4 and L5 on S1 is present. Mild L2-S0vklhqyynbfrf disc disease. Moderate to severe inferior lumbar facet osteoarthritis. Flexion-extension views demonstrate no exacerbation of the listhesis.Right upper quadrant surgical clips are noted. IMPRESSION: 1. T9-L1 fusion with possible bridging bone at T8-T9. 2. Mild multilevel thoracic degenerative disc disease with thoracicdiffuse idiopathic skeletal hyperostosis. 3. Mild L2-L4 degenerative disc disease with grade 1 anterolisthesis and moderate to severe inferior lumbar facet osteoarthritis. THIS IS AN ELECTRONICALLY VERIFIED FINAL REPORT 04/13/2025 9:19 PM - Electronically signed by Steven Trent M.D. T: Report ID: [id number] Reading Location: [id number] [facility] IMG XR PROCEDURES Final Re sult * XR Scoliosis 2 or 3 Views (04/13/2025 8:09 AM CDT) Anatomical Region Laterality Modality Spine N/A Computed Radiogr aphy 04/13/2025 9:14 PM CDT Narrative 04/13/2025 9:19 PM CDT EXAM DESCRIPTION: 1. XR SCOLIOSIS AP AND LATERAL; 2. XR SPINE LUMBAR AP LAT FLEX EXT MIN 4 VIEWS REASON FOR STUDY: back pain Increased pain in low back and right leg for 1.5 years, no injury FINDINGS: Two views thoracolumbar spine and subsequently 4 dedicated views lumbar spine submitted without comparison. Minimal long segment levocurvature of the thoracolumbar spine. T9-L1 fusion is present. Additional possible bridging bone at T8-T9. Multilevel thoracic degenerative disc disease is present with thoracic diffuse idiopathic skeletal hyperostosis. Multilevel cervical degenerative disc disease. Grade 1 anterolisthesis of L3 on L4 and L5 on S1 is present. Mild L2-L4 degenerative disc disease. Moderate to severe inferior lumbar facet osteoarthritis. Flexion-extension views demonstrate no exacerbation of the listhesis. Right upper quadrant surgical clips are noted. IMPRESSION: 1. T9-L1 fusion with possible bridging bone at T8-T9. 2. Mild multilevel thoracic degenerative disc disease with thoracic diffuse idiopathic skeletal hyperostosis. 3. Mild L2-L4 degenerative disc disease with grade 1 anterolisthesis and moderate to severe inferior lumbar facet osteoarthritis. THIS IS AN ELECTRONICALLY VERIFIED FINAL REPORT 04/13/2025 9:19 PM - Electronically signed by Steven Trent M.D. T: Report ID: [id number] Reading Location: [id number] Procedure Note Steven Trent MD - 04/13/2025 EXAM DESCRIPTION: 1. XR SCOLIOSIS AP AND LATERAL; 2. XR SPINE LUMBAR AP LAT FLEX EXT MIN 4 VIEWS REASON FOR STUDY: back pain Increased pain in low back and right leg for 1.5 years, no injury FINDINGS: Two views thoracolumbar spine and subsequently 4 dedicated views lumbar spine submitted without comparison. Minimal long segment levocurvature of the thoracolumbar spine. T9-O1pnmpuw is present. Additional possible bridging bone at T8-T9. Multilevelthoracic degenerative disc disease is present with thoracic diffuse idiopathicskeletal hyperostosis. Multilevel cervical degenerative disc disease. Grade 1 anterolisthesis of L3 on L4 and L5 on S1 is present. Mild L2-U0elhbvebbcxjp disc disease. Moderate to severe inferior lumbar facet osteoarthritis. Flexion-extension views demonstrate no exacerbation of the listhesis.Right upper quadrant surgical clips are noted. IMPRESSION: 1. T9-L1 fusion with possible bridging bone at T8-T9. 2. Mild multilevel thoracic degenerative disc disease with thoracicdiffuse idiopathic skeletal hyperostosis. 3. Mild L2-L4 degenerative disc disease with grade 1 anterolisthesis and moderate to severe inferior lumbar facet osteoarthritis. THIS IS AN ELECTRONICALLY VERIFIED FINAL REPORT 04/13/2025 9:19 PM - Electronically signed by Steven Trent M.D. T: Report ID: [id number] Reading Location: [place] [address] [facility] IMG XR PROCEDURES Final Re sult * SCAN - RADIOLOGY/IMAGING (03/25/2025) Anatomical Region Laterality Modality Other Provider Scanning Final Result * [facility] (03/23/2025 12:33 PM CDT) Anatomical Region Laterality Modality Other Historical Provider GI PROCEDURE ORDERABLES F inal Result * (ABNORMAL) COLONOSCOPY (03/23/2025 12:28 PM CDT) Scribed Colonoscopy Abnormal Historical Provider HEALTH MAINTENANCE Edited Result - Final * TSH (03/23/2025 8:07 AM CDT) TSH 0.62 0.40 - 4.50 mIU/L [facility] Blood 03/23/2025 8:07 AM CDT 03/23/2025 8:08 AM CDT Narrative [facility] - 03/23/2025 9:44 PM CDT FASTING:YES FASTING: YES Radha Brown BOILER SETTER LAB BLOOD ORDERABLES Final Re sult [facility] [address] [place] [address] * (ABNORMAL) Lipid panel (03/23/2025 8:07 AM CDT) Cholesterol 168 <200 mg/dL [facility] HDL 40(L) > OR = 50 mg/dL [facility] Triglycerides 170(H) <150 mg/dL [facility] LDL 101(H) mg/dL (calc) [facility] Comment: Reference range: <100 Desirable range <100 mg/dL for primary prevention; <70 mg/dL for patients with CHD or diabetic patients with > or = 2 CHD risk factors. LDL-C is now calculated using the Keith calculation, which is a validated novel method providing better accuracy than the Friedewald equation in the estimation of LDL-C. Twin SS et al. ANKIT. 2013;310(19): 3574-2440 (http://education.[employer]/faq/KPE918) Chol/HDL ratio 4.2 <5.0 (calc) [facility] Non-HDL, (LDL+VLDL) 128 <130 mg/dL (calc) [facility] Comment: For patients with diabetes plus 1 major ASCVD risk factor, treating to a non-HDL-C goal of <100 mg/dL (LDL-C of <70 mg/dL) is considered a therapeutic option. Blood 03/23/2025 8:07 AM CDT 03/23/2025 8:08 AM CDT Narrative [facility] - 03/23/2025 9:44 PM CDT FASTING:YES FASTING: YES Radha Brown BOILER SETTER LAB BLOOD ORDERABLES Final Re sult [facility] [address] [place] [address] * (ABNORMAL) Comprehensive metabolic panel (03/23/2025 8:07 AM CDT) Pathologist [facility] Glucose 103(H) 65 - 99 mg/dL [facility] Comment: Fasting reference interval For someone without known diabetes, a glucose value between 100 and 125 mg/dL is consistent with prediabetes and should be confirmed with a follow-up test. BUN 19 7 - 25 mg/dL [facility] Creatinine 0.76 0.50 - 1.05 mg/dL [facility] eGFR 89 > OR = 60 mL/min/1.7 3m2 [facility] BUN/creat ratio SEE NOTE: 6 - (calc) [facility] Comment: Not Reported: BUN and Creatinine are within reference range. Sodium 143 135 - 146 mmol/L [facility] Potassium, pl 3.8 3.5 - 5.3 mmol/L [facility] Chloride 106 98 - 110 mmol/L [facility] CO2 30 20 - 32 mmol/L [facility] Calcium 9.0 8.6 - 10.4 mg/dL [facility] Protein, sr 5.9(L) 6.1 - 8.1 g/dL [facility] Albumin 3.9 3.6 - 5.1 g/dL [facility] GLOBULIN 2.0 1.9 - 3.7 g/dL (calc) [facility] Alb/glob ratio 2.0 1.0 - 2.5 (calc) [facility] Bilirubin, total 0.8 0.2 - 1.2 mg/dL [facility] Alk phos 107 37 - 153 U/L [facility] AST 16 10 - 35 U/L [facility] ALT (SGPT) 23 6 - 29 U/L [facility] Blood 03/23/2025 8:07 AM CDT 03/23/2025 8:08 AM CDT Narrative [facility] - 03/23/2025 9:44 PM CDT FASTING:YES FASTING: YES Radha Brown NP LAB BLOOD ORDERABLES Final Re sult [facility] [address] [place] [address] * GI - RESULT (03/22/2025) Anatomical Region Laterality Modality Other Radha Brown NP Final Result from Last 3 Months Insurance [employer] HMO [facility] MEDICARE HMO [facility] MEDICARE O Care Teams Bird Trapper Relationship Specialty Start Date End Date Radha Brown NP [address] [address] PCP - General Internal Medicine 03/04/25 Rubi Armstrong MD [address] [facility] [address] [place] [address] Consulting Physician Internal Medicine 05/18/25
--- OUTSIDE RECORDS SUMMARY | 2025-06-03 12:11 | XMS_ITS | Encounter Summary ---
Author Organization [facility] Healthcare Address [address] [place] [address] Care Team Providers Care Pharmacy Clinical Coordinator Name Role Phone Luiz Mariscal NP Primary Care Provider [phone] Radha Brown NP Primary Care Provider [phone] Rubi Armstrong MD Unavailable [phone] Encounter Details Date Type Department Care Team (Late st Contact Info) Description 03/01/2025 Orders Only [facility] Health Information Management [address] [place] [address] Scanning, Provider Social History Tobacco Use Types Packs/Day Years Used Date Smoking Tobacco: Never Assessed PHQ-2 Answer Date Recorded PHQ-2 Total Score [...] on file 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 Gender Identity Not on file Sexual Orientation Not on file documented as of this encounter Plan of Treatment Not on file documented as of this encounter Procedures Procedure Name Priority Date/Time Associated Diagnosis Comments SCAN - LABS 03/01/2025 documented in this encounter Results * SCAN - LABS (03/01/2025) us Provider Scanning Final Result documented in this encounter Visit Diagnoses Not on filedocumented in this encounter Care Teams Pharmacy Clinical Coordinator Relationship Specialty Start Date End Date Luiz Mariscal NP [address] [place] [address] PCP - General Nurse Practitioner 05/31/24 03/03/25 Radha Brown NP [address] [facility] [address] [place] [address] PCP - General Internal Medicine 03/04/25 Rubi Armstrong MD [address] [facility] [address] [address] Consulting Physician Internal Medicine 05/18/25 documented as of this encounter
--- OUTSIDE RECORDS SUMMARY | 2025-06-03 12:11 | XMS_ITS | Referral Summary ---
Author Organization [facility] Address [address] [place] [address] Care Team Providers Care Cotton Ginner Name Role Phone Radha Brown NP Primary Care Provider [phone] Rubi Armstrong MD Unavailable [phone] Encounters Date Type Department Care Team Description 05/18/2025 1:45 PM CDT Office Visit [facility] Neurosurgery Clinic [address] [facility] [address], [address] [place] [address] Dedrick Means PA Chronic bilateral low back pain without sciatica (Primary Dx); Chronic neck pain 05/04/2025 Orders Only [facility] Orthopedics and Sports Medicine [address] [place] [address] [address] [place] [phone] Omar Turner MD Lumbar pain (Primary Dx) 05/02/2025 Telephone [facility] Orthopedics and Sports Medicine [address] [place] [address] [address] [place] [phone] Omar Turner MD Appointment 04/25/2025 Telephone [facility] Pulmonary [place] [address] [place] [address] [address] [place] [address] Jacinto Guillen MD Orders Only; Medical Records Request 04/25/2025 1:30 PM CDT Office Visit [facility] [place] [address] [place] [address] [address] [place] [address] Fabby Sweeney NP MARY (obstructive sleep apnea) (Primary Dx); Sleep apnea, unspecified type 04/24/2025 7:22 AM CDT - 04/24/2025 11:59 PM CDT Hospital Encounter [facility] MRI [address] [place] [address] Chronic bilateral low back pain without sciatica Discharge Disposition: Discharge to home or self care 04/13/2025 7:58 AM CDT - 04/13/2025 11:59 PM CDT Hospital Encounter [facility] Diag Imaging [address] [place] [address] Chronic bilateral low back pain without sciatica Discharge Disposition: Discharge to home or self care 04/13/2025 8:15 AM CDT Office Visit [facility] [address] [place] [address] [address], [address] [place] [phone] Dedrick Means PA Right hip pain (Primary Dx); Chronic bilateral low back pain without sciatica 04/01/2025 Orders Only [facility] Family Medicine [address] [place] [address] [address] [place] [address] Radha Brown NP Sleep apnea, unspecified type (Primary Dx) 03/31/2025 Results Follow-Up [facility] Medicine [address] [place] [address] [address] [place] [address] Radha Brown NP Comprehensive metabolic panel, Lipid panel, TSH 03/25/2025 Orders Only [facility] Health Information Management [address] [place] [address] Scanning, Provider 03/23/2025 Orders Only [facility] Internal Medicine [facility] [place] [address] [place] [address] [address] [place] [address] Provider, MD Kari 03/22/2025 Orders Only [facility] Health Information Management [address] [place] [address] Radha Brown NP 03/21/2025 Telephone [facility] Internal Medicine at [address] [place] [address] Radha Brown NP 03/04/2025 1:00 PM CDT Office Visit [facility] Internal [facility] at [place] [address] [facility] [address] [place] [address] Radha Brown NP Right hip pain (Primary Dx); BMI 39.0-39.9,adult; Obesity (BMI 30-39.9); Breast cancer screening by mammogram; Encounter for screening colonoscopy; Hypertension, essential; Mixed hyperlipidemia; Chronic bilateral low back pain without sciatica; Screening for thyroid disorder from Last 3 Months Allergies No known [...] on package. 21 tablet 03/04/20 25 Active Additional Information Patient not [...] requested sleep [facility] and sleep [facility] and [facility]. 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 FINDINGS: SEGMENTATION: 5 thd-myg-eynkmve lumbar type vertebral bodies. ALIGNMENT: Minor anterolisthesis [...] sac. Lateral recess effacement on both sides. Fuqm-aj-hiauyxrs left and mild right neural foraminal narrowing. [...] signed by Maximino SYED T: Report ID: [id number] Reading Location: [place] [address] Procedure Note Maximino Davis, DO - 04/25/2025 EXAM DESCRIPTION: MRI LUMBAR SPINE WO CONTRAST REASON FOR STUDY: Lumbar pain No surgery, no injury; constant low back pain with pain radiating down RT leg/hip for many years TECHNIQUE: Sagittal and Axial imaging includes T1, T2, STIR sequences. COMPARISON: Lumbar spine radiographs dated 04/13/2025. FINDINGS: SEGMENTATION: 5 hxu-kgc-wgxvsjx lumbar type vertebral bodies. ALIGNMENT: Minor anterolisthesis [...] thecal sac. Lateralrecess effacement on both sides. Srnc-gn-qrdfbizj left and mild right neural foraminal narrowing. [...] signed by Maximino SYED T: Report ID: [id number] Reading Location: [place] [address] [facility] MRI PROCEDURES Final R esult * XR [...] by Steven Trent M.D. T: Report ID: [id number] Reading Location: [id number] Procedure Note Steven Trent MD - 04/13/2025 [...] long segment levocurvature of the thoracolumbar spine. T9-X1ayxndd is present. Additional possible bridging bone at T8-T9. Multilevelthoracic degenerative disc disease is present with thoracic diffuse idiopathicskeletal hyperostosis. Multilevel cervical degenerative disc disease. Grade 1 anterolisthesis of L3 on L4 and L5 on S1 is present. Mild L2-P1dgbkuvtgryxz disc disease. Moderate to severe inferior lumbar [...] by Steven Trent M.D. T: Report ID: [id number] Reading Location: [id number] us [facility] XR PROCEDURES Final Re [...] by Steven Trent M.D. T: Report ID: [id number] Reading Location: [id number] Procedure Note Steven Trent MD - 04/13/2025 [...] long segment levocurvature of the thoracolumbar spine. T9-A2vcjeuh is present. Additional possible bridging bone at T8-T9. Multilevelthoracic degenerative disc disease is present with thoracic diffuse idiopathicskeletal hyperostosis. Multilevel cervical degenerative disc disease. Grade 1 anterolisthesis of L3 on L4 and L5 on S1 is present. Mild L2-W9rwpjcjzbhnfa disc disease. Moderate to severe inferior lumbar [...] by Steven Trent M.D. T: Report ID: [id number] Reading Location: [place] [address] Ded[facility] XR PROCEDURES Final Re sult * SCAN - RADIOLOGY/IMAGING (03/25/2025) Anatomical Region Laterality Modality Other Provider Scanning Final Result * EGD -[facility] (03/23/2025 12:33 PM CDT) Anatomical Region Laterality Modality Other Historical Provider GI PROCEDURE ORDERABLES F inal Result * (ABNORMAL) COLONOSCOPY (03/23/2025 12:28 PM CDT) Scribed Colonoscopy Abnormal Historical Provider HEALTH MAINTENANCE Edited Result - Final * TSH (03/23/2025 8:07 AM CDT) Pathologist [facility] TSH 0.62 0.40 - 4.50 mIU/L [facility] Blood 03/23/2025 8:07 AM CDT 03/23/2025 8:08 AM CDT Narrative [facility] - 03/23/2025 9:44 PM CDT FASTING:YES FASTING: YES Radha Brown MARINE SUPERINTENDENT LAB BLOOD ORDERABLES Final Re sult [facility] [address] [place] [address] * (ABNORMAL) Lipid panel (03/23/2025 8:07 AM CDT) [facility] Cholesterol 168 <200 mg/dL [employer] arben [facility] HDL 40(L) > OR = 50 mg/dL [employer] arben [facility] Triglycerides 170(H) <150 mg/dL [employer] arben [facility] LDL 101(H) mg/dL (calc) [facility] Comment: Reference range: <100 Desirable range <100 mg/dL for primary prevention; <70 mg/dL for patients with CHD or diabetic patients with > or = 2 CHD risk factors. LDL-C is now calculated using the Twin-Varela calculation, which is a validated novel method providing better accuracy than the Friedewald equation in the estimation of LDL-C. Twin MCKEON et al. ANKIT. 2013;310(19): 8197-8261 (http://education.[employer]/faq/RFV913) Chol/HDL ratio 4.2 <5.0 (calc) [facility] Non-HDL, (LDL+VLDL) 128 <130 mg/dL (calc) [facility] Calvillo Comment: For patients with diabetes plus 1 major ASCVD risk factor, treating to a non-HDL-C goal of <100 mg/dL (LDL-C of <70 mg/dL) is considered a therapeutic option. Blood 03/23/2025 8:07 AM CDT 03/23/2025 8:08 AM CDT Narrative [facility] - 03/23/2025 9:44 PM CDT FASTING:YES FASTING: YES us Radha Brown MARINE SUPERINTENDENT LAB BLOOD ORDERABLES Final Re sult [facility] [place] [address] [place] [address] * (ABNORMAL) Comprehensive metabolic panel (03/23/2025 8:07 AM CDT) Glucose 103(H) 65 - 99 mg/dL [facility] theodore Rajinder Comment: Fasting reference interval For someone without known diabetes, a glucose value between 100 and 125 mg/dL is consistent with prediabetes and should be confirmed with a follow-up test. BUN 19 7 - 25 mg/dL [facility] [employer] [facility] Rajinder Creatinine 0.76 0.50 - 1.05 mg/dL [facility] [employer] [facility] Rajinder eGFR 89 > OR = 60 mL/min/1.7 3m2 [facility] [employer] [facility] BUN/creat ratio SEE NOTE: - (calc) [facility] [employer] [facility] Rajinder Comment: Not Reported: BUN and Creatinine are within reference range. Sodium 143 135 - 146 mmol/L [facility] [employer] [facility] Rajinder Potassium, pl 3.8 3.5 - 5.3 mmol/L [employer] Rajinder Chloride 106 98 - 110 mmol/L [facility] Raj[facility] CO2 30 20 - 32 mmol/L [facility] Rajinder Calcium 9.0 8.6 - 10.4 mg/dL [facility] [employer] Raj[facility] Protein, sr 5.9(L) 6.1 - 8.1 g/dL [facility] [employer] [facility] Albumin 3.9 3.6 - 5.1 g/dL [facility] Rajinder GLOBULIN 2.0 1.9 - 3.7 g/dL (calc) [facility] [employer] [facility] Rajinder Alb/glob ratio 2.0 1.0 - 2.5 (calc) [facility] Rajinder Bilirubin, total 0.8 0.2 - 1.2 mg/dL [facility] Rajinder Alk phos 107 37 - 153 U/L [facility] AST 16 10 - 35 U/L [facility] Rajinder ALT (SGPT) 23 6 - 29 U/L [facility] Blood 03/23/2025 8:07 AM CDT 03/23/2025 8:08 AM CDT Narrative [facility] - 03/23/2025 9:44 PM CDT FASTING:YES FASTING: YES Radha Brown MARINE SUPERINTENDENT LAB BLOOD ORDERABLES Final Re sult [facility] [address] [place] [address] * GI - RESULT (03/22/2025) Anatomical Region Laterality Modality Other Radha Brown MARINE SUPERINTENDENT Final Result from Last 3 Months Insurance [facility] MEDICARE HMO [facility] MEDICARE HMO [employer] MEDICARE HMO Care Teams Cotton Ginner Relationship Specialty Start Date End Date Radha Brown NP [address] [address] PCP - General Internal Medicine 03/04/25 Rubi Armstrong MD [address] [address] Consulting Physician Internal Medicine 05/18/25
[2025-06-03 12:47] LABS: Hematocrit 43.2 % (37.0-47.0); Hemoglobin 14.0 g/dL (12.0-15.0); Mean Corpuscular HGB Conc 32.4 g/dl (32-36); Mean Corpuscular Hemoglobin 28.6 pg (26-34); Mean Corpuscular Volume 88.3 fl (80-100); Platelet Count Result 256 k/mm3 (150-375); Red Blood Count 4.89 M/mm3 (4.2-5.4); White Blood Count 5.7 K/mm3 (4.5-10.0)
[2025-06-03 12:54] LABS: Hemoglobin A1C 5.5 % (<5.7)
[2025-06-03 12:55] LABS: Iron 93 ug/dL (37-170)
[2025-06-03 13:05] LABS: Percent Iron Saturation 30 % (20-50)
[2025-06-03 13:06] LABS: INR 1.0; Prothrombin Time 13.6 Seconds (11.1-14.7)
[2025-06-03 13:12] LABS: Alanine Aminotransferase 25 U/L (6-35); Albumin Level 4.3 g/dL (3.5-5.1); Alkaline Phosphatase 96 U/L (38-126); Anion Gap 7 mmol/L (4-12); Aspartate Amino Transferase 32 U/L (14-36); Bilirubin,Total 1.3 mg/dL (0.2-1.3); Blood Urea Nitrogen 22 mg/dL (7-17); Calcium 9.4 mg/dL (8.4-10.2); Carbon Dioxide 24 mmol/L (22-30); Chloride 104 mmol/L (98-107); Cholesterol 162 mg/dL (0-200); Estimated Glomerular Filt Rate > 60; Glucose 96 mg/dL (65-110); HDL Direct 40 mg/dL; Potassium 4.3 mmol/L (3.4-5.0); Sodium 135 mmol/L (137-145); Total Protein 7.0 g/dL (6.3-8.2); Triglycerides 119 mg/dL (<150)
[2025-06-03 13:16] LABS: Immunoglobulin G 727 mg/dL (700-1600)
[2025-06-03 13:32] LABS: Ferritin 78.40 ng/mL (11.1-264)
[2025-06-06 14:11] LABS: ANA by IFA Rfx Titer/Pattern Negative
== END 2025-06-03 12:05 | disposition home or self-care (01) ==
PROVIDERS: PCP Nurse Practitioner Family; Visit Provider Nurse Practitioner
DX: R73.9 Hyperglycemia, unspecified (principal); K76.0 Fatty (change of) liver, not elsewhere classified
CPT/HCPCS: 36415; 80053; 80061; 82103; 82390; 82728; 82784; 83036; 83540; 83550; 85027; 85610; 86015; 86038; 86376; 86381

== ENCOUNTER 2025-09-26 08:33 | Outpatient (CLI) | payer MEDICARE, SELFPAY ==
--- NOTE | ~2025-09-26 | MM_ITS ---
EXAMINATION: MM screening denisse BI w memo HISTORY: Screening TECHNIQUE: Craniocaudal and mediolateral oblique 3-D tomosynthesis images were obtained and synthetic 2-D images were generated. CAD analysis was submitted and interpreted. COMPARISON: Comparison to multiple prior studies sequentially, with oldest reviewed study dated 07/03/2018. BREAST PARENCHYMAL COMPOSITION: Dense: The breasts are heterogeneously dense, which may obscure small masses FINDINGS: There is no evidence of suspicious mass, calcification, or architectural distortion to suggest malignancy in either breast. There has been no suspicious interval change. IMPRESSION: 1. No mammographic evidence of malignancy. 2. Recommend routine screening mammography in one year. BI-RADS Category 1: Negative Reviewed, dictated and finalized at location [facility] [employer]
--- OUTSIDE RECORDS SUMMARY | 2025-09-26 08:45 | XMS_ITS | Data Portability ---
Author Organization [place] - [facility] OFFICE Address [address] [place] [address] Care Team Providers Care Russian Teacher Name Role Phone MANUELALDEN Primary Care Provider [phone] Assessment Encounter Date Assessment Date Assessment LastModified [...] Orders Crestor 10 mg tablet 2021 022 [facility] #[id number], [address], [place], [place], [id number], 10:28:09 metoprolol succinate ER 25 mg tablet,ext ended release 24 hr 2021 022 [facility] #[id number], [address], [place], [place], [id number], 2 10:23:20 metoprolol succinate ER 25 mg tablet,ext ended release 24 hr 2020 021 [facility] #[id number], [address], [place], [place], [id number], 1 18:12:20 metoprolol succinate ER 25 mg tablet,ext ended release 24 hr 2019 020 [email or web address] [facility] #[id number], [address], [place], [place], [id number], 0 14:12:11 Patient TargetsNo targets recorded. Patient Instructions Encounter Date Encounter Id Patient Instructions Last Modified By Organization Details Last Modified Time 08/21/2020 [id number] Exercise advised Low cholesterol diet advised Low sodium diet advised [email or web address] Not available 08/21/2020 14:00:21 Patient was seen and evaluated by Christine Ventura [facility]. Plan of care was discussed with collaborating physician and note cosigned by Dr. Smooth Adams. [email or web address] Not available 08/21/2020 14:00:16 11/27/2020 [id number] Weight loss 20 pounds Exercise advised Low cholesterol diet advised Low sodium diet advised. [email or web address] Not available 11/27/2020 18:12:13 05/28/2021 [id number] Exercise advised Low cholesterol diet advised Low sodium diet advised [email or web address] Not available 05/28/2021 14:43:47 Scribed by Christine Ventura [facility]- [email or web address] Not available 05/28/2021 15:17:59 02/26/2022 [id number] Exercise advised Low cholesterol diet advised Low [...] gram No observ ation record ed. [facility] [address], [place], [address], 07/04/2021 16:39:56 Result Notes None recorded. Problems Name Problem SNOMED Code Status Onset Date Resolution Date Notes Provider Name and Address Organization Details Recorded Time Chest pain 00528187 Active 2019 Not Available [facility] 3 13:12:10 Ankylosing spondylitis 7615244 Active 2019 Not Available [facility] 3 13:12:10 Essential hypertension 93183133 Active 2019 Not Available [facility] 3 13:12:10 Migraine 61680769 Active 2019 Not Available [facility] 3 13:12:10 Umbilical hernia 917540719 Active 2019 Not Available [facility] 3 13:12:10 Steatotic liver disease 743984895 Active 2019 Not Available [facility] 3 13:12:09 Gastroesophag eal reflux disease 555114428 Active 2019 Not Available [facility] 3 13:12:10 Hypertriglyce ridemia 560156941 Active 2019 Not Available [facility] 3 13:12:10 Postmenopausa l state 02149344 Active 2019 Not Available [facility] 3 13:12:10 Problem Notes None recorded. Procedures [...] [facility] 11/08/2019 11:28:15 Imaging Results None recorded. Procedure Notes None recorded. Medical Equipment None Reported. Allergies Allergen ID Allergen Name Allergen Category Reaction Reaction Severity Criticality Documentation Date Start Date Code Code System Note Provider Name and Address Organization Details Recorded Time 35999 Product containin g 3-hydroxy -3-methyl glutaryl- coenzyme A reductase inhibitor (product) medicatio n other severe Not available 05/28/2021 44547 009 SNOMED Steven Vick [facility], [place] - [facility] 1 14:22:03 Medications Name Sig Start Date Stop Date Status Note LastModified by Organization Details LastModified Time amoxicill in 500 mg capsule 08/21 completed pt not taking this med 08/21/20 rl Not Available Not Available Not Available [...] completed pt not taking this dose 08/21/20 rl Not Available Not Available Not Available [...] Not Available Not Available Not Available vitamin H87-lerqu acid 12/25 completed Not Available Not Available [...] rl Not Available Not Available Not Available [employer] tor 80 mg/mL subcutane ous active [...] weight Heart rate Respiratory rate Oxygen saturation Systolic And Diastolic Provider Name and Address Organization Details Last Updated DateTime 1 157.48 cm 36.9 kg/m2 84567.6 6 g 89 /min 18 /min 100 % 120/108 mm[Hg] Melida Ramirez [facility] 1 14:32:29 Date Recorded Body height Body mass index (BMI) Body weight Heart rate Oxygen saturation Systolic And Diastolic Provider Name and Address Organization Details Last Updated DateTime 2 157.48 cm 37.7 kg/m2 18076.0 3 g 90 /min 96 % 118/64 mm[Hg] Gordy Rivas [facility] 2 09:47:55 Date Recorded Body height Body mass index (BMI) Body weight Heart rate Respiratory rate Oxygen saturation Systolic And Diastolic Provider Name and Address Organization Details Last Updated DateTime 1 157.48 cm 36.6 kg/m2 22739.4 7 g 79 /min 16 /min 98 % 112/84 mm[Hg] Steven Vick [facility] 1 14:18:02 Date Recorded Body temperature Provider Name a nd Address Organization Details Last Updated DateTime 08/21/2020 98.3 [degF] Polly Valdez [facility] 08/21/2020 13:57:52 Date Recorded Body height Body mass index (BMI) Body weight Heart rate Oxygen saturation Systolic And Diastolic Provider Name and Address Organization Details Last Updated DateTime 0 157.48 cm 36.7 kg/m2 63328.3 5 g 100 /min 96 % 120/85 mm[Hg] Renetta Momin [facility] 0 14:04:06 Date Recorded Body height Heart rate Body mass index (BMI) Body weight Oxygen saturation Systolic And Diastolic Provider Name and Address Organization Details Last Updated DateTime 1 157.48 cm 96 /min 37.7 kg/m2 05310.1 1 g 96 % 122/82 mm[Hg] KRYSTEN MCNEIL [facility] 1 09:48:46 Social History Question Answer Notes LastModified by [employer] Details LastModified Time Tobacco Smoking Status Former Smoker quit 11/03/09 Angelina sagastume [facility] 11/05/2019 03:31:42 What Is Your Level Of Caffeine Consumption? Occasional [email or web address] Information not available 11/08/2019 How Much Tobacco Do You Chew? None [email or web address] Information not available 11/08/2019 What Type Of Diet Are You Following? REGULAR [email or web address] Information not available 11/08/2019 Which Illicit Or Recreational Drugs Have You Used? None Information not available 11/05/2019 Live Alone Or With Others? With Others [facility] Due To Dementia Information not available 11/05/2019 Marital Status [email or web address] Informatio n not available 11/08/2019 What Was The Date Of Your Most Recent Tobacco Screening? 11/01/2019 Information not available 11/08/2019 How Many Children Do You Have? 3 Information not available 11/05/2019 How Much Tobacco Do You Smoke? 0.5 PPD Information not available 11/08/2019 General Stress Level Medium Information not available 11/08/2019 How Many Years Have You Smoked Tobacco? 32 Information not available 11/05/2019 Sex: Unknown Functional Status Question Answer Note LastModified by Organizat ion Details LastModified Time What is your level of alcohol consumption? Occasional [email or web address] Information not available 11/08/2019 Do you or have you ever used smokeless tobacco? Former smokeless tobacco user Information not available 11/05/2019 Do you or have you ever used e-cigarettes or vape? Never used electronic cigarettes Information not available 11/05/2019 What is your exercise level? Occasional [email or web address] Information not available 11/08/2019 Mental Status None recorded. Family History Relationship Description Onset Age of this Age Resolved Age Notes LastModified by Organization Details LastModified Time Father Chronic obstructive pulmonary disease [email or web address] Not available 2019 03:27:06 Father Heart disease 49 [email or web address] Not available 2019 03:27:21 Mother Dementia [email or web address] Not available 0 11/05/2019 03:27:31 Mother Malignant neoplasm of breast [email or web address] Not available 2019 03:28:32 [...] Diagnosis SNOMED-CT Code Diagnosis ICD10 Code Diagnosis IMO Codes Diagnosis Note [id number] Smooth Adams MD [facility] [address] [place] [address] 11/08/2019 15:19:32 11/09/2019 11:23:21 Chest pain 63091108 R07.9 Angiogram 11/01/2019 No significan t CAD. Normal LVSF Echo 11/01/2019 LVSF is normal, estimated at 55-60%. LV chamber dimension is normal. The LV diastolic function is grade I diastolic dysfunctio n [id number] MD Ludivina [facility] [address] [place] [address] 02/14/2020 12:51:39 02/17/2020 22:47:49 Chest pain 63026735 R07.9 Angiogram 11/01/2019 No significan t CAD. Normal LVSF Echo 11/01/2019 LVSF is normal, estimated at 55-60%. LV chamber dimension is normal. The LV diastolic function is grade I diastolic dysfunctio n Essential hypertension 14694138 I10 Controlled . Dyslipidemia 065016449 E 78.5 [id number] MD Ludivina [facility] [address] [place] [address] 02/17/2020 11:39:17 02/17/2020 12:11:13 Chest pain 78864070 R07.9 Resolved.A ngiogram 11/01/2019 No significan t CAD. Normal LVSF Echo 11/01/2019 LVSF is normal, estimated at 55-60%. LV chamber dimension is normal. The LV diastolic function is grade I diastolic dysfunctio n Essential hypertension 52013484 I10 Controlled . Tachycardia 2623632 R00. 0 Needs to increase exercise. Will consider increasing Metoprolol if she is still tachycardi c at follow up. Dyslipidemia 572764290 E 78.5 95084 MD Jeffrey [facility] [address] [place] [address] 08/21/2020 13:56:38 08/21/2020 14:13:54 Chest pain 36516240 R07.9 Resolved C 11/01/2019 : No significan t CAD with normal LVSF Echo 11/01/2019 : LVSF is normal, estimated at 55-60%. LV chamber dimension is normal. The LV diastolic function is grade I diastolic dysfunctio n. Essential hypertension 05492605 I10 Well controlled on current regimen Tachycardia 9742081 R00. 0 Remains elevated despite increased exercise, will increase metoprolol to 25mgdaily 08/21/2020 . Dyslipidemia 441167908 E 78.5 Needs to keep LDL less than 70, and HDL more than 40. 020 LDL 83Continue atorvastat in 20mg nightlyWil l get fasting lipids for follow-up [id number] MD [facility] [address] [place] [address] 11/27/2020 14:18:22 11/27/2020 14:40:11 Chest pain 89858585 R07.9 Resolved C 11/01/2019 : No significan t CAD with normal LVSF Echo 11/01/2019 : LVSF is normal, estimated at 55-60%. LV chamber dimension is normal. The LV diastolic function is grade I diastolic dysfunctio n. Essential hypertension 35182683 I10 Well controlled on current regimen Tachycardia 6455181 R00. 0 Remains elevated despite increased exercise, will increase metoprolol to 25mgdaily 08/21/2020 . Dyslipidemia 683149252 E 78.5 Needs to keep LDL less than 70, and HDL more than 40. 020 LDL 83Continue atorvastat in 20mg nightlyWil l get fasting lipids for follow-up 47740 Smooth Adams MD [place] [facility] [place] [address] 05/28/2021 14:07:29 05/28/2021 14:54:47 Chest pain 23683797 R07.9 Resolved [facility] 11/01/2019 : No significan t CAD Essential hypertension 83037211 I10 Well controlled on current regimen Tachycardia 5149165 R00. 0 Resolved on increased dose of metoprolol at 25 mg daily Dyslipidemia 590771373 E 78.5 Needs to keep LDL less than 70, and HDL more than 40. 020 LDL 83Continue atorvastat in 20 mg nightlyWil l get fasting lipids for follow-up Dyspnea on exertion 6084 5006 R06.09 Obtain echo to evaluate for structural /functiona l disease [id number] Smooth Adams MD [place] [facility] [place] [address] 08/28/2021 09:18:42 08/28/2021 10:29:25 Chest pain 20819767 R07.9 Resolved [facility] 11/01/2019 : No significan t CAD Had BENOIT Echo with LVEF > 55% Essential hypertension 97572125 I10 Well controlled on current regimen Tachycardia 1536870 R00. 0 Resolved on increased dose of metoprolol at 25 mg daily Dyslipidemia 023115114 E 78.5 Needs to keep LDL less [...] evaluate for structural /functiona l disease Obesity 158001882 E66.9 discussed weight loss 10 lb. weight loss recommende d over the next 2 months. decrease night time eating [id number] Smooth Adams MD [place] [facility] [address] [place] [address] 02/26/2022 09:20:00 02/26/2022 10:35:08 Chest pain 11277553 R07.9 Resolved [facility] 11/01/2019 : No significan t CAD Had BENOIT Echo with LVEF > 55% Essential hypertension 19740517 I10 Well controlled on current regimen Tachycardia 8092880 R00. 0 Resolved on increased dose of metoprolol at 25 mg daily Dyslipidemia 276222992 E 78.5 Needs to keep LDL less [...] evaluate for structural /functiona l disease Obesity 598687744 E66.9 discussed weight loss 10 lb. weight [...] WELLCARE (MEDICARE REPLACEMENT/A DVANTAGE - HMO) Frederick Sellers [id number] Frederick Sellers Notes Date Note Type Note Provider Name and Address Organization Details Recorded Time 0 text/html 08/21/2020 CC : Chest pain 59 years-old Female with h/o Hypertension is here for follow up . She was last seen in clinic 6 months ago on 02/17/2020. She was in [facility] in 11/01/19 because of Chest pain. [...] is grade I diastolic dysfunction Christine Ventura [facility] [place] - [facility] 08/21/2020 14:13:51 1 text/html 11/27/2020 CC : Chest pain 59 years-old Female with h/o Hypertension is here for follow up . She was last seen in clinic 8 months ago on 02/17/2020. She was in [facility] in 11/01/19 because of Chest pain. [...] grade I diastolic dysfunction Smooth Adams MD [address] [place], [address], [facility] - [facility] 11/27/2020 18:12:37 [...] is grade I diastolic dysfunction Christine Ventura [employer] sagast[facility] - [facility] 05/28/2021 15:18:27 1 [...] PQRS 1:1 abnormal P axis, H rate 07959:EKG Atrial tachycardia. P:QRS-1:1, abnormal P axis, H [...] is grade I diastolic dysfunction wendie bedolla [facility] [place] - [facility] 08/29/2021 19:46:26 2 text/html 02/26/22CC : Cardiac follow-up years-old Female with h/o Hypertension, mil CAD [...] PQRS 1:1 abnormal P axis, H rate 78924/6/20:EKG Atrial tachycardia. P:QRS-1:1, abnormal P axis, H rate 104. Suspect arm lead reversal. Insufficient data. 10/31/2019: EKG Sinus rhythm. borderline ST abnormality-lateral leads. Baseline wander AVL, AVF. Borderline ECG Angiogram 11/01/2019 No significant CAD. Normal LVSFXR chest 11/01/2019 No acute cardiopulmonary diseaseEcho 11/01/2019 LVSF is normal, estimated at 55-60%. LV chamber dimension is normal. The LV diastolic function is grade I diastolic dysfunction MANUEL sagastume [place] - [facility] 02/26/2022 10:29:09 OBGyn Episode No OBEpisode recorded.
== END 2025-09-26 08:34 | disposition home or self-care (01) ==
LOC: ANHFOHIMG 08:34
PROVIDERS: PCP Nurse Practitioner; Visit Provider Nurse Practitioner Family
DX: Z12.31 Encounter for screening mammogram for malignant neoplasm of breast (principal)
CPT/HCPCS: 77063; 77067